=== PATIENT | female | born 1950 | race Caucasian/White ===

== ENCOUNTER → 2017-09-04 11:16 | Outpatient (CLI) | payer OTHER, SELFPAY ==
[2017-09-04 12:20] LABS: Anion Gap 6 (5-15); BUN 11 mg/dL (7-18); BUN/Creat Ratio 11.2 RATIO (10-20); Calcium,Total 9.4 mg/dL (8.5-10.1); Chloride 106 mmol/L (98-107); Creatinine, Serum 0.98 mg/dL (0.55-1.02); EST Glomerular Filtration Rate 61 mL/min (>60); Est Glom Filt Rate - Afr Amer 74 mL/min (>60); Glucose 97 mg/dL (74-106); Potassium 4.4 mmol/L (3.5-5.1); Sodium Level 141 mmol/L (136-145)
== END ==
PROVIDERS: Family Provider Internal Medicine; PCP Internal Medicine; Visit Provider Internal Medicine Cardiovascular Disease
DX: I44.7 Left bundle-branch block, unspecified (principal)
CPT/HCPCS: 36415; 80048; 83735

== ENCOUNTER 2017-09-12 09:54 | Outpatient (RCR) | payer OTHER, SELFPAY | END 2017-09-18 23:59 | LOC: NS 09:54 | PROVIDERS: Family Provider Internal Medicine; PCP Internal Medicine; Visit Provider Nurse Practitioner Family | DX: E66.9 Obesity, unspecified (principal); Z71.3 Dietary counseling and surveillance | CPT/HCPCS: 97802 ==

== ENCOUNTER 2017-10-17 10:00 | Outpatient (RCR) | payer OTHER, SELFPAY | END 2017-10-19 23:59 | LOC: NS 10:00 | PROVIDERS: Family Provider Internal Medicine; PCP Internal Medicine; Visit Provider Nurse Practitioner Family | DX: E66.9 Obesity, unspecified (principal); Z71.3 Dietary counseling and surveillance | CPT/HCPCS: 97803 ==

== ENCOUNTER → 2017-10-17 10:27 | Outpatient (CLI) | payer OTHER, SELFPAY ==
[2017-10-17 12:24] LABS: Hemoglobin A1c 5.9 % (4.2-6.3)
[2017-10-17 12:48] LABS: Anion Gap 9 (5-15); BUN 17 mg/dL (7-18); BUN/Creat Ratio 20.6 RATIO (10-20); Chloride 107 mmol/L (98-107); Cholesterol 134 mg/dL (200); Creatinine, Serum 0.83 mg/dL (0.55-1.02); EST Glomerular Filtration Rate 74 mL/min (>60); Est Glom Filt Rate - Afr Amer 89 mL/min (>60); Glucose 108 mg/dL (74-106); High Density Lipoprotein 45 mg/dL; Potassium 3.9 mmol/L (3.5-5.1); Sodium Level 143 mmol/L (136-145); Triglycerides 96 mg/dL; Very Low Density Lipoprotein 19 mg/dL (5-40)
== END ==
PROVIDERS: Family Provider Internal Medicine; PCP Internal Medicine; Visit Provider Internal Medicine
DX: E11.9 Type 2 diabetes mellitus without complications (principal); E78.5 Hyperlipidemia, unspecified; E87.6 Hypokalemia
CPT/HCPCS: 36415; 80048; 80061; 83036

== ENCOUNTER → 2017-12-06 08:35 | Outpatient (CLI) | payer MEDICARE, OTHER, SELFPAY ==
[2017-12-06 10:41] LABS: Anion Gap 10 (5-15); BUN 19 mg/dL (7-18); BUN/Creat Ratio 17.8 RATIO (10-20); Calcium,Total 9.8 mg/dL (8.5-10.1); Chloride 105 mmol/L (98-107); Creatinine, Serum 1.07 mg/dL (0.55-1.02); EST Glomerular Filtration Rate 55 mL/min (>60); Est Glom Filt Rate - Afr Amer 66 mL/min (>60); Glucose 118 mg/dL (74-106); Potassium 3.9 mmol/L (3.5-5.1); Sodium Level 142 mmol/L (136-145)
== END ==
PROVIDERS: Family Provider Internal Medicine; PCP Internal Medicine; Visit Provider Nurse Practitioner Family
DX: E87.6 Hypokalemia (principal)
CPT/HCPCS: 36415; 80048

== ENCOUNTER 2018-01-04 11:19 | Outpatient (RCR) | payer MEDICARE, OTHER, SELFPAY | END 2018-01-19 23:59 | LOC: DC 11:19 | PROVIDERS: Family Provider Internal Medicine; PCP Internal Medicine; Visit Provider Nurse Practitioner Family | DX: E11.9 Type 2 diabetes mellitus without complications (principal); E66.9 Obesity, unspecified; Z68.36 Body mass index [BMI] 36.0-36.9, adult; Z71.3 Dietary counseling and surveillance | CPT/HCPCS: G0108 ==

== ENCOUNTER → 2018-01-16 12:39 | Outpatient (CLI) | payer MEDICARE, OTHER, SELFPAY ==
[2018-01-16 14:25] LABS: Hemoglobin A1c 5.7 % (4.2-6.3)
[2018-01-16 17:50] LABS: Thyroid Stim Hormone (TSH) 2.82 uIU/mL (0.358-3.74)
== END ==
PROVIDERS: Family Provider Internal Medicine; PCP Internal Medicine; Visit Provider Nurse Practitioner Family
DX: E11.9 Type 2 diabetes mellitus without complications (principal); R63.5 Abnormal weight gain
CPT/HCPCS: 36415; 83036; 84443

== ENCOUNTER 2018-01-25 09:30 | Outpatient (RCR) | payer MEDICARE, OTHER, SELFPAY | END 2018-02-18 23:59 | LOC: DC 09:30 | PROVIDERS: Family Provider Internal Medicine; PCP Internal Medicine; Visit Provider Nurse Practitioner Family | DX: E11.9 Type 2 diabetes mellitus without complications (principal); E66.9 Obesity, unspecified; Z68.25 Body mass index [BMI] 25.0-25.9, adult; Z71.3 Dietary counseling and surveillance | CPT/HCPCS: 97802; G0109 ==

== ENCOUNTER → 2018-02-02 10:09 | Outpatient (CLI) | payer MEDICARE, OTHER, SELFPAY ==
[2018-02-02 10:12] LABS: Mucous, Urine 0 SEEN /hpf (<or=2+); White Blood Cells 0 SEEN /hpf (0-5)
[2018-02-02 10:26] LABS: Color, Urine Yellow (Yellow); Glucose, Dipstick Normal (Normal); Ketone-Dipstick Negative (Negative); Leukocyte Esterase-Dipstick Negative /ul (Negative); Nitrite-Dipstick Negative (Negative); Occult Blood-Urine 10 /ul (Negative); Protein-Dipstick Negative (Negative); Urine Bilirubin Dipstick Negative (Negative); Urine Clarity Sl. Cloudy (Clear); Urine Urobilinogen Normal (Normal)
[2018-02-02 10:33] LABS: Bacteria 1+ /hpf (None Seen); Red Blood Cells-Urine 0-5 SEEN /hpf (0-5); Squamous Epithelial Cells - UA 0-5 SEEN /hpf (5-10)
--- NOTE | 2018-02-02 14:43 | RAD_ITS ---
STUDY: X-RAY - ABDOMEN/PELVIS REASON FOR EXAM: Female, 67 years old. Pain in left lower quadrant TECHNIQUE: 2 views COMPARISON: None. FINDINGS: Normal visualized lung bases. There is an unremarkable bowel gas pattern. There is no demonstrated free abdominal air. The visualized liver, spleen and kidneys are grossly normal in size and morphology. Probable phleboliths in the pelvis. Normal soft tissue structures. Normal visualized osseous structures. RAD/Abdomen Single View IMPRESSION: No acute pathology of the abdomen and pelvis. Electronically Signed: Sherif Castellanos DO at 22:40 EDT Tel [phone], Service support ,
== END ==
PROVIDERS: Family Provider Nurse Practitioner Family; PCP Nurse Practitioner Family; Visit Provider Nurse Practitioner Family
DX: R10.32 Left lower quadrant pain (principal)
CPT/HCPCS: 74018; 81001

== ENCOUNTER 2018-02-22 08:41 | Outpatient (RCR) | payer MEDICARE, OTHER, SELFPAY | END 2018-03-21 23:59 | LOC: DC 08:41 | PROVIDERS: Family Provider Nurse Practitioner Family; PCP Nurse Practitioner Family; Visit Provider Nurse Practitioner Family | DX: E11.9 Type 2 diabetes mellitus without complications (principal); E66.9 Obesity, unspecified; Z68.25 Body mass index [BMI] 25.0-25.9, adult; Z71.3 Dietary counseling and surveillance | CPT/HCPCS: G0109 ==

== ENCOUNTER → 2018-03-26 13:43 | Outpatient (CLI) | payer MEDICARE, OTHER, SELFPAY ==
[2018-03-26 16:04] LABS: Anion Gap 8 (5-15); BUN 22 mg/dL (7-18); BUN/Creat Ratio 24.4 RATIO (10-20); Calcium,Total 9.1 mg/dL (8.5-10.1); Chloride 103 mmol/L (98-107); EST Glomerular Filtration Rate 67 mL/min (>60); Est Glom Filt Rate - Afr Amer 80 mL/min (>60); Glucose 87 mg/dL (74-106); Potassium 3.5 mmol/L (3.5-5.1); Sodium Level 139 mmol/L (136-145)
[2018-03-26 16:10] LABS: BNP,B-Type NATRIURETIC PEPTIDE 19.6 pg/mL (0-100)
[2018-03-26 16:17] LABS: Absolute Lymphocyte Count 2.33 X10^3/ul (0.83-4.51); Absolute Neutrophil Count 3.3 X10^3/uL (2.0-7.7); Basophil# 0.06 X10^3/uL; Basophil% 0.9 % (0-1); Eosinophil# 0.27 X10^3/uL; Eosinophils% 4.2 % (0-5); Hematocrit 39.5 % (37-47); Hemoglobin 12.8 g/dl (12.0-15.0); Lymphocyte # 2.33 X10^3/ul (4.0); Mean Corp Hgb Conc 32.4 g/gl (32-36); Mean Corpuscular Hgb 30.6 pg (27.0-32.0); Mean Corpuscular Volume 94.5 fL (81-99); Mean Platelet Vol. 10.4 fl (6.2-12.0); Monocyte% 7.7 % (0-10); Neutrophil # 3.29 X10^3/uL (2.7-7.7); Neutrophil % 50.9 % (47-70); Platelet Count 329 K/mm3 (150-450); RBC Distribution Width CV 12.7 % (11.6-14.6); Red Blood Count 4.18 M/mm3 (4.2-5.4); White Blood Count 6.5 K/mm3 (4.4-11.0)
[2018-03-26 16:21] LABS: POSITIVE COUNT NO; POSITIVE DIFFERENTIAL NO; POSITIVE MORPHOLOGY NO
== END ==
PROVIDERS: Family Provider Nurse Practitioner Family; PCP Nurse Practitioner Family; Referring Provider Nurse Practitioner Family; Visit Provider Nurse Practitioner Family
DX: R06.00 Dyspnea, unspecified (principal); R60.0 Localized edema
CPT/HCPCS: 36415; 80048; 83880; 85025

== ENCOUNTER 2018-03-28 10:01 | Outpatient (RCR) | payer MEDICARE, OTHER, SELFPAY | END 2018-04-20 23:59 | LOC: DC 10:01 | PROVIDERS: Family Provider Nurse Practitioner Family; PCP Nurse Practitioner Family; Visit Provider Nurse Practitioner Family | DX: E11.9 Type 2 diabetes mellitus without complications (principal); E66.9 Obesity, unspecified; Z68.25 Body mass index [BMI] 25.0-25.9, adult; Z71.3 Dietary counseling and surveillance | CPT/HCPCS: G0109 ==

== ENCOUNTER → 2018-03-30 14:02 | Outpatient (CLI) | payer MEDICARE, OTHER, SELFPAY ==
--- NOTE | 2018-03-30 14:04 | VDLE_ITS ---
Reason For Study: BLE SWELLING L > R RIGHT LEFT CFV is compressible, spontaneous, phasic, CFV is compressible, spontaneous, phasic, competent and demonstrates normal competent, and demonstrates normal augmentation. augmentation. FV is compressible, spontaneous, phasic, FV is compressible, spontaneous, phasic, competent and demonstrates normal competent and demonstrates normal augmentation. augmentation. POP V is compressible, spontaneous, phasic, POP V is compressible, spontaneous, phasic, competent and demonstrates normal competent and demonstrates normal augmentation. augmentation. T/P Trunk is compressible. T/P Trunk is compressible. PTV is compressible. PTV is compressible. RT PerV is compressible. LT PerV is compressible. SFJ is competent. SFJ is competent. GSV above knee is competent. GSV above knee is competent. GSV below knee is incompetent with diam 0.313 GSV below knee is incompetent with diam 0.414 x 0.324 cm. x 0.522 cm. SSV is incompetent with diam 0.379 x 0.386 SSV is incompetent with diam 0.604 x 0.687 cm. cm. Procedure Exam performed in department. NON-Vascular structure noted medial knee area The study was technically difficult. measuring 3.31 x 1.16 cm; also noted at The exam was diagnostic. anterior knee area measuring 3.5 x 1.8 cm. A preliminary report was called and/or faxed to Osiel Donnie YUEN @ [phone] @ 3:15 pm. <> Interpretation Summary Deep veins of the lower extremities are bilaterally patent and compressible segmentally. There is no evidence of deep vein thrombosis on either side. Valvular competence appears intact within the proximal deep venous systems bilaterally. The greater saphenous veins appear bilaterally patent and compressible segmentally. Sapheno-femoral junctions are bilaterally competent . The right greater saphenous vein appears competent above the knee. The right greater saphenous vein appears incompetent below the knee. The left greater saphenous vein appears competent above the knee. The left greater saphenous vein appears incompetent below the knee. Small saphenous veins are patent and incompetent bilaterally. A non-vascular, hypoechoic structure is noted near the left medial knee (3.31 cm x 1.16 cm) and the left anterior knee (3.5 cm x 1.8 cm). These may represent hematomas or seromas. Clinical correlation is advised. Ordering Physician: Osiel Fields Referring Physician: Osiel Fields Performed By: Yessi Cutler, SHA, RVT
== END ==
PROVIDERS: Family Provider Nurse Practitioner Family; PCP Nurse Practitioner Family; Referring Provider Nurse Practitioner Family; Visit Provider Nurse Practitioner Family
DX: R60.0 Localized edema (principal); R06.00 Dyspnea, unspecified
CPT/HCPCS: 93970

== ENCOUNTER 2018-04-25 15:27 | Outpatient (RCR) | payer MEDICARE, OTHER, SELFPAY ==
[2018-04-17 13:17] VITALS: BMI 37.9
== END 2018-05-16 23:59 ==
LOC: DC 15:27
PROVIDERS: Family Provider Nurse Practitioner Family; PCP Internal Medicine; Visit Provider Nurse Practitioner Family
DX: E11.9 Type 2 diabetes mellitus without complications (principal); E66.9 Obesity, unspecified; Z68.25 Body mass index [BMI] 25.0-25.9, adult; Z71.3 Dietary counseling and surveillance
CPT/HCPCS: 97803; G0109

== ENCOUNTER → 2018-05-08 09:41 | Outpatient (CLI) | payer MEDICARE, OTHER, SELFPAY ==
[2018-04-17 13:17] VITALS: BMI 37.9
--- NOTE | 2018-05-08 10:00 | MRI_ITS ---
STUDY: MRI LEFT KNEE REASON FOR EXAM: Female, 67 years old. Knee pain and swelling. Lateral meniscus tear. No surgery reported. TECHNIQUE: Standardized fat and water weighted pulse sequences were obtained in all 3 orthogonal planes. COMPARISON: None. FINDINGS: There is 1 cm tear of the medial meniscus, with truncation of the inner third of the posterior horn-body junction. There is diffuse, less than 50% thickness articular cartilage loss of the medial femorotibial compartment. Normal medial femoral condyle and tibial plateau. There is osteoarthrosis with moderate medial spurring. Normal medial collateral ligamentous complex (MCL). Normal distal semimembranosus, gracilis and semitendinosus tendons. There is moderate narrowing of the lateral compartment. There is a 2 cm tear of the lateral meniscus extending from the body to the posterior horn, with truncation of the inner third. If there is surgical history, this finding is also consistent with partial meniscectomy. There is lateral subluxation of the meniscal body. There is diffuse, greater than 50% thickness articular cartilage loss of the lateral femorotibial compartment. Normal lateral femoral condyle and tibial plateau. There is osteoarthrosis, with mild lateral spurring. Normal proximal tibiofibular articulation. Normal lateral collateral (fibular) ligament. Normal popliteus tendon. Normal biceps femoris tendon. Normal anterior cruciate ligament (ACL). Normal posterior cruciate ligament (PCL). Normal congruent patellofemoral articulation. There is diffuse, greater than 50% thickness articular cartilage loss of the patellofemoral compartment. Normal medial and lateral patellar retinaculum. Normal quadriceps tendon. Normal patellar tendon. Normal Hoffa's fat pad. There is a small joint effusion. There is a 7.2 x 3.1 x 1.9 cm popliteal cyst. The soft tissues are unremarkable. The otherwise visualized osseous structures are unremarkable. MRI/Lower Ext Joint Only (Routine) IMPRESSION: 1. Lateral meniscal tear. 2. Medial meniscal tear. 3. 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 4. Moderate osteoarthrosis of the lateral compartment. 5. Small joint effusion. 6. Popliteal cyst. Electronically Signed: Valarie Green MD at 20:47 EST Tel , Service support ,
--- OUTSIDE RECORDS SUMMARY | 2018-08-09 16:44 | XMS RPT_ITS ---
:1950 Author Organization OHIP Support Name Relationship Address Phone FIRST, DORIAN Unavailable Unavailable + KALAMARAS, KORIN Unavailable Unavailable + [place], [place] R Unavailable Unavailable Unavailable KALAMARAS, KORIN Unavailable Unavailable + [place] JOSELITO NABIL Unavailable [address] + [address] [place] [address] R Unavailable Unavailable Unavailable KALAMARAS, KORIN Unavailable [address] + [address] [place] [address] NABIL YEE Unavailable [address] + [address] [place] [address] R Unavailable Unavailable Unavailable KALAMARAS, KORIN Unavailable Unavailable + [place] JOSELITO NABIL Unavailable [address] + [address] [place] [address] R Unavailable Unavailable Unavailable FIRST, DORIAN Unavailable Unavailable + KALAMARAS, KORIN Unavailable Unavailable + [place] R Unavailable Unavailable Unavailable FIRST, DORIAN Unavailable . + ., . . R Unavailable Unavailable Unavailable NABIL YEE PRETTY Unavailable [address] + [address] [place] [address] R Unavailable Unavailable Unavailable NABIL YEE PRETTY Unavailable [address] + [address] [place] [address] R Unavailable Unavailable Unavailable KALAMARAS, KORIN Unavailable Unavailable + [place] JOSELITO NABIL Unavailable [address] + [address] [place] [address] R Unavailable Unavailable Unavailable FIRST, DORIAN Unavailable [address] + [address] [place] [address] NABIL YEE PRETTY Unavailable [address] + [address] [place] [address] R Unavailable Unavailable Unavailable FIRST, DORIAN Unavailable [address] + [address] [place] [address] NABIL YEE PRETTY Unavailable [address] + [address] [place] [address] R Unavailable Unavailable Unavailable FIRST, DORIAN Unavailable [address] + [address] [place] [address] NABIL YEE PRETTY Unavailable [address] + [address] [place] [address] R Unavailable Unavailable Unavailable FIRST, DORIAN Unavailable [address] + [address] [place] [address] NABIL YEE PRETTY Unavailable [address] + [address] [place] [address] R Unavailable Unavailable Unavailable FIRST, DORIAN Unavailable [address] + [address] [place] [address] NABIL YEE PRETTY Unavailable [address] + [address] [place] [address] R Unavailable Unavailable Unavailable FIRST, DORIAN Unavailable [address] + [address] [place] [address] NABIL YEE PRETTY Unavailable [address] + [address] [place] [address] R Unavailable Unavailable Unavailable FIRST, DORIAN Unavailable [address] + [address] [place] [address] NABIL YEE PRETTY Unavailable [address] + [address] [place] [address] R Unavailable Unavailable Unavailable FIRST, DORIAN Unavailable [address] + [address] [place] [address] NABIL YEE PRETTY Unavailable [address] + [address] [place] [address] R Unavailable Unavailable Unavailable FIRST, DORIAN Unavailable [address] + [address] [place] [address] YEE NABIL PRETTY Unavailable [address] + [address] [place] [address] R Unavailable Unavailable Unavailable FIRST, DORIAN Unavailable Unavailable + YEE NABIL PRETTY Unavailable [address] + [address] [place] [address] R Unavailable Unavailable Unavailable FIRST, DORIAN Unavailable Unavailable + [place] NABIL PRETTY Unavailable [address] + [address] [place] [address] R Unavailable Unavailable Unavailable FIRST, DORIAN Unavailable . + ., [place] . NABIL YEE PRETTY Unavailable [address] + [address] [place] [address] R Unavailable Unavailable Unavailable FIRST, DORIAN Unavailable . + ., [place] . NABIL YEE PRETTY Unavailable [address] + [address] [place] [address] R Unavailable Unavailable Unavailable FIRST, DORIAN Unavailable . + ., [place] . NABIL YEE PRETTY Unavailable [address] + [address] [place] [address] R Unavailable Unavailable Unavailable FIRST, DORIAN Unavailable . + ., [place] . NABIL YEE PRETTY Unavailable [address] + [address] [place] [address] R Unavailable Unavailable Unavailable FIRST, DORIAN Unavailable . + ., [place] . NABIL YEE PRETTY Unavailable [address] + [address] [place] [address] S Unavailable Unavailable Unavailable FIRST, DORIAN Unavailable [address] + [place], [place] . NABIL YEE PRETTY Unavailable [address] + [address] [place] [address] S Unavailable Unavailable Unavailable FIRST, DORIAN Unavailable [address] + [place], [place] NABIL YEE PRETTY Unavailable [address] + [address] [place] [address] S Unavailable Unavailable Unavailable FIRST, DORIAN Unavailable [address] + [place], [place] NABIL YEE PRETTY Unavailable [address] + [address] [place] [address] S Unavailable Unavailable Unavailable FIRST, DORIAN Unavailable [address] + [place], [place] . NABIL YEE PRETTY Unavailable [address] + [address] [place] [address] S Unavailable Unavailable Unavailable FIRST, DORIAN Unavailable [address] + [place], [place] . NABIL YEE Unavailable [address] + [address] [place] [address] S Unavailable Unavailable Unavailable FIRST, DORIAN Unavailable [address] + [place], [place] . NABIL YEE PRETTY Unavailable [address] + [address] [place] [address] S Unavailable Unavailable Unavailable FIRST, DORIAN Unavailable [address] Unavailable [place] NABIL YEE PRETTY Unavailable [address] + [address] [place] [address] S Unavailable Unavailable Unavailable S Unavailable Unavailable Unavailable S Unavailable Unavailable Unavailable S Unavailable Unavailable Unavailable S Unavailable Unavailable Unavailable S Unavailable Unavailable Unavailable Care Team Providers Name Role Phone ASHLEY ANDRADE Attending Unavailable ASHLEY ANDRADE Referring Unavailable Ashley Fields PHARMACOGNOSY TEACHER-C Primary Care Unavailable Oleghe, Efewongbe Consulting Unavailable Oleghe, Efewongbe Attending Unavailable Ashley Fields PHARMACOGNOSY TEACHER-C Referring Unavailable Ashley Fields PHARMACOGNOSY TEACHER-C Primary Care Unavailable Oleghe, Efewongbe Consulting Unavailable Oleghe, Efewongbe Attending Unavailable Oleghe, Efewongbe Referring Unavailable Oleghe, Efewongbe Attending Unavailable Oleghe, Efewongbe Referring Unavailable Oleghe, Efewongbe Primary Care Unavailable FieldsAshley PHARMACOGNOSY TEACHER-C Attending Unavailable Oleghe, Efewongbe Primary Care Unavailable Oleghe, Efewongbe Attending Unavailable Oleghe, Efewongbe Referring Unavailable Oleghe, Efewongbe Attending Unavailable Oleghe, Efewongbe Primary Care Unavailable Oleghe, Efewongbe Referring Unavailable Oleghe, Efewongbe Attending Unavailable Oleghe, Efewongbe Referring Unavailable FieldsAshley PHARMACOGNOSY TEACHER-C Attending Unavailable Oleghe, Efewongbe Referring Unavailable Oleghe, Efewongbe Primary Care Unavailable FieldsAshley PHARMACOGNOSY TEACHER-C Attending Unavailable Fields, Ashley PHARMACOGNOSY TEACHER-C Referring Unavailable Oleghe, Efewongbe Primary Care Unavailable Mary Cat Attending Unavailable Colton, Alonzo Attending Unavailable Oleghe, Efewongbe Referring Unavailable Oleghe, Efewongbe Primary Care Unavailable Colton, [place] Attending Unavailable Colton, Alonzo Referring Unavailable Oleghe, Efewongbe Primary Care Unavailable Jose Locke Attending Unavailable Oleghe, Efewongbe Referring Unavailable Oleghe, Efewongbe Attending Unavailable Oleghe, Efewongbe Referring Unavailable Oleghe, Efewongbe Primary Care Unavailable FieldsAshley PHARMACOGNOSY TEACHER-C Attending Unavailable FieldsAshley PHARMACOGNOSY TEACHER-C Referring Unavailable Oleghe, Efewongbe Primary Care Unavailable Colton, Alonzo Attending Unavailable Oleghe, Efewongbe Attending Unavailable Oleghe, Efewongbe Referring Unavailable Oleghe, Efewongbe Primary Care Unavailable FieldsAshley PHARMACOGNOSY TEACHER-C Attending Unavailable FieldsAshley PHARMACOGNOSY TEACHER-C Referring Unavailable Oleghe, Efewongbe Primary Care Unavailable FieldsAshley PHARMACOGNOSY TEACHER-C Attending Unavailable Oleghe, Efewongbe Referring Unavailable Oleghe, Efewongbe Primary Care Unavailable Fields, Ashley PHARMACOGNOSY TEACHER-C Attending Unavailable FieldsAshley PHARMACOGNOSY TEACHER-C Referring Unavailable Oleghe, Efewongbe Primary Care Unavailable FieldsAshley PHARMACOGNOSY TEACHER-C Attending Unavailable Oleghe, Efewongbe Primary Care Unavailable Oleghe, Efewongbe Attending Unavailable Oleghe, Efewongbe Referring Unavailable Fields, Ashley PHARMACOGNOSY TEACHER-C Attending Unavailable Oleghe, Efewongbe Referring Unavailable Oleghe, Efewongbe Primary Care Unavailable Fields, Ashley PHARMACOGNOSY TEACHER-C Attending Unavailable Fields, Ashley PHARMACOGNOSY TEACHER-C Referring Unavailable Oleghe, Efewongbe Primary Care Unavailable Fields, Ashley PHARMACOGNOSY TEACHER-C Attending Unavailable Oleghe, Efewongbe Primary Care Unavailable Fields, Ashley PHARMACOGNOSY TEACHER-C Attending Unavailable Oleghe, Efewongbe Referring Unavailable Oleghe, Efewongbe Primary Care Unavailable Fields, Ashley PHARMACOGNOSY TEACHER-C Attending Unavailable Fields, Ashley PHARMACOGNOSY TEACHER-C Referring Unavailable Fields, Ashley PHARMACOGNOSY TEACHER-C Primary Care Unavailable Nurse, Surgery Attending Unavailable Fields, Ashley PHARMACOGNOSY TEACHER-C Referring Unavailable Fields, Ashley PHARMACOGNOSY TEACHER-C Attending Unavailable Fields, Ashley PHARMACOGNOSY TEACHER-C Primary Care Unavailable Fields, Ashley PHARMACOGNOSY TEACHER-C Attending Unavailable Fields, Ashley PHARMACOGNOSY TEACHER-C Primary Care Unavailable Fields, Ashley PHARMACOGNOSY TEACHER-C Attending Unavailable Fields, Ashley PHARMACOGNOSY TEACHER-C Referring Unavailable Fields, Ashley PHARMACOGNOSY TEACHER-C Attending Unavailable Fields, Ashley PHARMACOGNOSY TEACHER-C Referring Unavailable Fields, Ashley PHARMACOGNOSY TEACHER-C Primary Care Unavailable Fields, Ashley PHARMACOGNOSY TEACHER-C Attending Unavailable Fields, Ashley PHARMACOGNOSY TEACHER-C Referring Unavailable Fields, Ashley PHARMACOGNOSY TEACHER-C Primary Care Unavailable Oleghe, Efewongbe Attending Unavailable Oleghe, Efewongbe Referring Unavailable Fields, Ashley PHARMACOGNOSY TEACHER-C Attending Unavailable Fields, Ashley PHARMACOGNOSY TEACHER-C Primary Care Unavailable LUPE, ASHLEY Attending Unavailable LUPE, ASLHEY Referring Unavailable Fields, Ashley PHARMACOGNOSY TEACHER-C Primary Care Unavailable MARKIE WADE Consulting Unavailable PROBLEMS PROBLEMS DATE TYPE CONDITION / CODE ATTENDING STATUS SOURCE 06/06/2018 Unknown M47.22 - Other LUPE, ASHLEY Active [place] spondylosis with Community radiculopathy, Hospital cervical region / Repository M47.22(ICD-10) 05/22/2018 Unknown E11.9 - Type 2 Fields, Ashley Active [place] diabetes mellitus PHARMACOGNOSY TEACHER-C Community without Hospital complications / Repository E11.9(ICD-10) 05/30/2018 Unknown R19.02 - Left upper Oleghe, Active [place] quadrant abdominal Efewongbe Community swelling, mass and Hospital lump / Repository R19.02(ICD-10) 06/05/2018 Unknown R06.02 - Shortness MoodispawJose Active [place] of breath / Community R06.02(ICD-10) Hospital Repository 03/26/2018 Unknown R06.00 - Dyspnea, Fields, Ashley Active [place] unspecified / PHARMACOGNOSY TEACHER-C Community R06.00(ICD-10) Hospital Repository 02/03/2018 Unknown R10.32 - Left lower Fields, Ashley Active [place] quadrant pain / PHARMACOGNOSY TEACHER-C Community R10.32(ICD-10) Hospital Repository 02/02/2018 Unknown Z23 - Encounter for Fields, Ashley Active [place] immunization / PHARMACOGNOSY TEACHER-C Community Z23(ICD-10) Hospital Repository 01/16/2018 Unknown R63.5 - Abnormal Fields, Ashley Active [place] weight gain / PHARMACOGNOSY TEACHER-C Community R63.5(ICD-10) Hospital Repository 01/16/2018 Unknown F41.8 - Other Fields, Ashley Active [place] specified anxiety PHARMACOGNOSY TEACHER-C Community disorders / Hospital F41.8(ICD-10) Repository 12/06/2017 Unknown E87.6 - Hypokalemia Fields, Ashley Active [place] / E87.6(ICD-10) PHARMACOGNOSY TEACHER-C Community Hospital Repository 11/28/2017 Unknown E66.9 - Obesity, Fields, Ashley Active [place] unspecified / PHARMACOGNOSY TEACHER-C Community E66.9(ICD-10) Hospital Repository 11/28/2017 Unknown I10 - Essential Fields, Ashley Active [place] (primary) PHARMACOGNOSY TEACHER-C Community hypertension / Hospital I10(ICD-10) Repository 11/28/2017 Unknown E78.5 - Fields, Ashley Active [place] Hyperlipidemia, PHARMACOGNOSY TEACHER-C Community unspecified / Hospital E78.5(ICD-10) Repository 11/28/2017 Unknown L91.8 - Other Fields, Ashley Active [place] hypertrophic PHARMACOGNOSY TEACHER-C Community disorders of the Hospital skin / Repository L91.8(ICD-10) 11/28/2017 Unknown G47.33 - Fields, Ashley Active [place] Obstructive sleep PHARMACOGNOSY TEACHER-C Community apnea (adult) Hospital (pediatric) / Repository G47.33(ICD-10) 11/28/2017 Unknown Z99.89 - [place]ependence Fields, Ashley Active [place] on other enabling PHARMACOGNOSY TEACHER-C Community machines and Hospital devices / Repository Z99.89(ICD-10) 08/29/2017 Unknown I44.7 - Left Colton, Alonzo Active [place] bundle-branch Community block, unspecified Hospital / I44.7(ICD-10) Repository PROCEDURES PROCEDURES No Procedure Records FoundRESULTS RESULTS INTERNAL MEDICINE Observed: 06/01/2018 Status: F Source: [place] OFFICE VISIT 1:40 PM [facility] [address] [place] [address] [place] [address] OFFICE VISIT Date of Service: 05/30/18 MR#: [id number] Acct: [id number] Name: JERMAINE YEE Rep #: [id number] : 1950 Provider: Jenifer Pool MD Age/Sex: 67/F Location: [facility] Status: Signed Intake Vital Signs05/30/18 Body Mass Index (BMI) 37.9 05/30/18 Height 5 ft 9 in 05/30/18 Weight: 262 lb 05/30/18 Body Mass Index (BMI) 38.7 05/30/18 Blood Pressure 121/77 H Intake Visit Reasons: nauseated, bp elevated Chief Complaint: nausea AND elevated BP Is patient in pain?: No Allergies dibucaine Allergy (Severe, Verified 05/30/18 16:16) Rash, itching Iodinated Contrast- Oral and IV Dye Allergy (Severe, Verified 05/30/18 16:16) RAsh, Itching wool Allergy (Verified 05/30/18 16:16) Rash NSAIDS (Non-Steroidal Anti-Inflamma Adverse Reaction (Severe, Verified 05/30/18 16:16) GI Bleeding adhesive tape Adverse Reaction (Intermediate, Verified 05/30/18 16:16) localized skin reaction acetaminophen [From Darvocet-N] Adverse Reaction (Verified 05/30/18 16:16) Vomiting codeine Adverse Reaction (Verified 05/30/18 16:16) Vomiting hydrocodone bitartrate [From Vicodin] Adverse Reaction (Verified 05/30/18 16:16) Vomiting morphine Adverse Reaction (Verified 05/30/18 16:16) Vomiting propoxyphene napsylate [From Darvocet-N] Adverse Reaction (Verified 05/30/18 16:16) Vomiting Medications aspirin 81 mg tablet,delayed release 81 mg PO QDAY 04/24/17 [History Confirmed 05/30/18] fluticasone 50 mcg/actuation nasal spray,suspension 2 spray INTRANASAL DAILY PRN #15.8 g 07/21/17 [Rx Confirmed 05/30/18] cyclobenzaprine 10 mg tablet 10 mg PO TID PRN #30 tab 08/04/17 [Rx Confirmed 05/30/18] metoprolol succinate ER 25 mg tablet,extended release 24 hr 25 mg PO DAILY #90 tab 08/29/17 [Rx Confirmed 05/30/18] hydrocortisone 2.5 % topical ointment 1 applic TOPICAL BID #28.35 g 03/21/18 [Rx Confirmed 05/30/18] compression stocking,knee high,regular,large circumfer. See Dose Instructions .ROUTE .MEDSUPPLY #2 ea 03/23/18 [Rx Confirmed 05/30/18] bupropion HCl XL 150 mg 24 hr tablet, extended release 150 mg PO QAM #30 tab 04/17/18 [Rx Confirmed 05/30/18] melatonin 10 mg capsule 10 mg PO HS PRN 04/17/18 [History Confirmed 05/30/18] potassium chloride ER 10 mEq tablet,extended release 10 meq PO .QOD tab 05/11/18 [History Confirmed 05/30/18] rosuvastatin 10 mg tablet 10 mg PO DAILY #60 tab 05/17/18 [Rx Confirmed 05/30/18] spironolactone 25 mg-hydrochlorothiazide 25 mg tablet 1 tab PO DAILY #90 tab 05/17/18 [Rx Confirmed 05/30/18] omeprazole 40 mg capsule,delayed release 40 mg PO DAILY #60 cap 05/30/18 [Rx Confirmed 05/30/18] [facility] Medical History LBBB (left bundle branch block) (Chronic) Ventricular premature depolarization (Acute) Type 2 diabetes mellitus (Chronic) Pulmonary hypertension (Chronic) Hypokalemia (Acute) Hypomagnesemia (Acute) Hypertension (Chronic) Hyperlipidemia (Chronic) Paroxysmal atrial fibrillation (Chronic) COPD (chronic obstructive pulmonary disease) (Chronic) Obesity (Chronic) Depression (Acute) Palpitations (Acute) Rectal bleeding (Acute) Asthma (Chronic) Fibromyalgia (Chronic) LIAM (obstructive sleep apnea) (Chronic) Pulmonary nodule (Chronic) Raynauds disease (Chronic) Umbilical hernia (Chronic) Surgical History History of torn meniscus of left knee (Acute) History of hemorrhoidectomy (Chronic) History of knee replacement procedure of right knee (Resolved 2014) History of total hysterectomy (Resolved) S/P cervical spinal fusion (Resolved 2016) Family History Father Atrial fibrillation Uncle Atrial fibrillation Social History Smoking Status: Never smoker second hand exposure: No alcohol intake: never substance use type: does not use what type of physical activity do you participate in: none seatbelt use: always HPI HPI Chief Complaint: nausea AND elevated BP Details: JERMAINE YEE, is a 67 F who presents to the office today due to concerns for upper abdominal pain and nausea which has been ongoing for some weeks. She denies vomiting or any change in bowel habit. She denies any known history of reflux. She also reports concerns about her blood pressure. She appears to have very good readings. Blood pressure taken twice in office is optimal. He also notes a left-sided abdominal flank fullness which is been progressively worsening. She is also noted some pain lately. She denies any weight changes. ROS Const Constitutional: No chills, fatigue, fever(s), frequent falls, malaise, weakness, sleep problems or change in appetite Eyes Eyes: No blurry vision, change in vision, double vision, discharge or visual disturbances ENT ENT: No abnormal hearing, ear pain, ear pressure, tinnitus or dizziness/vertigo Resp Respiratory: No cough, shortness of breath or wheezing Cardio Cardiology: No chest pain at rest, chest pain with exertion, shortness of breath, dyspnea on exertion, irregular heart rhythm, lightheadedness, orthopnea, fast heart rate or palpitations Gastro GI: Positive for nausea/dyspepsia; no abdominal pain, change in bowel habits, constipation, diarrhea or vomiting Genitourinary-Female: No difficulty urinating, burning urination, painful urination, urinary incontinence, urinary frequency, urinary urgency, urinary hesitancy, urinary retention, Frequent nighttime urination/ nocturia, sexual problems, genital lesions, abnormal vaginal bleeding, pelvic pain, vaginal dryness, vaginal odor or Vaginal Itching Musc Musculoskeletal: No joint pain, back pain, joint swelling, limited range of motion, numbness or tingling Skin Skin: No change in skin color, itching, rash or wounds Breast Breast: No breast lump or breast pain Neuro Neurology: No frequent falls, weakness, visual disturbances, abnormal hearing, numbness, tingling, unsteady gait/balance, dizziness, loss of vision or memory loss Psych Psychiatric: No change in appetite, No memory loss, No anxiety, No depression, No Thoughts of harming yourself/Others Endo Endocrine: No fatigue, heat intolerance, increased thirst/drinking, increased hunger or increased urination Aller/Imm Allergy/Immunologic: No wheezing, itchy eyes or seasonal allergy symptoms Brenden/Lymp Hematologic/Lymphatic: No easy bleeding, easy bruising or enlarged lymph nodes Exam Const General: cooperative, no acute distress, well developed Orientation: alert, awake [facility] Head: atraumatic, normocephalic, normal to inspection Ears: hearing grossly normal bilaterally Resp Effort AND Inspection: normal respiratory effort, able to speak in complete sentences Auscultation: Bilateral: Clear to Auscultation Cardio Rate: regular rate Rhythm: regular rhythm Heart Sounds: S1 normal, S2 normal GI Inspection: obesity Palpation: soft, no hepatosplenomegaly Other: Bilateral flank fullness however, more so on the left. Large firm mass noted on the left flank. Neuro General: alert, awake, oriented x3, moves all extremities, CN's II-XI intact bilaterally Psych Appearance: grossly normal Mental Status: mental status grossly normal Affect: normal affect Assessment AND Plan 1. Nausea R11.0 Plan She reports nausea/dyspepsia with upper abdominal pain. Possibly GERD related. Will try omeprazole 40 mg every morning. Advised to call in any concerning symptoms otherwise, follow- up in a month. 2. Essential hypertension I10 Plan Blood pressure appears stable. Checked both manually and with the machine. Advised to bring her blood pressure machine at her next visit. Continue current medication. 3. LLQ abdominal mass R19.04 Plan She reports progressively worsening bilateral flank fullness however worse on the left which is now tender. Obvious fullness/mass noted on examination. Abdominal pelvic CT scan ordered. Will follow. This note was generated with orderbolt dictation software. It may contain incorrect words, spelling, and punctuation that were not noted in checking the note before signing. Plan Detail Other Orders Orders: Other Medications New: Coding Level of Care Code Off vis,est,level 4 Diagnoses Nausea R11.0 Essential hypertension I10 Hypertension type: essential hypertension LLQ abdominal mass R19.04 06/01/18 1340 <Electronically signed by Jenifer Pool MD> Date Jenifer Pool MD Cosigner Signature: Date (if applicable) CC: ECHO, COMPLETE W/ Observed: 05/17/2018 Status: F Source: [place] CONTRAST 5:07 PM [facility] REPOSITORY [facility] Cardiovascular Services [address] [place] [address] Echo Complete W/ Contrast 05/17/18 1410 MR#: [id number] Acct: [id number] Name: JERMAINE YEE Rep #: [id number] : 1950 67 From: Jose Locke MD Attending Dr: Jenifer Pool MD Status: REG CLI Ordering Dr: Jenifer Pool MD Date: 05/17/18 Location: [facility] Sex: F C Admitted: Reason For Study: Dyspnea/SOB Procedure This was a 2D Doppler, Color Flow transthoracic echocardiogram. The study was technically difficult. Contrast injection was performed. Exam performed in department. Left Ventricle Normal LV size. Left ventricular systolic function is normal. The estimated ejection fraction is 60 %. Septal motion consistent with IVCD. No evidence for diastolic dysfunction. No regional wall motion abnormalities noted. Right Ventricle Normal RV size. Normal systolic function. Atria The left atrium is mildly enlarged. Normal right atrium. No doppler evidence for ASD. Mitral Valve There is no mitral annular calcification. Normal mitral valve. Mild (1+) mitral valve insufficiency. Tricuspid Valve The tricuspid valve is not well visualized. Mild to moderate (1-2+) tricuspid valve insufficiency. Right ventricular systolic pressure estimated to be 32 mmHg. Aortic Valve Trisinus/trileaflet aortic valve. Normal aortic valve. Pulmonic Valve The pulmonic valve is not well visualized. Trivial pulmonic valve insufficiency. Great Vessels Normal sized aortic root. Pericardium/Pleural No pericardial effusion. Medication 22 gauge I.V. with prn adaptor inserted into right arm. Diluted definity 4ml given slow IV push to enhance endocardial definition. MMode/2D Measurements AND Calculations LVIDd: 5.0 cm IVSd: 0.68 cm Ao root diam: 3.3 cm LVIDs: 3.4 cm LVPWd: 1.2 cm FS: 31.3 % LAV(MOD-bp): 68.1 ml LA A4 area: 21.8 cm2 RA A4 area: 18.6 cm2 LAV(MOD-bp) Indexed: 29.2 ml/m2 LAV(MOD-sp2): 66.6 ml LAV(MOD-sp4): 66.1 ml Time Measurements MV dec time: 0.23 sec Doppler Measurements AND Calculations MV E max arnav: 57.1 cm/sec Lat Peak E' Arnav: 8.5 cm/sec Med Peak E' Arnav: 4.3 cm/sec MV A max arnav: 92.2 cm/sec E/E' lat: 6.8 E/E' med: 13.4 MV E/A: 0.62 MV V2 max: 110.7 cm/sec MV P1/2t max arnav: 64.5 cm/sec Ao V2 max: 154.2 cm/sec MV max P.9 mmHg MV P1/2t: 92.2 msec Ao max P.5 mmHg MV V2 mean: 55.2 cm/sec MV dec slope: 204.9 cm/sec2 MV mean P.4 mmHg MV V2 VTI: 22.6 cm MVA(P1/2t): 2.4 cm2 LV V1 max: 101.9 cm/sec PA V2 max: 116.5 cm/sec TR max ranav: 244.1 cm/sec LV V1 max P.2 mmHg TR max P.8 mmHg Interpretation Summary The study was technically difficult. Contrast injection was performed. Left ventricular systolic function is normal. The estimated ejection fraction is 60 %. Septal motion consistent with IVCD. The left atrium is mildly enlarged. Mild (1+) mitral valve insufficiency. Mild to moderate (1-2+) tricuspid valve insufficiency. Trivial pulmonic valve insufficiency. Right ventricular systolic pressure estimated to be 32 mmHg. No evidence for diastolic dysfunction. Ordering Physician: Jenifer Pool Referring Physician: Jenifer Pool Performed By: Kerwin Chapin [facility] 05/17/181706 Date Jose Locke MD CC: Jenifer Pool MD Date Dictated: 05/17/18 1410 Date Transcribed: 05/17/181706 Story Writer: Signed CBC W/DIFF, AUTOMATED Collected: 05/17/2018 Status: F Source: [place] 11:20 AM [facility] REPOSITORY TYPE CODE TESTS RESULT OUT OF RANGE REFERENCE UNITS LAB L100.1000 4.4-11.0 K/mm3 Normal WBC 6.5 LAB L100.1200 4.2-5.4 M/mm3 Normal RBC 4.68 LAB L100.1300 12.0-15.0 g/dl Normal HGB 14.4 LAB L100.1400 37-47 % Normal HCT 43.9 LAB L100.1500 81-99 fL Normal MCV 93.8 LAB L100.1600 27.0-32.0 pg Normal MCH 30.8 LAB L100.1700 32-36 g/gl Normal MCHC 32.8 LAB L100.1810 11.6-14.6 % Normal RDW CV 13.1 LAB L100.1820 35.1-43.9 fl High RDW SD 44.6 LAB L100.1900 150-450 K/mm3 Normal PLT 324 LAB L100.2000 6.2-12.0 fl Normal MPV 9.8 LAB L100.2100 47-70 % Normal NEUT% 53.5 LAB L100.2200 19-41 % Normal LY% 36.4 LAB L100.2300 0-10 % Normal MONO% 6.2 LAB L100.2400 0-5 % Normal EO% 3.1 LAB L100.2500 0-1 % Normal BASO% 0.5 LAB L100.2550 0.0-0.9 % Normal IM GRAN % 0.300 Result Comment: IG% - Immature Granulocytes (promyelocytes, myelocytes and metamyelocytes) > 1% indicates that a LEFT SHIFT is Present. LAB L100.2620 2.0-7.7 X10 3/uL Normal Absolute Neut 3.5 LAB L100.2720 0.83-4.51 X10 3/ul Normal Absolute Lymph 2.35 Performed By: #### L100.0100 #### [facility] [address] [place], [place], [address] BASIC METABOLIC Collected: 05/17/2018 Status: F Source: [place] PROFILE ([facility]) 11:20 AM [facility] REPOSITORY TYPE CODE TESTS RESULT OUT OF RANGE REFERENCE UNITS LAB L501.0100 74-106 mg/dL High GLU 118 Result Comment: Fasting Glucose result from 100 to 125 mg/dL suggests IMPAIRED HOMEOSTASIS per A.D.A. criteria. Please note revised GLUCOSE reference range effective 2017. LAB L501.1000 7-18 mg/dL Normal BUN 14 LAB L501.1100 0.55-1.02 mg/dL Normal CREAT,SERUM 1.02 Result Comment: The validity of the calculated GFR AND GFRAA in patients over 70 years has not been determined. Clinical correlation is essential. LAB L501.1110 >60 mL/min Low EST GFR 58 Result Comment: Non- GFR Calc LAB L501.1115 >60 mL/min Normal EST GFR - AA 70 Result Comment: GFR Calc LAB L501.1300 10-20 RATIO Normal BUN/CRE 13.7 LAB L501.2200 8.5-10.1 mg/dL CA Normal 9.4 LAB L501.5300 136-145 mmol/L NA Normal 141 LAB L501.5600 3.5-5.1 mmol/L K Normal 4.0 LAB L501.5900 98-107 mmol/L CL Normal 102 LAB L501.6100 21.0-32.0 mmol/L Normal CO2 30.0 LAB L501.6200 5-15 Normal GAP 9 Performed By: #### L500.2500, L500.4100 #### [facility] [address] [place], [address] LIPID PROFILE Collected: 05/17/2018 Status: F Source: [place] 11:20 AM [facility] REPOSITORY TYPE CODE TESTS RESULT OUT OF RANGE REFERENCE UNITS LAB L501.4900 200 mg/dL High CHOL 218 Result Comment: <200 mg/dL Desirable 200-240 mg/dL Borderline >240 mg/dL High Risk LAB L501.5000 mg/dL High TRIG 250 Result Comment: The drugs N-Acetylcysteine and Metamizole may falsely depress this assay. Serum Triglycerides Reference Interval Normal <150 mg/dL Borderline high 150 - 199 mg/dL High 200 - 499 mg/dL Very High > or = 500 mg/dL LAB L501.6400 mg/dL Normal HDL 43 Result Comment: The drugs N-Acetylcysteine and Metamizole may falsely depress this assay. Reference Range HDL <40 mg/dL Low HDL Cholesterol HDL >or= 60 mg/dL High HDL Cholesterol LAB L501.6500 0-130 mg/dL Normal LDL 125 LAB L501.6600 5-40 mg/dL High VLDL 50 Performed By: #### L500.2500, L500.4100 #### [facility] [address] [place], [address] INTERNAL MEDICINE Observed: 05/14/2018 Status: F Source: [place] OFFICE VISIT 8:30 AM [facility] REPOSITORY [facility] [address] [place] [address] [place] [address] OFFICE VISIT Date of Service: 05/11/18 MR#: [id number] Acct: [id number] Name: JERMAINE YEE Rep #: [id number] : 1950 Provider: Jenifer Pool MD Age/Sex: 67/F Location: [facility] Status: Signed Intake Vital Signs05/11/18 Body Mass Index (BMI) 37.9 05/11/18 Height 5 ft 9 in 05/11/18 Weight: 262 lb 05/11/18 Body Mass Index (BMI) 38.7 05/11/18 Blood Pressure 138/87 H 05/11/18 Blood Pressure Location Lt brachial Intake Visit Reasons: 1 mo fu Chief Complaint: 1 month f/u Is patient in pain?: Yes (Left knee) Pain scale (1-10): 8 Allergies dibucaine Allergy (Severe, Verified 05/11/18 14:34) Rash, itching Iodinated Contrast- Oral and IV Dye Allergy (Severe, Verified 05/11/18 14:34) RAsh, Itching wool Allergy (Verified 05/11/18 14:34) Rash NSAIDS (Non-Steroidal Anti-Inflamma Adverse Reaction (Severe, Verified 05/11/18 14:34) GI Bleeding adhesive tape Adverse Reaction (Intermediate, Verified 05/11/18 14:34) localized skin reaction acetaminophen [From Darvocet-N] Adverse Reaction (Verified 05/11/18 14:34) Vomiting codeine Adverse Reaction (Verified 05/11/18 14:34) Vomiting hydrocodone bitartrate [From Vicodin] Adverse Reaction (Verified 05/11/18 14:34) Vomiting morphine Adverse Reaction (Verified 05/11/18 14:34) Vomiting propoxyphene napsylate [From Darvocet-N] Adverse Reaction (Verified 05/11/18 14:34) Vomiting Medications aspirin 81 mg tablet,delayed release 81 mg PO QDAY 04/24/17 [History Confirmed 05/11/18] fluticasone 50 mcg/actuation nasal spray,suspension 2 spray INTRANASAL DAILY PRN #15.8 g 07/21/17 [Rx Confirmed 05/11/18] spironolactone 25 mg-hydrochlorothiazide 25 mg tablet 1 tab PO DAILY #90 tab 07/21/17 [Rx Confirmed 05/11/18] cyclobenzaprine 10 mg tablet 10 mg PO TID PRN #30 tab 08/04/17 [Rx Confirmed 05/11/18] metoprolol succinate ER 25 mg tablet,extended release 24 hr 25 mg PO DAILY #90 tab 08/29/17 [Rx Confirmed 05/11/18] hydrocortisone 2.5 % topical ointment 1 applic TOPICAL BID #28.35 g 03/21/18 [Rx Confirmed 05/11/18] compression stocking,knee high,regular,large circumfer. See Dose Instructions .ROUTE .MEDSUPPLY #2 ea 03/23/18 [Rx Confirmed 05/11/18] bupropion HCl XL 150 mg 24 hr tablet, extended release 150 mg PO QAM #30 tab 04/17/18 [Rx Confirmed 05/11/18] melatonin 10 mg capsule 10 mg PO HS PRN 04/17/18 [History Confirmed 05/11/18] buspirone 10 mg tablet 10 mg PO BID #60 tab 05/11/18 [Rx Confirmed 05/11/18] potassium chloride ER 10 mEq tablet,extended release 10 meq PO .QOD tab 05/11/18 [History] [facility] Medical History LBBB (left bundle branch block) (Chronic) Ventricular premature depolarization (Acute) Type 2 diabetes mellitus (Chronic) Pulmonary hypertension (Chronic) Hypokalemia (Acute) Hypomagnesemia (Acute) Hypertension (Chronic) Hyperlipidemia (Chronic) Paroxysmal atrial fibrillation (Chronic) COPD (chronic obstructive pulmonary disease) (Chronic) Obesity (Chronic) Depression (Acute) Palpitations (Acute) Rectal bleeding (Acute) Asthma (Chronic) Fibromyalgia (Chronic) LIAM (obstructive sleep apnea) (Chronic) Pulmonary nodule (Chronic) Raynauds disease (Chronic) Umbilical hernia (Chronic) Surgical History History of torn meniscus of left knee (Acute) History of hemorrhoidectomy (Chronic) History of knee replacement procedure of right knee (Resolved 2014) History of total hysterectomy (Resolved) S/P cervical spinal fusion (Resolved 2016) Family History Father Atrial fibrillation Uncle Atrial fibrillation Social History Smoking Status: Never smoker second hand exposure: No alcohol intake: never substance use type: does not use what type of physical activity do you participate in: none seatbelt use: always HPI HPI Chief Complaint: 1 month f/u Details: JERMAINE YEE, is a 67yo F who presents to the office today for follow-up. She was seen about a month ago and started on Wellbutrin in buspirone for management of anxiety and depression. She has been stable has had no problems with the medications. Still some anxiety. However concerned about progressively worsening shortness of breath said to be with activity. She denies any known precipitating aggravating or relieving factors. No significant lower extremity swelling. No known history of congestive heart failure. ROS Const Constitutional: No chills, fatigue, fever(s), frequent falls, malaise, weakness, sleep problems or change in appetite Eyes Eyes: No blurry vision, change in vision, double vision, discharge or visual disturbances ENT ENT: No abnormal hearing, ear pain, ear pressure, tinnitus or dizziness/vertigo Resp Respiratory: No cough, shortness of breath or wheezing Cardio Cardiology: No chest pain at rest, chest pain with exertion, shortness of breath, dyspnea on exertion, generalized swelling, irregular heart rhythm, lightheadedness, orthopnea, fast heart rate or palpitations Gastro GI: No abdominal pain, change in bowel habits, constipation, diarrhea, nausea/dyspepsia or vomiting Genitourinary-Female: No difficulty urinating, burning urination, painful urination, urinary incontinence, urinary frequency, urinary urgency, urinary hesitancy, urinary retention, Frequent nighttime urination/ nocturia, sexual problems, genital lesions, abnormal vaginal bleeding, pelvic pain, vaginal dryness, vaginal odor or Vaginal Itching Musc Musculoskeletal: No back pain, joint swelling, limited range of motion or numbness Skin Skin: No change in skin color, itching, rash or wounds Breast Breast: No breast lump or breast pain Neuro Neurology: No frequent falls, weakness, visual disturbances, abnormal hearing, numbness, unsteady gait/balance, dizziness, loss of vision or memory loss Psych Psychiatric: No change in appetite, No memory loss, No anxiety, No depression, No Thoughts of harming yourself/Others Endo Endocrine: No fatigue, heat intolerance, increased thirst/drinking, increased hunger or increased urination Aller/Imm Allergy/Immunologic: No wheezing, itchy eyes or seasonal allergy symptoms Brenden/Lymp Hematologic/Lymphatic: No easy bleeding, easy bruising or enlarged lymph nodes Exam Const General: cooperative, no acute distress, well developed Orientation: alert, awake HENMT Head: atraumatic, normocephalic, normal to inspection Ears: hearing grossly normal bilaterally Resp Effort AND Inspection: normal respiratory effort, able to speak in complete sentences Auscultation: Bilateral: Clear to Auscultation Cardio Rate: regular rate Rhythm: regular rhythm Heart Sounds: S1 normal, S2 normal GI Inspection: obesity Palpation: soft, no hepatosplenomegaly Neuro General: alert, awake, oriented x3, moves all extremities, CN's II-XI intact bilaterally Psych Appearance: grossly normal Mental Status: mental status grossly normal Affect: normal affect Assessment AND Plan 1. Depression with anxiety F41.8 Plan Appears to be doing okay depression gordon on Wellbutrin. No intolerable side effects of the medication. However has noted some episodes of heightened anxiety. Currently on buspirone. Increase to 10 mg twice daily. Continue Wellbutrin at current dose. Follow-up in 6 weeks. 2. Shortness of breath R06.02 Plan With activity. Progressively worsening per patient. Denies orthopnea. Lower extremity edema. 2D echo and CBC ordered. Follow-up with results. Orders Orders: 3. Hyperlipidemia, unspecified hyperlipidemia type E78.5 Plan Had been on simvastatin however patient discontinued. Lipid profile ordered. Lifestyle and dietary modifications. This note was generated with orderbolt dictation software. It may contain incorrect words, spelling, and punctuation that were not noted in checking the note before signing. Plan Detail Other Medications Changed: Coding Level of Care Code Off vis,est,level 4 Diagnoses Depression with anxiety F41.8 Shortness of breath R06.02 Hyperlipidemia, unspecified hyperlipidemia type E78.5 Hyperlipidemia type: unspecified 05/14/18 0830 <Electronically signed by Jenifer Pool MD> Date Jenifer Pool MD Cosigner Signature: Date (if applicable) CC: SCREENING MAMM (CAD), Observed: 05/10/2018 Status: F Source: [place] BIL 3:54 PM [facility] REPOSITORY [facility] Imaging Services [address] [place] [id number] SCREENING MAMM (CAD), BILAT MR#: [id number] Acct: [id number] Name: JERMAINE YEE Rep #: [id number] : 1950 F 67 From: Kyrie Dumas MD PCP: Donnie YUEN,Ashley Status: REG CLI Study: SCREENING MAMM (CAD), BILAT Date of Exam: 05/10/18 Exam# [id number] Ordering Dr: Jenifer Pool MD MAMMOGRAPHY - BILATERAL SCREENING REASON FOR EXAM: Female, 67 years old. Routine annual screening examination. PERTINENT HISTORY: Mother with breast cancer. Grandmother's with breast cancer. Aunts with breast cancer. TECHNIQUE: Digital bilateral breast star (3D mammographic acquisition) in the CC and MLO projections. 2-D mediolateral oblique (MLO) and craniocaudad (CC) views of both breasts were obtained. CAD: Full Field Digital Mammography with Computer Added Detection was performed. COMPARISON: Comparison is made with prior study dated April 03, 2017 and December 13, 2010. FINDINGS: Breast Composition: The breasts are heterogeneously dense, which may obscure small masses. There are no dominant masses or suspicious calcifications. Stable 1.1 cm x 0.6 cm nodular density in the anterior upper lateral portion of the left breast with a fatty hilum. This is suggestive of a small lymph node. Stable bilateral axillary lymph nodes. No other significant abnormalities are identified. There has been no significant change since the prior study. BI/SCREENING MAMM (CAD), BILAT IMPRESSION: Stable bilateral screening mammogram. Yearly follow-up mammogram recommended. (A) ASSESSMENT CATEGORY: BIRADS Category 2: Benign. A letter regarding these results will be sent to the patient by the facility within 30 days. Approximately 10% of breast cancers are not detected by mammography. A normal mammogram should not delay biopsy of a clinically suspicious abnormality. [id number] Electronically Signed: Kyrie Dumas MD at 8:35 EST Tel [phone], Service support , CC: Jenifer Pool MD; Ashley Fields NP Story Writer: Signed INITIAL EVALUATION (2) Observed: 05/09/2018 Status: F Source: [place] - [place] 10:39 AM [facility] REPOSITORY [facility] [address] [place] [address]. [address] [place] [address] Fax REHABILITATION SERVICES INITIAL EVALUATION MR#: [id number] Acct: [id number] Name: JERMAINE YEE Rep #: [id number] : 1950 67 From: Seun Gaffney PT, ATC Referring DrNadia: ASHLEY ANDRADE Status: REG RCR Insurance: MEDICARE PART A B [facility] Patient's Visit Information JERMAINE YEE is a 67 year old F referred to Physical Therapy by Ashley Andrade MD with a diagnosis of L knee menisectomy. Date of Evaluation: 05/09/18 Physical Therapist: Seun Gaffney PT, ATC - Visit Plan Frequency: 2-3x /Week Duration: 4-6 Weeks Plan: L knee stretching and strengthening, balance and proprio, core stab ex's, nustep, and HEP - Subjective Findings: DOS: 02/28/18. Pt had a partial medial menisectomy performed on her L knee. Pt reports she had pain for a while and finally went to the doctor. Pt reports she had an MRI prior to surgery which revealed a torn meniscus. Pt reports her knee is still swollen and sore and has not improved since the DOS. Pt reports she just had another MRI yesterday because of her knee not progressing. Pt reports she is functionally limited with stair negotiation and prolonged ambulation secondary to pain. No L LE tingling or numbness at this time. Pt reports sleep difficulty at this time secondary to pain. 0/10 pain at rest, 10/10 pain at worst - Pain L knee Intensity: 0 Pain Intensity Range: 10 - Objective Objective: Neuro: B LE sensation is WNL to light touch. Palpation: Crepitus with AROM in L knee. Mild swelling present in L knee. No obvious signs of infection. Girth at joint line: L knee 48 cm, R knee 46 cm. ROM: R knee 0-5-115, L knee 0-7-110. MMT: R knee 5/5 throughout. L knee flexion 5/5, L knee extension= 4-/5. Gait: Pt ambulates with a limp of her L LE - Goals Goal 1:: Decrease L knee pain x 50% to aid with sleep Goal Time Frame: 4-6 Weeks Goal 2:: Increase L knee ROM x 10 degrees to aid with restoring a more normal gait pattern Goal Time Frame: 4-6 Weeks Goal 3:: Increase L knee strength x 1 grade to aid with RTW without limitation Goal Time Frame: 4-6 Weeks Goal 4:: I with HEP Goal Time Frame: 4-6 Weeks - Rehabilitation Potential Physical Therapy Diagnosis: L knee pain, weakness, and limited ROM secondary to L knee menisectomy Rehabilitation Potential: Good - Anticipated Interventions Patient/Client Instruction: Educate patient on: Condition, Plan of Care For the Purpose of:: To improve self management Therapeutic Exercise to Include: Strength training, Endurance training, Balance training, Flexibilty training, Gait and locomotor training, Active ROM, Dynamic Lumbar Stabilization For the Purpose of:: To decrease pain, To increase ROM, To improve muscle performance and motor function Cryotherapy (ice pack, ice massage): Yes For the Purpose of:: To decrease pain Thank you for the opportunity to evaluate your patient. For Medicare and Medicare HMO plans, please review the plan of care and approve it. It will need to be FAXED BACK to us at [phone] for Medicare purposes. For Medicare only, by signing this I certify the plan of care. Please let me know if there are questions or concerns regarding this plan of care. Physician Signature: Date: <Electronically signed by Seun Gaffney PT, ATC> 05/09/18 1039 CC: Jenifer Pool MD; ASHLEY ANDRADE [facility] Signed INITAL EVALUATION (1) Observed: 05/09/2018 Status: F Source: [place] - PT 9:43 AM [facility] REPOSITORY [facility] [address] [place] [address] Rd. [address] [place] [address] Fax REHABILITATION SERVICES INITIAL EVALUATION MR#: [id number] Acct: [id number] Name: JERMAINE YEE Rep #: [id number] : 1950 67 From: Seun Gaffney PT, ATC Referring Dr.: ASHLEY ANDRADE Status: REG RCR Insurance: MEDICARE PART A B [facility] Patient's Visit Information JERMAINE YEE is a 67 year old F referred to Physical Therapy by Ashley Andrade MD with a diagnosis of C/S pain. Date of Evaluation: 05/09/18 Physical Therapist: Seun Gaffney PT, ATC - Visit Plan Frequency: 2-3x /Week Duration: 4 Weeks Plan: C/S ROM ex's, postural edu, DTR, US, and EMS - Subjective Findings: DOS: approximately one year ago. Pt reports she had a pinched nerve which resulted in her R UE being numb, and very limited cervical spine ROM. Pt reports after the surgery she was nearly pain free for a year after surgery until one month ago. Pt reports she was lying in bed when she suddenly experienced all of her symptoms return. Pt reports she has had R UE numbness and neck pain since. Pt reports her hope is to be able to get rid of this pain through PT. Pt is R hand dominant. Sig sleep diff at this time secondary to pain. 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 0/10 pain at rest, 10/10 if she moves her neck wrong. - Pain neck pain Pain Intensity (Out of 10): 0 Pain Intensity Range: 10 - Objective Neuro: B UE sensation is WNL to light touch. B bicepital reflex= 1/3. MMT: B UE sensation is 5/5 throughout. C/S ROM: Pt is severely limited with ext and R SB. Moderately limited with R rot. All other ranges are WNL. Special testing: Pos compression and distraction tests in C/S - Goals Goal 1:: Decrease neck pain x 50% to aid with sleep Goal Time Frame: 4-6 Weeks Goal 2:: Increase cervical spine ROM x 1 grade to aid with IADL's Goal Time Frame: 4-6 Weeks Goal 3:: I with HEP Goal Time Frame: 4-6 Weeks - Rehabilitation Potential Physical Therapy Diagnosis: R sided neck pain, limited ROM, and R UE radiculopathy secondary to deg changes to the c/s Rehabilitation Potential: Good - Anticipated Interventions Patient/Client Instruction: Educate patient on: Condition, Plan of Care For the Purpose of:: To improve self management Therapeutic Exercise to Include: Body mechanics, Postural training, Passive ROM, Active ROM, Scapular Strength/Stabilization For the Purpose of:: To decrease pain, To increase ROM, To improve muscle performance and motor function IF ES: Yes Ultrasound (thermal/non thermal): Yes For the Purpose of:: To decrease pain Thank you for the opportunity to evaluate your patient. For Medicare and Medicare HMO plans, please review the plan of care and approve it. It will need to be FAXED BACK to us at [phone] for Medicare purposes. For Medicare only, by signing this I certify the plan of care. Please let me know if there are questions or concerns regarding this plan of care. Physician Signature: Date: <Electronically signed by Seun Gaffney PT, ATC> 05/09/18 0943 CC: Jenifer Pool MD; ASHLEY ANDRADE [facility] Signed LOWER EXT JOINT ONLY Observed: 05/08/2018 Status: F Source: [place] (ROUTINE) 9:45 AM [facility] REPOSITORY [facility] Imaging Services [address] [place] [address] Lower Ext Joint Only (Routine) MR#: [id number] Acct: [id number] Name: JERMAINE YEE Rep #: [id number] : 1950 F 67 From: Valarie Green MD PCP: Ashley Fields NP Status: REG CLI Study: Lower Ext Joint Only (Routine) Date of Exam: 05/08/18 Exam# [id number] Ordering Dr: Ashley Andrade MD STUDY: MRI LEFT KNEE REASON FOR EXAM: Female, 67 years old. Knee pain and swelling. Lateral meniscus tear. No surgery reported. TECHNIQUE: Standardized fat and water weighted pulse sequences were obtained in all 3 orthogonal planes. COMPARISON: None. FINDINGS: There is 1 cm tear of the medial meniscus, with truncation of the inner third of the posterior horn-body junction. There is diffuse, less than 50% thickness articular cartilage loss of the medial femorotibial compartment. Normal medial femoral condyle and tibial plateau. There is osteoarthrosis with moderate medial spurring. Normal medial collateral ligamentous complex (MCL). Normal distal semimembranosus, gracilis and semitendinosus tendons. There is moderate narrowing of the lateral compartment. There is a 2 cm tear of the lateral meniscus extending from the body to the posterior horn, with truncation of the inner third. If there is surgical history, this finding is also consistent with partial meniscectomy. There is lateral subluxation of the meniscal body. There is diffuse, greater than 50% thickness articular cartilage loss of the lateral femorotibial compartment. Normal lateral femoral condyle and tibial plateau. There is osteoarthrosis, with mild lateral spurring. Normal proximal tibiofibular articulation. Normal lateral collateral (fibular) ligament. Normal popliteus tendon. Normal biceps femoris tendon. Normal anterior cruciate ligament (ACL). Normal posterior cruciate ligament (PCL). Normal congruent patellofemoral articulation. There is diffuse, greater than 50% thickness articular cartilage loss of the patellofemoral compartment. Normal medial and lateral patellar retinaculum. Normal quadriceps tendon. Normal patellar tendon. Normal Hoffa's fat pad. There is a small joint effusion. There is a 7.2 x 3.1 x 1.9 cm popliteal cyst. The soft tissues are unremarkable. The otherwise visualized osseous structures are unremarkable. MRI/Lower Ext Joint Only (Routine) IMPRESSION: 1. Lateral meniscal tear. 2. Medial meniscal tear. 3. 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 4. Moderate osteoarthrosis of the lateral compartment. 5. Small joint effusion. 6. Popliteal cyst. Electronically Signed: Valarie Green MD at 20:47 EST Tel , Service support , CC: ASHLEY ANDRADE; Ashley Fields NP Story Writer: Signed INTERNAL MEDICINE Observed: 04/19/2018 Status: F Source: [place] OFF[place] VISIT 6:54 PM [facility] [address] [place] [address] [place] [address] OFFICE VISIT Date of Service: 04/17/18 MR#: [id number] Acct: [id number] Name: JERMAINE YEE Rep #: [id number] : 1950 Provider: Jenifer Pool MD Age/Sex: 67/F Location: [facility] [place] Status: Signed Intake Vital Signs04/17/18 Height 5 ft 9 in Intake Visit Reasons: 3 MO FU Chief Complaint: 3 month f/u Is patient in pain?: No Allergies dibucaine Allergy (Severe, Verified 03/23/18 14:58) Rash, itching Iodinated Contrast- Oral and IV Dye Allergy (Severe, Verified 03/23/18 14:58) RAsh, Itching wool Allergy (Verified 03/23/18 14:58) Rash NSAIDS (Non-Steroidal Anti-Inflamma Adverse Reaction (Severe, Verified 03/23/18 14:58) GI Bleeding adhesive tape Adverse Reaction (Intermediate, Verified 03/23/18 14:58) localized skin reaction acetaminophen [From Darvocet-N] Adverse Reaction (Verified 03/23/18 14:58) Vomiting codeine Adverse Reaction (Verified 03/23/18 14:58) Vomiting hydrocodone bitartrate [From Vicodin] Adverse Reaction (Verified 03/23/18 14:58) Vomiting morphine Adverse Reaction (Verified 03/23/18 14:58) Vomiting propoxyphene napsylate [From Darvocet-N] Adverse Reaction (Verified 03/23/18 14:58) Vomiting Medications Ubidecarenone [Co Q-10] 100 mg PO DAILY 10/18/16 [History Confirmed 03/23/18] aspirin 81 mg tablet,delayed release 81 mg PO QDAY 04/24/17 [History Confirmed 03/23/18] fluticasone 50 mcg/actuation nasal spray,suspension 2 spray INTRANASAL DAILY PRN #15.8 g 07/21/17 [Rx Confirmed 03/23/18] simvastatin 20 mg tablet 20 mg PO QPM #90 tab 07/21/17 [Rx Confirmed 04/17/18] spironolactone 25 mg-hydrochlorothiazide 25 mg tablet 1 tab PO DAILY #90 tab 07/21/17 [Rx Confirmed 04/17/18] potassium chloride ER 10 mEq tablet,extended release 10 meq PO QDAY #90 tab 07/24/17 [Rx Confirmed 03/23/18] cyclobenzaprine 10 mg tablet 10 mg PO TID PRN #30 tab 08/04/17 [Rx Confirmed 03/23/18] metoprolol succinate ER 25 mg tablet,extended release 24 hr 25 mg PO DAILY #90 tab 08/29/17 [Rx Confirmed 04/17/18] hydrocortisone 2.5 % topical ointment 1 applic TOPICAL BID #28.35 g 03/21/18 [Rx Confirmed 03/23/18] compression stocking,knee high,regular,large circumfer. See Dose Instructions .ROUTE .MEDSUPPLY #2 ea 03/23/18 [Rx Confirmed 03/23/18] albuterol sulfate 2.5 mg/3 mL (0.083 %) solution for nebulization 1.25 mg INHALATION Q4H PRN 04/17/18 [History Confirmed 04/17/18] budesonide 0.5 mg/2 mL suspension for nebulization 2 ml INHALATION DAILY 04/17/18 [History Confirmed 04/17/18] bupropion HCl XL 150 mg 24 hr tablet, extended release 150 mg PO QAM #30 tab 04/17/18 [Rx Confirmed 04/17/18] buspirone 7.5 mg tablet 7.5 mg PO BID #60 tab 04/17/18 [Rx Confirmed 04/17/18] melatonin 10 mg capsule 10 mg PO HS PRN 04/17/18 [History Confirmed 04/17/18] Post menopausal: Yes PFSH Medical History LBBB (left bundle branch block) (Chronic) Ventricular premature depolarization (Acute) Type 2 diabetes mellitus (Chronic) Pulmonary hypertension (Chronic) Hypokalemia (Acute) Hypomagnesemia (Acute) Hypertension (Chronic) Hyperlipidemia (Chronic) Paroxysmal atrial fibrillation (Chronic) COPD (chronic obstructive pulmonary disease) (Chronic) Obesity (Chronic) Depression (Acute) Palpitations (Acute) Rectal bleeding (Acute) Asthma (Chronic) Fibromyalgia (Chronic) LIAM (obstructive sleep apnea) (Chronic) Pulmonary nodule (Chronic) Raynauds disease (Chronic) Umbilical hernia (Chronic) Surgical History History of torn meniscus of left knee (Acute) History of hemorrhoidectomy (Chronic) History of knee replacement procedure of right knee (Resolved 2014) History of total hysterectomy (Resolved) S/P cervical spinal fusion (Resolved 2016) Family History Father Atrial fibrillation Uncle Atrial fibrillation Social History Smoking Status: Never smoker second hand exposure: No alcohol intake: never substance use type: does not use what type of physical activity do you participate in: none seatbelt use: always HPI HPI Chief Complaint: 3 month f/u Details: JERMAINE YEE, is a 67yo F who presents to the office today for follow-up of her chronic medical conditions. She also has some concerns. She has had to deal with a lot of stresses especially at home she states that this has been progressively worsening. This is affected her anxiety/depression and does not believe Zoloft is helping anymore. Currently undergoing counseling with very minimal benefit. Denies suicidal or homicidal ideations or attempts. She however is on very low-dose of Zoloft but is skeptical about increasing it due to weight gain. She states that she has had significant problems with weight management and this is beginning to impact her activities. She denies having been on Wellbutrin in the past or any concerns with this medication in the past. ROS Const Constitutional: No weight change, body ache, chills, fatigue, sleep problems, fever(s), change in appetite, snoring, weakness, frequent falls, headache(s) or excessive sweating Eyes Eyes: No change in vision, eye pain, light sensitivity or blurry vision ENT ENT: No headache(s), abnormal hearing, ear pain, tinnitus, nasal congestion, sore throat or neck pain Resp Respiratory: No snoring, cough, shortness of breath or wheezing Cardio Cardiology: No excessive sweating, chest pain at rest, chest pain with exertion, shortness of breath, dyspnea on exertion, palpitations, orthopnea or lightheadedness Gastro GI: No abdominal pain, change in bowel habits, constipation, diarrhea, vomiting, nausea/dyspepsia or cramping Genitourinary-Female: No burning urination, painful urination, urinary incontinence, urinary frequency, abnormal vaginal bleeding, pelvic pain or other Musc Musculoskeletal: Positive for back pain; no neck pain, abnormal walking, limited range of motion, numbness or tingling Skin Skin: No redness, dry skin, itching, lesions, wounds or rash Neuro Neurology: No weakness, frequent falls, headache(s), abnormal hearing, abnormal walking, numbness, tingling, abnormal speech, dizziness or memory loss Psych Psychiatric: No change in appetite, No memory loss, No anxiety, No depression, No Thoughts of harming yourself/Others Endo Endocrine: No fatigue, excessive sweating, cold intolerance, increased thirst/drinking, heat intolerance, flushing or increased hunger Aller/Imm Allergy/Immunologic: No wheezing, itchy eyes, hives or seasonal allergy symptoms Brenden/Lymp Hematologic/Lymphatic: No easy bleeding, easy bruising or enlarged lymph nodes Exam Const General: cooperative, no acute distress, well developed Orientation: alert, awake [facility] Head: atraumatic, normocephalic, normal to inspection Ears: hearing grossly normal bilaterally Resp Effort AND Inspection: normal respiratory effort, able to speak in complete sentences Auscultation: Bilateral: Clear to Auscultation Cardio Rate: regular rate Rhythm: regular rhythm Heart Sounds: S1 normal, S2 normal GI Inspection: obesity Palpation: soft, no hepatosplenomegaly Neuro General: alert, awake, oriented x3, moves all extremities, CN's II-XI intact bilaterally Extrem General: pedal edema Psych Appearance: grossly normal Mental Status: mental status grossly normal Affect: normal affect Assessment AND Plan 1. Depression with anxiety F41.8 Plan Largely situational/due to current living situation. Has been on suboptimal dosing of Zoloft however patient skeptical about increasing due to weight gain. Taper of Zoloft. Will start on Wellbutrin at 150 mg daily and buspirone 7.5 mg twice daily. Continue counseling. Advised to call with any questions or concerns otherwise, follow-up in 1 month. 2. Obesity E66.9 Plan Chronic, bothersome, significant limitation of activities. Dietary and lifestyle modifications encouraged. Wellbutrin as above. Follow-up at next visit. This note was generated with orderbolt dictation software. It may contain incorrect words, spelling, and punctuation that were not noted in checking the note before signing. Plan Detail Other Medications New: Discontinued: duloxetine Start 30mg daily x 1 week. Discontinued Reason:30 mg PO BID 60 caps 3RF Order Changed Coding Level of Care Code Off vis,est,level 3 Diagnoses Depression with anxiety F41.8 Obesity E66.9 Obesity type: due to excess calories Obesity classification: adult class 2 (BMI 35 - 39.9) 04/19/18 0075 <Electronically signed by Jenifer Pool MD> Date Jenifer Pool MD Cosigner Signature: Date (if applicable) CC: VENOUS DUPLEX LOWER Observed: 04/07/2018 Status: F Source: [place] EXTREMITY 11:07 AM [facility] REPOSITORY [facility] Cardiovascular Services [address] [place] [address] Venous Duplex US - Son Extrem 03/30/18 1407 MR#: [id number] Acct: [id number] Name: JERMAINE YEE Rep #: [id number] : 1950 67 From: Nabil Lindo MD Attending Dr: Ashley Fields NP Status: REG CLI Ordering Dr: Ashley Fields NP-C Date: 03/30/18 Location: [facility] Sex: F C Admitted: Reason For Study: BLE SWELLING L > R RIGHT LEFT CFV is compressible, spontaneous, phasic, CFV is compressible, spontaneous, phasic, competent and demonstrates normal competent, and demonstrates normal augmentation. augmentation. FV is compressible, spontaneous, phasic, FV is compressible, spontaneous, phasic, competent and demonstrates normal competent and demonstrates normal augmentation. augmentation. POP V is compressible, spontaneous, phasic, POP V is compressible, spontaneous, phasic, competent and demonstrates normal competent and demonstrates normal augmentation. augmentation. T/P Trunk is compressible. T/P Trunk is compressible. PTV is compressible. PTV is compressible. RT PerV is compressible. LT PerV is compressible. SFJ is competent. SFJ is competent. GSV above knee is competent. GSV above knee is competent. GSV below knee is incompetent with diam 0.313 GSV below knee is incompetent with diam 0.414 x 0.324 cm. x 0.522 cm. SSV is incompetent with diam 0.379 x 0.386 SSV is incompetent with diam 0.604 x 0.687 cm. cm. Procedure Exam performed in department. NON- Vascular structure noted medial knee area The study was technically difficult. measuring 3.31 x 1.16 cm; also noted at The exam was diagnostic. anterior knee area measuring 3.5 x 1.8 cm. A preliminary report was called and/or faxed to Ashley Fields [employer] @ [phone] @ 3:15 pm. <> Interpretation Summary Deep veins of the lower extremities are bilaterally patent and compressible segmentally. There is no evidence of deep vein thrombosis on either side. Valvular competence appears intact within the proximal deep venous systems bilaterally. The greater saphenous veins appear bilaterally patent and compressible segmentally. Sapheno-femoral junctions are bilaterally competent . The right greater saphenous vein appears competent above the knee. The right greater saphenous vein appears incompetent below the knee. The left greater saphenous vein appears competent above the knee. The left greater saphenous vein appears incompetent below the knee. Small saphenous veins are patent and incompetent bilaterally. A non-vascular, hypoechoic structure is noted near the left medial knee (3.31 cm x 1.16 cm) and the left anterior knee (3.5 cm x 1.8 cm). These may represent hematomas or seromas. Clinical correlation is advised. Ordering Physician: Ashley Fields Referring Physician: Ashley Fields Performed By: Yessi Cutler, SHA, RVT 04/07/18 1107 Date Nabil Lindo MD CC: Ashley Fields NP Date Dictated: 03/30/18 1407 Date Transcribed: 04/07/181106 Story Writer: Signed INTERNAL MEDICINE Observed: 03/28/2018 Status: F Source: [place] OFFICE VISIT 1:34 PM [facility] Internal Medicine [address] [place] [address] [address] [place] [address] OFFICE VISIT Date of Service: 03/23/18 MR#: [id number] Acct: [id number] Name: JERMAINE YEE Rep #: [id number] : 1950 Provider: Ashley Fields NP Age/Sex: 67/F Location: [facility] Status: Signed Intake Vital Signs03/23/18 Height 5 ft 9 in 03/23/18 Weight: 261 lb 03/23/18 Body Mass Index (BMI) 38.5 03/23/18 Blood Pressure 130/76 H 03/23/18 Blood Pressure Location Lt brachial Intake Visit Reasons: Swelling extremities Chief Complaint: Swelling extremities Is patient in pain?: Yes (Lt knee) Allergies dibucaine Allergy (Severe, Verified 03/23/18 14:58) Rash, itching Iodinated Contrast- Oral and IV Dye Allergy (Severe, Verified 03/23/18 14:58) RAsh, Itching wool Allergy (Verified 03/23/18 14:58) Rash NSAIDS (Non-Steroidal Anti-Inflamma Adverse Reaction (Severe, Verified 03/23/18 14:58) GI Bleeding adhesive tape Adverse Reaction (Intermediate, Verified 03/23/18 14:58) localized skin reaction acetaminophen [From Darvocet-N] Adverse Reaction (Verified 03/23/18 14:58) Vomiting codeine Adverse Reaction (Verified 03/23/18 14:58) Vomiting hydrocodone bitartrate [From Vicodin] Adverse Reaction (Verified 03/23/18 14:58) Vomiting morphine Adverse Reaction (Verified 03/23/18 14:58) Vomiting propoxyphene napsylate [From Darvocet-N] Adverse Reaction (Verified 03/23/18 14:58) Vomiting Medications Ubidecarenone [Co Q-10] 100 mg PO DAILY 10/18/16 [History Confirmed 03/23/18] aspirin 81 mg tablet,delayed release 81 mg PO QDAY 04/24/17 [History Confirmed 03/23/18] fluticasone 50 mcg/actuation nasal spray,suspension 2 spray INTRANASAL DAILY PRN #15.8 g 07/21/17 [Rx Confirmed 03/23/18] simvastatin 20 mg tablet 20 mg PO QPM #90 tab 07/21/17 [Rx Confirmed 03/23/18] spironolactone 25 mg-hydrochlorothiazide 25 mg tablet 1 tab PO DAILY #90 tab 07/21/17 [Rx Confirmed 03/23/18] potassium chloride ER 10 mEq tablet,extended release 10 meq PO QDAY #90 tab 07/24/17 [Rx Confirmed 03/23/18] cyclobenzaprine 10 mg tablet 10 mg PO TID PRN #30 tab 08/04/17 [Rx Confirmed 03/23/18] metoprolol succinate ER 25 mg tablet,extended release 24 hr 25 mg PO DAILY #90 tab 08/29/17 [Rx Confirmed 03/23/18] sertraline 50 mg tablet 25 mg PO QDAY tab 09/15/17 [History Confirmed 03/23/18] hydrocortisone 2.5 % topical ointment 1 applic TOPICAL BID #28.35 g 03/21/18 [Rx Confirmed 03/23/18] compression stocking,knee high,regular,large circumfer. See Dose Instructions .ROUTE .MEDSUPPLY #2 ea 03/23/18 [Rx Confirmed 03/23/18] [facility] Medical History LBBB (left bundle branch block) (Chronic) Ventricular premature depolarization (Acute) Type 2 diabetes mellitus (Chronic) Pulmonary hypertension (Chronic) Hypokalemia (Acute) Hypomagnesemia (Acute) Hypertension (Chronic) Hyperlipidemia (Chronic) Paroxysmal atrial fibrillation (Chronic) COPD (chronic obstructive pulmonary disease) (Chronic) Obesity (Chronic) Depression (Acute) Palpitations (Acute) Rectal bleeding (Acute) Asthma (Chronic) Fibromyalgia (Chronic) LIAM (obstructive sleep apnea) (Chronic) Pulmonary nodule (Chronic) Raynauds disease (Chronic) Umbilical hernia (Chronic) Surgical History History of torn meniscus of left knee (Acute) History of hemorrhoidectomy (Chronic) History of knee replacement procedure of right knee (Resolved 2014) History of total hysterectomy (Resolved) S/P cervical spinal fusion (Resolved 2016) Family History Father Atrial fibrillation Uncle Atrial fibrillation Social History Smoking Status: Never smoker second hand exposure: No alcohol intake: never substance use type: does not use what type of physical activity do you participate in: none seatbelt use: always HPI HPI Chief Complaint: Swelling extremities Details: JERMAINE YEE, is a 67 F who presents to the office today for an acute visit of swelling of the lower extremities weight gain x the last couple of weeks. She had a past medical history as listed above. The patient states that over the last couple weeks she has noted more swelling in her lower extremities and that she continues to gain weight. However compared from her weight a month ago, there is only been an increase of 4 pounds. The patient states that she continues to follow-up with nutrition services and that she has been watching the sodium in her diet, however she continues to note occasional swelling in her hands and occasional swelling in her lower extremities. She states that the swelling is better in the morning and then gets worse throughout the day. She denies any orthopnea and denies any worsening shortness of breath. She does state that on occasion she has dyspnea on exertion. She is also requesting an order for her mammogram. She otherwise denies any fever, chills, nausea, vomiting, chest pain or pressure, syncope or presyncopal episodes. ROS Const Constitutional: Positive for weight change; no chills, fatigue, fever(s), frequent falls, malaise, weakness, sleep problems or change in appetite Eyes Eyes: No blurry vision, change in vision, double vision, discharge or visual disturbances ENT ENT: No abnormal hearing, ear pain, ear pressure, tinnitus or dizziness/vertigo Resp Respiratory: No cough, shortness of breath or wheezing Cardio Cardiology: Positive for shortness of breath and generalized swelling; no chest pain at rest, chest pain with exertion, dyspnea on exertion, irregular heart rhythm, lightheadedness, orthopnea, fast heart rate or palpitations Gastro GI: No abdominal pain, change in bowel habits, constipation, diarrhea, nausea/dyspepsia or vomiting Genitourinary-Female: No difficulty urinating, burning urination, painful urination, urinary incontinence, urinary frequency, urinary urgency, urinary hesitancy, urinary retention, Frequent nighttime urination/ nocturia, sexual problems, genital lesions, abnormal vaginal bleeding, pelvic pain, vaginal dryness, vaginal odor or Vaginal Itching Musc Musculoskeletal: No joint pain, back pain, joint swelling, limited range of motion, muscle weakness, numbness or tingling Skin Skin: No change in skin color, itching, rash or wounds Breast Breast: No breast lump or breast pain Neuro Neurology: No frequent falls, weakness, abnormal hearing, numbness, tingling, unsteady gait/balance, dizziness, loss of vision, memory loss or visual disturbances Psych Psychiatric: No memory loss, No anxiety, No change in appetite, No depression, No Thoughts of harming yourself/Others Endo Endocrine: No fatigue, heat intolerance, increased thirst/drinking, increased hunger or increased urination Aller/Imm Allergy/Immunologic: No wheezing, itchy eyes or seasonal allergy symptoms Brenden/Lymp Hematologic/Lymphatic: No easy bleeding, easy bruising or enlarged lymph nodes Exam Const General: cooperative, comfortable, no acute distress Nutritional Appearance: average body habitus, well nourished Orientation: alert, oriented x3 Limitations: mental status not altered Resp Effort AND Inspection: normal respiratory effort, able to speak in complete sentences, normal respiratory pattern, symmetric chest movement, no audible wheezes, no cough Auscultation: Bilateral: Clear to Auscultation Cardio Palpation: normal PMI Rate: regular rate Heart Sounds: S1 normal, S2 normal, normal S1 and S2, no click, no gallops, no murmurs, no rubs Musc Musculoskeletal: No muscle weakness Skin General: no rashes or lesions noted, elasticity normal, turgor normal Lesions: no lesions Rashes: no rashes Neuro General: alert, awake, oriented x3, CN's II-XI intact bilaterally Speech: speech normal Gait: normal gait Motor: muscle tone normal throughout Extrem Other: no edema appreciated to the bilateral upper extremities, bilateral lower extremity 1+ nonpitting edema that starts below the knee and extends to the ankle, multiple varicose veins present as well, strong dorsal pedis pulses 2+, negative for bilateral calf tenderness Psych Appearance: grossly normal Mental Status: mental status grossly normal Affect: normal affect Attitude: cooperative Thought Process: normal Assessment AND Plan Problems 1. Lower extremity edema R60.0 2. Venous insufficiency (chronic) (peripheral) I87.2 3. Dyspnea R06.00 Plan Patient does have complaints of lower extremity edema and weight gain. However on exam her edema is minimal and compared to the last month there is only been a 4 pound weight gain. She denies any orthopnea though she does state she has occasional dyspnea on exertion. Will check a BTNP as patient is concerned may be heart related. Her lower extremity edema is most likely due to venous insufficiency, will order vascular studies and will order compression stockings at 20-30 mmHg to be worn daily. Discussed continuing limiting her sodium intake. Discussed red flag symptoms that require urgent medical attention. Patient to follow-up as previously scheduled or sooner if needed. During disclaimer Orders Orders: Medications New: compression stocking,knee high,regular,larwear daily for venous insufficiency 20-30 I87.2 ge circumfer. mmHg 2 ea 0RF Plan Detail Health Concerns Yearly screening mammogram ordered per patient request Follow Up As previously scheduled or sooner Coding Level of Care Code Off vis,est,level 3 Diagnoses Lower extremity edema R60.0 Venous insufficiency (chronic) (peripheral) I87.2 Dyspnea R06.00 03/28/18 1334 <Electronically signed by Ashley SANDRA> Date Ashley SANDRA Cosigner Signature: Date (if applicable) CC: BASIC METABOLIC Collected: 03/26/2018 Status: F Source: [place] PROFILE (BMP) 1:56 PM [facility] REPOSITORY TYPE CODE TESTS RESULT OUT OF RANGE REFERENCE UNITS LAB L501.0100 74-106 mg/dL Normal GLU 87 Result Comment: Please note revised GLUCOSE reference range effective 2017. LAB L501.1000 7-18 mg/dL High BUN 22 LAB L501.1100 0.55-1.02 mg/dL Normal CREAT,SERUM 0.90 Result Comment: The validity of the calculated GFR AND GFRAA in patients over 70 years has not been determined. Clinical correlation is essential. LAB L501.1110 >60 mL/min Normal EST GFR 67 Result Comment: Non- GFR Calc LAB L501.1115 >60 mL/min Normal EST GFR - AA 80 Result Comment: GFR Calc LAB L501.1300 10-20 RATIO High BUN/CRE 24.4 LAB L501.2200 8.5-10.1 mg/dL CA Normal 9.1 LAB L501.5300 136-145 mmol/L NA Normal 139 LAB L501.5600 3.5-5.1 mmol/L K Normal 3.5 LAB L501.5900 98-107 mmol/L CL Normal 103 LAB L501.6100 21.0-32.0 mmol/L Normal CO2 28.0 LAB L501.6200 5-15 Normal GAP 8 Performed By: #### L500.2500 #### [facility] [address] [place], [place], [address] BNP,B-TYPE NATRIURETIC Collected: 03/26/2018 Status: F Source: [place] 1:56 PM [facility] REPOSITORY TYPE CODE TESTS RESULT OUT OF RANGE REFERENCE UNITS LAB L503.6620 0-100 pg/mL Normal B-TYPE 19.6 JUS PEP Performed By: #### L503.6620 #### [facility] [address] [place], [place], [address] CBC W/DIFF, AUTOMATED Collected: 03/26/2018 Status: F Source: [place] 1:56 PM [facility] REPOSITORY TYPE CODE TESTS RESULT OUT OF RANGE REFERENCE UNITS LAB L100.1000 4.4-11.0 K/mm3 Normal WBC 6.5 LAB L100.1200 4.2-5.4 M/mm3 Low RBC 4.18 LAB L100.1300 12.0-15.0 g/dl Normal HGB 12.8 LAB L100.1400 37-47 % Normal HCT 39.5 LAB L100.1500 81-99 fL Normal MCV 94.5 LAB L100.1600 27.0-32.0 pg Normal MCH 30.6 LAB L100.1700 32-36 g/gl Normal MCHC 32.4 LAB L100.1810 11.6-14.6 % Normal RDW CV 12.7 LAB L100.1820 35.1-43.9 fl Normal RDW SD 43.0 LAB L100.1900 150-450 K/mm3 Normal PLT 329 LAB L100.2000 6.2-12.0 fl Normal MPV 10.4 LAB L100.2100 47-70 % Normal NEUT% 50.9 LAB L100.2200 19-41 % Normal LY% 36.0 LAB L100.2300 0-10 % Normal MONO% 7.7 LAB L100.2400 0-5 % Normal EO% 4.2 LAB L100.2500 0-1 % Normal BASO% 0.9 LAB L100.2550 0.0-0.9 % Normal IM GRAN % 0.300 Result Comment: IG% - Immature Granulocytes (promyelocytes, myelocytes and metamyelocytes) > 1% indicates that a LEFT SHIFT is Present. LAB L100.2620 2.0-7.7 X10 3/uL Normal Absolute Neut 3.3 LAB L100.2720 0.83-4.51 X10 3/ul Normal Absolute Lymph 2.33 Performed By: #### L100.0100 #### [facility] [address] [place], [address] INTERNAL MEDICINE Observed: 02/07/2018 Status: F Source: [place] OFFICE VISIT 9:53 AM [facility] REPOSITORY [facility] [address] [place] [address] [place] [address] OFFICE VISIT Date of Service: 02/02/18 MR#: [id number] Acct: [id number] Name: JERMAINE YEE Rep #: [id number] : 1950 Provider: Ashley Fields NP Age/Sex: 67/F Location: [facility] Status: Signed Intake Vital Signs02/02/18 Height 5 ft 9 in 02/02/18 Weight: 252 lb 02/02/18 Body Mass Index (BMI) 37.2 02/02/18 Blood Pressure 120/81 Intake Visit Reasons: LLQ Pain - Constipation Chief Complaint: LLQ goes into back Is patient in pain?: Yes (LLQ pain goes into back) Pain scale (1-10): 5 Allergies dibucaine Allergy (Severe, Verified 02/02/18 08:00) Rash, itching Iodinated Contrast- Oral and IV Dye Allergy (Severe, Verified 02/02/18 08:00) RAsh, Itching wool Allergy (Verified 02/02/18 08:00) Rash NSAIDS (Non-Steroidal Anti-Inflamma Adverse Reaction (Severe, Verified 02/02/18 08:00) GI Bleeding adhesive tape Adverse Reaction (Intermediate, Verified 02/02/18 08:00) localized skin reaction acetaminophen [From Darvocet-N] Adverse Reaction (Verified 02/02/18 08:00) Vomiting codeine Adverse Reaction (Verified 02/02/18 08:00) Vomiting hydrocodone bitartrate [From Vicodin] Adverse Reaction (Verified 02/02/18 08:00) Vomiting morphine Adverse Reaction (Verified 02/02/18 08:00) Vomiting propoxyphene napsylate [From Darvocet-N] Adverse Reaction (Verified 02/02/18 08:00) Vomiting Medications Albuterol IH (ProAir) [Proair Hfa] 1 - 2 puff INHALATION Q4H PRN PRN 10/18/16 [History Confirmed 02/02/18] Ubidecarenone [Co Q-10] 100 mg PO DAILY 10/18/16 [History Confirmed 02/02/18] aspirin 81 mg tablet,delayed release 81 mg PO QDAY 04/24/17 [History Confirmed 02/02/18] fluticasone 50 mcg/actuation nasal spray,suspension 2 spray INTRANASAL DAILY PRN #15.8 g 07/21/17 [Rx Confirmed 02/02/18] simvastatin 20 mg tablet 20 mg PO QPM #90 tab 07/21/17 [Rx Confirmed 02/02/18] spironolactone 25 mg-hydrochlorothiazide 25 mg tablet 1 tab PO DAILY #90 tab 07/21/17 [Rx Confirmed 02/02/18] potassium chloride ER 10 mEq tablet,extended release 10 meq PO QDAY #90 tab 07/24/17 [Rx Confirmed 02/02/18] cyclobenzaprine 10 mg tablet 10 mg PO TID PRN #30 tab 08/04/17 [Rx Confirmed 02/02/18] metoprolol succinate ER 25 mg tablet,extended release 24 hr 25 mg PO DAILY #90 tab 08/29/17 [Rx Confirmed 02/02/18] hydrocortisone 2.5 % topical ointment 1 applic TOPICAL BID #28.35 g 09/15/17 [Rx Confirmed 02/02/18] sertraline 50 mg tablet 25 mg PO QDAY tab 09/15/17 [History Confirmed 02/02/18] PFSH Medical History LBBB (left bundle branch block) (Chronic) Ventricular premature depolarization (Acute) Type 2 diabetes mellitus (Chronic) Pulmonary hypertension (Chronic) Hypokalemia (Acute) Hypomagnesemia (Acute) Hypertension (Chronic) Hyperlipidemia (Chronic) Paroxysmal atrial fibrillation (Chronic) COPD (chronic obstructive pulmonary disease) (Chronic) Obesity (Chronic) Depression (Acute) Palpitations (Acute) Rectal bleeding (Acute) Asthma (Chronic) Fibromyalgia (Chronic) LIAM (obstructive sleep apnea) (Chronic) Pulmonary nodule (Chronic) Raynauds disease (Chronic) Umbilical hernia (Chronic) Surgical History History of hemorrhoidectomy (Chronic) History of knee replacement procedure of right knee (Resolved 2014) History of total hysterectomy (Resolved) S/P cervical spinal fusion (Resolved 2016) Family History Father Atrial fibrillation Uncle Atrial fibrillation Social History Smoking Status: Never smoker second hand exposure: No alcohol intake: never substance use type: does not use what type of physical activity do you participate in: none seatbelt use: always HPI HPI Chief Complaint: LLQ goes into back Details: JERMAINE YEE, is a 67 F who presents to the office today for an acute visit of left lower quadrant pain and bloating that occasionally radiates to the left lower back. She is a past medical history is also above. The patient states that over the past couple of weeks she has noted left lower quadrant abdominal pain and bloating that occasionally radiates into the back. She denies any urinary symptoms at this time. She does state that at times after she passes gas or has a bowel movement, the pain is alleviated. She does state that her stools and bowel pattern are somewhat irregular and that sometimes she feels like she is constipated and only has small bowel movements. She does state that she had a colonoscopy in 2012 which was essentially normal and recommended repeat in 10 years. She denies any blood in the stool or any other acute symptoms at this time. She otherwise denies any fever, chills, nausea, vomiting, shortness of breath, chest pain or pressure, syncope or presyncopal episodes ROS Const Constitutional: No chills, fatigue, fever(s), frequent falls, malaise, weakness, sleep problems or change in appetite Eyes Eyes: No blurry vision, change in vision, double vision, discharge or visual disturbances ENT ENT: No abnormal hearing, ear pain, ear pressure, tinnitus or dizziness/vertigo Resp Respiratory: No cough, shortness of breath or wheezing Cardio Cardiology: No chest pain at rest, chest pain with exertion, shortness of breath, dyspnea on exertion, generalized swelling, irregular heart rhythm, lightheadedness, orthopnea, fast heart rate or palpitations Gastro GI: Positive for abdominal pain (LLQ) and constipation; no change in bowel habits, diarrhea, nausea/dyspepsia or vomiting Genitourinary-Female: No difficulty urinating, burning urination, painful urination, urinary incontinence, urinary frequency, urinary urgency, urinary hesitancy, urinary retention, Frequent nighttime urination/ nocturia, sexual problems, genital lesions, abnormal vaginal bleeding, pelvic pain, vaginal dryness, vaginal odor or Vaginal Itching Musc Musculoskeletal: Positive for back pain (Radiating from LLQ abdominal pain); no joint pain, joint swelling, limited range of motion, muscle weakness, numbness or tingling Skin Skin: No change in skin color, itching, rash or wounds Breast Breast: No breast lump or breast pain Neuro Neurology: No frequent falls, weakness, abnormal hearing, numbness, tingling, unsteady gait/balance, dizziness, loss of vision, memory loss or visual disturbances Psych Psychiatric: No memory loss, No anxiety, No change in appetite, No depression, No Thoughts of harming yourself/Others Endo Endocrine: No fatigue, heat intolerance, increased thirst/drinking, increased hunger or increased urination Aller/Imm Allergy/Immunologic: No wheezing, itchy eyes or seasonal allergy symptoms Brenden/Lymp Hematologic/Lymphatic: No easy bleeding, easy bruising or enlarged lymph nodes Exam Const General: cooperative, comfortable, no acute distress Nutritional Appearance: average body habitus, well nourished Orientation: alert, oriented x3 Limitations: mental status not altered Resp Effort AND Inspection: normal respiratory effort, able to speak in complete sentences, normal respiratory pattern, symmetric chest movement, no audible wheezes, no cough Auscultation: Bilateral: Clear to Auscultation Cardio Palpation: normal PMI Rate: regular rate Heart Sounds: S1 normal, S2 normal, normal S1 and S2, no click, no gallops, no murmurs, no rubs GI Inspection: normal to inspection, obesity Auscultation: normal bowel sounds, no hyperactive bowel sounds, no hypoactive bowel sounds Percussion: normal to percussion Palpation: soft, no hepatosplenomegaly, tender (with deep palpation) in the LLQ, no masses General: No CVA tenderness, bladder normal to palpation Bimanual Exam- Vagina AND Uterus: bladder normal to palpation Musc Musculoskeletal: No muscle weakness Skin General: no rashes or lesions noted, elasticity normal, turgor normal Lesions: no lesions Rashes: no rashes Neuro General: alert, awake, oriented x3, CN's II-XI intact bilaterally Speech: speech normal Gait: normal gait Motor: muscle tone normal throughout Extrem General: normal to inspection, normal gait, no edema, no pedal edema Psych Appearance: grossly normal Mental Status: mental status grossly normal Affect: normal affect Attitude: cooperative Thought Process: normal Immunizations flu vacc (65yr up)-MF59C(PF) 45 mcg(15 mcgx3)/0.5 mL IM syringe Performing Provider: JOCY Du Administered by: Laura Munguia on 02/02/18 09:01 Dose Route Admin Location Lot Number Expiration Date ND Branch Coordinator 0.5 mL IM Left Deltoid [id number] 09/18/18 09214-517-50 SEQIRUS VIS Given Date VIS Publication Date 02/02/18 12/20/14 Eligibility Eligibility Date Assessment AND Plan 1. Intermittent left lower quadrant abdominal pain R10.32 Plan Patient does have irregular bowel movements. Her last colonoscopy was done in 2012 and a repeat in 10 years was recommended. Her pain is relieved with bowel movements and passing gas. She does state that she has constipation at 2. Will check a abdominal x-ray and UA to check for UTI. If normal, will place patient on MiraLAX daily as needed to help regulate bowel movements. Further investigation will be warranted if her symptoms progress or worsen. Discussed red leg symptoms that require urgent medical attention. Patient verbalized nursing. Orders Orders: 2. Constipation K59.00 Plan Plan as above 3. Influenza vaccine needed Z23 Plan Influenza vaccine given during today's office visit, patient verbalized understanding of the risks and benefits of the procedure. Patient monitored for 15 minutes after administration and tolerated the procedure well. No signs of reaction at this time. Patient education given.Patient educated on [id number] analgesics that may be appropriate for site discomfort. Orders Orders: Medications Discontinued: flu vacc 2017-18(65yr up)-MF59C(PF) 45 mcg(15 mcgx3)/0.5 mL IM0.5 mL IM ONCE Velvet Munguia syringe Discontinued Reason: Office Medication has been D ocumented as given Plan Detail Follow Up Previously scheduled or sooner Coding Level of Care Code Off vis,est,level 3 Diagnoses Intermittent left lower quadrant abdominal pain R10.32 Constipation K59.00 Influenza vaccine needed Z23 02/07/18 0953 <Electronically signed by Ashley SANDRA> Date Ashley SANDRA Cosigner Signature: Date (if applicable) CC: ABDOMEN SINGLE VIEW Observed: 02/02/2018 Status: F Source: [place] 2:43 PM [facility] REPOSITORY [facility] Imaging Services [address] [place] [id number] Abdomen Single View MR#: [id number] Acct: [id number] Name: JERMAINE YEE Rep #: [id number] : 1950 F 67 From: Sherif Castellanos DO PCP: Ashley Fields NP Status: REG CLI Study: Abdomen Single View Date of Exam: 02/02/18 Exam# [id number] Ordering Dr: Ashley Fields STUDY: X-RAY - ABDOMEN/PELVIS REASON FOR EXAM: Female, 67 years old. Pain in left lower quadrant TECHNIQUE: 2 views COMPARISON: None. FINDINGS: Normal visualized lung bases. There is an unremarkable bowel gas pattern. There is no demonstrated free abdominal air. The visualized liver, spleen and kidneys are grossly normal in size and morphology. Probable phleboliths in the pelvis. Normal soft tissue structures. Normal visualized osseous structures. RAD/Abdomen Single View IMPRESSION: No acute pathology of the abdomen and pelvis. Electronically Signed: Sherif Catsellanos DO at 22:40 EDT Tel [phone], Service support , CC: Ashley Fields NP Story Writer: Signed URINALYSIS, COMPLETE Collected: 02/02/2018 Status: F Source: [place] 10:11 AM [facility] REPOSITORY Order Comment: How was Urine Obtained? LINUX ARCHITECT TO SPECIFY TYPE CODE TESTS RESULT OUT OF RANGE REFERENCE UNITS LAB L400.3000 Yellow COLOR Normal Yellow LAB L400.3050 Clear Normal CLARITY Sl. Cloudy LAB L400.3200 Normal mg/dl Normal GLUCOSE, UR Normal LAB L400.3300 Negative mg/dL Normal BILIRUBIN URINE Negative LAB L400.3400 Negative mg/dl Normal KETONE UR Negative LAB L400.3465 1.002-1.030 Normal SP.GR. DIPSTX 1.020 LAB L400.3550 5.0 - 8.0 pH UR Normal 5.0 LAB L400.3600 Negative mg/dl PROT Normal DIPSTX Negative LAB L400.3700 Normal mg/dl Normal UROBILI Normal LAB L400.3750 Negative Normal NITRITE UR Negative LAB L400.3780 Negative /ul High 10 OCCULT BLOOD-UR LAB L400.3800 Negative /ul LEUK Normal ESTERASE Negative LAB L400.4050 0-5 /hpf WBC 0 Normal SEEN LAB L400.4100 0-5 /hpf Normal RBC-UA 0-5 SEEN LAB L400.4150 5-10 /hpf SQUAM Normal EPI 0-5 SEEN LAB L400.4300 None Seen /hpf 1+ Normal BACTERIA LAB L400.4350 <or=2+ /hpf 0 Normal MUCUS, URINE SEEN Performed By: #### L400.0001 #### [facility] [address] [place], [address] INTERNAL MEDICINE Observed: 01/16/2018 Status: F Source: [place] OFFICE VISIT 4:54 PM [facility] REPOSITORY [facility] [address] [place] [address] OFFICE VISIT Date of Service: 01/16/18 MR#: [id number] Acct: [id number] Name: JERMAINE YEE Rep #: [id number] : 1950 Provider: Ashley Fields NP Age/Sex: 67/F Location: [facility] Status: Signed Intake Vital Signs01/16/18 Height 5 ft 9 in 01/16/18 Weight: 254 lb 01/16/18 Body Mass Index (BMI) 37.5 01/16/18 Blood Pressure 116/75 01/16/18 Blood Pressure Location Lt brachial Intake Visit Reasons: 3 MO F/U Chief Complaint: follow-up Is patient in pain?: Yes (left side pain) Pain scale (1-10): 6 Allergies dibucaine Allergy (Severe, Verified 09/15/17 09:33) Rash, itching Iodinated Contrast- Oral and IV Dye Allergy (Severe, Verified 09/15/17 09:33) RAsh, Itching wool Allergy (Verified 09/15/17 09:33) Rash NSAIDS (Non-Steroidal Anti-Inflamma Adverse Reaction (Severe, Verified 09/15/17 09:33) GI Bleeding adhesive tape Adverse Reaction (Intermediate, Verified 09/15/17 09:33) localized skin reaction acetaminophen [From Darvocet-N] Adverse Reaction (Verified 09/15/17 09:33) Vomiting codeine Adverse Reaction (Verified 09/15/17 09:33) Vomiting hydrocodone bitartrate [From Vicodin] Adverse Reaction (Verified 09/15/17 09:33) Vomiting morphine Adverse Reaction (Verified 09/15/17 09:33) Vomiting propoxyphene napsylate [From Darvocet-N] Adverse Reaction (Verified 09/15/17 09:33) Vomiting Medications Albuterol IH (ProAir) [Proair Hfa] 1 - 2 puff INHALATION Q4H PRN PRN 10/18/16 [History Confirmed 09/15/17] Ubidecarenone [Co Q-10] 100 mg PO DAILY 10/18/16 [History Confirmed 09/15/17] aspirin 81 mg tablet,delayed release 81 mg PO QDAY 04/24/17 [History Confirmed 09/15/17] fluticasone 50 mcg/actuation nasal spray,suspension 2 spray INTRANASAL DAILY PRN #15.8 g 07/21/17 [Rx Confirmed 09/15/17] simvastatin 20 mg tablet 20 mg PO QPM #90 tab 07/21/17 [Rx Confirmed 09/15/17] spironolactone 25 mg-hydrochlorothiazide 25 mg tablet 1 tab PO DAILY #90 tab 07/21/17 [Rx Confirmed 09/15/17] potassium chloride ER 10 mEq tablet,extended release 10 meq PO QDAY #90 tab 07/24/17 [Rx Confirmed 09/15/17] cyclobenzaprine 10 mg tablet 10 mg PO TID PRN #30 tab 08/04/17 [Rx Confirmed 09/15/17] metoprolol succinate ER 25 mg tablet,extended release 24 hr 25 mg PO DAILY #90 tab 08/29/17 [Rx Confirmed 09/15/17] hydrocortisone 2.5 % topical ointment 1 applic TOPICAL BID #28.35 g 09/15/17 [Rx Confirmed 09/15/17] sertraline 50 mg tablet 25 mg PO QDAY tab 09/15/17 [History Confirmed 09/15/17] Post menopausal: Yes PFSH Medical History LBBB (left bundle branch block) (Chronic) Ventricular premature depolarization (Acute) Type 2 diabetes mellitus (Chronic) Pulmonary hypertension (Chronic) Hypokalemia (Acute) Hypomagnesemia (Acute) Hypertension (Chronic) Hyperlipidemia (Chronic) Paroxysmal atrial fibrillation (Chronic) COPD (chronic obstructive pulmonary disease) (Chronic) Obesity (Chronic) Depression (Acute) Palpitations (Acute) Rectal bleeding (Acute) Asthma (Chronic) Fibromyalgia (Chronic) LIAM (obstructive sleep apnea) (Chronic) Pulmonary nodule (Chronic) Raynauds disease (Chronic) Umbilical hernia (Chronic) Surgical History History of hemorrhoidectomy (Chronic) History of knee replacement procedure of right knee (Resolved 2014) History of total hysterectomy (Resolved) S/P cervical spinal fusion (Resolved 2016) Family History Father Atrial fibrillation Uncle Atrial fibrillation Social History Smoking Status: Never smoker second hand exposure: No alcohol intake: never substance use type: does not use what type of physical activity do you participate in: none seatbelt use: always HPI HPI Chief Complaint: follow-up Details: JERMAINE YEE, is a 67 F who presents to the office today for follow-up visit. Her past medical history include depression with anxiety, LBBB, hypertension, hyperlipidemia, paroxysmal atrial fibrillation, COPD, and obesity. Patient here to follow-up of her chronic conditions. Patient stated that she saw a personal property appraiser at [facility] and it is going well. She states she is trying to diet and exercise, but she has increased stress at home taking care of her [id number] and her . She is wondering if a weight loss medication would be appropriate for her due to stress eating. She does note that she was on phentermine in the past and did well on it. She is requesting an emotional support letter to have her animal with her on an airplane when traveling. She denies feelings of depression at this time or thoughts of harming self or others. Patient stated that she did follow-up with Dr. Soto and had skin tags removed. She stated she has an appointment with Dr. Love orthopedic surgeon tomorrow regarding her left knee pain. The patient otherwise denies any fever, chills, nausea, vomiting, shortness of breath, chest pain or pressure, palpitations, orthopnea, lower extremity edema, syncope or presyncopal episodes. ROS Const Constitutional: No body ache, chills, headache(s), weakness or fever(s) Eyes Eyes: No blurry vision, change in vision, eye pain or discharge ENT ENT: No headache(s), abnormal hearing, ear pain, ear pressure, tinnitus, dizziness/vertigo or balance problems Resp Respiratory: No cough or wheezing Cardio Cardiology: No chest pain at rest, shortness of breath, dyspnea on exertion or palpitations Gastro GI: No abdominal pain or bloating Musc Musculoskeletal: Positive for other (left sided pain); no muscle weakness Neuro Neurology: No headache(s), weakness or abnormal hearing Psych Psychiatric: Positive for anxiety (caring for her spouse and mother in-law) Aller/Imm Allergy/Immunologic: No wheezing Exam Const General: cooperative, comfortable, no acute distress Nutritional Appearance: average body habitus, well nourished Orientation: alert, oriented x3 Limitations: mental status not altered [facility] Head: normal to inspection Ears: hearing grossly normal bilaterally Nose: external nose normal Eyes General: appearance normal, both eyes and all related structures Neck Neck: normal visual inspection, no lymphadenopathy, full ROM Resp Effort AND Inspection: normal respiratory effort, able to speak in complete sentences, normal respiratory pattern, symmetric chest movement, no audible wheezes, no cough Auscultation: Bilateral: Clear to Auscultation Cardio Palpation: normal PMI Rate: regular rate Heart Sounds: S1 normal, S2 normal, normal S1 and S2, no click, no gallops, no murmurs, no rubs GI Inspection: normal to inspection Auscultation: normal bowel sounds, no hyperactive bowel sounds, no hypoactive bowel sounds Palpation: soft, no hepatosplenomegaly Musc Musculoskeletal: No joint tenderness, decreased ROM or muscle weakness Skin General: no rashes or lesions noted, elasticity normal, turgor normal Lesions: no lesions Rashes: no rashes Neuro General: alert, awake, oriented x3, CN's II-XI intact bilaterally Speech: speech normal Gait: normal gait Motor: muscle tone normal throughout Extrem General: normal to inspection, normal gait, no edema, no pedal edema Psych Appearance: grossly normal Mental Status: mental status grossly normal Affect: normal affect Attitude: cooperative Thought Process: normal Assessment AND Plan 1. Anxiety and depression F41.9; F32.9 Plan Patient stated that she has increased anxiety taking care of her teavte-lr-cpm and spouse at home. She denies depression symptoms at this time. She denies any thoughts or feelings of harming self or others. She is requesting an emotional support letter for her dog to be with her when she travels on an airplane. Letter provided. Patient continues to take her sertraline. Declines counseling or further medication adjustments. Discussed red flag symptoms and when to seek urgent medical attention. Patient to follow- up as previously scheduled. 2. History of prediabetes Z87.898 Plan Hemoglobin A1c decreased from 6.3 to 5.9 to currently 5.7 today. Patient is attempting to diet and exercise and is following a personal property appraiser at [facility]. ordered hemoglobin A1c today. 3. Obesity E66.9 Plan Patient will continue following up with a personal property appraiser at [facility]. She has been on phentermine in the past with good results. Did ask patient to research on her own some of the long-term weight loss medication options to consider and if interested may trial 1 of these medications. Patient verbalized understanding. Patient to follow-up in 3 months or sooner if needed for routine visit. Plan Detail Other Orders Orders: Follow Up 3 months or sooner needed Coding Level of Care Code Off vis,est,level 3 Diagnoses Anxiety and depression F41.9; F32.9 History of prediabetes Z87.898 Obesity E66.9 Obesity type: due to excess calories Obesity classification: adult class 2 (BMI 35 - 39.9) 01/16/18 1654 <Electronically signed by Ashley SANDRA> Date Ashley SANDRA Cosigner Signature: Date (if applicable) CC: THYROID STIM HORMONE Collected: 01/16/2018 Status: F Source: [place] (TSH) 2:49 PM [facility] REPOSITORY TYPE CODE TESTS RESULT OUT OF RANGE REFERENCE UNITS LAB L501.9520 0.358-3.74 uIU/mL Normal TSH 2.82 Performed By: #### L501.9520 #### [facility] [address] [place], [place], [id number] HEMOGLOBIN A1C Collected: 01/16/2018 Status: F Source: [place] 12:46 PM [facility] REPOSITORY TYPE CODE TESTS RESULT OUT OF RANGE REFERENCE UNITS LAB L501.9985 4.2-6.3 % Normal HGB A1C 5.7 Performed By: #### L501.9985 #### [facility] [address] [place], [address] BASIC METABOLIC Collected: 12/06/2017 Status: F Source: [place] PROFILE (BMP) 8:41 AM [facility] REPOSITORY TYPE CODE TESTS RESULT OUT OF RANGE REFERENCE UNITS LAB L501.0100 74-106 mg/dL High GLU 118 Result Comment: Fasting Glucose result from 100 to 125 mg/dL suggests IMPAIRED HOMEOSTASIS per A.D.A. criteria. Please note revised GLUCOSE reference range effective 2017. LAB L501.1000 7-18 mg/dL High BUN 19 LAB L501.1100 0.55-1.02 mg/dL High CREAT,SERUM 1.07 Result Comment: The validity of the calculated GFR AND GFRAA in patients over 70 years has not been determined. Clinical correlation is essential. LAB L501.1110 >60 mL/min Low EST GFR 55 Result Comment: Non- GFR Calc LAB L501.1115 >60 mL/min Normal EST GFR - AA 66 Result Comment: GFR Calc LAB L501.1300 10-20 RATIO Normal BUN/CRE 17.8 LAB L501.2200 8.5-10.1 mg/dL CA Normal 9.8 LAB L501.5300 136-145 mmol/L NA Normal 142 LAB L501.5600 3.5-5.1 mmol/L K Normal 3.9 LAB L501.5900 98-107 mmol/L CL Normal 105 LAB L501.6100 21.0-32.0 mmol/L Normal CO2 27.0 LAB L501.6200 5-15 Normal GAP 10 Performed By: #### L500.2500 #### [facility] [address] [place], [address] INTERNAL MEDICINE Observed: 11/28/2017 Status: F Source: [place] OFFICE VISIT 3:16 PM [facility] REPOSITORY [facility] [address] [place] [address] [place] [address] OFFICE VISIT Date of Service: 11/28/17 MR#: [id number] Acct: [id number] Name: JERMAINE YEE Rep #: [id number] : 1950 Provider: Ashley Fields NP Age/Sex: 67/F Location: [facility] Status: Signed Intake Vital Signs11/28/17 Height 5 ft 9 in Intake Visit Reasons: possible stitch left in neck Chief Complaint: skin tags on neck Is patient in pain?: No Allergies dibucaine Allergy (Severe, Verified 09/15/17 09:33) Rash, itching Iodinated Contrast- Oral and IV Dye Allergy (Severe, Verified 09/15/17 09:33) RAsh, Itching wool Allergy (Verified 09/15/17 09:33) Rash NSAIDS (Non-Steroidal Anti-Inflamma Adverse Reaction (Severe, Verified 09/15/17 09:33) GI Bleeding adhesive tape Adverse Reaction (Intermediate, Verified 09/15/17 09:33) localized skin reaction acetaminophen [From Darvocet-N] Adverse Reaction (Verified 04/27/18 09:33) Vomiting codeine Adverse Reaction (Verified 09/15/17 09:33) Vomiting hydrocodone bitartrate [From Vicodin] Adverse Reaction (Verified 09/15/17 09:33) Vomiting morphine Adverse Reaction (Verified 09/15/17 09:33) Vomiting propoxyphene napsylate [From Darvocet-N] Adverse Reaction (Verified 09/15/17 09:33) Vomiting Medications Albuterol IH (ProAir) [Proair Hfa] 1 - 2 puff INHALATION Q4H PRN PRN 10/18/16 [History Confirmed 09/15/17] Ubidecarenone [Co Q-10] 100 mg PO DAILY 10/18/16 [History Confirmed 09/15/17] aspirin 81 mg tablet,delayed release 81 mg PO QDAY 04/24/17 [History Confirmed 09/15/17] fluticasone 50 mcg/actuation nasal spray,suspension 2 spray INTRANASAL DAILY PRN #15.8 g 07/21/17 [Rx Confirmed 09/15/17] simvastatin 20 mg tablet 20 mg PO QPM #90 tab 07/21/17 [Rx Confirmed 09/15/17] spironolactone 25 mg-hydrochlorothiazide 25 mg tablet 1 tab PO DAILY #90 tab 07/21/17 [Rx Confirmed 09/15/17] potassium chloride ER 10 mEq tablet,extended release 10 meq PO QDAY #90 tab 07/24/17 [Rx Confirmed 09/15/17] cyclobenzaprine 10 mg tablet 10 mg PO TID PRN #30 tab 08/04/17 [Rx Confirmed 09/15/17] metoprolol succinate ER 25 mg tablet,extended release 24 hr 25 mg PO DAILY #90 tab 08/29/17 [Rx Confirmed 09/15/17] hydrocortisone 2.5 % topical ointment 1 applic TOPICAL BID #28.35 g 09/15/17 [Rx Confirmed 09/15/17] sertraline 50 mg tablet 25 mg PO QDAY tab 09/15/17 [History Confirmed 09/15/17] PFSH Medical History LBBB (left bundle branch block) (Chronic) Ventricular premature depolarization (Acute) Type 2 diabetes mellitus (Chronic) Pulmonary hypertension (Chronic) Hypokalemia (Acute) Hypomagnesemia (Acute) Hypertension (Chronic) Hyperlipidemia (Chronic) Paroxysmal atrial fibrillation (Chronic) COPD (chronic obstructive pulmonary disease) (Chronic) Obesity (Chronic) Depression (Acute) Palpitations (Acute) Rectal bleeding (Acute) Asthma (Chronic) Fibromyalgia (Chronic) LIAM (obstructive sleep apnea) (Chronic) Pulmonary nodule (Chronic) Raynauds disease (Chronic) Umbilical hernia (Chronic) Surgical History History of hemorrhoidectomy (Chronic) History of knee replacement procedure of right knee (Resolved 2015) History of total hysterectomy (Resolved) S/P cervical spinal fusion (Resolved 2017) Family History Father Atrial fibrillation Uncle Atrial fibrillation Social History Smoking Status: Never smoker second hand exposure: No alcohol intake: never substance use type: does not use what type of physical activity do you participate in: none seatbelt use: always HPI HPI Chief Complaint: skin tags on neck Details: JERMAINE YEE, is a 67 F who presents to the office today for multiple complaints. Patient has a past medical history of hypertension, proximal A. fib, hyperlipidemia, diabetes, COPD and obesity. The patient complains of numerous skin tags on trunk and neck. She states that the skin tags snagged on clothing at times and becomes painful. She denies any wounds or open areas. Patient complains of worsening cough over the last couple weeks with postnasal drip. She states every morning over the last 2 weeks she coughs up chunks of white matter after she awakes. She denies sick or yellow sputum, wheezing, shortness of breath, congestion, runny nose or sore throat. Patient also complains of chronic left knee pain. She has an appointment made with Dr. Love. The patient otherwise denies any fever, chills, nausea, vomiting, shortness of breath, chest pain or pressure, palpitations, orthopnea, lower extremity edema, syncope or presyncopal episodes. ROS Const Constitutional: No weight change, body ache, chills, fatigue, sleep problems, fever(s), change in appetite, snoring, weakness, frequent falls, headache(s) or excessive sweating Eyes Eyes: No change in vision, eye pain, light sensitivity or blurry vision ENT ENT: No headache(s), abnormal hearing, ear pain, tinnitus, nasal congestion, sore throat or neck pain Resp Respiratory: Positive for cough (coughs chunks out in the a.m. ) Cough: Yes productive and shortness of breath; no snoring or wheezing Cardio Cardiology: No excessive sweating, chest pain at rest, chest pain with exertion, shortness of breath, dyspnea on exertion, palpitations, orthopnea or lightheadedness Gastro GI: No abdominal pain, change in bowel habits, constipation, diarrhea, vomiting, nausea/dyspepsia or cramping Genitourinary-Female: No burning urination, painful urination, urinary incontinence, urinary frequency, abnormal vaginal bleeding, pelvic pain or other Musc Musculoskeletal: No neck pain, abnormal walking, joint pain, back pain, limited range of motion, numbness or tingling Skin Skin: No redness, dry skin, itching, lesions, wounds or rash Neuro Neurology: No weakness, frequent falls, headache(s), abnormal hearing, abnormal walking, numbness, tingling, abnormal speech, dizziness or memory loss Psych Psychiatric: No change in appetite, No memory loss, No anxiety, No depression, No Thoughts of harming yourself/Others Endo Endocrine: No fatigue, excessive sweating, cold intolerance, increased thirst/drinking, heat intolerance, flushing or increased hunger Aller/Imm Allergy/Immunologic: No wheezing, itchy eyes, hives or seasonal allergy symptoms Brenden/Lymp Hematologic/Lymphatic: No easy bleeding, easy bruising or enlarged lymph nodes Exam Const General: cooperative, comfortable, no acute distress Nutritional Appearance: average body habitus, well nourished Orientation: alert, oriented x3 Limitations: mental status not altered [facility] Head: normal to inspection Ears: hearing grossly normal bilaterally, TM abnormal with fluid behind the TM bilaterally Nose: external nose normal, mucous membranes and turbinates abnormal erythematous Throat: postnasal drainage Eyes General: appearance normal, both eyes and all related structures Resp Effort AND Inspection: normal respiratory effort, able to speak in complete sentences, normal respiratory pattern, symmetric chest movement, no audible wheezes, no cough Auscultation: Bilateral: Clear to Auscultation Cardio Palpation: normal PMI Rate: regular rate Heart Sounds: S1 normal, S2 normal, normal S1 and S2, no click, no gallops, no murmurs, no rubs Skin General: no rashes or lesions noted, elasticity normal, turgor normal Lesions: no lesions Rashes: no rashes Neuro General: alert, awake, oriented x3, CN's II-XI intact bilaterally Speech: speech normal Gait: normal gait Motor: muscle tone normal throughout Extrem General: normal to inspection, normal gait, no edema, no pedal edema Psych Appearance: grossly normal Mental Status: mental status grossly normal Affect: normal affect Attitude: cooperative Thought Process: normal Assessment AND Plan 1. Cough R05 Plan Patient complains of cough for the past couple weeks, postnasal drainage noted on exam. Will add flonase twice a day and encouraged using it routinely. 2. Post-nasal drip R09.82 Plan See plan as above 3. Skin tag L91.8 Plan Will refer patient to dermatology. Orders Referrals: 4. Left knee pain M25.562 Plan Patient has an appointment with Dr. Love to discuss surgical options. 5. Obesity E66.9 Plan Patient BMI 36.8. Referral to why weight program given. Orders Referrals: 6. Hypokalemia E87.6 Plan Patient encouraged to continue potassium supplement. Will recheck BMP in 6 weeks prior to next appointment. Discussed red flag signs and symptoms that would warrant emergency care. This note was generated with orderbolt dictation software. It may contain incorrect words, spelling, and punctuation that were not noted in checking the note before signing. Orders Orders: Plan Detail Other Orders Referrals: Follow Up 6 Weeks Coding Level of Care Code Off vis,est,level 4 Diagnoses Cough R05 Post-nasal drip R09.82 Skin tag L91.8 Left knee pain M25.562 Obesity E66.9 Obesity type: due to excess calories Hypokalemia E87.6 11/28/17 1516 <Electronically signed by Ashley SANDRA> Date Ashley SANDRA Cosigner Signature: Date (if applicable) CC: HEMOGLOBIN A1C Collected: 10/17/2017 Status: F Source: [place] 10:34 AM [facility] REPOSITORY TYPE CODE TESTS RESULT OUT OF RANGE REFERENCE UNITS LAB L501.9985 4.2-6.3 % Normal HGB A1C 5.9 Performed By: #### L501.9985, L500.4100 #### [facility] [address] [place], [place], [address] LIPID PROFILE Collected: 10/17/2017 Status: F Source: [place] 10:34 AM [facility] REPOSITORY Order Comment: Order Date: 03/07/17 Order Info: [id number] - *BMP Comments: Reason: TYPE CODE TESTS RESULT OUT OF RANGE REFERENCE UNITS LAB L501.4900 200 mg/dL Normal CHOL 134 Result Comment: <200 mg/dL Desirable 200-240 mg/dL Borderline >240 mg/dL High Risk LAB L501.5000 mg/dL Normal TRIG 96 Result Comment: The drugs N-Acetylcysteine and Metamizole may falsely depress this assay. Serum Triglycerides Reference Interval Normal <150 mg/dL Borderline high 150 - 199 mg/dL High 200 - 499 mg/dL Very High > or = 500 mg/dL LAB L501.6400 mg/dL Normal HDL 45 Result Comment: The drugs N-Acetylcysteine and Metamizole may falsely depress this assay. Reference Range HDL <40 mg/dL Low HDL Cholesterol HDL >or= 60 mg/dL High HDL Cholesterol LAB L501.6500 0-130 mg/dL Normal LDL 70 LAB L501.6600 5-40 mg/dL Normal VLDL 19 Performed By: #### L501.9985, L500.4100 #### [facility] [address] [place], [address] BASIC METABOLIC Collected: 10/17/2017 Status: F Source: [place] PROFILE (BMP) 10:34 AM [facility] REPOSITORY Order Comment: Order Date: 03/07/17 Order Info: [id number] - *BMP Comments: Reason: TYPE CODE TESTS RESULT OUT OF RANGE REFERENCE UNITS LAB L501.0100 74-106 mg/dL High GLU 108 Result Comment: Fasting Glucose result from 100 to 125 mg/dL suggests IMPAIRED HOMEOSTASIS per A.D.A. criteria. Please note revised GLUCOSE reference range effective 2017. LAB L501.1000 7-18 mg/dL Normal BUN 17 LAB L501.1100 0.55-1.02 mg/dL Normal CREAT,SERUM 0.83 Result Comment: The validity of the calculated GFR AND GFRAA in patients over 70 years has not been determined. Clinical correlation is essential. LAB L501.1110 >60 mL/min Normal EST GFR 74 Result Comment: Non- GFR Calc LAB L501.1115 >60 mL/min Normal EST GFR - AA 89 Result Comment: GFR Calc LAB L501.1300 10-20 RATIO High BUN/CRE 20.6 LAB L501.2200 8.5-10.1 mg/dL CA Normal 9.0 LAB L501.5300 136-145 mmol/L NA Normal 143 LAB L501.5600 3.5-5.1 mmol/L K Normal 3.9 LAB L501.5900 98-107 mmol/L CL Normal 107 LAB L501.6100 21.0-32.0 mmol/L Normal CO2 27.0 LAB L501.6200 5-15 Normal GAP 9 Performed By: #### L500.2500 #### [facility] [address] [place], [address] INTERNAL MEDICINE Observed: 10/13/2017 Status: F Source: [place] OFFICE VISIT 4:31 PM [facility] REPOSITORY [facility] [address] [place] [address] [place] [address] OFFICE VISIT Date of Service: 10/13/17 MR#: [id number] Acct: [id number] Name: JERMAINE YEE Rep #: [id number] : 1950 Provider: Jenifer Pool MD Age/Sex: 66/F Location: [facility] Status: Signed Intake Vital Signs10/13/17 Height 5 ft 9 in Intake Visit Reasons: 1 mo f/u Chief Complaint: Follow-up visit. Is patient in pain?: Yes (left knee) Pain scale (1-10): 8 Allergies dibucaine Allergy (Severe, Verified 09/15/17 09:33) Rash, itching Iodinated Contrast- Oral and IV Dye Allergy (Severe, Verified 09/15/17 09:33) RAsh, Itching wool Allergy (Verified 09/15/17 09:33) Rash NSAIDS (Non-Steroidal Anti-Inflamma Adverse Reaction (Severe, Verified 09/15/17 09:33) GI Bleeding adhesive tape Adverse Reaction (Intermediate, Verified 09/15/17 09:33) localized skin reaction acetaminophen [From Darvocet-N] Adverse Reaction (Verified 09/15/17 09:33) Vomiting codeine Adverse Reaction (Verified 09/15/17 09:33) Vomiting hydrocodone bitartrate [From Vicodin] Adverse Reaction (Verified 09/15/17 09:33) Vomiting morphine Adverse Reaction (Verified 09/15/17 09:33) Vomiting propoxyphene napsylate [From Darvocet-N] Adverse Reaction (Verified 09/15/17 09:33) Vomiting Medications Albuterol IH (ProAir) [Proair Hfa] 1 - 2 puff INHALATION Q4H PRN PRN 10/18/16 [History Confirmed 09/15/17] Ubidecarenone [Co Q-10] 100 mg PO DAILY 10/18/16 [History Confirmed 09/15/17] aspirin 81 mg tablet,delayed release 81 mg PO QDAY 04/24/17 [History Confirmed 09/15/17] fluticasone 50 mcg/actuation nasal spray,suspension 2 spray INTRANASAL DAILY PRN #15.8 g 07/21/17 [Rx Confirmed 09/15/17] simvastatin 20 mg tablet 20 mg PO QPM #90 tab 07/21/17 [Rx Confirmed 09/15/17] spironolactone 25 mg-hydrochlorothiazide 25 mg tablet 1 tab PO DAILY #90 tab 07/21/17 [Rx Confirmed 09/15/17] potassium chloride ER 10 mEq tablet,extended release 10 meq PO QDAY #90 tab 07/24/17 [Rx Confirmed 09/15/17] cyclobenzaprine 10 mg tablet 10 mg PO TID PRN #30 tab 08/04/17 [Rx Confirmed 09/15/17] metoprolol succinate ER 25 mg tablet,extended release 24 hr 25 mg PO DAILY #90 tab 08/29/17 [Rx Confirmed 09/15/17] hydrocortisone 2.5 % topical ointment 1 applic TOPICAL BID #28.35 g 09/15/17 [Rx Confirmed 09/15/17] sertraline 50 mg tablet 25 mg PO QDAY tab 09/15/17 [History Confirmed 09/15/17] PFSH Medical History LBBB (left bundle branch block) (Chronic) Ventricular premature depolarization (Acute) Type 2 diabetes mellitus (Chronic) Pulmonary hypertension (Chronic) Hypokalemia (Acute) Hypomagnesemia (Acute) Hypertension (Chronic) Hyperlipidemia (Chronic) Paroxysmal atrial fibrillation (Chronic) COPD (chronic obstructive pulmonary disease) (Chronic) Obesity (Chronic) Depression (Acute) Palpitations (Acute) Rectal bleeding (Acute) Asthma (Chronic) Fibromyalgia (Chronic) LIAM (obstructive sleep apnea) (Chronic) Pulmonary nodule (Chronic) Raynauds disease (Chronic) Umbilical hernia (Chronic) Surgical History History of hemorrhoidectomy (Chronic) History of knee replacement procedure of right knee (Resolved 2014) History of total hysterectomy (Resolved) S/P cervical spinal fusion (Resolved 2016) Family History Father Atrial fibrillation Uncle Atrial fibrillation Social History Smoking Status: Never smoker second hand exposure: No alcohol intake: never substance use type: does not use what type of physical activity do you participate in: none seatbelt use: always HPI HPI Chief Complaint: Follow-up visit. Details: JERMAINE YEE, is a 66yo F who presents to the office today for follow up. She was seen about a month ago for new onset rash and was started on hydrocortisone ointment. Rash is now said to have resolved. ROS Const Constitutional: No weight change, body ache, chills, sleep problems, fever(s), change in appetite, snoring, frequent falls, headache(s) or excessive sweating Eyes Eyes: No change in vision, eye pain, light sensitivity or blurry vision ENT ENT: No headache(s), abnormal hearing, ear pain, tinnitus, nasal congestion, sore throat or neck pain Resp Respiratory: No snoring, cough or wheezing Cardio Cardiology: No excessive sweating, chest pain at rest, chest pain with exertion, shortness of breath, dyspnea on exertion, palpitations, orthopnea or lightheadedness Gastro GI: No abdominal pain, change in bowel habits, constipation, diarrhea, vomiting, nausea/dyspepsia or cramping Genitourinary-Female: No burning urination, painful urination, urinary incontinence, urinary frequency, abnormal vaginal bleeding, pelvic pain or other Musc Musculoskeletal: No neck pain, abnormal walking, joint pain, back pain, limited range of motion, numbness, tingling or muscle weakness Skin Skin: No redness, dry skin, itching, lesions, wounds or rash Neuro Neurology: No frequent falls, headache(s), abnormal hearing, abnormal walking, numbness, tingling, abnormal speech, dizziness or memory loss Psych Psychiatric: No change in appetite, No memory loss, No depression, No Thoughts of harming yourself/Others Endo Endocrine: No excessive sweating, cold intolerance, increased thirst/drinking, heat intolerance, flushing or increased hunger Aller/Imm Allergy/Immunologic: No wheezing, itchy eyes, hives or seasonal allergy symptoms Brenden/Lymp Hematologic/Lymphatic: No easy bleeding, easy bruising or enlarged lymph nodes Exam Const General: cooperative, no acute distress Orientation: alert, awake, oriented x3 HENMT Head: atraumatic, normocephalic Ears: hearing grossly normal bilaterally Resp Effort AND Inspection: normal respiratory effort, able to speak in complete sentences Auscultation: Bilateral: Clear to Auscultation Cardio Rate: regular rate Rhythm: regular rhythm Heart Sounds: S1 normal, S2 normal GI Palpation: soft, no hepatosplenomegaly Musc Musculoskeletal: No muscle weakness Neuro General: alert, awake, oriented x3, moves all extremities, CN's II-XI intact bilaterally Extrem General: no clubbing, cyanosis or edema Psych Appearance: grossly normal Mental Status: mental status grossly normal Affect: normal affect Assessment AND Plan 1. Dermatitis L30.9 Plan Resolved. Continue Hydrocortisone prn. Follow up for any acute flares. 2. Hyperlipidemia, unspecified hyperlipidemia type E78.5 Plan Currently on simvastatin. Lipid profile ordered. Continue dietary and life style modifications. Orders Orders: 3. Type 2 diabetes mellitus E11.9 Plan A1C ordered. Follow up with result. Orders Orders: Plan Detail Follow Up 3 Months Coding Level of Care Code Off vis,est,level 3 Diagnoses Dermatitis L30.9 Hyperlipidemia, unspecified hyperlipidemia type E78.5 Hyperlipidemia type: unspecified Type 2 diabetes mellitus E11.9 10/13/17 1631 <Electronically signed by Jenifer Pool MD> Date Jenifer Pool MD Cosigner Signature: Date (if applicable) CC: INTERNAL MEDICINE Observed: 09/15/2017 Status: F Source: [place] OFFICE VISIT 5:01 PM [facility] [address] [place] [address] [place] [address] OFFICE VISIT Date of Service: 09/15/17 MR#: [id number] Acct: [id number] Name: JERMAINE YEE Rep #: [id number] : 1950 Provider: Jenifer Pool MD Age/Sex: 66/F Location: [facility] [email or web address] Status: Signed Intake Vital Signs09/15/17 Height 5 ft 9 in 09/15/17 Weight: 247 lb 09/15/17 Body Mass Index (BMI) 36.4 09/15/17 Blood Pressure 132/80 Intake Visit Reasons: 6 WK F/U Chief Complaint: Follow-up visit. Is patient in pain?: Yes (Knees) Allergies dibucaine Allergy (Severe, Verified 09/15/17 09:33) Rash, itching Iodinated Contrast- Oral and IV Dye Allergy (Severe, Verified 09/15/17 09:33) RAsh, Itching wool Allergy (Verified 09/15/17 09:33) Rash NSAIDS (Non-Steroidal Anti-Inflamma Adverse Reaction (Severe, Verified 09/15/17 09:33) GI Bleeding adhesive tape Adverse Reaction (Intermediate, Verified 09/15/17 09:33) localized skin reaction acetaminophen [From Darvocet-N] Adverse Reaction (Verified 09/15/17 09:33) Vomiting codeine Adverse Reaction (Verified 09/15/17 09:33) Vomiting hydrocodone bitartrate [From Vicodin] Adverse Reaction (Verified 09/15/17 09:33) Vomiting morphine Adverse Reaction (Verified 09/15/17 09:33) Vomiting propoxyphene napsylate [From Darvocet-N] Adverse Reaction (Verified 09/15/17 09:33) Vomiting Medications Albuterol IH (ProAir) [Proair Hfa] 1 - 2 puff INHALATION Q4H PRN PRN 10/18/16 [History Confirmed 09/15/17] Ubidecarenone [Co Q-10] 100 mg PO DAILY 10/18/16 [History Confirmed 09/15/17] aspirin 81 mg tablet,delayed release 81 mg PO QDAY 04/24/17 [History Confirmed 09/15/17] fluticasone 50 mcg/actuation nasal spray,suspension 2 spray INTRANASAL DAILY PRN #15.8 g 07/21/17 [Rx Confirmed 09/15/17] simvastatin 20 mg tablet 20 mg PO QPM #90 tab 07/21/17 [Rx Confirmed 09/15/17] spironolactone 25 mg-hydrochlorothiazide 25 mg tablet 1 tab PO DAILY #90 tab 07/21/17 [Rx Confirmed 09/15/17] potassium chloride ER 10 mEq tablet,extended release 10 meq PO QDAY #90 tab 07/24/17 [Rx Confirmed 09/15/17] bupropion HCl XL 150 mg 24 hr tablet, extended release 150 mg PO QAM #30 tab 08/04/17 [Rx Confirmed 09/15/17] cyclobenzaprine 10 mg tablet 10 mg PO TID PRN #30 tab 08/04/17 [Rx Confirmed 09/15/17] metoprolol succinate ER 25 mg tablet,extended release 24 hr 25 mg PO DAILY #90 tab 08/29/17 [Rx Confirmed 09/15/17] hydrocortisone 2.5 % topical ointment 1 applic TOPICAL BID #28.35 g 09/15/17 [Rx Confirmed 09/15/17] sertraline 50 mg tablet 25 mg PO QDAY tab 09/15/17 [History Confirmed 09/15/17] [facility] Medical History LBBB (left bundle branch block) (Chronic) Ventricular premature depolarization (Acute) Type 2 diabetes mellitus (Chronic) Pulmonary hypertension (Chronic) Hypokalemia (Acute) Hypomagnesemia (Acute) Hypertension (Chronic) Hyperlipidemia (Chronic) Paroxysmal atrial fibrillation (Chronic) COPD (chronic obstructive pulmonary disease) (Chronic) Obesity (Chronic) Depression (Acute) Palpitations (Acute) Rectal bleeding (Acute) Asthma (Chronic) Fibromyalgia (Chronic) LIAM (obstructive sleep apnea) (Chronic) Pulmonary nodule (Chronic) Raynauds disease (Chronic) Umbilical hernia (Chronic) Surgical History History of hemorrhoidectomy (Chronic) History of knee replacement procedure of right knee (Resolved 2014) History of total hysterectomy (Resolved) S/P cervical spinal fusion (Resolved 2017) Family History Father Atrial fibrillation Uncle Atrial fibrillation Social History Smoking Status: Never smoker second hand exposure: No alcohol intake: never substance use type: does not use what type of physical activity do you participate in: none seatbelt use: always HPI HPI Chief Complaint: Follow-up visit. Details: JERMAINE YEE, is a 66yo F who presents to the office today for follow up. She however reports jaycee on her back which has been ongoing for months. Said to be itchy. She denies any known associated factors. She was started on Wellbutrin during her last visit. She had been on Zoloft previously however was concerned that it was causing weight gain. Plan was to sanjuanita of Zoloft and start Wellbutrin. Patient however only took it for about a month. She is questioning the need for it. ROS Const Constitutional: No chills, fatigue, fever(s), frequent falls, malaise, weakness, sleep problems or change in appetite Eyes Eyes: No blurry vision, change in vision, double vision, discharge or visual disturbances ENT ENT: No abnormal hearing, ear pain, ear pressure, tinnitus or dizziness/vertigo Resp Respiratory: No cough or wheezing Cardio Cardiology: Positive for shortness of breath; no chest pain at rest, chest pain with exertion, dyspnea on exertion, generalized swelling, irregular heart rhythm, lightheadedness, orthopnea, fast heart rate or palpitations Gastro GI: No abdominal pain, change in bowel habits, constipation, diarrhea, nausea/dyspepsia or vomiting Genitourinary-Female: No difficulty urinating, burning urination, painful urination, urinary frequency, urinary urgency, urinary hesitancy, urinary retention, Frequent nighttime urination/ nocturia, sexual problems, genital lesions, abnormal vaginal bleeding, pelvic pain, vaginal dryness, vaginal odor or Vaginal Itching Musc Musculoskeletal: Positive for joint pain (Knees); no back pain, joint swelling, limited range of motion, muscle weakness, numbness or tingling Skin Skin: Positive for rash (On low back); no change in skin color or wounds Breast Breast: No breast lump or breast pain Neuro Neurology: Positive for unsteady gait/balance; no frequent falls, weakness, abnormal hearing, numbness, tingling, dizziness, loss of vision or visual disturbances Psych Psychiatric: No change in appetite, No Thoughts of harming yourself/Others Endo Endocrine: No fatigue, heat intolerance, increased thirst/drinking, increased hunger or increased urination Aller/Imm Allergy/Immunologic: No wheezing or seasonal allergy symptoms Brenden/Lymp Hematologic/Lymphatic: No easy bleeding, easy bruising or enlarged lymph nodes Exam Const General: cooperative, no acute distress Orientation: alert, awake, oriented x3 HENMT Head: atraumatic, normocephalic Ears: hearing grossly normal bilaterally Resp Effort AND Inspection: normal respiratory effort, able to speak in complete sentences Auscultation: Bilateral: Clear to Auscultation Cardio Rate: regular rate Rhythm: regular rhythm Heart Sounds: S1 normal, S2 normal GI Palpation: soft, no hepatosplenomegaly Musc Musculoskeletal: No muscle weakness Neuro General: alert, awake, oriented x3, moves all extremities, CN's II-XI intact bilaterally Extrem General: no clubbing, cyanosis or edema Psych Appearance: grossly normal Mental Status: mental status grossly normal Affect: normal affect Assessment AND Plan 1. Dermatitis L30.9 Plan Possibly contact/allergic. Hydrocortisone ointment BID prn. Discussed good hydration and moisturizing skin appropriately. Follow-up in 1 month 2. Depression with anxiety F41.8 Plan Had been on Zoloft for a long time however at her last visit she wanted off due to concerns of weight gain. Currently on 25 mg of Zoloft. She has been on Wellbutrin however has been off of it for over a month and has not noted any significant concerns. Okay to stay of Wellbutrin for now. Continue 25 mg of Zoloft daily. Will follow. 3. Essential hypertension I10 Plan Stable. Continue current medications. Continue lifestyle modifications. in the context of This note was generated with Rachio software. It may contain incorrect words, spelling, and punctuation that were not noted in checking the note before signing. Plan Detail Other Medications New: Follow Up 1 Month Coding Level of Care Code Off vis,est,level 3 Diagnoses Dermatitis L30.9 Depression with anxiety F41.8 Essential hypertension I10 Hypertension type: essential hypertension 09/15/17 1701 <Electronically signed by Jenifer Pool MD> Date Jenifer Pool MD Cosigner Signature: Date (if applicable) CC: BASIC METABOLIC Collected: 09/04/2017 Status: F Source: SCOUT PROFILE (BMP) 11:30 AM [facility] REPOSITORY TYPE CODE TESTS RESULT OUT OF RANGE REFERENCE UNITS LAB L501.0100 74-106 mg/dL Normal GLU 97 Result Comment: Please note revised GLUCOSE reference range effective 2017. LAB L501.1000 7-18 mg/dL Normal BUN 11 LAB L501.1100 0.55-1.02 mg/dL Normal CREAT,SERUM 0.98 Result Comment: The validity of the calculated GFR AND GFRAA in patients over 70 years has not been determined. Clinical correlation is essential. LAB L501.1110 >60 mL/min Normal EST GFR 61 Result Comment: Non- GFR Calc LAB L501.1115 >60 mL/min Normal EST GFR - AA 74 Result Comment: GFR Calc LAB L501.1300 10-20 RATIO Normal BUN/CRE 11.2 LAB L501.2200 8.5-10.1 mg/dL CA Normal 9.4 LAB L501.5300 136-145 mmol/L NA Normal 141 LAB L501.5600 3.5-5.1 mmol/L K Normal 4.4 Result Comment: Slight Hemolysis, Result may be falsely increased. LAB L501.5900 98-107 mmol/L Normal CL 106 LAB L501.6100 21.0-32.0 mmol/L Normal CO2 29.0 LAB L501.6200 5-15 Normal 6 GAP Performed By: #### L500.2500, L501.5200 #### [facility] [address] [place], [address] MAGNESIUM Collected: 09/04/2017 Status: F Source: SCOUT 11:30 AM [facility] REPOSITORY TYPE CODE TESTS RESULT OUT OF RANGE REFERENCE UNITS LAB L501.5200 1.6-2.6 mg/dL Normal MG 2.0 Result Comment: Slight Hemolysis, Result may be falsely increased. Performed By: #### L500.2500, L501.5200 #### [facility] [address] [place], [address] CARDIOLOGY VISIT Observed: 08/29/2017 Status: F Source: SCOUT REPORT 1:56 PM [facility] REPOSITORY [facility] [address] [place] [address] OFFICE VISIT Date of Service: 08/29/17 MR#: [id number] Acct: [id number] Name: JERMAINE YEE Rep #: [id number] : 1950 Provider: Alonzo Segura MD Age/Sex: 66/F Location: [facility] Status: Signed [facility] Chief Complaint: Follow-up visit. Details: JERMAINE YEE, is a 66 F who presents to the office today for a follow-up visit. She is a lady with a history of chronic left bundle branch block and a history of shortness of breath. You do remember that she had been evaluated with an echocardiogram with demonstrated preserved ejection fraction with an estimated EF of 60% and pulmonary pressures of 41 mmHg. She was placed on Aldactazide which she is tolerating she says that she may be mildly dizzy and wonders about her electrolytes. She has had no neck arm or jaw discomfort suggest any angina. She did have a stress test performed which also did not demonstrate any evidence of ischemia. Her blood pressure is under excellent control and physical exam demonstrates clear lung rivera regular rate and rhythm and no pedal edema. Intake Vital Signs08/29/17 Height 5 ft 9 in 08/29/17 Weight: 244 lb 08/29/17 Body Mass Index (BMI) 36.0 08/29/17 Blood Pressure 104/60 Intake Visit Reasons: 1 Y FU Is patient in pain?: No Allergies dibucaine Allergy (Severe, Verified 08/29/17 13:31) Rash, itching Iodinated Contrast- Oral and IV Dye Allergy (Severe, Verified 08/29/17 13:31) RAsh, Itching wool Allergy (Verified 08/29/17 13:31) Rash NSAIDS (Non-Steroidal Anti-Inflamma Adverse Reaction (Severe, Verified 08/29/17 13:31) GI Bleeding adhesive tape Adverse Reaction (Intermediate, Verified 08/29/17 13:31) localized skin reaction acetaminophen [From Darvocet-N] Adverse Reaction (Verified 08/29/17 13:31) Vomiting codeine Adverse Reaction (Verified 08/29/17 13:31) Vomiting hydrocodone bitartrate [From Vicodin] Adverse Reaction (Verified 08/29/17 13:31) Vomiting morphine Adverse Reaction (Verified 08/29/17 13:31) Vomiting propoxyphene napsylate [From Darvocet-N] Adverse Reaction (Verified 08/29/17 13:31) Vomiting Medications Albuterol IH (ProAir) [Proair Hfa] 1 - 2 puff INHALATION Q4H PRN PRN 10/18/16 [History Confirmed 08/29/17] Ubidecarenone [Co Q-10] 100 mg PO DAILY 10/18/16 [History Confirmed 08/29/17] aspirin 81 mg tablet,delayed release 81 mg PO QDAY 04/24/17 [History Confirmed 08/29/17] fluticasone 50 mcg/actuation nasal spray,suspension 2 spray INTRANASAL DAILY PRN #15.8 g 07/21/17 [Rx Confirmed 08/29/17] simvastatin 20 mg tablet 20 mg PO QPM #90 tab 07/21/17 [Rx Confirmed 08/29/17] spironolactone 25 mg-hydrochlorothiazide 25 mg tablet 1 tab PO DAILY #90 tab 07/21/17 [Rx Confirmed 08/29/17] potassium chloride ER 10 mEq tablet,extended release 10 meq PO QDAY #90 tab 07/24/17 [Rx Confirmed 08/29/17] bupropion HCl XL 150 mg 24 hr tablet, extended release 150 mg PO QAM #30 tab 08/04/17 [Rx Confirmed 08/29/17] cyclobenzaprine 10 mg tablet 10 mg PO TID PRN #30 tab 08/04/17 [Rx Confirmed 08/29/17] sertraline 50 mg tablet 50 mg PO QDAY 08/04/17 [History Confirmed 08/29/17] metoprolol succinate ER 25 mg tablet,extended release 24 hr 25 mg PO DAILY #90 tab 08/29/17 [Rx Confirmed 08/29/17] Ejection fraction %: 60 to 64 (60% per echo 09/15/16) [facility] Medical History LBBB (left bundle branch block) (Chronic) Ventricular premature depolarization (Acute) Type 2 diabetes mellitus (Chronic) Pulmonary hypertension (Chronic) Hypokalemia (Acute) Hypomagnesemia (Acute) Hypertension (Chronic) Hyperlipidemia (Chronic) Paroxysmal atrial fibrillation (Chronic) COPD (chronic obstructive pulmonary disease) (Chronic) Obesity (Chronic) Depression (Acute) Palpitations (Acute) Rectal bleeding (Acute) Asthma (Chronic) Fibromyalgia (Chronic) LIAM (obstructive sleep apnea) (Chronic) Pulmonary nodule (Chronic) Raynauds disease (Chronic) Umbilical hernia (Chronic) Surgical History History of hemorrhoidectomy (Chronic) History of knee replacement procedure of right knee (Resolved 2014) History of total hysterectomy (Resolved) S/P cervical spinal fusion (Resolved 2016) Family History Father Atrial fibrillation Uncle Atrial fibrillation Social History Smoking Status: Never smoker second hand exposure: No alcohol intake: never substance use type: does not use what type of physical activity do you participate in: none seatbelt use: always ROS Const Const: Positive for fatigue and other (Sometimes lightheaded but otherwise feeling well); negative for weakness, body ache, fever(s), headache(s), chills, frequent falls, night sweats, daytime sleepiness, difficulty sleeping, excessive sweating, weight gain, weight loss, increased appetite, poor appetite or anorexia Eyes Eyes: Negative for blind spots, loss of peripheral vision, transient loss of vision, blurry vision, change in vision, double vision, floaters, tunnel vision or other ENT ENT: Negative for headache(s), dizziness, hearing loss, tinnitus, Nosebleed/epistaxis, balance problems, post nasal drip, lip swelling, tongue swelling, bleeding gums, hoarseness, neck pain, dry mouth or other Cardio Chest Pain: No Palpitations: No Edema: None Muscle aches with walking: None Resp Respiratory: Negative for SOB with activity, SOB at rest, SOB orthopnea\SOB lying down, Coughing up blood/hemoptysis, chest congestion, pain on inspiration, snoring, stridor, wheezing, crackles, paroxysmal nocturnal dyspnea or other GI GI: Negative nausea, vomiting, heartburn, constipation, belching, bloating, cramping, vomiting blood/hematemesis, bright, red blood in stools, black,tarry stools, loose stools, Difficulty Swallowing or other : Negative for hematuria, frequent nighttime urination/ nocturia, erectile dysfunction or abnormal vaginal bleeding Musc Musc: Negative for balance problems, muscle aches/ myalgia, muscle weakness or joint pain Skin Skin: Negative redness, non-healing lesions, rash, unusual bruising, skin ulcer, wounds, jaundice or other Neuro Neuro: Negative for weakness, headache(s), frequent falls, blurry vision, double vision, dizziness, lightheadedness, near syncope, syncope, orthostatic symptoms, confusion, memory loss, restless legs, vertigo, seizures, lack of coordination or other Brenden Hematologic/Lymphatic: Negative for easy bleeding, easy bruising, enlarged lymph nodes or other Endo Endo: Positive for fatigue; negative for excessive sweating, cold intolerance, heat intolerance, flushing, increased thirst/drinking, increased hunger, hair loss, hair growth or other Psych Psych: Negative for anxiety, depression, thoughts of harming anyone, thoughts of harming yourself, visual hallucinations, panic attacks or audible hallucinations Allergy Allergy/Immunology: Negative for lip swelling, Negative for tongue swelling, Negative for rash, Negative for throat swelling, Negative for hives Cardiology Exam Const Appearance: cooperative, healthy appearing, well developed, well groomed and no acute distress Nutritional Appearance: well nourished and average body habitus Orientation: alert, awake and oriented x3 Head Head: normal to inspection, normocephalic and atraumatic Ears: hearing grossly normal bilaterally and external ears normal Nose: external nose normal, nasal mucous membranes and turbinates normal, nares normal, septum normal, no nasal discharge Face and Sinus: face symmetric Mouth: oral mucosae normal, tongue normal, oropharynx normal and moist mucous membranes Teeth and gingiva: dentition normal Throat: posterior oropharynx normal, tonsils normal and uvula midline Eyes General: appearance normal, both eyes and all related structures Eyelids: eyelids normal Conjunctivae: conjunctivae normal Pupils: PERRL, normal by confrontation and accommodation normal EOM: EOM intact bilaterally Neck Neck: normal visual inspection, trachea midline and no JVD JVD: +5 Carotids: normal carotid upstroke and bounding pulses Chest Chest inspection: normal inspection of the chest, symmetric chest movement and normal respiratory effort Auscultation: Bilateral: Clear to Auscultation Cardio Palpation: normal PMI Rate: regular rate Rhythm: regular rhythm Heart sounds: S1 normal, S2 normal and normal, physiologic split S2; negative rub, gallop or murmur GI GI: normal to inspection, soft, no hepatosplenomegaly and bowel sounds present Neuro General: alert, awake, oriented x3, no focal sensory deficit, gait normal and moves all extremities Skin Skin: no rashes or lesions noted Extremities Pulses: Normal: Right Femoral Pulse, Left Femoral Pulse, Right Dorsalis Pedis Pulse, Left Dorsalis Pedis Pulse, Right Posterior Tibial Pulse, Left Posterior Tibial Pulse, Right Radial Pulse, Left Radial Pulse Lower Extremity Edema: None: Bilateral Musculoskel Musculoskeletal: No joint tenderness Psych Psychological: normal affect Assessment AND Plan 1. LBBB (left bundle branch block) I44.7 Plan She does have a chronic left bundle branch block which is unchanged. We will continue to follow the above periodically. Orders Orders: 2. Essential hypertension I10 Plan Her blood pressure is under good control on the current medical therapy we will obtain electrolytes to ascertain normal potassium as well as magnesium. At this time however I would not suggest that we make any changes in her medications. She underwent a right and left heart catheterization which demonstrated essentially normal coronary arteries and upper normal pulmonary pressures. She will continue on the same medications. Thank you for allowing me to participate in the care of your patient. 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 director) Coding Level of Care Code Off vis,est,level 3 Diagnoses LBBB (left bundle branch block) I44.7 Essential hypertension I10 Hypertension type: essential hypertension Coding Level of Care Code Off vis,est,level 3 Diagnoses LBBB (left bundle branch block) I44.7 Essential hypertension I10 Hypertension type: essential hypertension 08/29/17 1356 <Electronically signed by Alonzo Segura MD> Date Alonzo Segura MD Cosigner Signature: Date (if applicable) CC: Jenifer Pool MD INTERNAL MEDICINE Observed: 08/04/2017 Status: F Source: SCOUT OFFICE VISIT 4:50 PM [facility] [address] [place] [address] [place] [address] OFFICE VISIT Date of Service: 08/04/17 MR#: [id number] Acct: [id number] Name: JERMAINE YEE Rep #: [id number] : 1950 Provider: Ashley Fields NP Age/Sex: 66/F Location: [facility] Status: Signed Intake Vital Signs08/04/17 Height 5 ft 9 in 08/04/17 Weight: 250 lb Intake Visit Reasons: left side pain Chief Complaint: Left groin pain Accompanied by: Self Is patient in pain?: Yes Allergies wool Allergy (Verified 08/04/17 14:28) Rash NSAIDS (Non-Steroidal Anti-Inflamma Adverse Reaction (Severe, Verified 08/04/17 15:35) GI Bleeding acetaminophen [From Darvocet-N] Adverse Reaction (Verified 08/04/17 14:28) Vomiting codeine Adverse Reaction (Verified 08/04/17 14:28) Vomiting hydrocodone bitartrate [From Vicodin] Adverse Reaction (Verified 08/04/17 14:28) Vomiting morphine Adverse Reaction (Verified 08/04/17 14:28) Vomiting propoxyphene napsylate [From Darvocet-N] Adverse Reaction (Verified 08/04/17 14:28) Vomiting Medications Albuterol IH (ProAir) [Proair Hfa] 1 - 2 puff INHALATION Q4H PRN PRN 10/18/16 [History Confirmed 08/04/17] Ubidecarenone [Co Q-10] 100 mg PO DAILY 10/18/16 [History Confirmed 08/04/17] aspirin 81 mg tablet,delayed release 81 mg PO QDAY 04/24/17 [History Confirmed 08/04/17] fluticasone 50 mcg/actuation nasal spray,suspension 2 spray INTRANASAL DAILY PRN #15.8 g 07/21/17 [Rx Confirmed 08/04/17] metoprolol succinate ER 25 mg tablet,extended release 24 hr 25 mg PO DAILY #90 tab 07/21/17 [Rx Confirmed 08/04/17] simvastatin 20 mg tablet 20 mg PO QPM #90 tab 07/21/17 [Rx Confirmed 08/04/17] spironolactone 25 mg-hydrochlorothiazide 25 mg tablet 1 tab PO DAILY #90 tab 07/21/17 [Rx Confirmed 08/04/17] potassium chloride ER 10 mEq tablet,extended release 10 meq PO QDAY #90 tab 07/24/17 [Rx Confirmed 08/04/17] bupropion HCl XL 150 mg 24 hr tablet, extended release 150 mg PO QAM #30 tab 08/04/17 [Rx Confirmed 08/04/17] cyclobenzaprine 10 mg tablet 10 mg PO TID PRN #30 tab 08/04/17 [Rx Confirmed 08/04/17] sertraline 50 mg tablet 50 mg PO QDAY 08/04/17 [History Confirmed 08/04/17] PFSH Medical History Sleep apnea (Chronic) Hypertension (Chronic) Hyperlipidemia (Chronic) Paroxysmal atrial fibrillation (Chronic) COPD (chronic obstructive pulmonary disease) (Chronic) Obesity (Chronic) Surgical History S/P cervical spinal fusion (Resolved 2016) right TKA (Resolved 2014) H/O: hysterectomy (Resolved) Social History Smoking Status: Never smoker second hand exposure: No alcohol intake: never substance use type: does not use what type of physical activity do you participate in: none seatbelt use: always HPI HPI Chief Complaint: Left groin pain Details: JERMAINE YEE, is a 66 F who presents to the office today for an acute visit of left groin pain, she is also concerned about her current SSRI therapy causing her to gain weight. She has a past medical history as listed above. The patient states that approximately 3 days ago she was bending over to pick out hand a box and pulled something in her left groin, it is a 6 out of 10 reproducible intermittent groin pain that is worsened with walking and alleviated with rest. She has tried no [id number] treatments. She denies any other aggravating or alleviating symptoms. The patient is also concerned about her weight status, she is receptive to seeing nutrition services. She is concerned that maybe her SSRI therapy of the sertraline 100 mg daily could be impacting her weight, would like to try something more weight neutral. The patient otherwise denies any fever, chills, nausea, vomiting, shortness of breath, chest pain or pressure, palpitations, orthopnea, lower extremity edema, syncope or presyncopal episodes. ROS Const Constitutional: No anorexia, body ache, chills, fever(s), decreased energy, malaise, night sweats, weight change, sleep problems, other, snoring, weakness, frequent falls, headache(s), abnormal sleep pattern, change in appetite, excessive sweating or fatigue Eyes Eyes: No blurry vision, change in vision, double vision, discharge, dry eyes, bulging eyes, floaters, eye pain, light sensitivity, spots in vision, tunnel vision, other or visual disturbances ENT ENT: No ear pain, ear discharge, ear pressure, hearing loss, tinnitus, dizziness/vertigo, balance problems, nosebleed/epistaxis, nasal congestion, nasal obstruction, nose pain, sinus pressure, sinus pain, nasal discharge, post nasal drip, facial pain, dental pain, dry mouth, bad breath, hoarseness, mouth lesions, mouth pain, sore throat, neck pain, abnormal hearing, headache(s), other, lip swelling, throat swelling, tongue swelling or difficulty swallowing Resp Respiratory: No cough, change in phlegm color, chest congestion, excessive phlegm production, hemoptysis, pain on inspiration, shortness of breath, pain with cough, snoring, stridor, other or wheezing Cardio Cardiology: No chest pain at rest, chest pain with exertion, leg pain with exertion, shortness of breath, dyspnea on exertion, generalized swelling, irregular heart rhythm, lightheadedness, orthopnea, radiating jaw, neck or arm pain, fast heart rate, slow heart rate, palpitations, other or excessive sweating Gastro GI: Positive for abdominal pain (lower left ); no belching, bloating, change in bowel habits, change in stool character, coffee ground emesis, constipation, cramping, diarrhea, heartburn, difficulty swallowing, feeling full early, excessive flatus, incontinent of stools, Vomiting blood/hematemesis, blood in stool, loose stools, Black,tarry stools, nausea/dyspepsia, pain with swallowing, vomiting or other Genitourinary-Female: No difficulty urinating, burning urination, painful urination, urinary incontinence, urinary frequency, urinary urgency, urinary hesitancy, urinary retention, blood in urine, Frequent nighttime urination/ nocturia, post void dribbling, suprapubic fullness, side pain, sexual problems, genital lesions, genital itching, hot flashes, abnormal periods, abnormal vaginal bleeding, absent period, painful periods, light periods, heavy periods, difficulty getting , painful intercourse, pelvic pain, vaginal dryness, vaginal odor, Vaginal Itching or other Musc Musculoskeletal: Positive for other (left groin pain); no joint pain, back pain, deformity, joint swelling, limited range of motion, loss of height, muscle cramps, muscle weakness, decreased muscle mass, body aches, neck pain, radiating pain into limb, stiffness, abnormal walking, numbness or tingling Skin Skin: No acne, hair loss, change in hair, nail changes, boil, change in skin color, dry skin, redness, excessive hair growth, yellowing of the skin, lesions, rash, skin pain, skin ulcer, sores, skin swelling, wounds or itching Neuro Neurology: No abnormal walking, abnormal hearing, abnormal movements, abnormal speech, unsteady gait/balance, dizziness, weakness, frequent falls, headache(s), lack of coordination, loss of vision, numbness, tingling, visual disturbances, restless legs, fainting, tremor(s), other, behavioral changes, confusion or memory loss Psych Psychiatric: No abnormal sleep pattern, No lack of enjoyment, No anxiety, No behavioral changes, No change in appetite, No confusion, No depression, No difficulty concentrating, No hopelessness, No irritability, No memory loss, No mood swings, No panic attacks, No paranoia, No Thoughts of harming yourself/Others, No hallucinations, No other Endo Endocrine: No change in body appearance, cold intolerance, excessive sweating, fatigue, flushing, heat intolerance, increased thirst/drinking, increased hunger, increased urination or other Aller/Imm Allergy/Immunologic: No food intolerance, itchy eyes, lip swelling, seasonal allergy symptoms, throat swelling, tongue swelling, hives, wheezing or other Brenden/Lymp Hematologic/Lymphatic: No easy bleeding, easy bruising, enlarged lymph nodes or other Exam Const General: cooperative, comfortable, no acute distress Nutritional Appearance: average body habitus, well nourished Orientation: alert, oriented x3 Limitations: mental status not altered Resp Effort AND Inspection: normal respiratory effort, able to speak in complete sentences, normal respiratory pattern, symmetric chest movement, no audible wheezes, no cough Auscultation: Bilateral: Clear to Auscultation Cardio Palpation: normal PMI Rate: regular rate Heart Sounds: S1 normal, S2 normal, normal S1 and S2, no click, no gallops, no murmurs, no rubs GI Inspection: normal to inspection Auscultation: normal bowel sounds, no hyperactive bowel sounds, no hypoactive bowel sounds Palpation: soft, no hepatosplenomegaly Musc Musculoskeletal: No muscle weakness Thoracic/Lumbar Spine: straight leg raise negative Other: left groin pain present on exam with abduction and adduction of left lower extremity Skin General: no rashes or lesions noted, elasticity normal, turgor normal, scars (right anterior neck) Lesions: no lesions Rashes: no rashes Extrem General: normal to inspection, normal gait, no edema, no pedal edema Psych Appearance: grossly normal Mental Status: mental status grossly normal Mood: anxious mood Affect: anxious affect Attitude: cooperative Thought Process: normal Assessment AND Plan 1. Strain of left inguinal muscle S39.013A Plan Trial of conservative therapy at this time. Given patient's adverse reaction to NSAIDs, instructed her to take 5 mg Flexeril 3 times daily and to take first dose at night and not to drive on this medication. Also instructed on the use of Tylenol for pain relief as NSAIDs are contraindicated. Discussed avoiding heavy lifting or other aggravating factors. 2. Depression F32.9 Plan Adequately controlled, however patient is concerned that her current SSRI therapy may be impacting her weight. Discussed with the patient decreasing her sertraline from 100 mg daily to 50 mg daily. Will then add Wellbutrin XL 150 mg every morning 3. Obesity E66.9 Plan Referred to [facility] Patient will follow up in 6 weeks or sooner if needed. Raul disclaimer Orders Referrals: Plan Detail Other Medications New: Refilled: Follow Up 6 Weeks Coding Level of Care Code Off vis,est,level 3 Diagnoses Strain of left inguinal muscle S39.013A Depression F32.9 Obesity E66.9 Obesity type: due to excess calories 08/04/17 1650 <Electronically signed by Ashley SANDRA> Date Ashley ARMSTRONGC Cosigner Signature: Date (if applicable) CC: ALLERGIES ALLERGIES DATE TYPE / CODE NAME / CODE REACTION SEVERITY SOURCE 05/30/2018 Drug hydrocodone Vomiting Unknown [facility]/416 bitartrate/[id number] [facility] [id number]([facility] 555([facility] ED CT) Repository 05/30/2018 Drug propoxyphene Vomiting Unknown [place] [facility]/416 napsylate/[id number] [facility] [id number]([facility] 76([facility] ED CT) Repository 05/30/2018 Drug Iodinated Rash, ITCHING [facility]/416 Contrast- Oral and [facility] [id number]([facility] ED CT) Dye/[id number]([facility] Repository ORM) 05/30/2018 Drug NSAIDS GI Bleeding [place] Allergy/416 (Non-Steroidal Community 492544([facility] Anti-Inflamma/F001 [facility] ED [place]) 150051(RXNORM) Repository 05/30/2018 Drug dibucaine/[id number] Rash, ITCHING SV [place] Allergy/416 71(RXNORM) Community 609254([facility] ED CT) Repository 05/30/2018 Drug morphine/[id number] Vomiting Unknown [place] Allergy/416 5(RXNORM) Community 450342([facility] ED CT) Repository 05/30/2018 Drug codeine/[id number] Vomiting Unknown [place] Allergy/416 (RXNORM) Community 789024([facility] ED CT) Repository 05/30/2018 Drug acetaminophen/F006 Vomiting Unknown [place] Allergy/416 973849(RXNORM) Community 795913([facility] ED CT) Repository 05/30/2018 Drug adhesive Localized skin [place] Allergy/416 tape/[id number](RX reaction Community 630643([facility] ED CT) Repository 05/30/2018 Drug wool/[id number](RX Rash Unknown [place] Allergy/416 NORM) [facility] 477063([facility] ED CT) Repository ENCOUNTERS ENCOUNTERS ADMIT/DISCHARGE ACCOUNT ADMITTING ENCOUNTER LOCATION SOURCE NUMBER CLASS 06/06/2018 [id number] Ambulatory [place] 8 [facility] Hospital ing:PT Repository 06/01/2018 [id number] Ambulatory [place] 0 [facility] Hospital ing:DC Repository 05/30/2018/ [id number] Ambulatory BMSBuilding:B [place] 9 1 [facility] Repository 05/17/2018 [id number] [place]ulatory [place] 8 [facility] Hospital ing:CVS Repository 05/17/2018 [id number] Ambulatory BMSBuilding:W [place] 4 [facility] Repository 05/11/2018/ [id number] Ambulatory BMSBuilding:B [place] 8 6 [facility] Repository 05/10/2018 [id number] Ambulatory [place] 4 [facility] Hospital ing:OPBI Repository 05/08/2018 [id number] Ambulatory Scout [place] 7 [facility] Hospital ing:MRI Repository 04/25/2018/ [id number] Ambulatory [place] 8 2 [facility] Hospital ing:DC Repository 04/17/2018/ [id number] Ambulatory BMSBuilding:B [place] 8 0 [facility] Repository 03/30/2018 [id number] Ambulatory [place] 1 [facility] Hospital ing:CVS Repository 03/28/2018/ [id number] Ambulatory [place] 8 1 [facility] Hospital[facility] Hospital ing:DC Repository 03/26/2018 [id number] Ambulatory [place] 7 [facility] ing:MTLAB Repository 03/23/2018/ [id number] Ambulatory BMSBuilding:B [place] 8 1 MS.[facility] Hospital Repository 02/22/2018/ [id number] Ambulatory [place] 8 8 [facility] Hospital ing[facility]DC Repository 02/05/2018/ [id number] Ambulatory BMSBuilding:B [place] 8 8 [facility] Repository 02/02/2018 [id number] Ambulatory [place] 8 [facility] Hospital ing:LABSPEC Repository 02/02/2018/ [id number] Ambulatory BMSBuilding:B [place] 8 5 [facility] Repository 01/25/2018/ [id number] Ambulatory [place] 8 0 [facility] Hospital[facility] Hospital ing:DC Repository 01/16/2018 [id number] Ambulatory [place] Scout 1 [facility] Hospital ing:MTLAB Repository 01/16/2018/ [id number] Ambulatory BMSBuilding:B [place] 8 5 [facility] Hospital Repository 01/09/2018 [id number] Ambulatory BMSBuilding:B [place] 8 [facility] Hospital Repository 01/04/2018/ [id number] Ambulatory [place] 8 8 [facility] Hospital[facility] Hospital ing:DC Repository 12/06/2017 [id number] Ambulatory [place] 9 [facility] Hospital ing:MTLAB Repository 11/28/2017/ [id number] Ambulatory BMSBuilding:B [place] 8 3 MS.[facility] Hospital Repository 11/02/2017 [id number] Ambulatory BMSBuilding:B [place] 1 [facility] Hospital Repository 10/30/2017 [id number] Ambulatory [place] 8 [facility] Hospital ing:NS Repository 10/17/2017 [id number] [place] [address] [facility] ing:LAB.FUTUR Repository E 10/17/2017/ [id number] Ambulatory [place] Scout [address] [facility] ing:NS Repository 10/13/2017/ [id number] Ambulatory BMSBuilding:B [place] 8 2 [facility] Repository 09/15/2017/ [id number] Ambulatory BMSBuilding:B [place] 8 3 [facility] Repository 09/12/2017/ [id number] Ambulatory [place] [address] [facility] ing:NS Repository 09/04/2017 [id number] Ambulatory [place] [address] [facility] ing:LAB Repository 08/29/2017/ [id number] Ambulatory BMSBuilding:B [place] 8 1 [facility] Repository 08/28/2017 [id number] Ambulatory BMSBuilding:B [place] 2 [facility] Repository 08/04/2017/ [id number] Ambulatory BMSBuilding:B [place] 8 4 [facility] Repository 07/10/2017 [id number] Ambulatory BMSBuilding:B [place] 8 [facility] Repository PAYERS PAYERS ENCOUNTER GUARANTOR PAYER SUBSCRIBER SOURCE 06/06/2018 JERMAINE D Primary JERMAINE D [place] [id number] Insurance:MEDICARE MILLERDOB: [facility] [id number] Alamos Medical CenterIT Number: Repository [address], [place] [id number]: (330) Date:2017-10-20 [phone] () 06/06/2018 Secondary JERMAINE D [place] Insurance:MEDICAL MILLERDOB: [facility] [id number] Hospital Number: Repository [id number] Date:4550-67-54[address], [place] [address]OU: 06/06/2018 Tertiary NOT GIVENUNK [place] Insurance:SELF PAY [facility] Number: Effective Repository Date:2018-04-26 06/01/2018 JERMAINE D Primary JERMAINE D [place] [id number] Insurance:MEDICARE MILLERDOB: [facility] [id number] County HospitalUNIT Number: Repository [place] [id number] [address]Euo: (330) Date:2018-01-04 [phone] () 06/01/2018 Secondary JERMAINE D [place] Insurance:MEDICAL MILLERDOB: [facility] [id number] Hospital Number: Repository [id number] Date:8696-82-67FA [address] [address]ZU: 06/01/2018 Tertiary NOT GIVENUNK [place] Insurance:SELF PAY [facility] Number: Effective Repository Date:2018-05-22 05/30/2018 JERMAINE D Primary JERMAINE D [place] [id number] Insurance:MEDICARE MILLERDOB: [facility] [id number] Alamos Medical CenterIT Number: Repository [place] [id number]: (330) Date:2018-05-29 [phone] () 05/30/2018 Secondary JERMAINE D [place] Insurance:MEDICAL MILLERDOB: [facility] [id number] Hospital Number: Repository [id number] Date:3960-23-10FX[address] [address]AK: 05/30/2018 Tertiary NOT GIVENUNK [place] Insurance:SELF PAY [facility] Hospital Number: Effective Repository Date:2018-05-30 05/17/2018 JERMAINE D Primary JERMAINE D [place] [id number] Insurance:MEDICARE MILLERDOB: [facility] [id number] County HospitalUNIT Number: Repository [place] [id number]: (330) Date:2018-05-11 [phone] () 05/17/2018 Secondary JERMAINE D [place] Insurance:MEDICAL MILLERDOB: [facility] [id number] Hospital Number: Repository [id number] Date:2360-86-54YY [address] [place] [address]YL: 05/17/2018 Tertiary NOT GIVENUNK [place] Insurance:SELF PAY [facility] Number: Effective Repository Date:2018-05-11 05/17/2018 JERMAINE D Primary JERMAINE D [place] [id number] Insurance:MEDICARE MILLERDOB: [facility] [id number] [facility]eman [facility] Number: Repository [address] [id number]: (257) Date:2018-05-11 [phone] () 05/17/2018 Secondary JERMAINE D [place] Insurance:MEDICAL MILLERDOB: [facility] [id number] Hospital Number: Repository [id number] Date:1760-78-15UR [facility] [address] [place] [address]RA: 05/17/2018 Tertiary NOT GIVENUNK [place] Insurance:SELF PAY [facility] Number: Effective Repository Date:2018-05-17 05/11/2018 JERMAINE D Primary JERMAINE D [place] [id number] Insurance:MEDICARE MILLERDOB: [facility] [id number] Kaseman Hospital Number: Repository [address] [id number]: (330) Date:2018-04-17 [phone] () 05/11/2018 Secondary JERMAINE D [place] Insurance:MEDICAL MILLERDOB: [facility] [id number] Hospital Number: Repository [id number] Date:6638-30-47LX [address] [place] [address]DV: 05/11/2018 Tertiary NOT GIVENUNK [place] Insurance:SELF PAY [facility] Number: Effective Repository Date:2018-05-03 05/10/2018 JERMAINE D Primary JERMAINE D [place] [id number] Insurance:MEDICARE MILLERDOB: [facility] [id number] Kaseman Hospital Number: Repository [address] [id number]: (330) Date:2018-03-26 [phone] () 05/10/2018 Secondary JERMAINE D [place] Insurance:MEDICAL MILLERDOB: [facility] [id number] Hospital Number: Repository [id number] Date:1499-71-19LQ [address] [address]SZ: 05/10/2018 Tertiary NOT GIVENUNK [place] Insurance:SELF PAY [facility] Hospital Number: Effective Repository Date:2018-03-26 05/08/2018 JERMAINE D Primary JERMAINE D [place] [id number] Insurance:MEDICARE MILLERDOB: [facility] [id number] Alamos Medical CenterIT Number: Repository [address], [place] [id number]: (330) Date:2018-05-02 [phone] () 05/08/2018 Secondary JERMAINE D [place] Insurance:MEDICAL MILLERDOB: [facility] [id number] Hospital Number: Repository [id number] Date:3440-84-76UN [address] [address]FS: 05/08/2018 Tertiary NOT GIVENUNK [place] Insurance:SELF PAY [facility] Hospital Number: Effective Repository Date:2018-05-02 04/25/2018 JERMAINE D Primary JERMAINE D [place] [id number] Insurance:MEDICARE MILLERDOB: [facility] [id number] County HospitalUNIT Number: Repository [address], [place] [id number]: (330) Date:2018-01-04 [phone] () 04/25/2018 Secondary JERMAINE D [place] Insurance:MEDICAL MILLERDOB: [facility] [id number] Hospital Number: Repository [id number] Date:2935-46-85YX [address] [address]QX: 04/25/2018 Tertiary NOT GIVENUNK [place] Insurance:SELF PAY [facility] Number: Effective Repository Date:2018-04-21 04/17/2018 JERMAINE D Primary JERMAINE D [place] [id number] Insurance:MEDICARE MILLERDOB: [facility] [id number] Alamos Medical CenterIT Number: Repository [address] [id number]: (330) Date:2018-01-18 [phone] () 04/17/2018 Secondary JERMAINE D [place] Insurance:MEDICAL MILLERDOB: [facility] [id number] Hospital Number: Repository [id number] Date:1241-81-00WN [address] [address]PX: 04/17/2018 Tertiary NOT GIVENUNK [place] Insurance:SELF PAY [facility] Number: Effective Repository Date:2018-04-10 03/30/2018 JERMAINE D Primary JERMAINE D [place] [id number] Insurance:MEDICARE MILLERDOB: [facility] [id number] Alamos Medical CenterIT Number: Repository [address], [place] [id number]: (330) Date:2018-03-23 [phone] () 03/30/2018 Secondary JERMAINE D [place] Insurance:MEDICAL MILLERDOB: [facility] [id number] Hospital Number: Repository [id number] Date:8529-06-22SY [address] [address]JY: 03/30/2018 Tertiary NOT GIVENUNK [place] Insurance:SELF PAY [facility] Number: Effective Repository Date:2018-03-23 03/28/2018 JERMAINE D Primary JERMAINE D [place] [id number] Insurance:MEDICARE MILLERDOB: [facility] [id number] County HospitalUNIT Number: Repository [address], [place] [id number]: (330) Date:2018-01-04 [phone] (HP) 03/28/2018 Secondary JERMAINE D [place] Insurance:MEDICAL MILLERDOB: [facility] [id number] Hospital Number: Repository [id number] Date:8335-99-21AY [address] [address]FW: 03/28/2018 Tertiary NOT GIVENUNK [place] Insurance:SELF PAY [facility] Number: Effective Repository Date:2018-03-22 03/26/2018 JERMAINE D Primary JERMAINE D [place] [id number] Insurance:MEDICARE MILLERDOB: [facility] [id number] Alamos Medical CenterIT Number: Repository [address], [place] [id number]: (970) Date:2018-03-26 [phone] () 03/26/2018 Secondary JERMAINE D [place] Insurance:MEDICAL MILLERDOB: [facility] [id number] Hospital Number: Repository [id number] Date:6850-56-39SL[address] [address]MV: 03/26/2018 Tertiary NOT GIVENUNK [place] Insurance:SELF PAY [facility] Hospital Number: Effective Repository Date:2018-03-26 03/23/2018 JERMAINE D Primary JERMAINE D [place] [id number] Insurance:MEDICARE MILLERDOB: [facility] [id number] Kaseman Hospital Number: Repository [address], [place] [id number]: (263) Date:2018-03-23 [phone] () 03/23/2018 Secondary JERMAINE D [place] Insurance:MEDICAL MILLERDOB: [facility] [id number] Hospital Number: Repository [id number] Date:2281-65-46VE [address] [address]LU: 03/23/2018 Tertiary NOT GIVENUNK [place] Insurance:SELF PAY [facility] Number: Effective Repository Date:2018-03-23 02/22/2018 JERMAINE D Primary JERMAINE D [place] [id number] Insurance:MEDICARE MILLERDOB: [facility] [id number] County HospitalUNIT Number: Repository [address], [place] [id number]: (330) Date:2018-01-04 [phone] () 02/22/2018 Secondary JERMAINE D [place] Insurance:MEDICAL MILLERDOB: [facility] [id number] Hospital Number: Repository [id number] Date:3723-63-80SL [address] [address]XQ: 02/22/2018 Tertiary NOT GIVENUNK [place] Insurance:SELF PAY [facility] Hospital Number: Effective Repository Date:2018-02-19 02/05/2018 JERMAINE D Primary JERMAINE D [place] [id number] Insurance:MEDICARE MILLERDOB: [facility] [id number] Alamos Medical CenterIT Number: Repository [address], [place] [id number]: (330) Date:2018-02-05 [phone] () 02/05/2018 Secondary JERMAINE D [place] Insurance:MEDICAL MILLERDOB: [facility] [id number] Hospital Number: Repository [id number] Date:6401-93-96EX [address] [address]RY: 02/05/2018 Tertiary NOT GIVENUNK [place] Insurance:SELF PAY [facility] Number: Effective Repository Date:2018-02-05 02/02/2018 JERMAINE D Primary JERMAINE D [place] [id number] Insurance:MEDICARE MILLERDOB: [facility] [id number] Hospital WAYUNIT Number: Repository [address] [id number]: (330) Date:2018-02-02 [phone] () 02/02/2018 Secondary JERMAINE D [place] Insurance:MEDICAL MILLERDOB: [facility] [id number] Hospital Number: Repository [id number] Date:1086-37-98EE [address] [address]EK: 02/02/2018 Tertiary NOT GIVENUNK [place] Insurance:SELF PAY [facility] Number: Effective Repository Date:2018-02-02 02/02/2018 JERMAINE D Primary JERMAINE D [place] [id number] Insurance:MEDICARE MILLERDOB: [facility] [id number] Hospital WAYUNIT Number: Repository [address], [place] [id number]: (330) Date:2018-02-01 [phone] () 02/02/2018 Secondary JERMAINE D [place] Insurance:MEDICAL MILLERDOB: [facility] [id number] Hospital Number: Repository [id number] Date:8553-26-53YD [address] [address]PU: 02/02/2018 Tertiary NOT GIVENUNK [place] Insurance:SELF PAY [facility] Number: Effective Repository Date:2018-02-02 01/25/2018 JERMAINE D Primary JERMAINE D [place] [id number] Insurance:MEDICARE MILLERDOB: [facility] [id number] Alamos Medical CenterIT Number: Repository [address] [place] [id number]: (330) Date:2018-01-04 [phone] () 01/25/2018 Secondary JERMAINE D [place] Insurance:MEDICAL MILLERDOB: [facility] [id number] Hospital Number: Repository [id number] Date:8976-51-19WE [address] [place] [address]XB: 01/25/2018 Tertiary NOT GIVENUNK [place] Insurance:SELF PAY [facility] Number: Effective Repository Date:2018-01-20 01/16/2018 JERMAINE D Primary JERMAINE D [place] [id number] Insurance:MEDICARE MILLERDOB: [facility] [id number] Hospital WAYUNIT Number: Repository [address], [place] [id number] [address]Jnq: (330) Date:2018-01-16 [phone] () 01/16/2018 Secondary JERMAINE D [place] Insurance:MEDICAL MILLERDOB: [facility] [id number] Hospital Number: Repository [id number] Date:4955-01-50WB [address] [address]ZG: 01/16/2018 Tertiary NOT GIVENUNK [place] Insurance:SELF PAY [facility] Number: Effective Repository Date:2018-01-16 01/16/2018 JERMAINE D Primary JERMAINE D [place] [id number] Insurance:MEDICARE MILLERDOB: [facility] [id number] Alamos Medical CenterIT Number: Repository [address] [id number]: (330) Date:2017-10-13 [phone] () 01/16/2018 Secondary JERMAINE D [place] Insurance:MEDICAL MILLERDOB: [facility] [id number] Hospital Number: Repository [id number] Date:7243-64-51BN [address] [address]LO: 01/16/2018 Tertiary NOT GIVENUNK [place] Insurance:SELF PAY [facility] Hospital Number: Effective Repository Date:2018-01-16 01/09/2018 JERMAINE D Primary JERMAINE D [place] [id number] Insurance:MEDICARE MILLERDOB: [facility] [id number] County HospitalUNIT Number: Repository [address], [place] [id number] 488[address]Oqr: (330) Date:2017-11-28 [phone] () 01/09/2018 Secondary JERMAINE D [place] Insurance:MMO MILLERDOB: Community MEDICAREPolicy [id number] Hospital Number: Repository [id number] Date:1053-64-43RW [address] [address]AZ: 01/09/2018 Tertiary NOT GIVENUNK [place] Insurance:SELF PAY [facility] Hospital Number: Effective Repository Date:2017-12-27 01/04/2018 JERMAINE D Primary JERMAINE D [place] [id number] Insurance:MEDICARE MILLERDOB: [facility] [id number] Hospital WAYUNIT Number: Repository [address], [place] [id number]: (330) Date:2018-01-04 [phone] () 01/04/2018 Secondary JERMAINE D [place] Insurance:MEDICAL MILLERDOB: [facility] [id number] Hospital Number: Repository [id number] Date:3670-19-05YQ [address] [place] [address]VO: 01/04/2018 Tertiary NOT GIVENUNK [place] Insurance:SELF PAY [facility] Hospital Number: Effective Repository Date:2018-01-04 12/06/2017 JERMAINE D Primary JERMAINE D [place] [id number] Insurance:MEDICARE MILLERDOB: [facility] [id number] County HospitalUNIT Number: Repository [address], [place] [id number] 399[address]Zuo: (330) Date:2017-12-06 [phone] () 12/06/2017 Secondary JERMAINE D [place] Insurance:MEDICAL MILLERDOB: [facility] [id number] Hospital Number: Repository [id number] Date:8553-93-45CH [address] [address]YX: 12/06/2017 Tertiary NOT GIVENUNK [place] Insurance:SELF PAY [facility] Hospital Number: Effective Repository Date:2017-12-06 11/28/2017 JERMAINE D Primary JERMAINE D [place] [id number] Insurance:MEDICARE MILLERDOB: [facility] [id number] Hospital WAYUNIT Number: Repository [address], [place] [id number]: (330) Date:2017-11-20 [phone] () 11/28/2017 Secondary JERMAINE D [place] Insurance:MEDICAL MILLERDOB: [facility] [id number] Hospital Number: Repository [id number] Date:3905-31-96BJ [address] [place] [address]TA: 11/28/2017 Tertiary NOT GIVENUNK [place] Insurance:SELF PAY [facility] Number: Effective Repository Date:2017-11-27 11/02/2017 JERMAINE D Primary JERMAINE D [place] [id number] Insurance:MEDICAL MILLERDOB: [facility] [id number] Hospital WAYUNIT Number: Repository [address], [place] [id number]: (330) Date:3459-98-54VL [phone] () [address] [place] [address]OL: 11/02/2017 Secondary NOT GIVENUNK [place] Insurance:SELF PAY [facility] Number: Effective Repository Date:2017-04-24 10/30/2017 JERMAINE D Primary JERMAINE D [place] [id number] Insurance:MEDICAL MILLERDOB: [facility] [id number] County HospitalUNIT Number: Repository [address], [place] [id number] [phone]: (330) Date:7732-33-06KL [phone] () [address] [place] [address]QH: 10/30/2017 Secondary NOT GIVENUNK [place] Insurance:SELF PAY [facility] Number: Effective Repository Date:2017-10-20 10/17/2017 JERMAINE D Primary JERMAINE D [place] [id number] Insurance:MEDICAL MILLERDOB: [facility] [id number] Hospital WAYUNIT Number: Repository [address], [place] [id number]: (330) Date:3270-85-99ES [phone] () [address] [place] [address]IL: 10/17/2017 Secondary NOT GIVENUNK [place] Insurance:SELF PAY [facility] Number: Effective Repository Date:2017-03-08 10/17/2017 JERMAINE D Primary JERMAINE D [place] [id number] Insurance:MEDICAL MILLERDOB: [facility] [id number] County HospitalUNIT Number: [place] [id number]: (330) Date:8230-60-97EY [phone] () [address] [place] [address]RC: 10/17/2017 Secondary NOT GIVENUNK [place] Insurance:SELF PAY [facility] Number: Effective Repository Date:2017-09-19 10/13/2017 JERMAINE D Primary JERMAINE D [place] [id number] Insurance:MEDICAL MILLERDOB: [facility] [id number] County HospitalUNIT Number: Repository [address] [id number] [phone]: (330) Date:9347-33-88HJ [phone] () [address] [place] [address]VH: 10/13/2017 Secondary NOT GIVENUNK [place] Insurance:SELF PAY [facility] Number: Effective Repository Date:2017-10-13 09/15/2017 JERMAINE D Primary JERMAINE D [place] [id number] Insurance:MEDICAL MILLERDOB: [facility] [id number] Alamos Medical CenterIT Number: Repository [address] [id number]: (330) Date:[id number] [phone] () [address] [place] [id number]: 09/15/2017 Secondary NOT GIVENUNK [place] Insurance:SELF PAY [facility] Number: Effective Repository Date:2017-09-14 09/12/2017 JERMAINE D Primary JERMAINE D [place] [id number] Insurance:MEDICAL MILLERDOB: [id number] [address] [place] [id number]: [phone]) Date:[id number] [phone] (HP) [address] [place] [id number]: 09/12/2017 Secondary NOT GIVENUNK [place] Insurance:SELF PAY [facility] Number: Effective Repository Date:2017-08-09 09/04/2017 JERMAINE Frank Primary JERMAINE [id number] Insurance:MEDICAL MILLERDOB: [id number] Number: Repository [address] [id number]: ([phone]) Date:[id number] [phone] () [address] [place] [id number]: 09/04/2017 Secondary NOT GIVENUNK [place] Insurance:SELF PAY [facility] Number: Effective Repository Date:2017-09-04 08/29/2017 JERMAINE [id number] Primary JERMAINE JOSELITODOB: [place] Insurance:MEDICAL [id number] [address]Ael: Number: Repository [phone] [id number] (HP) Date:[id number] [address] [place] [id number]: 08/29/2017 Secondary NOT GIVENUNK [place] Insurance:SELF PAY [facility] Number: Effective Repository Date:2017-08-29 08/28/2017 JERMAINE [id number] Primary JERMAINE YEEDOB: [place] Insurance:MEDICAL [id number] [address] [address]Zmj: Number: Repository [phone] [id number] (HP) Date:[id number] [address] [place] [phone]: 08/28/2017 Secondary NOT GIVENUNK [place] Insurance:SELF PAY [facility] Number: Effective Repository Date:2017-08-28 08/04/2017 JERMAINE [id number] Primary JERMAINE YEEDOB: [place] Insurance:MEDICAL [id number] [address] [place] [address]Xxu: Number: Repository [phone] [id number] (HP) Date:0118-19-98AM [address], [place] [address]HK: 08/04/2017 Secondary NOT GIVENUNK [place] Insurance:SELF PAY [facility] Number: Effective Repository Date:2017-08-04 07/10/2017 JERMAINE D Primary NOT GIVENUNK [place] [id number] Insurance:SELF PAY [facility] WAYUNIT Number: Effective Repository [address] Date:2017-07-07 [id number]: ()
== END ==
PROVIDERS: Family Provider Nurse Practitioner Family; PCP Nurse Practitioner Family; Referring Provider Orthopaedic Surgery; Visit Provider Orthopaedic Surgery
DX: S83.282A Other tear of lateral meniscus, current injury, left knee, initial encounter (principal); S83.242A Other tear of medial meniscus, current injury, left knee, initial encounter; X58.XXXA Exposure to other specified factors, initial encounter; M94.262 Chondromalacia, left knee; M17.12 Unilateral primary osteoarthritis, left knee; M71.22 Synovial cyst of popliteal space [Baker], left knee
CPT/HCPCS: 73721

== ENCOUNTER → 2018-05-10 15:35 | Outpatient (CLI) | payer MEDICARE, OTHER, SELFPAY ==
[2018-04-17 13:17] VITALS: BMI 37.9
--- NOTE | 2018-05-10 15:54 | BI_ITS ---
MAMMOGRAPHY - BILATERAL SCREENING REASON FOR EXAM: Female, 67 years old. Routine annual screening examination. PERTINENT HISTORY: Mother with breast cancer. Grandmother's with breast cancer. Aunts with breast cancer. TECHNIQUE: Digital bilateral breast star (3D mammographic acquisition) in the CC and MLO projections. 2-D mediolateral oblique (MLO) and craniocaudad (CC) views of both breasts were obtained. CAD: Full Field Digital Mammography with Computer Added Detection was performed. COMPARISON: Comparison is made with prior study dated April 03, 2017 and December 13, 2010. FINDINGS: Breast Composition: The breasts are heterogeneously dense, which may obscure small masses. There are no dominant masses or suspicious calcifications. Stable 1.1 cm x 0.6 cm nodular density in the anterior upper lateral portion of the left breast with a fatty hilum. This is suggestive of a small lymph node. Stable bilateral axillary lymph nodes. No other significant abnormalities are identified. There has been no significant change since the prior study. BI/SCREENING MAMM (CAD), BILAT IMPRESSION: Stable bilateral screening mammogram. Yearly follow-up mammogram recommended. (A) ASSESSMENT CATEGORY: BIRADS Category 2: Benign. A letter regarding these results will be sent to the patient by the facility within 30 days. Approximately 10% of breast cancers are not detected by mammography. A normal mammogram should not delay biopsy of a clinically suspicious abnormality. [id number] Electronically Signed: Kyrie Dumas MD at 8:35 EST Tel [phone], Service support ,
== END ==
PROVIDERS: Family Provider Nurse Practitioner Family; PCP Nurse Practitioner Family; Referring Provider Nurse Practitioner Family; Visit Provider Internal Medicine
DX: Z12.31 Encounter for screening mammogram for malignant neoplasm of breast (principal); Z80.3 Family history of malignant neoplasm of breast
CPT/HCPCS: 77063; 77067

== ENCOUNTER → 2018-05-17 14:05 | Outpatient (CLI) | payer MEDICARE, OTHER, SELFPAY ==
[2018-05-11 14:32] VITALS: BMI 38.7
[2018-05-11 16:41] VITALS: BMI 37.9
--- NOTE | 2018-05-17 14:08 | ECHOCS_ITS ---
Reason For Study: Dyspnea/SOB Procedure This was a 2D Doppler, Color Flow transthoracic echocardiogram. The study was technically difficult. Contrast injection was performed. Exam performed in department. Left Ventricle Normal LV size. Left ventricular systolic function is normal. The estimated ejection fraction is 60 %. Septal motion consistent with IVCD. No evidence for diastolic dysfunction. No regional wall motion abnormalities noted. Right Ventricle Normal RV size. Normal systolic function. Atria The left atrium is mildly enlarged. Normal right atrium. No doppler evidence for ASD. Mitral Valve There is no mitral annular calcification. Normal mitral valve. Mild (1+) mitral valve insufficiency. Tricuspid Valve The tricuspid valve is not well visualized. Mild to moderate (1-2+) tricuspid valve insufficiency. Right ventricular systolic pressure estimated to be 32 mmHg. Aortic Valve Trisinus/trileaflet aortic valve. Normal aortic valve. Pulmonic Valve The pulmonic valve is not well visualized. Trivial pulmonic valve insufficiency. Great Vessels Normal sized aortic root. Pericardium/Pleural No pericardial effusion. Medication 22 gauge I.V. with prn adaptor inserted into right arm. Diluted definity 4ml given slow IV push to enhance endocardial definition. MMode/2D Measurements & Calculations LVIDd: 5.0 cm IVSd: 0.68 cm Ao root diam: 3.3 cm LVIDs: 3.4 cm LVPWd: 1.2 cm FS: 31.3 % LAV(MOD-bp): 68.1 ml LA A4 area: 21.8 cm2 RA A4 area: 18.6 cm2 LAV(MOD-bp) Indexed: 29.2 ml/m2 LAV(MOD-sp2): 66.6 ml LAV(MOD-sp4): 66.1 ml Time Measurements MV dec time: 0.23 sec Doppler Measurements & Calculations MV E max arnav: 57.1 cm/sec Lat Peak E' Arnav: 8.5 cm/sec Med Peak E' Arnav: 4.3 cm/sec MV A max arnav: 92.2 cm/sec E/E' lat: 6.8 E/E' med: 13.4 MV E/A: 0.62 MV V2 max: 110.7 cm/sec MV P1/2t max arnav: 64.5 cm/sec Ao V2 max: 154.2 cm/sec MV max P.9 mmHg MV P1/2t: 92.2 msec Ao max P.5 mmHg MV V2 mean: 55.2 cm/sec MV dec slope: 204.9 cm/sec2 MV mean P.4 mmHg MV V2 VTI: 22.6 cm MVA(P1/2t): 2.4 cm2 LV V1 max: 101.9 cm/sec PA V2 max: 116.5 cm/sec TR max arnav: 244.1 cm/sec LV V1 max P.2 mmHg TR max P.8 mmHg Interpretation Summary The study was technically difficult. Contrast injection was performed. Left ventricular systolic function is normal. The estimated ejection fraction is 60 %. Septal motion consistent with IVCD. The left atrium is mildly enlarged. Mild (1+) mitral valve insufficiency. Mild to moderate (1-2+) tricuspid valve insufficiency. Trivial pulmonic valve insufficiency. Right ventricular systolic pressure estimated to be 32 mmHg. No evidence for diastolic dysfunction. Ordering Physician: Jenifer Pool Referring Physician: Jenifer Pool Performed By: Kerwin Chapin RCS
[2018-05-17 14:15] LABS: Absolute Lymphocyte Count 2.35 X10^3/ul (0.83-4.51); Absolute Neutrophil Count 3.5 X10^3/uL (2.0-7.7); Basophil# 0.03 X10^3/uL; Basophil% 0.5 % (0-1); Eosinophils% 3.1 % (0-5); Hematocrit 43.9 % (37-47); Hemoglobin 14.4 g/dl (12.0-15.0); Lymphocyte # 2.35 X10^3/ul (4.0); Lymphocyte % 36.4 % (19-41); Mean Corp Hgb Conc 32.8 g/gl (32-36); Mean Corpuscular Hgb 30.8 pg (27.0-32.0); Mean Corpuscular Volume 93.8 fL (81-99); Mean Platelet Vol. 9.8 fl (6.2-12.0); Monocyte% 6.2 % (0-10); Neutrophil # 3.45 X10^3/uL (2.7-7.7); Neutrophil % 53.5 % (47-70); Platelet Count 324 K/mm3 (150-450); RBC Distribution Width CV 13.1 % (11.6-14.6); RBC Distribution Width SD 44.6 fl (35.1-43.9); Red Blood Count 4.68 M/mm3 (4.2-5.4); White Blood Count 6.5 K/mm3 (4.4-11.0)
[2018-05-17 14:20] LABS: POSITIVE COUNT NO; POSITIVE DIFFERENTIAL NO; POSITIVE MORPHOLOGY NO
[2018-05-17 14:29] LABS: Anion Gap 9 (5-15); BUN 14 mg/dL (7-18); BUN/Creat Ratio 13.7 RATIO (10-20); Calcium,Total 9.4 mg/dL (8.5-10.1); Chloride 102 mmol/L (98-107); Cholesterol 218 mg/dL (200); Creatinine, Serum 1.02 mg/dL (0.55-1.02); EST Glomerular Filtration Rate 58 mL/min (>60); Est Glom Filt Rate - Afr Amer 70 mL/min (>60); Glucose 118 mg/dL (74-106); High Density Lipoprotein 43 mg/dL; Sodium Level 141 mmol/L (136-145); Triglycerides 250 mg/dL; Very Low Density Lipoprotein 50 mg/dL (5-40)
== END ==
PROVIDERS: Family Provider Internal Medicine; PCP Internal Medicine; Referring Provider Internal Medicine; Visit Provider Internal Medicine
DX: I10 Essential (primary) hypertension (principal); E78.5 Hyperlipidemia, unspecified; R06.02 Shortness of breath
CPT/HCPCS: 36415; 80048; 80061; 85025; 93306; Q9957; A4216; C8929

== ENCOUNTER 2018-06-06 15:00 | Outpatient (RCR) | payer MEDICARE, OTHER, SELFPAY ==
[2018-04-17 13:17] VITALS: BMI 37.9
--- NOTE | 2018-05-09 09:43 | HP.PTEVAL_ITS ---
Patient's Visit Information JERMAINE YEE is a 67 year old F referred to Physical Therapy by Osiel Eddy MD with a diagnosis of C/S pain. Date of Evaluation: 05/09/18 Physical Therapist: Seun Gaffney PT, ATC - Visit Plan Frequency: 2-3x /Week Duration: 4 Weeks Plan: C/S ROM ex's, postural edu, DTR, US, and EMS - Subjective Findings: DOS: approximately one year ago. Pt reports she had a pinched nerve which resulted in her R UE being numb, and very limited cervical spine ROM. Pt reports after the surgery she was nearly pain free for a year after surgery until one month ago. Pt reports she was lying in bed when she suddenly experienced all of her symptoms return. Pt reports she has had R UE numbness and neck pain since. Pt reports her hope is to be able to get rid of this pain through PT. Pt is R hand dominant. Sig sleep diff at this time secondary to pain. 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 0/10 pain at rest, 10/10 if she moves her neck wrong. - Pain neck pain Pain Intensity (Out of 10): 0 Pain Intensity Range: 10 - Objective Neuro: B UE sensation is WNL to light touch. B bicepital reflex= 1/3. MMT: B UE sensation is 5/5 throughout. C/S ROM: Pt is severely limited with ext and R SB. Moderately limited with R rot. All other ranges are WNL. Special testing: Pos compression and distraction tests in C/S - Goals Goal 1:: Decrease neck pain x 50% to aid with sleep Goal Time Frame: 4-6 Weeks Goal 2:: Increase cervical spine ROM x 1 grade to aid with IADL's Goal Time Frame: 4-6 Weeks Goal 3:: I with HEP Goal Time Frame: 4-6 Weeks - Rehabilitation Potential Physical Therapy Diagnosis: R sided neck pain, limited ROM, and R UE radiculopathy secondary to deg changes to the c/s Rehabilitation Potential: Good - Anticipated Interventions Patient/Client Instruction: Educate patient on: Condition, Plan of Care For the Purpose of:: To improve self management Therapeutic Exercise to Include: Body mechanics, Postural training, Passive ROM, Active ROM, Scapular Strength/Stabilization For the Purpose of:: To decrease pain, To increase ROM, To improve muscle performance and motor function IF ES: Yes Ultrasound (thermal/non thermal): Yes For the Purpose of:: To decrease pain Thank you for the opportunity to evaluate your patient. For Medicare and Medicare HMO plans, please review the plan of care and approve it. It will need to be FAXED BACK to us at [phone] for Medicare purposes. For Medicare only, by signing this I certify the plan of care. Please let me know if there are questions or concerns regarding this plan of care. Physician Signature: Date:
--- NOTE | 2018-05-09 10:38 | HP.PTEVAL2 ---
Patient's Visit Information JERMAINE YEE is a 67 year old F referred to Physical Therapy by Osiel Eddy MD with a diagnosis of L knee menisectomy. Date of Evaluation: 05/09/18 Physical Therapist: Seun Gaffney PT, ATC - Visit Plan Frequency: 2-3x /Week Duration: 4-6 Weeks Plan: L knee stretching and strengthening, balance and proprio, core stab ex's, nustep, and HEP - Subjective Findings: DOS: 02/28/18. Pt had a partial medial menisectomy performed on her L knee. Pt reports she had pain for a while and finally went to the doctor. Pt reports she had an MRI prior to surgery which revealed a torn meniscus. Pt reports her knee is still swollen and sore and has not improved since the DOS. Pt reports she just had another MRI yesterday because of her knee not progressing. Pt reports she is functionally limited with stair negotiation and prolonged ambulation secondary to pain. No L LE tingling or numbness at this time. Pt reports sleep difficulty at this time secondary to pain. 0/10 pain at rest, 10/10 pain at worst - Pain L knee Intensity: 0 Pain Intensity Range: 10 - Objective Objective: Neuro: B LE sensation is WNL to light touch. Palpation: Crepitus with AROM in L knee. Mild swelling present in L knee. No obvious signs of infection. Girth at joint line: L knee 48 cm, R knee 46 cm. ROM: R knee 0-5-115, L knee 0-7-110. MMT: R knee 5/5 throughout. L knee flexion 5/5, L knee extension= 4-/5. Gait: Pt ambulates with a limp of her L LE - Goals Goal 1:: Decrease L knee pain x 50% to aid with sleep Goal Time Frame: 4-6 Weeks Goal 2:: Increase L knee ROM x 10 degrees to aid with restoring a more normal gait pattern Goal Time Frame: 4-6 Weeks Goal 3:: Increase L knee strength x 1 grade to aid with RTW without limitation Goal Time Frame: 4-6 Weeks Goal 4:: I with HEP Goal Time Frame: 4-6 Weeks - Rehabilitation Potential Physical Therapy Diagnosis: L knee pain, weakness, and limited ROM secondary to L knee menisectomy Rehabilitation Potential: Good - Anticipated Interventions Patient/Client Instruction: Educate patient on: Condition, Plan of Care For the Purpose of:: To improve self management Therapeutic Exercise to Include: Strength training, Endurance training, Balance training, Flexibilty training, Gait and locomotor training, Active ROM, Dynamic Lumbar Stabilization For the Purpose of:: To decrease pain, To increase ROM, To improve muscle performance and motor function Cryotherapy (ice pack, ice massage): Yes For the Purpose of:: To decrease pain Thank you for the opportunity to evaluate your patient. For Medicare and Medicare HMO plans, please review the plan of care and approve it. It will need to be FAXED BACK to us at [phone] for Medicare purposes. For Medicare only, by signing this I certify the plan of care. Please let me know if there are questions or concerns regarding this plan of care. Physician Signature: Date:
--- NOTE | 2018-06-14 10:19 | HP.PT.NRP(2) ---
HP - Discharge Summary (2) - Patient Information JERMAINE YEE was seen in my office for initial evaluation on 05/09/18. The following Plan of Care was established for this patient: Initial Frequency: 2-3x /Week Initial Duration: 4-6 Weeks Plan from Re-Evaluation: Progress gait mechanics, balance, flexibility, strength. Nustep. - Anticipated Interventions Patient/Client Instruction: Educate patient on: Condition, Plan of Care For the Purpose of:: To improve self management Therapeutic Exercise to Include: Strength training, Endurance training, Balance training, Flexibilty training, Gait and locomotor training, Active ROM, Dynamic Lumbar Stabilization For the Purpose of:: To decrease pain, To increase ROM, To improve muscle performance and motor function Cryotherapy (ice pack, ice massage): Yes For the Purpose of:: To decrease pain This patient was last seen in our office . Pertinent comments regarding their Physical therapy will appear below: Pt was last treated 05/18/18 for her L knee pain. Pt noted on that date that her L knee was getting no better and she was scheduled to followup with her sergeon on 05/24/18. Rx for this diagnosis is discontinued at this time. At this point I will be discontinuing this patient from physical therapy. I would be happy to see this patient again in the future if found appropriate by the physician. Thank you! Seun Gaffney, PT, ATC
--- NOTE | 2018-08-06 15:04 | HP.PT.NRP ---
HP - Discharge Summary (1) - Patient Information JERMAINE YEE was seen in my office for initial evaluation on 05/09/18. The following Plan of Care was established for this patient: Initial Frequency: 2-3x /Week Initial Duration: 4 Weeks - Anticipated Interventions Patient/Client Instruction: Educate patient on: Condition, Plan of Care For the Purpose of:: To improve self management Therapeutic Exercise to Include: Body mechanics, Postural training, Passive ROM, Active ROM, Scapular Strength/Stabilization For the Purpose of:: To decrease pain, To increase ROM, To improve muscle performance and motor function IF ES: Yes Ultrasound (thermal/non thermal): Yes For the Purpose of:: To decrease pain This patient was last seen in our office . Pertinent comments regarding their Physical therapy will appear below: Pt was treated for 8 PT visits through the date of 06/06/18 for neck pain. Pt has not returned through todays date and is therefore discontinued at this time. At this point I will be discontinuing this patient from physical therapy. I would be happy to see this patient again in the future if found appropriate by the physician. Thank you! Seun Gaffney, PT, ATC
--- OUTSIDE RECORDS SUMMARY | 2018-08-10 09:15 | XMS RPT_ITS ---
:1950 Author Organization OHIP Support Name Relationship Address Phone FIRST, DORIAN Unavailable Unavailable + KALAMARAS, KORIN Unavailable Unavailable + [place], [place] R Unavailable Unavailable Unavailable FIRST, DORIAN Unavailable Unavailable + KALAMARAS, KORIN Unavailable Unavailable + [place] R Unavailable Unavailable Unavailable KALAMARAS, KORIN Unavailable Unavailable + [place] JOSELITO NABIL Unavailable [address] + [address] [place] [address] R Unavailable Unavailable Unavailable KALAMARAS, KORIN Unavailable [address] + [address] [place] [address] YEE, NABIL Unavailable [address] + [address] [place] [address] R Unavailable Unavailable Unavailable KALAMARAS, KORIN Unavailable Unavailable + [place], [place] YEE, NABIL Unavailable [address] + [address] [place] [address] R Unavailable Unavailable Unavailable FIRST, DORIAN Unavailable Unavailable + KALAMARAS, KORIN Unavailable Unavailable + [place], [place] R Unavailable Unavailable Unavailable FIRST, DORIAN Unavailable . + ., . . R Unavailable Unavailable Unavailable DEE DEE YEERY PRETTY Unavailable [address] + [address] [place] [address] R Unavailable Unavailable Unavailable YEE NABIL PRETTY Unavailable [address] + [address] [place] [address] R Unavailable Unavailable Unavailable KALAMARAS, KORIN Unavailable Unavailable + [place] NABIL YEE Unavailable [address] + [address] [place] [address] R Unavailable Unavailable Unavailable FIRST, DORIAN Unavailable [address] + [address] [place] [address] NABIL YEE PRETTY Unavailable [address] + [address] [place] [address] R Unavailable Unavailable Unavailable FIRST, DORIAN Unavailable [address] + [address] [place] [address] NABIL YEE PRETTY Unavailable [address] + [address] [place] [address] R Unavailable Unavailable Unavailable FIRST, DORIAN Unavailable [address] + [address] [place] [address] NABIL YEE PRETTY Unavailable [address] + [address] [place] [address] R Unavailable Unavailable Unavailable FIRST, DORIAN Unavailable [address] + [address] [place] [address] NABIL YEE PRETTY Unavailable [address] + [address] [place] [address] R Unavailable Unavailable Unavailable FIRST, DORIAN Unavailable [address] + [address] [place] [address] NABIL YEE PRETTY Unavailable [address] + [address] [place] [address] R Unavailable Unavailable Unavailable FIRST, DORIAN Unavailable [address] + [address] [place] [address] NABIL YEE PRETTY Unavailable [address] + [address] [place] [address] R Unavailable Unavailable Unavailable FIRST, DORIAN Unavailable [address] + [address] [place] [address] NABIL YEE PRETTY Unavailable [address] + [address] [place] [address] R Unavailable Unavailable Unavailable FIRST, DORIAN Unavailable [address] + [address] [place] [address] NABIL YEE PRETTY Unavailable [address] + [address] [place] [address] R Unavailable Unavailable Unavailable FIRST, DORIAN Unavailable [address] + [address] [place] [address] NABIL YEE PRETTY Unavailable [address] + [address] [place] [address] R Unavailable Unavailable Unavailable FIRST, DORIAN Unavailable Unavailable + NABIL YEE PRETTY Unavailable [address] + [address] [place] [address] R Unavailable Unavailable Unavailable FIRST, DORIAN Unavailable Unavailable + NABIL YEE PRETTY Unavailable [address] + [address] [place] [address] R Unavailable Unavailable Unavailable FIRST, DORIAN Unavailable . + ., [place] . NABIL YEE PRETTY Unavailable [address] + [address] [place] [address] R Unavailable Unavailable Unavailable FIRST, DORIAN Unavailable . + ., [place] . NABIL YEE PRETTY Unavailable [address] + [address] [place] [address] R Unavailable Unavailable Unavailable FIRST, DORIAN Unavailable . + ., [place] . NABIL YEE PRETTY Unavailable [address] + [address] [place] [address] R Unavailable Unavailable Unavailable FIRST, DORIAN Unavailable . + ., [place] . NABIL YEE PRETTY Unavailable [address] + [address] [place] [address] R Unavailable Unavailable Unavailable FIRST, DORIAN Unavailable . + ., [place] . NABIL YEE PRETTY Unavailable [address] + [address] [place] [address] S Unavailable Unavailable Unavailable FIRST, DORIAN Unavailable [address] + [place], [place] . NABIL YEE Unavailable [address] + [address] [place] [address] S Unavailable Unavailable Unavailable FIRST, DORIAN Unavailable [address] + [place], [place] NABIL YEE PRETTY Unavailable [address] + [address] [place] [address] S Unavailable Unavailable Unavailable FIRST, DORIAN Unavailable [address] + [place], [place] NABIL YEE Unavailable [address] + [address] [place] [address] S Unavailable Unavailable Unavailable FIRST, DORIAN Unavailable [address] + [place], [place] . NABIL YEE Unavailable [address] + [address] [place] [address] S Unavailable Unavailable Unavailable FIRST, DORIAN Unavailable [address] + [place], [place] . NABIL YEE Unavailable [address] + [address] [place] [address] S Unavailable Unavailable Unavailable FIRST, DORIAN Unavailable [address] + [place], [place] . NABIL YEE Unavailable [address] + [address] [place] [address] S Unavailable Unavailable Unavailable FIRST, DORIAN Unavailable [address] Unavailable [place] NABIL YEE Unavailable [address] + [address] [place] [address] S Unavailable Unavailable Unavailable S Unavailable Unavailable Unavailable S Unavailable Unavailable Unavailable S Unavailable Unavailable Unavailable S Unavailable Unavailable Unavailable S Unavailable Unavailable Unavailable Care Team Providers Name Role Phone ASHLEY ANDRADE Attending Unavailable ASHLEY ANDRADE Referring Unavailable Ashley Fields [facility] Primary Care Unavailable Felicianoe, Efewongbe Consulting Unavailable Corine Efewongbe Attending Unavailable Ashley Fields [employer] Referring Unavailable Ashley Fields [employer] Primary Care Unavailable Oleghe, Efewongbe Consulting Unavailable Oleghe, Efewongbe Attending Unavailable Oleghe, Efewongbe Referring Unavailable Oleghe, Efewongbe Attending Unavailable Oleghe, Efewongbe Referring Unavailable Oleghe, Efewongbe Primary Care Unavailable FieldsAshley [employer]-C Attending Unavailable Oleghe, Efewongbe Primary Care Unavailable Oleghe, Efewongbe Attending Unavailable Oleghe, Efewongbe Referring Unavailable Oleghe, Efewongbe Attending Unavailable Oleghe, Efewongbe Primary Care Unavailable Oleghe, Efewongbe Referring Unavailable Oleghe, Efewongbe Attending Unavailable Oleghe, Efewongbe Referring Unavailable FieldsAshley [employer] Attending Unavailable Oleghe, Efewongbe Referring Unavailable Oleghe, Efewongbe Primary Care Unavailable FieldsAshley [employer] Attending Unavailable Fields, Ashley [employer] Referring Unavailable Oleghe, Efewongbe Primary Care Unavailable Mary Cat Attending Unavailable Colton, Littleton Attending Unavailable Oleghe, Efewongbe Referring Unavailable Oleghe, Efewongbe Primary Care Unavailable Oleghe, Efewongbe Attending Unavailable Oleghe, Efewongbe Referring Unavailable FieldsAshley [employer] [employer] Primary Care Unavailable Jose Locke Attending Unavailable Oleghe, Efewongbe Referring Unavailable Colton, Alonzo Attending Unavailable Colton, Alonzo Referring Unavailable Oleghe, Efewongbe Primary Care Unavailable Oleghe, Efewongbe Attending Unavailable Oleghe, Efewongbe Referring Unavailable Oleghe, Efewongbe Primary Care Unavailable FieldsAshley [employer]-C Attending Unavailable FieldsAshley [employer] [employer] Referring Unavailable Oleghe, Efewongbe Primary Care Unavailable Colton, Littleton Attending Unavailable Oleghe, Efewongbe Attending Unavailable Oleghe, Efewongbe Referring Unavailable Oleghe, Efewongbe Primary Care Unavailable FieldsAshley [employer]-C Attending Unavailable FieldsAshley [employer]C Referring Unavailable Oleghe, Efewongbe Primary Care Unavailable FieldsAshley [employer]-C Attending Unavailable Oleghe, Efewongbe Referring Unavailable Oleghe, Efewongbe Primary Care Unavailable FieldsAshley [employer]-C Attending Unavailable FieldsAshley [employer]-C Referring Unavailable Oleghe, Efewongbe Primary Care Unavailable FieldsAshley [employer]-C Attending Unavailable Oleghe, Efewongbe Primary Care Unavailable Oleghe, Efewongbe Attending Unavailable Oleghe, Efewongbe Referring Unavailable Fields, Ashley [employer]-C Attending Unavailable Oleghe, Efewongbe Referring Unavailable Oleghe, Efewongbe Primary Care Unavailable Fields, Ashley [employer]-C Attending Unavailable Fields, Ashley [employer]-C Referring Unavailable Oleghe, Efewongbe Primary Care Unavailable Fields, Ashley [employer]-C Attending Unavailable Oleghe, Efewongbe Primary Care Unavailable Fields, Ashley [employer]-C Attending Unavailable Oleghe, Efewongbe Referring Unavailable Oleghe, Efewongbe Primary Care Unavailable Fields, Ashley [employer]-C Attending Unavailable Fields, Ashley [employer]-C Referring Unavailable Fields, Ashley [employer]-C Primary Care Unavailable Nurse, Surgery Attending Unavailable Fields, Ashley [employer]-C Referring Unavailable Fields, Ashley [employer]AM[employer]-C Attending Unavailable Fields, Ashley [employer]AM[employer]-C Primary Care Unavailable Fields, Ashley [employer]AMPER-C Attending Unavailable Fields, Ashley [employer] CLAMPER-C Primary Care Unavailable Fields, Ashley [employer]AMPER-C Attending Unavailable Fields, Ashley [employer]AM[employer]-C Referring Unavailable Fields, Ashley [employer]AMPER-C Attending Unavailable Fields, Ashley [employer] CLAMPER-C Referring Unavailable Fields, Ashley [employer]AMPER-C Primary Care Unavailable Fields, Ashley [employer]AM[employer]-C Attending Unavailable Fields, Ashley [employer]-C Referring Unavailable Fields, Ashley [employer]AM[employer]-C Primary Care Unavailable Oleghe, Efewongbe Attending Unavailable Oleghe, Efewongbe Referring Unavailable Fields, Ashley [employer]-C Attending Unavailable Fields, Ashley [employer]-C Primary Care Unavailable LUPE, ASHLEY Attending Unavailable LUPE, ASHLEY Referring Unavailable Fields, Ashley [employer] Primary Care Unavailable MARKIE WADE Consulting Unavailable PROBLEMS PROBLEMS DATE TYPE CONDITION / CODE ATTENDING STATUS SOURCE 06/06/2018 Unknown M47.22 - Other LUPE, ASHLEY Active [place] spondylosis with Community radiculopathy, Hospital cervical region / Repository M47.22(ICD-10) 05/22/2018 Unknown E11.9 - Type 2 Fields, Ashley [facility] [place] diabetes mellitus [facility] Community without Hospital complications / Repository E11.9(ICD-10) 05/30/2018 Unknown R19.02 - Left upper Oleghe, Active [place] quadrant abdominal Efewongbe Community swelling, mass and Hospital lump / Repository R19.02(ICD-10) 06/05/2018 Unknown R06.02 - Shortness MoodispaJose fontana Active [place] of breath / Community R06.02(ICD-10) Hospital Repository 03/26/2018 Unknown R06.00 - Dyspnea, Fields, Ashley Active [place] unspecified / [facility] Community R06.00(ICD-10) Hospital Repository 02/03/2018 Unknown R10.32 - Left lower Fields, Ashley Active [place] quadrant pain / [facility] Community R10.32(ICD-10) Hospital Repository 02/02/2018 Unknown Z23 - Encounter for Fields, Ashley [facility] [place] immunization / [facility] Community Z23(ICD-10) Hospital Repository 01/16/2018 Unknown R63.5 - Abnormal Fields, Ashley [facility] [place] weight gain / [facility] Community R63.5(ICD-10) Hospital Repository 01/16/2018 Unknown F41.8 - Other Fields, Ashley Active [place] specified anxiety [facility] Community disorders / Hospital F41.8(ICD-10) Repository 12/06/2017 Unknown E87.6 - Hypokalemia Fields, Ashley [facility] [place] / E87.6(ICD-10) [facility] Community Hospital Repository 11/28/2017 Unknown E66.9 - Obesity, Fields, Ashley [facility] [place] unspecified / [facility] Community E66.9(ICD-10) Hospital Repository 11/28/2017 Unknown I10 - Essential Fields, Ashley [facility] [place] (primary) [facility] Community hypertension / Hospital I10(ICD-10) Repository 11/28/2017 Unknown E78.5 - Fields, Ashley Active [place] Hyperlipidemia, [facility] Community unspecified / Hospital E78.5(ICD-10) Repository 11/28/2017 Unknown L91.8 - Other Fields, Ashley Active [place] hypertrophic [facility] Community disorders of the Hospital skin / Repository L91.8(ICD-10) 11/28/2017 Unknown G47.33 - Fields, Ashley Active [place] Obstructive sleep [facility] Community apnea (adult) Hospital (pediatric) / Repository G47.33(ICD-10) 11/28/2017 Unknown Z99.89 - Dependence Fields, Ashley [facility] [place] on other enabling [facility] Community machines and Hospital devices / Repository Z99.89(ICD-10) 08/29/2017 Unknown I44.7 - Left Colton, Littleton Active [place] bundle-branch Community block, unspecified Hospital / I44.7(ICD-10) Repository PROCEDURES PROCEDURES No Procedure Records FoundRESULTS RESULTS INTERNAL MEDICINE Observed: 06/01/2018 Status: F Source: [place] OFFICE VISIT 1:40 PM [facility] REPOSITORY [facility] [address] [place] [address] [place] [address] OFFICE VISIT Date of Service: 05/30/18 MR#: [id number] Acct: [id number] Name: JERMAINE YEE Rep #: [id number] : 1950 Provider: Jenifer Pool MD Age/Sex: 67/F [place] [facility] [place] Status: Signed Intake Vital Signs05/30/18 Body Mass [...] DAILY #60 cap 05/30/18 [Rx Confirmed 05/30/18] [facility] Medical History LBBB (left bundle branch block) [...] acute distress, well developed Orientation: alert, awake HENWY Head: atraumatic, normocephalic, normal to inspection Ears: [...] Will follow. This note was generated with InView Technologyation software. It may contain incorrect words, spelling, [...] Status: F Source: [place] CONTRAST 5:07 PM [facility] REPOSITORY [facility] Cardiovascular Services [address] [place] [address] Echo Complete W/ Contrast 05/17/18 1410 MR#: [id number] Acct: [id number] Name: JERMAINE YEE Rep #: [id number] : 1950 67 From: Jose Locke MD Attending Dr: Jenifer Pool MD Status: REG CLI Ordering Dr: Jenifer Pool MD Date: 05/17/18 Location: [facility] Sex: F C Admitted: Reason For Study: [...] PA V2 max: 116.5 cm/sec TR max arnav: 244.1 cm/sec LV V1 max P.2 mmHg [...] Physician: Jenifer Pool Performed By: Kerwin Chapin RCS 05/17/18 1707 Date Jose Locke MD CC: Jenifer Pool MD Date Dictated: 12/27/18 1410 Date Transcribed: 05/17/181706 School Bus Attendant: Signed CBC W/DIFF, AUTOMATED Collected: 05/17/2018 Status: F Source: [place] 11:20 AM [facility] REPOSITORY TYPE CODE TESTS RESULT OUT OF [...] Lymph 2.35 Performed By: #### L100.0100 #### [facility] [address] [place], [address] BASIC METABOLIC Collected: 05/17/2018 Status: F Source: [place] PROFILE (BMP) 11:20 AM [facility] REPOSITORY TYPE CODE TESTS RESULT OUT OF [...] 9 Performed By: #### L500.2500, L500.4100 #### [facility] [address] [place], [place], [address] LIPID PROFILE Collected: 05/17/2018 Status: F Source: [place] 11:20 AM [facility] REPOSITORY TYPE CODE TESTS RESULT OUT OF [...] 50 Performed By: #### L500.2500, L500.4100 #### [facility] [address] [place], [address] INTERNAL MEDICINE Observed: 05/14/2018 Status: F Source: [place] OFFICE VISIT 8:30 AM [facility] REPOSITORY [facility] [address] [place] [address] [place] [address] OFFICE VISIT Date of Service: 05/11/18 MR#: [id number] Acct: [id number] Name: JERMAINE YEE Rep #: [id number] : 1950 Provider: Jenifer Pool MD Age/Sex: 67/F [place] [facility] [place] Status: Signed Intake Vital Signs05/11/18 Body Mass [...] (Verified 05/11/18 14:34) [facility] Adverse Reaction (Verified 05/11/18 14:34) Vomiting Medications [...] 10 meq PO .QOD tab 05/11/18 [History] [facility] Medical History LBBB (left bundle branch block) [...] acute distress, well developed Orientation: alert, awake HENWY Head: atraumatic, normocephalic, normal to inspection Ears: [...] dietary modifications. This note was generated with Comparameglio.it software. It may contain incorrect words, spelling, [...] MAMM (CAD), Observed: 05/10/2018 Status: F Source: [facility] 3:54 PM [facility] REPOSITORY [facility] Imaging Services [address] [place] [address] SCREENING MAMM (CAD), BIL MR#: [id number] Acct: [id number] Name: JERMAINE YEE Monika Rep #: [id number] : 1950 F 67 From: Kyrie Dumas MD PCP: Ashley Fields NP Status: [facility] Study: SCREENING MAMM (CAD), BIL Date of Exam: 05/10/18 Exam# [id number] Ordering Dr: Jenifer Pool MD MAMMOGRAPHY - [...] delay biopsy of a clinically suspicious abnormality. [id number] Electronically Signed: Kyrie Dumas MD at 8:35 EST Tel [phone], Service support , CC: Jenifer Pool MD; Ashley Fields NP School Bus Attendant: Signed INITIAL EVALUATION (2) Observed: 05/09/2018 Status: F Source: [facility] 10:39 AM [facility] REPOSITORY [facility] Therapy [address] [place], [place] [address] Fax REHABILITATION SERVICES INITIAL EVALUATION MR#: [id number] Acct: [id number] Name: JERMAINE YEE Rep #: [id number] : 1950 67 From: Seun Gaffney PT, ATC Referring DrNadia: ASHLEY ANDRADE Status: REG RCR Insurance: MEDICARE PART A B [facility] Patient's Visit Information JERMAINE YEE is a [...] to be FAXED BACK to us at [phone] for Medicare purposes. For Medicare only, by signing this I certify the plan of care. Please let me know if there are questions or concerns regarding this plan of care. Physician Signature: Date: <Electronically signed by Seun Gaffney PT, ATC> 05/09/18 1039 CC: Jenifer Pool MD; ASHLEY ANDRADE [facility] Signed INITAL EVALUATION (1) Observed: 05/09/2018 Status: F Source: [place] [facility] 9:43 AM [facility] REPOSITORY [facility] [address] [place] [address]. [address] [place] [address] Fax REHABILITATION SERVICES INITIAL EVALUATION MR#: [id number] Acct: [id number] Name: JERMAINE YEE Rep #: [id number] : 1950 67 From: Seun Gaffney PT, ATC Referring Dr.: ASHLEY ANDRADE Status: REG RCR Insurance: MEDICARE PART A B [facility] [place] Patient's Visit Information JERMAINE YEE is a [...] to be FAXED BACK to us at [phone] for Medicare purposes. For Medicare only, by signing this I certify the plan of care. Please let me know if there are questions or concerns regarding this plan of care. Physician Signature: Date: <Electronically signed by Seun Gaffney PT, ATC> 05/09/18 0943 CC: Jenifer Pool MD; ASHLEY ANDRADE [facility] Signed LOWER EXT JOINT ONLY Observed: 05/08/2018 Status: F Source: [place] (ROUTINE) 9:45 AM [facility] REPOSITORY [facility] Imaging Services [address] [place] [address]34 Lower Ext Joint Only (Routine) MR#: [id number] Acct: [id number] Name: JERMAINE YEE Rep #: [id number] : 1950 F 67 From: Valarie Green MD PCP: Ashley Fields NP Status: REG CLI Study: Lower Ext Joint Only (Routine) Date of Exam: 05/08/18 Exam# [id number] Ordering Dr: Ashley Andrade MD STUDY: MRI [...] Tel , Service support , CC: ASHLEY Fields NP School Bus Attendant: Signed INTERNAL MEDICINE Observed: 04/19/2018 Status: F Source: [place] OFFICE VISIT 6:54 PM [facility] [address] [place] [address] [place] [address] OFFICE VISIT Date of Service: 04/17/18 MR#: [id number] Acct: [id number] Name: JERMAINE YEE Rep #: [id number] : 1950 Provider: Jenifer Pool MD Age/Sex: 67/F [place] [facility] [place] Status: Signed Intake Vital Signs04/17/18 Height 5 [...] next visit. This note was generated with [employer]yft [employer] dictation software. It may contain incorrect words, [...] adult class 2 (BMI 35 - 39.9) 11/29/18 1854 <Electronically signed by Jenifer Pool MD> Date Jenifer Pool MD Cosigner Signature: Date (if applicable) CC: VENOUS DUPLEX LOWER Observed: 04/07/2018 Status: F Source: [facility] 11:07 AM [facility] REPOSITORY [facility] Cardiovascular Services [address] [place] [address] Venous Duplex US - Son Extrem 03/30/18 1407 MR#: [id number] Acct: [id number] Name: JERMAINE YEE Monika Rep #: [id number] : 1950 67 From: Nabil Lindo MD Attending Dr: Ashley Fields NP Status: REG CLI Ordering Dr: Ashley Fields [facility] [employer]AMPER-C Date: 03/30/18 Location: [facility] Sex: F C [...] was called and/or faxed to Ashley Fields [employer]TON CLAMPER @ [phone] @ 3:15 pm. <> Interpretation Summary Deep [...] NP Date Dictated: 03/30/18 1407 Date Transcribed: 04/07/18 1107 School Bus Attendant: Signed INTERNAL MEDICINE Observed: 03/28/2018 Status: F Source: [place] OFFICE VISIT 1:34 PM [facility] [address] [place] [address] OFFICE VISIT Date of Service: 03/23/18 MR#: [id number] Acct: [id number] Name: JERMAINE YEE Rep #: [id number] : 1950 Provider: Ashley Fields NP Age/Sex: 67/F [place] [facility] [place] Status: Signed Intake Vital Signs03/23/18 Height 5 [...] .MEDSUPPLY #2 ea 03/23/18 [Rx Confirmed 03/23/18] [facility] Medical History LBBB (left bundle branch block) [...] BASIC METABOLIC Collected: 03/26/2018 Status: F Source: [place] PROFILE (BMP) 1:56 PM [facility] REPOSITORY TYPE CODE TESTS RESULT OUT OF [...] GAP 8 Performed By: #### L500.2500 #### [facility] [address] [facility] [place], [place], [address] BNP,B-TYPE NATRIURETIC Collected: 03/26/2018 Status: F Source: [place] PEPTIDE 1:56 PM [facility] REPOSITORY TYPE CODE TESTS RESULT OUT OF RANGE REFERENCE UNITS LAB L503.6620 0-100 pg/mL Normal B-TYPE 19.6 JUS PEP Performed By: #### L503.6620 #### [facility] [address] [place], [place], [address] CBC W/DIFF, AUTOMATED Collected: 03/26/2018 Status: F Source: [place] 1:56 PM [facility] REPOSITORY TYPE CODE TESTS RESULT OUT OF [...] Lymph 2.33 Performed By: #### L100.0100 #### [facility] [address] [place], [address] INTERNAL MEDICINE Observed: 02/07/2018 Status: F Source: [place] OFFICE VISIT 9:53 AM [facility] Internal Medicine [address] [place] [address] [place] [address] OFFICE VISIT Date of Service: 02/02/18 MR#: [id number] Acct: [id number] Name: JERMAINE YEE Monika Rep #: [id number] : 1950 Provider: Ashley Fields NP Age/Sex: 67/F Location: [facility] Status: Signed Intake Vital Signs02/02/18 Height 5 [...] PO QDAY tab 09/15/17 [History Confirmed 02/02/18] [facility] Medical History LBBB (left bundle branch block) [...] Route Admin Location Lot Number Expiration Date [facility] Loom Doffer 0.5 mL IM Left Deltoid [id number] 09/18/18 70689-503-21 SEQIRUS VIS Given Date VIS Publication Date [...] this time. Patient education given.Patient educated on navc-bny-ycjcifw analgesics that may be appropriate for site discomfort. Orders Orders: Medications Discontinued: flu vacc (65yr up)-MF59C(PF) 45 mcg(15 mcgx3)/0.5 mL IM0.5 mL IM ONCE Velvet Munguia syringe Discontinued Reason: Office Medication has been D ocumented as given Plan Detail Follow Up Previously scheduled or sooner Coding Level of Care Code Off vis,est,level 3 Diagnoses Intermittent left lower quadrant abdominal pain R10.32 Constipation K59.00 Influenza vaccine needed Z23 02/07/18 0953 <Electronically signed by Ashley SANDRA> Date Ashely SANDRA Cosigner Signature: Date (if applicable) CC: ABDOMEN SINGLE VIEW Observed: 02/02/2018 Status: F Source: [place] 2:43 PM [facility] HOSPITAL REPOSITORY [facility] Imaging Services [address] [place] [address] Abdomen Single View MR#: [id number] Acct: [id number] Name: JERMAINE YEE Monika Rep #: [id number] : 1950 F 67 From: Sherif Castellanos DO PCP: Ashley Fields NP Status: REG CLI Study: Abdomen Single View Date of Exam: 02/02/18 Exam# [id number] Ordering Dr: Ashley Fields STUDY: X-RAY - [...] the abdomen and pelvis. Electronically Signed: Sherif Castellanos DO at 22:40 EDT Tel [phone], Service support , CC: Ashley Fields NP School Bus Attendant: Signed URINALYSIS, COMPLETE Collected: 02/02/2018 Status: F Source: [place] 10:11 AM [facility] REPOSITORY Order Comment: How was Urine Obtained? MACHINE TOOL TECHNOLOGY INSTRUCTOR TO SPECIFY TYPE CODE TESTS RESULT OUT [...] URINE SEEN Performed By: #### L400.0001 #### [facility] [address] [place], [address] INTERNAL MEDICINE Observed: 01/16/2018 Status: F Source: [place] OFFICE VISIT 4:54 PM [facility] REPOSITORY [facility] [address] [place] [address] OFFICE VISIT Date of Service: 01/16/18 MR#: [id number] Acct: [id number] Name: JERMIANE YEE Rep #: [id number] : 1950 Provider: Ashley Fields NP Age/Sex: 67/F [place] [facility] [facility] [place]: Signed Intake Vital Signs01/16/18 Height 5 [...] conditions. Patient stated that she saw a sonogram technician at [facility] and it is going well. She states she is trying to diet and exercise, but she has increased stress at home taking care of her gblwvw-hv-hjx and her . She is wondering if [...] oriented x3 Limitations: mental status not altered [facility] Head: normal to inspection Ears: hearing [...] has increased anxiety taking care of her tzfpvh-sz-ujp and spouse at home. She denies depression [...] diet and exercise and is following a sonogram technician at [facility]. ordered hemoglobin A1c today. 3. Obesity E66.9 Plan Patient will continue following up with a sonogram technician at [facility]. She has been on phentermine in [...] Status: F Source: [place] (T[place]) 2:49 PM [facility] REPOSITORY TYPE CODE TESTS RESULT OUT OF RANGE REFERENCE UNITS LAB L501.9520 0.358-3.74 uIU/mL Normal TSH 2.82 Performed By: #### L501.9520 #### [facility] [address] [facility]. [place], [place], [address] HEMOGLOBIN A1C Collected: 01/16/2018 Status: F Source: [place] 12:46 PM [facility] REPOSITORY TYPE CODE TESTS RESULT OUT OF RANGE REFERENCE UNITS LAB L501.9985 4.2-6.3 % Normal HGB A1C 5.7 Performed By: #### L501.9985 #### [facility] [address] [facility] [place], [address] BASIC METABOLIC Collected: 12/06/2017 Status: F Source: [place] PROFILE (BMP) 8:41 AM [facility] REPOSITORY TYPE CODE TESTS RESULT OUT OF [...] GAP 10 Performed By: #### L500.2500 #### [facility] [address] [place], [address] INTERNAL MEDICINE Observed: 11/28/2017 Status: F Source: [place] OFFICE VISIT 3:16 PM [facility] REPOSITORY [facility] [address] [place] [address] [place] [address] OFFICE VISIT Date of Service: 11/28/17 MR#: [id number] Acct: [id number] Name: JERMAINE YEE Rep #: [id number] : 1950 Provider: Ashley Fields NP Age/Sex: 67/F [place] [facility] [place] Status: Signed Intake Vital Signs11/28/17 Height 5 [...] PO QDAY tab 09/15/17 [History Confirmed 09/15/17] [facility] Medical History LBBB (left bundle branch block) [...] oriented x3 Limitations: mental status not altered [facility] Head: normal to inspection Ears: hearing [...] emergency care. This note was generated with [employer] dictation software. It may contain incorrect words, [...] 1516 <Electronically signed by Ashley SANDRA> Date Ahsley SANDRA Cosigner Signature: Date (if applicable) CC: HEMOGLOBIN A1C Collected: 10/17/2017 Status: F Source: [place] 10:34 AM [facility] REPOSITORY TYPE CODE TESTS RESULT OUT OF RANGE REFERENCE UNITS LAB L501.9985 4.2-6.3 % Normal HGB A1C 5.9 Performed By: #### L501.9985, L500.4100 #### [facility] [address] [place], [address] LIPID PROFILE Collected: 10/17/2017 Status: F Source: [place] 10:34 AM [facility] REPOSITORY Order Comment: Order Date: 03/07/17 Order [...] 19 Performed By: #### L501.9985, L500.4100 #### [facility] [address] [place], [address] BASIC METABOLIC Collected: 10/17/2017 Status: F Source: [place] PROFILE (BMP) 10:34 AM [facility] REPOSITORY Order Comment: Order Date: 03/07/17 Order [...] GAP 9 Performed By: #### L500.2500 #### [facility] [address] [place], [address] INTERNAL MEDICINE Observed: 10/13/2017 Status: F Source: [place] OFFICE VISIT 4:31 PM [facility] REPOSITORY [facility] [address] [place] [address] [place] [address] OFFICE VISIT Date of Service: 10/13/17 MR#: [id number] Acct: [id number] Name: JOSELITOJERMAINE D Rep #: [id number] : 1950 Provider: Jenifer Pool MD Age/Sex: 66/F [place] [facility] [place] Status: Signed Intake Vital Signs10/13/17 Height 5 [...] PO QDAY tab 09/15/17 [History Confirmed 09/15/17] [facility] Medical History LBBB (left bundle branch block) [...] F Source: [place] OFFICE VISIT 5:01 PM [facility] Internal Medicine [facility] [place] [address] OFFICE VISIT Date of Service: 09/15/17 MR#: [id number] Acct: [id number] Name: JERMAINE YEE Rep #: [id number] : 1950 Provider: Jenifer Pool MD Age/Sex: 66/F [place] [facility] [place] Status: Signed Intake Vital Signs09/15/17 Height 5 [...] context of This note was generated with InView Technologyation software. It may contain incorrect words, spelling, [...] Collected: 09/04/2017 Status: F Source: [place] PROFILE ([facility]) 11:30 AM [facility] REPOSITORY TYPE CODE TESTS RESULT OUT OF [...] GAP Performed By: #### L500.2500, L501.5200 #### [facility] [address] [place], [address] MAGNESIUM Collected: 09/04/2017 Status: F Source: [place] 11:30 AM [facility] REPOSITORY TYPE CODE TESTS RESULT OUT OF RANGE REFERENCE UNITS LAB L501.5200 1.6-2.6 mg/dL Normal MG 2.0 Result Comment: Slight Hemolysis, Result may be falsely increased. Performed By: #### L500.2500, L501.5200 #### [facility] [address] [place], [address] CARDIOLOGY VISIT Observed: 08/29/2017 Status: F Source: [place] REPORT 1:56 PM [facility] REPOSITORY [facility] [address] [place], [place] [address] OFFICE VISIT Date of Service: 08/29/17 MR#: [id number] Acct: [id number] Name: JERMAINE YEE Rep #: [id number] : 1950 Provider: Alonzo Segura MD Age/Sex: 66/F [place] [facility] [place]: Signed HPI [facility] Chief Complaint: Follow-up visit. Details: JERMAINE [...] 60 to 64 (60% per echo 09/15/16) [facility] Medical History LBBB (left bundle branch block) [...] Other Medications Refilled: Follow Up 1 Year (lav crewman) Coding Level of Care Code Off vis,est,level [...] F Source: [place] OFFICE VISIT 4:50 PM [facility] Internal Medicine [facility] [place] [address] [place] [address] OFFICE VISIT Date of Service: 08/04/17 MR#: [id number] Acct: [id number] Name: JERMAINE YEE Rep #: [id number] : 1950 Provider: Ashley Fields NP Age/Sex: 66/F Location: [facility] Status: Signed Intake Vital Signs08/04/17 Height 5 [...] days ago she was bending over 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 She has tried no mups-vpa-acahrqg treatments. She denies any other aggravating or [...] morning 3. Obesity E66.9 Plan Referred to [facility] Patient will follow up in 6 weeks or sooner if needed. Juan Mon disclaimer Orders Referrals: Plan Detail Other Medications New: Refilled: Follow Up 6 Weeks Coding Level of Care Code Off vis,est,level 3 Diagnoses Strain of left inguinal muscle S39.013A Depression F32.9 Obesity E66.9 Obesity type: due to excess calories 08/04/17 1650 <Electronically signed by Ashley SANDRA> Date Ashley SANDRA Cosigner Signature: Date (if applicable) CC: ALLERGIES ALLERGIES DATE TYPE / CODE NAME / CODE REACTION SEVERITY SOURCE 05/30/2018 Drug hydrocodone Vomiting Unknown [place] Allergy/416 bitartrate/W635370 Community 895306([facility]) [facility] ED CT) Repository 05/30/2018 Drug propoxyphene Vomiting Unknown [place] Allergy/416 napsylate/X0516159 Community 404500([facility] ED CT) Repository 05/30/2018 Drug Iodinated Rash, ITCHING SV [place] Allergy/416 Contrast- Oral and Community 592161([facility] ED CT) Dye/I348746281(RXN Repository ORM) 05/30/2018 Drug NSAIDS GI Bleeding [place] Allergy/416 (Non-Steroidal Community 721429([facility] Anti-Inflamma/F[address]) 705372(RXNORM) Repository 05/30/2018 Drug dibucaine/L8737331 Rash, ITCHING SV [place] Allergy/416 71(RXNORM) [facility] 220933([facility] ED CT) Repository 05/30/2018 Drug morphine/S73194638 Vomiting Unknown [place] Allergy/416 5(RXNORM) [facility] 592543([facility] ED CT) Repository 05/30/2018 Drug codeine/S917204360 Vomiting Unknown [place] Allergy/416 (RXNORM) [facility] 284051([facility] ED CT) Repository 05/30/2018 Drug acetaminophen/F006 Vomiting Unknown [place] Allergy/416 956953(RXNORM) [facility] 435469([facility] ED CT) Repository 05/30/2018 Drug adhesive Localized skin [place] Allergy/416 tape/L020199594(RX reaction Community 359936([facility] ED CT) Repository 05/30/2018 Drug wool/W334540631(RX Rash Unknown [place] Allergy/416 NORM) [facility] 072593([facility] ED CT) Repository ENCOUNTERS ENCOUNTERS ADMIT/DISCHARGE ACCOUNT ADMITTING ENCOUNTER LOCATION SOURCE NUMBER CLASS 06/15/2018 [id number] Ambulatory [place] [facility] ing:CT Repository 06/06/2018 [id number] Ambulatory [place] 8 [facility] ing:PT Repository 06/01/2018 [id number] Ambulatory [place] 0 [facility] ing:DC Repository 05/30/2018/ [id number] Ambulatory BMSBuilding:B [place] 9 1 [facility] Repository 05/17/2018 [id number] Ambulatory [place] 8 [facility] ing:CVS Repository 05/17/2018 [id number] Ambulatory BMSBuilding:W [place] 4 [facility] Repository 05/11/2018/ [id number] Ambulatory BMSBuilding:B [place] 8 6 [facility] Repository 05/10/2018 [id number] Ambulatory [place] 4 [facility] ing:OPBI Repository 05/08/2018 [id number] Ambulatory [place] 7 [facility] ing:MRI Repository 04/25/2018/ [id number] Ambulatory [place] 8 2 [facility] HospitalBuild Hospital ing:DC Repository 04/17/2018/ [id number] Ambulatory BMSBuilding:B [place] 8 0 [facility] Hospital Repository 03/30/2018 [id number] Ambulatory [place] 1 [facility] HospitalBuild Hospital ing:CVS Repository 03/28/2018/ [id number] Ambulatory [place] 8 1 [facility] HospitalBuild Hospital ing:DC Repository 03/26/2018 [id number] Ambulatory [place] 7 [facility] Hospital[facility] Hospital ing:MTLAB Repository 03/23/2018/ [id number] Ambulatory BMSBuilding:B [place] 8 1 [facility] Hospital Repository 02/22/2018/ [id number] Ambulatory [place] 8 [facility] Hospitalild Hospital ing:DC Repository 02/05/2018/ [id number] Ambulatory BMSBuilding:B [place] 8 8 [facility] Hospital Repository 02/02/2018 [id number] Ambulatory [place] 8 [facility] HospitalBuild Hospital ing:LABSPEC Repository 02/02/2018/ [id number] Ambulatory BMSBuilding:B [place] 8 5 [facility] Hospital Repository 01/25/2018/ [id number] Ambulatory [place] 8 0 [facility] HospitalBuild Hospital ing:DC Repository 01/16/2018 [id number] Ambulatory [place] 1 [facility] Hospital[facility] Hospital ing:MTLAB Repository 01/16/2018/ [id number] Ambulatory BMSBuilding:B [place] 8 5 [facility] Hospital Repository 01/09/2018 [id number] Ambulatory BMSBuilding:B [place] 8 [facility] Hospital Repository 01/04/2018/ [id number] Ambulatory [place] 8 8 [facility] HospitalBuild Hospital ing:DC Repository 12/06/2017 [id number] Ambulatory [place] 9 [facility] HospitalBuild Hospital ing:MTLAB Repository 11/28/2017/ [id number] Ambulatory BMSBuilding:B [place] 8 3 [facility] Repository 11/02/2017 [id number] Ambulatory BMSBuilding:B [place] 1 [facility] Repository 10/30/2017 [id number] Ambulatory [place] 8 [facility] Hospital ing:NS Repository 10/17/2017 [id number] Ambulatory [place] 2 [facility] ing:LAB.FUTUR Repository E 10/17/2017/ [id number] Ambulatory [place] 8 7 [facility] ing:NS Repository 10/13/2017/ [id number] Ambulatory BMSBuilding:B [place] 8 2 [facility] Repository 09/15/2017/ [id number] Ambulatory BMSBuilding:B [place] 8 3 [facility] Repository 09/12/2017/ [id number] Ambulatory [place] 8 0 [facility] ing:NS Repository 09/04/2017 [id number] Ambulatory [place] 8 [facility] Hospital ing:LAB Repository 08/29/2017/ [id number] Ambulatory BMSBuilding:B [place] 8 1 [facility] Repository 08/28/2017 [id number] Ambulatory BMSBuilding:B [place] 2 [facility] Repository 08/04/2017/ [id number] Ambulatory BMSBuilding:B [place] 8 4 [facility] Repository 07/10/2017 [id number] Ambulatory BMSBuilding:B [place] 8 [facility] Repository PAYERS PAYERS ENCOUNTER GUARANTOR PAYER SUBSCRIBER SOURCE 06/15/2018 JERMAINE D Primary JERMAINE D [place] [id number] Insurance:MEDICARE MILLERDOB: [id number] [place] [id number] [address]Kpl: (330) Date:2018-06-04 [phone] () 06/15/2018 Secondary JERMAINE D [place] Insurance:MEDICAL MILLERDOB: [facility] [id number] Hospital Number: Repository [id number] Date:4175-01-34FZ[address] [address]XZ: 06/15/2018 Tertiary NOT GIVENUNK [place] Insurance:SELF PAY [facility] Number: Effective Repository Date:2018-06-04 06/06/2018 JERMAINE D Primary JERMAINE D [place] [id number] Insurance:MEDICARE MILLERDOB: [id number] Repository [address], [place] [id number] [address]Gty: (398) Date:2017-10-20 [phone] () 06/06/2018 Secondary JERMAINE D [place] Insurance:MEDICAL MILLERDOB: [facility] [id number] Hospital Number: Repository [id number] Date:1369-79-17PD[address] [address]WH: 06/06/2018 Tertiary NOT GIVENUNK [place] Insurance:SELF PAY [facility] Number: Effective Repository Date:2018-04-26 06/01/2018 JERMAINE D Primary JERMAINE D [place] [id number] Insurance:MEDICARE MILLERDOB: [facility] [id number] Valley Hospital Number: [place]ository [place] [id number] [address]Tpn: (057) Date:2018-01-04 [phone] () 06/01/2018 Secondary JERMAINE D [place] Insurance:MEDICAL MILLERDOB: [facility] [id number] Hospital Number: Repository [id number] Date:9324-21-22OL[address] [address]BO: 06/01/2018 Tertiary NOT GIVENUNK [place] Insurance:SELF PAY [facility] Number: Effective Repository Date:2018-05-22 05/30/2018 JERMAINE D Primary JERMAINE D [place] [id number] Insurance:MEDICARE MILLERDOB: [facility] [id number] Valley Hospital Number: Repository [address] [place] [address] [id number]: (330) Date:2018-05-29 [phone] (HP) 05/30/2018 Secondary JERMAINE D [place] Insurance:MEDICAL MILLERDOB: [facility] [id number] Hospital Number: Repository [id number] Date:3163-57-58DG [address] [address]FH: 05/30/2018 Tertiary NOT GIVENUNK [place] Insurance:SELF PAY [facility] Number: Effective Repository Date:2018-05-30 05/17/2018 JERMAINE D Primary JERMAINE D [place] [id number] Insurance:MEDICARE MILLERDOB: [facility] [id number] Valley Hospital Number: Repository [address] [id number] [address]Pdu: (330) Date:2018-05-11 [phone] (HP) 05/17/2018 Secondary JERMAINE D [place] Insurance:MEDICAL MILLERDOB: [facility] [id number] Hospital Number: Repository [id number] Date:9547-98-71UT [address] [address]JE: 05/17/2018 Tertiary NOT GIVENUNK [place] Insurance:SELF PAY [facility] Hospital Number: Effective Repository Date:2018-05-11 05/17/2018 JERMAINE D Primary JERMAINE D [place] [id number] Insurance:MEDICARE MILLERDOB: [facility] [id number] Hospital of Southern [facility] MexicoUNIT Number: Repository [address], [place] [id number] [address]Dby: (330) Date:2018-05-11 [phone] () 05/17/2018 Secondary JERMAINE D [place] Insurance:MEDICAL MILLERDOB: [facility] [id number] Hospital Number: Repository [id number] Date:9961-05-22YS [address] [address]ES: 05/17/2018 Tertiary NOT GIVENUNK [place] Insurance:SELF PAY [facility] Number: Effective Repository Date:2018-05-17 05/11/2018 JERMAINE D Primary JERAMINE D [place] [id number] Insurance:MEDICARE MILLERDOB: [facility] PART A [facility] [id number] Hospital WAYUNIT Number: Repository [address] [place] [id number]: (330) Date:2018-04-17 [phone] () 05/11/2018 Secondary JERMAINE D [place] Insurance:MEDICAL MILLERDOB: [facility] [id number] Hospital Number: Repository [id number] Date:3965-01-47IQ [address] [address]EL: 05/11/2018 Tertiary NOT GIVENUNK [place] Insurance:SELF PAY [facility] Hospital Number: Effective Repository Date:2018-05-03 05/10/2018 JERMAINE D Primary JERMAINE D [place] [id number] Insurance:MEDICARE MILLERDOB: [facility] [id number] Hospital of Southern New MexicoUNIT Number: Repository [address] [id number] [address]Uch: (696) Date:2018-03-26 [phone] () 05/10/2018 Secondary JERMAINE D [place] Insurance:MEDICAL MILLERDOB: [facility] [id number] Hospital Number: Repository [id number] Date:3577-53-58CU [address] [address]DK: 05/10/2018 Tertiary NOT GIVENUNK [place] Insurance:SELF PAY [facility] Number: Effective Repository Date:2018-03-26 05/08/2018 JERMAINE D Primary JERMAINE D [place] [id number] Insurance:MEDICARE MILLERDOB: [facility] PART A [facility] [id number] Hospital WAYUNIT Number: Repository [address] [id number] [address]Iri: (626) Date:2018-05-02 [phone] () 05/08/2018 Secondary JERMAINE D [place] Insurance:MEDICAL MILLERDOB: [facility] [id number] Hospital Number: Repository [id number] Date:4124-02-40NW [address] [address]VA: 05/08/2018 Tertiary NOT GIVENUNK [place] Insurance:SELF PAY [facility] Hospital Number: Effective Repository Date:2018-05-02 04/25/2018 JERMAINE D Primary JERMAINE D [place] [id number] Insurance:MEDICARE MILLERDOB: [facility] [id number] Hospital of Southern New MexicoUNIT Number: Repository [address] [id number] [address]Eby: (330) Date:2018-01-04 [phone] () 04/25/2018 Secondary JERMAINE D [place] Insurance:MEDICAL MILLERDOB: [facility] [id number] Hospital Number: Repository [id number] Date:6928-78-91ZC[address] [address]UD: 04/25/2018 Tertiary NOT GIVENUNK [place] Insurance:SELF PAY [facility] Number: Effective Repository Date:2018-04-21 04/17/2018 JERMAINE D Primary JERMAINE D [place] [id number] Insurance:MEDICARE MILLERDOB: [facility] [id number] Hospital of Southern New MexicoUNIT Number: Repository [address] [id number] [address]Tel: (330) Date:2018-01-18 [phone] () 04/17/2018 Secondary JERMAINE D [place] Insurance:MEDICAL MILLERDOB: [facility] [id number] Hospital Number: Repository [id number] Date:9878-68-91SK [address] [address]IZ: 04/17/2018 Tertiary NOT GIVENUNK [place] Insurance:SELF PAY [facility] Hospital Number: Effective Repository Date:2018-04-10 03/30/2018 JERMAINE D Primary JERMAINE D [place] [id number] Insurance:MEDICARE MILLERDOB: [facility] [id number] Hospital WAYUNIT Number: Repository [address] [id number] [address]Bly: (330) Date:2018-03-23 [phone] (HP) 03/30/2018 Secondary JERMAINE D [place] Insurance:MEDICAL MILLERDOB: [facility] [id number] Hospital Number: Repository [id number] Date:4908-90-49KW [address] [place] [address]YH: 03/30/2018 Tertiary NOT GIVENUNK [place] Insurance:SELF PAY [facility] Number: Effective Repository Date:2018-03-23 03/28/2018 JERMAINE D Primary JERMAINE D [place] [id number] Insurance:MEDICARE MILLERDOB: [facility] [id number] Hospital of Southern New MexicoUNIT Number: Repository [address] [id number]: (330) Date:2018-01-04 [phone] () 03/28/2018 Secondary JERMAINE D [place] Insurance:MEDICAL MILLERDOB: [facility] [id number] Hospital Number: Repository [id number] Date:6130-32-69NC [address] [address]MD: 03/28/2018 Tertiary NOT GIVENUNK [place] Insurance:SELF PAY [facility] Number: Effective Repository Date:2018-03-22 03/26/2018 JERMAINE D Primary JERMAINE D [place] [id number] Insurance:MEDICARE MILLERDOB: [facility] [id number] Hospital WAYUNIT Number: Repository [address] [id number] [address]Umz: (330) Date:2018-03-26 [phone] (HP) 03/26/2018 Secondary JERMAINE D [place] Insurance:MEDICAL MILLERDOB: [facility] [id number] Hospital Number: Repository [id number] Date:4969-48-04VS [address] [place] [address]VF: 03/26/2018 Tertiary NOT GIVENUNK [place] Insurance:SELF PAY [facility] Number: Effective Repository Date:2018-03-26 03/23/2018 JERMAINE D Primary JERMAINE D [place] [id number] Insurance:MEDICARE MILLERDOB: [facility] [place] [id number] Vista Regional HospitalIT Number: Repository [address], [place] [id number] [address]Dyr: (330) Date:2018-03-23 [phone] () 03/23/2018 Secondary JERMAINE D Hudson Insurance:MEDICAL MILLERDOB: [facility] [id number] Hospital Number: Repository [id number] Date:6518-01-53KL [address] [address]WQ: 03/23/2018 Tertiary NOT GIVENUNK Scout Insurance:SELF PAY [facility] Number: Effective Repository Date:2018-03-23 02/22/2018 JERMAINE D Primary JERMAINE D Scout [id number] Insurance:MEDICARE MILLERDOB: [facility] [id number] Valley Hospital Number: Repository [address], [place] [id number]: (330) Date:2018-01-04 [phone] () 02/22/2018 Secondary JERMAINE D Hudson Insurance:MEDICAL MILLERDOB: [facility] [id number] Hospital Number: Repository [id number] Date:7830-76-57IC [address] [place] [address]FA: 02/22/2018 Tertiary NOT GIVENUNK [place] Insurance:SELF PAY [facility] Number: Effective Repository Date:2018-02-19 02/05/2018 JERMAINE D Primary JERMAINE D Scout [id number] Insurance:MEDICARE MILLERDOB: [facility] [id number] Hospital of Southern New MexicoUNIT Number: Repository [address], [place] [id number]: (330) Date:2018-02-05 [phone] (HP) 02/05/2018 Secondary JERMAINE D Hudson Insurance:MEDICAL MILLERDOB: [facility] [id number] Hospital Number: Repository [id number] Date:6254-30-77FA [address] [place] [address]ON: 02/05/2018 Tertiary NOT GIVENUNK [place] Insurance:SELF PAY [facility] Number: Effective Repository Date:2018-02-05 02/02/2018 JERMAINE D Primary JERMAINE D Hudson [id number] Insurance:MEDICARE MILLERDOB: [facility] [id number] Valley Hospital Number: Repository [address], [place] [id number]: (330) Date:2018-02-02 [phone] () 02/02/2018 Secondary JERMAINE D Hudson Insurance:MEDICAL MILLERDOB: [facility] [id number] Hospital Number: Repository [id number] Date:2792-93-28TP [address] [place] [address]IX: 02/02/2018 Tertiary NOT GIVENUNK [place] Insurance:SELF PAY [facility] Number: Effective Repository Date:2018-02-02 02/02/2018 JERMAINE D Primary JERMAINE D Scout [id number] Insurance:MEDICARE MILLERDOB: [facility] [id number] Vista Regional HospitalIT Number: Repository [address], [place] [id number]: (330) Date:2018-02-01 [phone] (HP) 02/02/2018 Secondary JERMAINE D Scout Insurance:MEDICAL MILLERDOB: [facility] [id number] Hospital Number: Repository [id number] Date:3798-57-40WD [address] [place] [address]UF: 02/02/2018 Tertiary NOT GIVENUNK Scout Insurance:SELF PAY [facility] Number: Effective Repository Date:2018-02-02 01/25/2018 JERMAINE D Primary JERMAINE D Hudson [id number] Insurance:MEDICARE MILLERDOB: [facility] [id number] Vista Regional HospitalIT Number: Repository [address] [id number]: (330) Date:2018-01-04 [phone] (HP) 01/25/2018 Secondary JERMAINE D Hudson Insurance:MEDICAL MILLERDOB: [facility] [id number] Hospital Number: Repository [id number] Date:4999-32-62SM [address] [address]HP: 01/25/2018 Tertiary NOT GIVENUNK [place] Insurance:SELF PAY [facility] Number: Effective Repository Date:2018-01-20 01/16/2018 JERMAINE D Primary JERMAINE D Scout [id number] Insurance:MEDICARE MILLERDOB: [facility] [id number] Vista Regional HospitalIT Number: Repository [address], [place] [id number]: (330) Date:2018-01-16 [phone] () 01/16/2018 Secondary JERMAINE D Hudson Insurance:MEDICAL MILLERDOB: [facility] [id number] Hospital Number: Repository [id number] Date:2990-07-91KM [address] [address]QZ: 01/16/2018 Tertiary NOT GIVENUNK Scout Insurance:SELF PAY [facility] Number: Effective Repository Date:2018-01-16 01/16/2018 JERMAINE D Primary JERMAINE D Scout [id number] Insurance:MEDICARE MILLERDOB: [facility] [id number] Vista Regional HospitalIT Number: Repository [address], [place] [id number]: (330) Date:2017-10-13 [phone] (HP) 01/16/2018 Secondary JERMAINE D Scout Insurance:MEDICAL MILLERDOB: [facility] [id number] Hospital Number: Repository [id number] Date:5476-49-97RA [address] [address]OS: 01/16/2018 Tertiary NOT GIVENUNK Scout Insurance:SELF PAY [facility] Number: Effective Repository Date:2018-01-16 01/09/2018 JERMAINE D Primary JERMAINE D [place] [id number] Insurance:MEDICARE MILLERDOB: [facility] [id number] Hospital of Southern New MexicoUNIT Number: Repository [address], [place] [id number]: (635) Date:2017-11-28 [phone] () 01/09/2018 Secondary JERMAINE D Scout Insurance:MMO MILLERDOB: [facility] [id number] Hospital Number: Repository [id number] Date:5644-79-62LQ[address] [address]FP: 01/09/2018 Tertiary NOT GIVENUNK Scout Insurance:SELF PAY [facility] Number: Effective Repository Date:2017-12-27 01/04/2018 JERMAINE D Primary JERMAINE D Hudson [id number] Insurance:MEDICARE MILLERDOB: [facility] [id number] Vista Regional HospitalIT Number: Repository [address], [place] [id number] [address]Hcx: (860) Date:2018-01-04 [phone] () 01/04/2018 Secondary JERMAINE D Scout Insurance:MEDICAL MILLERDOB: [facility] [id number] Hospital Number: Repository [id number] Date:8571-38-20XO[address] [address]WR: 01/04/2018 Tertiary NOT GIVENUNK [place] Insurance:SELF PAY [facility] Number: Effective Repository Date:2018-01-04 12/06/2017 JERMAINE D Primary JERMAINE D Hudson [id number] Insurance:MEDICARE MILLERDOB: [facility] [id number] Hospital WAYUNIT Number: Repository [address], [place] [id number] [phone]: (330) Date:2017-12-06 [phone] () 12/06/2017 Secondary JERMAINE D Hudson Insurance:MEDICAL MILLERDOB: [facility] [id number] Hospital Number: Repository [id number] Date:1476-39-21NN [address] [place] [address]ZK: 12/06/2017 Tertiary NOT GIVENUNK [place] Insurance:SELF PAY [facility] Number: Effective Repository Date:2017-12-06 11/28/2017 JERMAINE D Primary JERMAINE D Hudson [id number] Insurance:MEDICARE MILLERDOB: [facility] [id number] Hospital of Southern New MexicoUNIT Number: Repository [address], [place] [id number]: (330) Date:2017-11-20 [phone] () 11/28/2017 Secondary JERMAINE D Hudson Insurance:MEDICAL MILLERDOB: [facility] [id number] Hospital Number: Repository [id number] Date:4246-02-98EC [address] [place] [address]RE: 11/28/2017 Tertiary NOT GIVENUNK [place] Insurance:SELF PAY [facility] Number: Effective Repository Date:2017-11-27 11/02/2017 JERMAINE D Primary JERMAINE D Hudson [id number] Insurance:MEDICAL MILLERDOB: [facility] [id number] Hospital WAYUNIT Number: Repository [address], [place] [id number]: (330) Date:7188-23-24QM [phone] () [address] [place] [address]VK: 11/02/2017 Secondary NOT GIVENUNK Scout Insurance:SELF PAY [facility] Number: Effective Repository Date:2017-04-24 10/30/2017 JERMAINE D Primary JERMAINE D Scout [id number] Insurance:MEDICAL MILLERDOB: [facility] [id number] Hospital of Southern New MexicoUNIT Number: Repository [address] [id number]: (330) Date:8109-08-37FE [phone] () [address] [place] [address]MH: 10/30/2017 Secondary NOT GIVENUNK [place] Insurance:SELF PAY [facility] Number: Effective Repository Date:2017-10-20 10/17/2017 JERMAINE D Primary JERMAINE D Hudson [id number] Insurance:MEDICAL MILLERDOB: [facility] [id number] Vista Regional HospitalIT Number: Repository [address] [id number] [address]Xat: (330) Date:1866-03-99XN [phone] () [address] [place] [address]TZ: 10/17/2017 Secondary NOT GIVENUNK Scout Insurance:SELF PAY [facility] Number: Effective Repository Date:2017-03-08 10/17/2017 JERMAINE D Primary JERMAINE D Hudson [id number] Insurance:MEDICAL MILLERDOB: [facility] [id number] Vista Regional HospitalIT Number: Repository [address] [id number] [id number]: (330) Date:1593-35-52NL [phone] () [address] [place] [address]MZ: 10/17/2017 Secondary NOT GIVENUNK Scout Insurance:SELF PAY [facility] Number: Effective Repository Date:2017-09-19 10/13/2017 JERMAINE D Primary JERMAINE D [place] [id number] Insurance:MEDICAL MILLERDOB: [facility] [id number] Hospital of Southern New MexicoUNIT Number: Repository [address] [id number] [id number]: (330) Date:3772-97-73KA [phone] () [address] [place] [address]ET: 10/13/2017 Secondary NOT GIVENUNK [place] Insurance:SELF PAY [facility] Number: Effective Repository Date:2017-10-13 09/15/2017 JERMAINE D Primary JERMAINE D Scout [id number] Insurance:MEDICAL MILLERDOB: [facility] [id number] Hospital of Southern New MexicoUNIT Number: Repository [facility] CenterTERRANC[place] [id number] [address]Twx: (330) Date:3367-83-85JD [phone] () [address] [address]AZ: 09/15/2017 Secondary NOT GIVENUNK Scout Insurance:SELF PAY [facility] Number: Effective Repository Date:2017-09-14 09/12/2017 JERMAINE D Primary JERMAINE D [place] [id number] Insurance:MEDICAL MILLERDOB: [facility] [id number] Hospital of Southern New MexicoUNIT Number: Repository [address] [place] [address] [id number] [phone]: (330) Date:6513-17-84HN [phone] () [address] [place] [address]RU: 09/12/2017 Secondary NOT GIVENUNK Scout Insurance:SELF PAY [facility] Number: Effective Repository Date:2017-08-09 09/04/2017 JERMAINE D Primary JERMAINE D Scout [id number] Insurance:MEDICAL MILLERDOB: [facility] [id number] Hospital of Southern New MexicoUNIT Number: Repository [address], [place] [id number]: (330) Date:0742-00-81AF [phone] () [address] [place] [address]KX: 09/04/2017 Secondary NOT GIVENUNK Scout Insurance:SELF PAY [facility] Number: Effective Repository Date:2017-09-04 08/29/2017 JERMAINE [id number] Primary JERMAINE MILLERDOB: [place] Insurance:MEDICAL [id number] [address] [address]Lud: Number: Repository [phone] [id number] (HP) Date:0418-15-90KW [address] [address]UK: 08/29/2017 Secondary NOT GIVENUNK Scout Insurance:SELF PAY [facility] Number: Effective Repository Date:2017-08-29 08/28/2017 JERMAINE [id number] Primary JERMAINE MILLERDOB: [place] Insurance:MEDICAL [id number] [address] [place] [address]Clq: Number: Repository [phone]~330 [id number] [id number] (HP) Date:4964-40-81IZ [address] [address]MZ: 08/28/2017 Secondary NOT GIVENUNK Scout Insurance:SELF PAY [facility] Number: Effective Repository Date:2017-08-28 08/04/2017 JERMAINE [id number] Primary JERMAINE MILLERDOB: [place] SR Insurance:MEDICAL [id number] [address] [place] [address]Ceo: Number: Repository [phone] [id number] (HP) Date:6533-66-09MY [address] [address]GI: 08/04/2017 Secondary NOT GIVENUNK Scout Insurance:SELF PAY [facility] Number: Effective Repository Date:2017-08-04 07/10/2017 JERMAINE D Primary NOT GIVENUNK [place] [id number] Insurance:SELF PAY [facility] Number: Effective Repository [address] [place] [address] Date:2017-07-07 71110Icx: (HP)
== END 2018-06-06 19:00 | disposition home or self-care (01) ==
LOC: PT 15:00
PROVIDERS: Family Provider Nurse Practitioner Family; PCP Internal Medicine; Referring Provider Orthopaedic Surgery; Visit Provider Orthopaedic Surgery
DX: M47.22 Other spondylosis with radiculopathy, cervical region (principal); S83.282D Other tear of lateral meniscus, current injury, left knee, subsequent encounter
CPT/HCPCS: 97012; 97035; 97110; 97140; 97162; 97530

== ENCOUNTER → 2018-06-15 12:16 | Outpatient (CLI) | payer MEDICARE, OTHER, SELFPAY ==
[2018-05-30 17:15] VITALS: BMI 37.9
--- NOTE | 2018-06-15 12:18 | CT_ITS ---
STUDY: CT ABDOMEN AND PELVIS WITHOUT CONTRAST REASON FOR EXAM: Female, 67 years old. Left flank swelling. RADIATION DOSAGE (If Supplied By Facility): CTDIvol = ( 22.26 ) mGy, DLP = ( 1117.80 ) mGycm TECHNIQUE: Transaxial images were obtained from the dome of the diaphragm to the symphysis pubis without oral contrast, and without intravenous contrast. Sagittal and coronal images were reconstructed. Individualized dose optimization techniques were used for this CT. COMPARISON: None. FINDINGS: The visualized lung bases are unremarkable. The visualized portions of the heart are within normal limits. There is mild diffuse fatty infiltration of the liver. There again is a small low-density lesions likely presenting cysts in the anterior segment of the right lobe of the liver measuring about 7 mm unchanged since the prior exam. The liver is enlarged. Normal gallbladder and extrahepatic biliary system. Normal spleen. Normal pancreas. Normal bilateral adrenal glands. There again is a cyst in the upper pole of the right kidney. There is a cyst in the lower pole of the right kidney slightly larger in size than previous exam measuring at this time about 2 cm. Normal left kidney. Normal visualized stomach. The small bowel loops are normal in caliber. There is fecal retention. The sigmoid colon is not well-distended. There is non-visualization of the appendix. There is mild atherosclerotic calcification of the abdominal aorta, without a demonstrated aneurysm. Normal inferior vena cava. Normal retroperitoneum. Normal urinary bladder. There is absence of the uterus consistent with a prior hysterectomy. Normal abdominal wall. There are diffuse degenerative changes of the visualized lumbar spine. CT/Abdomen/Pelvis without Cont IMPRESSION: 1. Hepatomegaly. 2. Fatty infiltration of the liver. 3. Stable small liver lesion/cyst. 4. Bilateral renal cysts. 5. No evidence of hydronephrosis. 6. Nonvisualization of the appendix. Electronically Signed: Brad Saleh MD at 11:34 EST Tel , Service support ,
== END ==
PROVIDERS: Family Provider Nurse Practitioner Family; PCP Internal Medicine; Referring Provider Internal Medicine; Visit Provider Internal Medicine
DX: R19.02 Left upper quadrant abdominal swelling, mass and lump (principal)
CPT/HCPCS: 74176

== ENCOUNTER → 2018-07-11 07:31 | Outpatient (CLI) | payer MEDICARE, OTHER, SELFPAY ==
[2018-05-30 17:15] VITALS: BMI 37.9
[2018-06-28 16:49] VITALS: BMI 37.9
--- NOTE | 2018-07-11 11:03 | NEURO ---
NCS and/or EMG Patient Report DATE OF SERVICE: 07/11/18 This is a bilateral upper extremity nerve conduction study and a right upper extremity EMG performed on this 67-year-old female with a history of cervical laminectomy. Says 2 months ago she experienced discomfort in her neck radiating down her right arm into all fingers. Symptoms have significantly improved. Bilateral upper extremity sensory and motor nerve conduction studies are performed. The median motor and sensory distal latencies on the right side are prolonged and into the moderate range and on the left side to the mild range. The ulnar motor and sensory responses are normal and the radial sensory responses are normal bilaterally. The right median F wave is mildly prolonged. Right upper extremity needle electromyography is performed. Muscles evaluated included the first dorsal interosseous, abductor pollicis brevis, abductor pollicis longus, brachioradialis, biceps, triceps and deltoid muscles. All muscles demonstrated normal insertional activity with absence of pathologic spontaneous activity. Motor unit potential recruitment pattern and amplitude is normal in all muscles tested. 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 There is no evidence of radiculopathy based on this study.
== END ==
PROVIDERS: Family Provider Internal Medicine; PCP Internal Medicine
DX: M47.22 Other spondylosis with radiculopathy, cervical region (principal)
CPT/HCPCS: 95886; 95912

== ENCOUNTER → 2018-07-18 09:24 | Outpatient (CLI) | payer MEDICARE, OTHER, SELFPAY ==
[2018-07-13 13:23] VITALS: BMI 37.9
--- NOTE | 2018-07-18 09:25 | US_ITS ---
STUDY: ULTRASOUND GALLBLADDER REASON FOR VISIT: Female, 67 years old. ABD PAIN WITH N/V TECHNIQUE: Ultrasound evaluation of the gallbladder was performed with real-time and static shelby-scale imaging. TECHNICAL QUALITY: Limited. Examination limited due to a combination of factors including obesity and bowel gas. COMPARISON: CT scan 06/15/2018. FINDINGS: Gallbladder: Normal distended gallbladder. The gallbladder wall measures 2.2 mm. There is a negative sonographic Cabrera's sign. There is no pericholecystic fluid. There are no gallstones. Common Bile Duct (C.B.D.): The common bile duct measures 5.5 mm. US/Gallbladder IMPRESSION: Normal gallbladder ultrasound examination. Electronically Signed: Gustavo Razo MD at 19:58 EST , Service support ,
== END ==
PROVIDERS: Family Provider Internal Medicine; PCP Internal Medicine; Referring Provider Nurse Practitioner Family; Visit Provider Nurse Practitioner Family
DX: R11.0 Nausea (principal); R10.9 Unspecified abdominal pain
CPT/HCPCS: 76705

== ENCOUNTER → 2018-08-03 12:35 | Outpatient (CLI) | payer MEDICARE, OTHER, SELFPAY ==
[2018-07-13 13:23] VITALS: BMI 37.9
--- NOTE | 2018-08-03 | IMM_PTH ---
PATIENT: JERMAINE YEE LOC: [facility] U#:[id number] AGE/SX: 74/F ROOM: RE08/03/[address]: Dr. Rob Gregorio MD : 1950 BED: DIS: SPEC #: [id number] RECD: 08/07/18 10:09 STATUS: NELLI REChris #: [id number] KARINA: 08/03/18 00:[address]: Rob Gregorio DEPT: IMMUNOHISTOCHEMISTRY RECD BY: Deyanira Vinson ENTERED: 08/07/18 10:10 SP TYPE: IMMUNO OTHR DR: Dr. Jenifer Pool MD Tissues: Stomach, NOS Procedures: H Pylori (initial) PHYSICIAN & INSTITUTION [place] [id number] SPECIMEN INFORMATION: Tissue Source: Gastric biopsy Clinical Info: Nausea, GERD Specimen Number: [id number] CPT code: 75527 METHODOLOGY: Deparaffinized sections of prefer/formalin-fixed tissue or PAP/DQ stained slides are incubated with monoclonal/polyclonal antibodies/oligonucleotide probes. Localization is made via biotin free immunoperoxidase method. Appropriate controls are performed and reacted as expected. Results on target cell population are indicated in the following table: RESULTS: ANTIBODY / CLONE RESULT H Pylori (polyclonal) negative These tests were developed and their performance characteristics determined by [facility]. They may not have been cleared or approved by the U.S. Food and Drug Administration. The FDA has determined that such clearance or approval is not necessary. INTERPRETATION: Gastric biopsy: Negative for Helicobacter pylori organisms. SHAQUILLE:macrina 08/07/18
--- NOTE | 2018-08-03 12:35 | EGD_PTH ---
PATIENT: JERMAINE YEE LOC: [facility] U#:[id number] AGE/SX: 74/F ROOM: RE08/03/[address]: Dr. Rob Gregroio MD : 1950 BED: DIS: SPEC #: [id number] RECD: 08/06/18 14:22 STATUS: NELLI REChris #: [id number] KARINA: 08/03/18 12:[address]: Rob Gregorio DEPT: SURGICAL PATHOLOGY RECD BY: Deyanira Vinson ENTERED: 08/06/18 15:19 SP TYPE: EGD BIOPSY OT DR: Dr. Jenifer Pool MD [facility] Tissues: Gastric mucous membrane Procedures: Surgery Specimen Level IV HEADER OPERATION: EGD with biopsies PRE-OP DIAGNOSIS: Nausea, GERD TISSUE SUBMITTED: Gastric biopsies, rule out gastritis MICROSCOPIC DIAGNOSIS Gastric biopsy: Mild gastritis. See microscopic description and comment. SJ:macrina 08/07/18 COMMENT The results of immunohistochemistry for Helicobacter pylori will be reported separately ([id number]). MICROSCOPIC DESCRIPTION Slides are reviewed. The specimen shows fragments of gastric mucosa with chronic inflammatory cell infiltrates in the lamina propria consisting of lymphocytes and plasma cells, consistent with mild chronic gastritis. GROSS DESCRIPTION Received in fixative is one container labeled with the patient's name and designated gastric biopsy. The specimen consists of two irregular fragments of light barrientos soft tissue that in aggregate measure 1.2 x 0.2 x 0.1 cm. The specimen is totally submitted in one cassette. / SJ:macrina 08/06/18 TC:3 CPT: 00583
== END ==
PROVIDERS: Family Provider Internal Medicine; PCP Internal Medicine; Referring Provider Internal Medicine Gastroenterology; Visit Provider Internal Medicine Gastroenterology
DX: K21.9 Gastro-esophageal reflux disease without esophagitis (principal); R11.0 Nausea
CPT/HCPCS: 88305; 88342

== ENCOUNTER → 2018-10-10 08:19 | Outpatient (CLI) | payer MEDICARE, OTHER, SELFPAY ==
[2018-09-26 14:53] VITALS: BMI 38.9
[2018-10-10 10:34] LABS: Anion Gap 7 (5-15); BUN 11 mg/dL (7-18); BUN/Creat Ratio 10.9 RATIO (10-20); Calcium,Total 9.6 mg/dL (8.5-10.1); Chloride 102 mmol/L (98-107); Cholesterol 107 mg/dL (200); Creatinine, Serum 1.01 mg/dL (0.55-1.02); EST Glomerular Filtration Rate 58 mL/min (>60); Est Glom Filt Rate - Afr Amer 71 mL/min (>60); Glucose 127 mg/dL (74-106); High Density Lipoprotein 46 mg/dL; Potassium 3.7 mmol/L (3.5-5.1); Sodium Level 138 mmol/L (136-145); Triglycerides 81 mg/dL; Very Low Density Lipoprotein 16 mg/dL (5-40)
== END ==
PROVIDERS: Nurse Practitioner Family; Family Provider Internal Medicine; PCP Internal Medicine; Referring Provider Internal Medicine; Visit Provider Internal Medicine
DX: E78.5 Hyperlipidemia, unspecified (principal); I10 Essential (primary) hypertension
CPT/HCPCS: 36415; 80048; 80061

== ENCOUNTER → 2019-03-29 11:39 | Outpatient (CLI) | payer MEDICARE, OTHER, SELFPAY ==
[2019-03-29 10:55] VITALS: BMI 38.9
[2019-03-29 14:30] LABS: Anion Gap 5 (5-15); BUN 16 mg/dL (7-18); BUN/Creat Ratio 15.4 RATIO (10-20); Calcium,Total 9.7 mg/dL (8.5-10.1); Chloride 108 mmol/L (98-107); Creatinine, Serum 1.04 mg/dL (0.55-1.02); EST Glomerular Filtration Rate 56 mL/min (>60); Est Glom Filt Rate - Afr Amer 68 mL/min (>60); Glucose 98 mg/dL (74-106); Potassium 4.2 mmol/L (3.5-5.1); Sodium Level 139 mmol/L (136-145)
== END ==
PROVIDERS: Family Provider Internal Medicine; PCP Internal Medicine; Visit Provider Internal Medicine
DX: I10 Essential (primary) hypertension (principal)
CPT/HCPCS: 36415; 80048

== ENCOUNTER → 2019-04-23 14:17 | Outpatient (CLI) | payer MEDICARE, OTHER, SELFPAY ==
[2019-03-29 10:55] VITALS: BMI 38.9
[2019-04-23 13:48] VITALS: BMI 37.2
--- NOTE | 2019-04-23 14:19 | CT_ITS ---
STUDY: LOW DOSE CT LUNG CANCER SCREENING REASON FOR EXAM: Female, 68 years old. The patient smoked 2 packs per day for 35 years. The patient quit 15 years ago. RADIATION DOSAGE (If Supplied By Facility): CTDIvol = ( 3.40 ) mGy, DLP = ( 107.64 ) mGycm TECHNIQUE: No contrast was administered. Low dose technique was utilized (average mAS-38 and kVp 120). 1.25 mm axial source images with a slice interval of 1.25-mm were reconstructed in lung windows. 2.5 mm axial source images with a slice interval of 2.5-mm were reconstructed in lung windows. 5.0 mm axial source images with a slice interval of 5.0-mm were reconstructed in soft tissue windows. Nodule measured using lung windows on PACS and/or independent workstation with automated measurement of minimum and maximum diameter. Nodule measurement reported as average diameter rounded to the nearest whole number. Growth is defined as an increase ins size of greater than 1.5 mm. COMPARISON: None. NODULES: No suspicious nodules are seen. Emphysema: Mild degree of scarring in the lingular segment as well as along the anterior medial aspect of the right middle lobe. Mild scarring in the superior segment of the right lower lobe. Endobronchial lesion: None Aorta: Atherosclerotic plaque formation. Coronary arteries: No coronary artery calcification. Mediastinal nodes: No significant adenopathy is seen. Other chest and abdominal findings: Degenerative changes of the thoracic spine. CT/Low Dose CT Lung Screening IMPRESSION: Lung-RADS category 2 - Continue annual screening with LDCT in 12 months. IMPORTANT NOTES FOR USE: ACR Lung-RADS Version 1.0 Assessment Categories Release Date: September 16, 2013 Category: Coded 0-4 bases on nodule(s) with highest degree of suspicion. Negative screen is defined as categories 1 and 2; a positive screen is defined as categories 3 and 4. Category 3 and 4A nodules that are unchanged on interval CT should be coded as category 2, and individuals returned to screening in 12 months. Category 4X: Category 3 or 4 nodules with additional imaging findings that increase the suspicion of lung cancer, such as spiculation, GGN that doubles in size in 1 year, enlarged lymph notes, etc. Category Modifiers: S (significant finding unrelated to lung cancer) and C (prior history of treated lung cancer) may be added to the 0-4 Lung-RADS Electronically Signed: Kyrie Dumas, at 15:18 EST , Service support ,
== END ==
PROVIDERS: Family Provider Internal Medicine; PCP Internal Medicine; Referring Provider Nurse Practitioner Family; Visit Provider Nurse Practitioner Family
DX: Z12.2 Encounter for screening for malignant neoplasm of respiratory organs (principal); Z87.891 Personal history of nicotine dependence
CPT/HCPCS: G0297

== ENCOUNTER → 2019-05-20 14:37 | Outpatient (CLI) | payer MEDICARE, OTHER, SELFPAY ==
[2018-12-26 16:19] VITALS: BMI 38.9
[2019-04-30 13:57] VITALS: BMI 37.2
--- NOTE | 2019-05-20 14:39 | BI_ITS ---
MAMMOGRAPHY - BILATERAL SCREENING 3-D TOMOSYNTHESIS REASON FOR EXAM: Female, 68 years old. FAM HX MOTHER AGE 83, MAT AND PAT GMA AGE 60S, 2 MAT AUNTS AGES 60-70S -- PAST STEREO BX 1990S PERTINENT HISTORY: No significant family history. TECHNIQUE: 2-D mammograms and 3-D Tomosynthesis of the breast (s) were performed. CAD was performed. COMPARISON: May 10, 2018. FINDINGS: The breast composition is composed of scattered fibroglandular density. Scattered benign calcifications are seen. No dense spiculated masses or suspicious microcalcifications are identified. No architectural distortion is identified. There is no skin thickening or retraction. There has been no significant change since the prior study. BI/SCREEN MAMM (CAD) W/NAVEEN BILAT IMPRESSION: No mammographic signs of malignancy. Routine yearly mammograms recommended. ASSESSMENT CATEGORY: BIRADS Category 2: Benign. A letter regarding these results will be sent to the patient by the facility within 30 days. FOLLOW UP RECOMMENDATION: Yearly follow up mammogram recommended. (A) Approximately 10% of breast cancers are not detected by mammography. A normal mammogram should not delay biopsy of a clinically suspicious abnormality. Electronically Signed: Edward Peoples MD at 6:58 EST , Service support ,
== END ==
PROVIDERS: Family Provider Internal Medicine; PCP Internal Medicine; Referring Provider Nurse Practitioner Family; Visit Provider Nurse Practitioner Family
DX: Z12.31 Encounter for screening mammogram for malignant neoplasm of breast (principal)
CPT/HCPCS: 77063; 77067

== ENCOUNTER → 2019-05-21 10:09 | Outpatient (CLI) | payer MEDICARE, OTHER, SELFPAY ==
[2019-05-21 08:23] VITALS: BMI 37.6
[2019-05-21 10:47] LABS: Hemoglobin 13.3 g/dL (12.0-15.0); Mean Corp Hgb Conc 32.4 g/dL (32-36); Mean Corpuscular Hgb 30.9 pg (27.0-32.0); Mean Corpuscular Volume 95.3 fL (81-99); Mean Platelet Vol. 9.4 fl (6.2-12.0); Platelet Count 276 K/mm3 (150-450); RBC Distribution Width CV 12.5 % (11.6-14.6); RBC Distribution Width SD 43.4 fl (35.1-43.9)
[2019-05-21 11:22] LABS: BNP,B-Type NATRIURETIC PEPTIDE 15.2 pg/mL (0-100)
[2019-05-21 11:25] LABS: Anion Gap 4 (5-15); BUN 11 mg/dL (7-18); BUN/Creat Ratio 11.4 RATIO (10-20); Calcium,Total 9.2 mg/dL (8.5-10.1); Chloride 107 mmol/L (98-107); Creatinine, Serum 0.97 mg/dL (0.55-1.02); EST Glomerular Filtration Rate 61 mL/min (>60); Est Glom Filt Rate - Afr Amer 74 mL/min (>60); Glucose 106 mg/dL (74-106); Potassium 3.9 mmol/L (3.5-5.1); Sodium Level 139 mmol/L (136-145); Thyroid Stim Hormone (TSH) 4.04 uIU/mL (0.358-3.74)
[2019-05-23 14:55] LABS: T4 Free Direct 0.98 ng/dL (0.76-1.46)
== END ==
PROVIDERS: Nurse Practitioner Family; Family Provider Internal Medicine; PCP Internal Medicine; Referring Provider Internal Medicine Cardiovascular Disease; Visit Provider Internal Medicine Cardiovascular Disease
DX: J32.9 Chronic sinusitis, unspecified (principal); R06.02 Shortness of breath; M19.90 Unspecified osteoarthritis, unspecified site; R05 Cough; T46.4X5A Adverse effect of angiotensin-converting-enzyme inhibitors, initial encounter; F41.8 Other specified anxiety disorders; R79.89 Other specified abnormal findings of blood chemistry
CPT/HCPCS: 36415; 80048; 83880; 84439; 84443; 85027; 87070; 87077; 87205

== ENCOUNTER 2019-05-25 09:13 | Emergency (ER) | payer MEDICARE, OTHER, SELFPAY ==
[2019-05-21 08:23] VITALS: BMI 37.6
[2019-05-25 09:14] VITALS: BP 136/77; PULSE 81; RESP 18; TEMP 36.9; O2SAT 95; BMI 36.9
--- NOTE | 2019-05-25 09:25 | RAD_ITS ---
STUDY: X-RAY CHEST REASON FOR EXAM: Female, 68 years old. Cough and dizziness. TECHNIQUE: PA and lateral views of the chest. COMPARISON: Prior comparison studies are not available for review at this time. FINDINGS: The lungs are clear and expanded. There is no demonstrated pleural abnormality. Normal size heart. Normal mediastinum and hari. Normal visualized pulmonary arteries. Normal visualized aortic arch and descending thoracic aorta. There are diffuse degenerative changes of the visualized thoracic spine. The patient is status post anterior fusion of the lower cervical spine with plates and screws. There is no demonstrated abnormality of the visualized soft tissue structures of the upper abdomen. RAD/Chest PA and Lateral IMPRESSION: No active pulmonary disease. Electronically Signed: Brad Saleh MD at 10:59 EST Tel , Service support ,
--- NOTE | 2019-05-25 09:25 | EKG12_ITS ---
Test Reason : GENILLNESS Blood Pressure : / mmHG Vent. Rate : 077 BPM Atrial Rate : 077 BPM P-R Int : 196 ms QRS Dur : 166 ms QT Int : 438 ms P-R-T Axes : 067 -51 094 degrees QTc Int : 495 ms Normal sinus rhythm Left axis deviation Left bundle branch block Abnormal ECG Confirmed by CLIFF AIKEN, GILBERT ([id number]), editor greeting card DORIAN POLO ([id number]) on 05/27/2019 12:50:46 PM Referred By: TRINA Confirmed By:GILBERT CORONADO MD
--- NOTE | 2019-05-25 09:27 | ED.DCSUM_ITS ---
- ER Visit Summary Date of Service: 05/25/19 Chief Complaint: Shortness of breath, near syncope, cough History of Present Illness: The patient is a 68 F who has shortness of breath, near syncope and cough. Is been ongoing for about a week. She describes dyspnea with exertion. Her cough is now productive of yellow sputum. It started out as a nonproductive cough. She has postnasal drainage. No fevers. She saw her ENT physician last week and was given a Z-Ronnell because she grew Haemophilus in her nose. She had the pneumonia and influenza shots this year. She states that she is not getting any better. She saw Dr. Rankin today who sent her over because she did not feel or look well in the office. Physical Examination: Vital signs reviewed. HEENT exam unremarkable. Heart is regular rate and rhythm without murmurs. Lungs have diffuse expiratory rhonchi and wheezing. Abdomen is soft and nontender. Extremities reveal no edema. Skin exam normal. Neurologic exam normal. Test Results: EKG is sinus rhythm with nonspecific ST and T wave changes. Chest x-ray unremarkable. CBC normal. Creatinine 1.06. Glucose 136. Troponin normal. BNP 11. RSV and influenza negative. Emergency Department Course and Treatment: Patient was given albuterol and Solu- Medrol. She was then ambulated into the department and her oxygen level was 94%. Her legs felt weak but her respiratory status seemed okay. I am unclear as to why she is so weak and short of breath. She did grow out the Haemophilus. At this point I will give her doxycycline for 10 days. I will put her on some steroids to see if this will help with her symptoms at home. At this point she is not hypoxic. She has no fever, normal white blood cell count and a normal chest x-ray. I do not feel she needs admitted at this time. She will call her doctor on Monday for close follow-up. Treatment Plan: [] Disposition: Discharge Impression: Bronchitis, COPD exacerbation This note was generated with [employer] dictation software. It may contain incorrect words, spelling, and punctuation that were not noted in review of the chart prior to signing ED Disposition - Plan for ED Patient: Referrals: Jenifer Polo MD [Primary Care Provider] -
[2019-05-25 09:41] LABS: Absolute Lymphocyte Count 1.02 X10^3/uL (0.83-4.51); Absolute Neutrophil Count 4.6 X10^3/uL (2.0-7.7); Basophil# 0.05 X10^3/uL; Basophil% 0.8 % (0-1); Eosinophil# 0.04 X10^3/uL; Eosinophils% 0.6 % (0-5); Hematocrit 42.7 % (37-47); Hemoglobin 13.8 g/dL (12.0-15.0); Lymphocyte # 1.02 X10^3/ul (4.0); Lymphocyte % 15.7 % (19-41); Mean Corp Hgb Conc 32.3 g/dL (32-36); Mean Corpuscular Hgb 30.6 pg (27.0-32.0); Mean Corpuscular Volume 94.7 fL (81-99); Mean Platelet Vol. 8.8 fl (6.2-12.0); Monocyte# 0.73 X10^3/uL; Monocyte% 11.2 % (0-10); NRBC Flagged by Analyzer 0 % (0-5); Neutrophil % 70.8 % (47-70); Platelet Count 283 K/mm3 (150-450); RBC Distribution Width CV 12.3 % (11.6-14.6); RBC Distribution Width SD 43.2 fl (35.1-43.9); Red Blood Count 4.51 M/mm3 (4.2-5.4); White Blood Count 6.5 K/mm3 (4.4-11.0)
[2019-05-25] MEDS: MethylPREDNISolone 125 MG/2 ML Vial IV (09:43)
[2019-05-25 09:50] VITALS: PULSE 88; RESP 18
[2019-05-25 09:57] LABS: Anion Gap 7 (5-15); BUN 14 mg/dL (7-18); BUN/Creat Ratio 13.2 RATIO (10-20); Chloride 105 mmol/L (98-107); Creatinine, Serum 1.06 mg/dL (0.55-1.02); EST Glomerular Filtration Rate 55 mL/min (>60); Est Glom Filt Rate - Afr Amer 67 mL/min (>60); Estimated Creatinine Clearance 54.56 ml/min; Glucose 136 mg/dL (74-106); Potassium 3.6 mmol/L (3.5-5.1); Sodium Level 138 mmol/L (136-145)
[2019-05-25] MEDS: Albuterol 2.5 MG/3 ML VIAL.NEB. INHALATION ×3 (10:03)
[2019-05-25 10:09] LABS: BNP,B-Type NATRIURETIC PEPTIDE 11.7 pg/mL (0-100)
[2019-05-25 11:40] VITALS: BP 130/77; PULSE 93; RESP 18; O2SAT 95; O2SAT 96
--- NOTE | 2019-05-25 12:09 | ED.DEP ---
ED Disposition - Plan for ED Patient: Disposition: Home or Assisted Living Instructions: Acute Bronchitis Prescriptions: Doxycycline 100 mg PO BID #20 cap Transmission Status: Pending to [facility] predniSONE tablet 60 mg PO DAILY #12 tab Transmission Status: Pending to [facility] Benzonatate [Tessalon Perle] 200 mg PO TID PRN PRN #20 cap PRN Reason: Cough Transmission Status: Pending to [facility] Referrals: Jenifer Pool MD [Primary Care Provider] - Additional Instructions: Your prescriptions were electronically transferred to [facility] in [place]
[2019-05-25 12:43] VITALS: BP 123/74; PULSE 89; RESP 18; O2SAT 96
== END 2019-05-25 12:44 | disposition home or self-care (01) ==
PROVIDERS: Emergency Provider Emergency Medicine; Family Provider Internal Medicine; PCP Internal Medicine
DX: J44.1 Chronic obstructive pulmonary disease with (acute) exacerbation (principal); I10 Essential (primary) hypertension; E11.9 Type 2 diabetes mellitus without complications
CPT/HCPCS: 71046; 80048; 83880; 84484; 85025; 87804; 87807; 93005; 94640; 96374; 99251; 99283; A4216; G0463

== ENCOUNTER 2019-06-07 12:40 | Observation (INO) | payer MEDICARE, OTHER, SELFPAY ==
[2019-05-29 10:36] VITALS: BMI 36.9
[2019-06-07] VITALS (9 sets, daily range): BP systolic 135–162; BP diastolic 75–92; PULSE 61–106; RESP 17–23; TEMP 36.1–36.8; O2SAT 95–99; BMI 37.0; BMI 32.2; BMI 36.1
--- NOTE | 2019-06-07 13:03 | RAD_ITS ---
STUDY: X-RAY CHEST REASON FOR EXAM: Female, 68 years old. WEAKNESS, DIZZINESS X 2 DAYS TECHNIQUE: Single AP portable view of the chest. COMPARISON: Comparison is made with prior study dated May 25, 2019. FINDINGS: EKG electrodes are seen. The lungs are clear and expanded. There is no demonstrated pleural abnormality. Normal size heart. Normal mediastinum and hari. Normal visualized pulmonary arteries. There is atherosclerotic tortuosity of the aortic arch and descending thoracic aorta. There are diffuse degenerative changes of the visualized thoracic spine. Prior fusion in the lower cervical spine. There is no demonstrated abnormality of the visualized soft tissue structures of the upper abdomen. RAD/Chest 1 View (Portable) IMPRESSION: No acute abnormality is seen. Electronically Signed: Kyrie Dumas, at 13:33 EST , Service support ,
--- NOTE | 2019-06-07 13:03 | EKG12_ITS ---
Test Reason : WEAKNESS Blood Pressure : / mmHG Vent. Rate : 060 BPM Atrial Rate : 060 BPM P-R Int : 210 ms QRS Dur : 168 ms QT Int : 440 ms P-R-T Axes : 061 -42 114 degrees QTc Int : 440 ms Sinus rhythm with 1st degree A-V block Left axis deviation Left bundle branch block Abnormal ECG Confirmed by CLIFF AIKEN, GILBERT ([id number]), medical editor TREVIN ISAACS ([id number]) on 06/11/2019 9:00:51 AM Referred By: Jo Cedillo Confirmed By:GILBERT CORONADO MD
[2019-06-07 13:15] LABS: Absolute Lymphocyte Count 4.09 X10^3/uL (0.83-4.51); Absolute Neutrophil Count 6.1 X10^3/uL (2.0-7.7); Basophil# 0.05 X10^3/uL; Basophil% 0.5 % (0-1); Eosinophil# 0.08 X10^3/uL; Eosinophils% 0.7 % (0-5); Hematocrit 44.4 % (37-47); Hemoglobin 14.1 g/dL (12.0-15.0); Lymphocyte # 4.09 X10^3/ul (4.0); Lymphocyte % 37.3 % (19-41); Mean Corp Hgb Conc 31.8 g/dL (32-36); Mean Corpuscular Hgb 29.8 pg (27.0-32.0); Mean Corpuscular Volume 93.9 fL (81-99); Mean Platelet Vol. 9.3 fl (6.2-12.0); Monocyte# 0.58 X10^3/uL; Monocyte% 5.3 % (0-10); NRBC Flagged by Analyzer 0 % (0-5); Neutrophil % 55.6 % (47-70); Platelet Count 343 K/mm3 (150-450); RBC Distribution Width CV 12.8 % (11.6-14.6); RBC Distribution Width SD 43.7 fl (35.1-43.9); Red Blood Count 4.73 M/mm3 (4.2-5.4)
[2019-06-07 13:34] LABS: ALB/GLOB Ratio 1.1 RATIO (0.9-2.4); AST(SGOT) 11 U/L (15-37); Alanine Aminotransfer ALT/SGPT 38 U/L (13-56); Albumin, Serum 3.8 g/dL (3.2-5.0); Alkaline Phosphatase 62 U/L (45-117); Anion Gap 8 (5-15); BUN 19 mg/dL (7-18); BUN/Creat Ratio 18.1 RATIO (10-20); Calcium,Total 9.6 mg/dL (8.5-10.1); Chloride 109 mmol/L (98-107); Creatinine, Serum 1.05 mg/dL (0.55-1.02); EST Glomerular Filtration Rate 56 mL/min (>60); Est Glom Filt Rate - Afr Amer 67 mL/min (>60); Estimated Creatinine Clearance 55.08 ml/min; Globulin 3.5 g/dL (2.2-4.2); Glucose 100 mg/dL (74-106); Potassium 3.3 mmol/L (3.5-5.1); Protein, Total 7.3 g/dL (6.4-8.2); Sodium Level 142 mmol/L (136-145)
[2019-06-07 13:57] LABS: Mucous, Urine 0 SEEN /hpf (<or=2+); White Blood Cells 0 SEEN /hpf (0-5)
[2019-06-07 14:01] LABS: Color, Urine Yellow (Yellow); Glucose, Dipstick Normal (Normal); Ketone-Dipstick 5 mg/dl (Negative); Leukocyte Esterase-Dipstick Negative /ul (Negative); Nitrite-Dipstick Negative (Negative); Occult Blood-Urine 10 /ul (Negative); Protein-Dipstick Negative (Negative); Specific Gravity, Urine 1.025 (1.002-1.030); Urine Bilirubin Dipstick Negative (Negative); Urine Clarity Sl. Cloudy (Clear); Urine Urobilinogen Normal (Normal)
[2019-06-07 14:07] LABS: Bacteria 1+ /hpf (None Seen); Red Blood Cells-Urine 0-5 SEEN /hpf (0-5); Squamous Epithelial Cells - UA 0-5 SEEN /hpf (5-10)
--- NOTE | 2019-06-07 15:22 | ED.DCSUM_ITS ---
- ER Visit Summary Date of Service: 06/07/19 Chief Complaint: Dizziness History of Present Illness: The patient is a 68 F who presents with dizziness that began yesterday. Patient states it feels like I might pass out. Patient denies any spinning sensation. Patient denies any hearing changes or tinnitus. Patient does admit to some blurred vision that comes and goes. Patient states her dizziness is worse with any exertion or activity. Patient states it is better with rest. Patient admits to nausea but denies any vomiting. Patient denies any dysuria or hematuria. Patient denies any headaches. She was recently started on a second course of prednisone for bronchitis. Patient states she has been on prednisone since 05/19/2019. Physical Examination: Vital signs are stable. Patient is afebrile. Patient is in no acute distress. Oral mucosa is pink and moist. Neck is supple. Trachea is midline. There is no JVD. Heart was regular rate and rhythm. Lungs are clear and equal bilaterally. Abdomen is soft. Bowel sounds are normal. There is no tenderness. Cranial nerves II through XII are intact. There are no focal motor or sensory deficits noted. Extremities are intact. There is 1+ edema of the lower extremities bilaterally. Test Results: EKG showed a sinus rhythm with a rate of 60. There is a left bundle branch block pattern noted. This was unchanged compared to previous EKG dated 05/25/2019. CBC was normal. Basic metabolic profile showed a creatinine of 1.05 and a BUN of 19. Urinalysis does not show any evidence of urinary tract infection. Troponin was normal. Portable chest x-ray was obtained. There is no acute cardiopulmonary process. This was interpreted by the radiologist and myself. Emergency Department Course and Treatment: Patient was given IV fluids here. Orthostatic vital signs were obtained were negative. Patient still felt dizzy on reevaluation and felt like she might pass out. Case was discussed with the hospitalist. She recommended obtaining a head CT. This was ordered. Patient will be admitted for observation. Patient understood and was agreeable with the plan. All questions were answered. Disposition: Admit to hospital Impression: Near syncope This note was generated with [employer] dictation software. It may contain incorrect words, spelling, and punctuation that were not noted in review of the chart prior to signing ED Disposition - Plan for ED Patient: Disposition: Acute Care Hospital [facility] Diagnosis: Near syncope Referrals: Jenifer Pool MD [Primary Care Provider] -
--- NOTE | 2019-06-07 15:34 | HP.PCM_ITS ---
History of Present Illness Date of Admission: 06/07/19 Chief Complaint: dizziness The patient is a 68 year old F with a past medical history significant for COPD and hypertension as well as fibromyalgia and sleep apnea as well as A. fib. She was admitted through the ED on 06/07/2019 with a complaint of dizziness which started 2 days prior to admission. Patient states she went to visit her daughter in [place] about a month ago and spent 2 weeks there. Whilst there, she contracted a viral respiratory illness. Patient states his shortness of breath and cough and persisted until she came back to [place]. She went to see her doctor and was put on steroids. 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 She was put on a prolonged course of steroids and says gradually the cough and shortness of breath got better. However 2 days ago, she noted that she felt very dizzy on standing up and also felt lightheaded. She states any movement precipitated the dizziness. She admits to not been able to eat and drink well over the last few weeks on account of a viral respiratory illness. Dizziness was very persistent so she decided to come into the ED to get checked out today. She has not had any such symptoms before in the past. In the ED, blood pressure was 138/80 with temperature of 97.4 Fahrenheit, pulse rate of 61 and respiratory rate of 17. Chemistry was significant for potassium of 3.3 with a creatinine of 1.05. Initial troponin was negative. CBC was unremarkable. Chest x-ray showed no acute cardiopulmonary process. CT of the brain was ordered and is pending. She is being admitted to be managed for dizziness likely due to vestibular neuronitis from viral respiratory illness. [] Past Medical History Past Medical History (Chronic Problems): Chronic Problems (Last Reviewed 05/21/19 @ 09:51 by Alonzo Segura MD) Shortness of breath (Chronic) Paroxysmal atrial fibrillation (Chronic) Essential (primary) hypertension (Chronic) LBBB (left bundle branch block) (Chronic) Hyperlipidemia (Chronic) Osteoarthritis (Chronic) Obstructive sleep apnea (Chronic) COPD (chronic obstructive pulmonary disease) (Chronic) Type 2 diabetes mellitus (Chronic) Medical History: Medical History (Last Reviewed 05/21/19 @ 09:51 by Alonzo Segura MD) Paroxysmal atrial fibrillation (Chronic) I48.0 Essential (primary) hypertension (Chronic) I10 LBBB (left bundle branch block) (Chronic) I44.7 Hyperlipidemia (Chronic) E78.5 Osteoarthritis (Chronic) M19.90 Obstructive sleep apnea (Chronic) G47.33 COPD (chronic obstructive pulmonary disease) (Chronic) J44.9 Type 2 diabetes mellitus (Chronic) E11.9 Asthma J45.909 Depression with anxiety F41.8 Dermatitis L30.9 Fibromyalgia M79.7 LLQ abdominal mass R19.04 Obesity E66.9 Pulmonary nodule R91.1 Raynauds disease I73.00 Umbilical hernia K42.9 Cough due to WILMER inhibitor R05, T46.4X5A Hypokalemia (Resolved) E87.6 Hypomagnesemia (Resolved) E83.42 Palpitations R00.2 Rectal bleeding K62.5 Ventricular premature depolarization (Resolved) I49.3 Pulmonary hypertension (Ruled-out) I27.20 Depression F32.9 Allergies dibucaine Allergy (Severe, Verified 06/07/19 12:44) Rash, itching Iodinated Contrast Media [Iodinated Contrast- Oral and IV Dye] Allergy (Severe, Verified 06/07/19 12:44) RAsh, Itching wool Allergy (Verified 06/07/19 12:44) Rash do not use mattress pads NSAIDS (Non-Steroidal Anti-Inflamma Adverse Reaction (Severe, Verified 06/07/19 12:44) GI Bleeding adhesive tape Adverse Reaction (Intermediate, Verified 06/07/19 12:44) localized skin reaction acetaminophen [From Darvocet-N] Adverse Reaction (Verified 06/07/19 12:44) Vomiting codeine Adverse Reaction (Verified 06/07/19 12:44) Vomiting hydrocodone bitartrate [From Vicodin] Adverse Reaction (Verified 06/07/19 12:44) Vomiting morphine Adverse Reaction (Verified 06/07/19 12:44) Vomiting propoxyphene napsylate [From Darvocet-N] Adverse Reaction (Verified 06/07/19 12:44) Vomiting Home Medications: Ambulatory Orders Medication Instructions Recorded ranitidine HCl 150 mg tablet 150 mg PO DAILY 07/13/18 bupropion HCl 150 mg 24 hr tablet, 150 mg PO QAM #90 tab 10/05/18 extended release budesonide-formoterol HFA 160 2 puff INHALATION BID 10/24/18 mcg-4.5 mcg/actuation aerosol inhaler losartan 25 mg tablet 25 mg PO DAILY #90 tab 11/05/18 albuterol sulfate 90 mcg/actuation 1 puff INHALATION Q6H PRN #8.5 g 04/24/19 aerosol inhaler Melatonin 10 mg PO DAILY 06/07/19 Prednisone See Taper PO UD 06/07/19 Rosuvastatin Calcium [Crestor] 10 mg PO QHS 06/07/19 Surgical History: Surgical History (Last Reviewed 05/21/19 @ 09:51 by Alonzo Segura MD) History of torn meniscus of left knee Z87.828 02/28/18 History of hemorrhoidectomy Z98.890 History of knee replacement procedure of right knee Onset Date: ~2014 Z96.651 History of right and left heart catheterization Onset Date: 10/19/16 Z98.890 History of total hysterectomy Z90.710 S/P cervical spinal fusion Onset Date: ~2016 Z98.1 Surgical History: hysterectomy, - Psychiatric History: Depression [employer] History: No pertinent [employer] history Lives: Spouse/ Significant Other Smoking Status: Former smoker Alcohol: None Drugs: None - *Family History Maternal Family History: Family History (Last Reviewed 05/21/19 @ 09:51 by Alonzo Segura MD) Father Atrial fibrillation Uncle Atrial fibrillation Grandmother Breast cancer Mother Breast cancer History Items: Cancer - alive age 83, ovarian and bladder Paternal Family History: Family History (Last Reviewed 05/21/19 @ 09:51 by Alonzo Segura MD) Father Atrial fibrillation Uncle Atrial fibrillation Grandmother Breast cancer Mother Breast cancer History Items: Heart Disease - alive age 84 Offspring Family History: Family History (Last Reviewed 05/21/19 @ 09:51 by Alonzo Segura MD) Father Atrial fibrillation Uncle Atrial fibrillation Grandmother Breast cancer Mother Breast cancer History Items: - - daughter with RA, 2 children and 5 grandchildren Review of Systems Constitutional: Reports: Anorexia, Chills, Malaise, Weakness, Fatigue. Denies: Fever Eyes: Denies: Blurred vision HEENT: Denies: Head Aches, Sinus Congestion, Sinus Drainage Cardiovascular: Reports: Light Headedness. Denies: Chest Pain, Chest Pressure, Orthopnea, Palpitations, Paroxysmal Noc. Dyspnea, Syncope Respiratory: Denies: Cough, Shortness of breath at rest, Sputum production Gastrointestinal: Denies: Abdominal Pain, Nausea, Vomiting Genitourinary: Denies: Dysuria Musculoskeletal: Denies: Joint Pain, Joint Tenderness Skin: Denies: Rash, Wounds Neurological: Reports: - - dizziness. Denies: Focal weakness, Numbness, Tingling Psychiatric: Denies: Anxiety, Depression, Homicidal Ideations, Suicidal Ideations Hematologic/ Lymphatic: Denies: Easy Bruising, Easy Bleeding VTE Information - Inpt Only VTE Present on Admission: No VTE Pharm Prophylaxis ordered?: Yes Patient Problems: Active and Suspected Problems (Last Reviewed 05/21/19 @ 09:51 by Alonzo Segura MD) Near syncope (Acute) - Physical Exam Vitals/I&O's: Vital Signs Temp Pulse Resp BP Pulse Ox 97.4 F L 61 17 138/80 H 97 06/07/19 12:41 06/07/19 15:04 06/07/19 15:04 06/07/19 15:04 06/07/19 15:04 Oxygen Delivery Method Room Air Weight: 250 lb 14.177 oz Body Mass Index (BMI) 37.0 Intake and Output for Last 24 Hours 06/05/19 06/06/19 06/07/19 23:59 23:59 23:59 Intake Total 500 / 500 Balance 500 / 500 General: Alert, Oriented x3, Cooperative HEENT: Atraumatic, PERRLA, EOMI, Normocephalic Oral: Dry Mucosa Neck: Supple, No JVD, Negative Carotid Bruits Lungs: Clear to auscultation, Normal air movement, No rhonchi, No wheeze, No rales Cardiovascular: Regular rate, Regular Rhythm, Normal S1, Normal S2, No murmurs Abdomen: Bowel Sounds Present, Soft, Non Tender, Non-Distended, No Hepato- splenomegaly Extremities: No clubbing, No cyanosis, No edema, Capillary Refill Less than 3 Seconds Skin: No rashes, No breakdown Musculoskeletal: No Tenderness to Palpation of Joints or Extremities Lymphatic: No Cervical, Supraclavicular, or Inguinal Adenopathy Neurological: Cranial nerves II-XII grossly intact, Neuro grossly intact, Motor Exam 5/5 strength throughout, - - no nystagmus Psych/Mental Status: Normal Affect - lethargic, Appropriate Laboratory Results 06/07/19 12:45: WBC 11.0, RBC 4.73, Hgb 14.1, Hct 44.4, MCV 93.9, MCH 29.8, MCHC 31.8 L, RDW Std Deviation 43.7, RDW Coeff of Kyle 12.8, Plt Count 343, MPV 9.3, Immature Gran % (Auto) 0.600, Neut % (Auto) 55.6, Lymph % (Auto) 37.3, Kimble % (Auto) 5.3, Eos % (Auto) 0.7, Baso % (Auto) 0.5, Absolute Neuts (auto) 6.1, Absolute Lymphs (auto) 4.09, Nucleated RBC % 0 06/07/19 12:45: Sodium 142, Potassium 3.3 L, Chloride 109 H, Carbon Dioxide 25.0, Anion Gap 8, BUN 19 H, Creatinine 1.05 H, Estim Creat Clear Calc 55.08, Est GFR (MDRD) Af Amer 67, Est GFR (MDRD) Non-Af 56 L, BUN/Creatinine Ratio 18.1, Glucose 100, Calcium 9.6, Total Bilirubin 0.50, AST 11 L, ALT 38, Alkaline Phosphatase 62, Troponin I < 0.015, Total Protein 7.3, Albumin 3.8, Globulin 3.5, Albumin/Globulin Ratio 1.1 06/07/19 13:50: Urine Color Yellow, Urine Clarity Sl. Cloudy, Urine pH 6.0, Ur Specific Holt 1.025, Urine Protein Negative, Urine Glucose (UA) Normal, Urine Ketones 5 H, Urine Occult Blood 10 H, Urine Nitrite Negative, Urine Bilirubin N egative, Urine Urobilinogen Normal, Ur Leukocyte Esterase Negative, Urine RBC 0- 5 SEEN, Urine WBC 0 SEEN, Ur Squamous Epith Cells 0-5 SEEN, Urine Bacteria 1+, Urine Mucus 0 SEEN Diagnostic Data Chest X-Ray 06/07/19 13:03 IMPRESSION: No acute abnormality is seen. Electronically Signed: Kyrie Dumas, at 13:33 EST , Service support , Assessment/Plan All Active Problems (Last Reviewed 05/21/19 @ 09:51 by Alonzo Segura MD) Near syncope (Acute) Preop cardiovascular exam (Acute) Encounter for screening for malignant neoplasm of lung (Acute) Hypokalemia (Resolved) Hypomagnesemia (Resolved) Nausea (Resolved) Ventricular premature depolarization (Resolved) Pulmonary hypertension (Ruled-out) 68 y/o admitted with a complaint of dizziness. 1. Dizziness likely due to vestibular neuronitis * Patient had an antecedent viral upper respiratory illness for the last few weeks and dizziness started just 2 days ago. Dizziness is mainly pain is positional in nature. * has associated anorexia * admit to PCU with telemetry * orthostatics were negative * hold steroids which she has been on o/a of shortness of breath from URTI * hydrate gently with IVF * fall precautions * PT/OT consult * PO meclizine. 2. Hypokalemia: K is 3.3. Will replace and monitor. 3. COPD and asthma * had recent viral URTI, but respiratory symptoms have resolved * on budesonide/formoterol and albuterol inhaler * 4. Hypertension: on losartan 5. Hyperlipidemia: on rosuvastatin DVT prophylaxis: SCDs Code Visit OBSV E&M: [id number] Initial observation care L2
--- NOTE | 2019-06-07 15:35 | CT_ITS ---
STUDY: CT BRAIN WITHOUT CONTRAST REASON FOR EXAM: Female, 68 years old. NEAR SYNCOPE RADIATION DOSAGE (If Supplied By Facility): CTDIvol = ( 44.99 ) mGy, DLP = ( 846.73 ) mGycm TECHNIQUE: Transaxial CT imaging of the brain was performed without administration of intravenous contrast material. Individualized dose optimization techniques were used for this CT. COMPARISON: No relevant priors. FINDINGS: Normal soft tissue structures. Normal calvarium. Normal size ventricles and extra-axial spaces for the patient''s age. Normal white matter tracts of the cerebral hemispheres. Normal basal ganglia and thalami. Normal brainstem. Normal cerebellum. There is no intracranial hemorrhage. There are no findings of an acute ischemic infarction. Normal visualized paranasal sinuses. CT/Brain/Head without Contrast IMPRESSION: Normal unenhanced CT scan of the brain. Electronically Signed: Ar Prather MD at 16:20 EST Tel , Service support ,
[2019-06-07] MEDS: 0.9% Normal Saline 1,000 ML 150 ML IV (17:10)
[2019-06-07] MEDS: Ondansetron 4 MG/2 ML Vial IV (17:10)
[2019-06-07] MEDS: 0.9% Saline Lock 10 ML Syringe IV (17:11)
[2019-06-07] MEDS: Glucerna Shake 120 ML LIQUID PO ×2 (17:26→21:30)
[2019-06-07] MEDS: Meclizine HCl 25 MG Tablet PO (17:26)
[2019-06-07] MEDS: Albuterol 2.5 MG/3 ML VIAL.NEB. INHALATION (19:34)
[2019-06-07] MEDS: Budesonide Respules 0.5 MG/2 ML AMPUL.NEB. INHALATION (19:34)
[2019-06-07] MEDS: Atorvastatin Calcium 20 MG Tablet PO (21:30)
[2019-06-07] MEDS: MELATONIN 10 MG TABLET PO (21:30)
[2019-06-08] VITALS (7 sets, daily range): BP systolic 107–125; BP diastolic 57–71; PULSE 58–81; RESP 15–16; TEMP 36.6–36.8; O2SAT 96–98
[2019-06-08] MEDS: 0.9% Normal Saline 1,000 ML 150 ML IV (00:03)
[2019-06-08 06:35] LABS: Absolute Lymphocyte Count 3.53 X10^3/uL (0.83-4.51); Absolute Neutrophil Count 4.8 X10^3/uL (2.0-7.7); Basophil# 0.04 X10^3/uL; Basophil% 0.4 % (0-1); Eosinophil# 0.03 X10^3/uL; Eosinophils% 0.3 % (0-5); Hematocrit 39.1 % (37-47); Hemoglobin 12.2 g/dL (12.0-15.0); Lymphocyte # 3.53 X10^3/ul (4.0); Lymphocyte % 39.5 % (19-41); Mean Corp Hgb Conc 31.2 g/dL (32-36); Mean Corpuscular Hgb 29.7 pg (27.0-32.0); Mean Corpuscular Volume 95.1 fL (81-99); Mean Platelet Vol. 9.3 fl (6.2-12.0); Monocyte# 0.48 X10^3/uL; Monocyte% 5.4 % (0-10); NRBC Flagged by Analyzer 0 % (0-5); Neutrophil % 53.8 % (47-70); Platelet Count 276 K/mm3 (150-450); RBC Distribution Width CV 12.9 % (11.6-14.6); RBC Distribution Width SD 44.2 fl (35.1-43.9); Red Blood Count 4.11 M/mm3 (4.2-5.4); White Blood Count 8.9 K/mm3 (4.4-11.0)
[2019-06-08] MEDS: Albuterol 2.5 MG/3 ML VIAL.NEB. INHALATION (06:45)
[2019-06-08] MEDS: Budesonide Respules 0.5 MG/2 ML AMPUL.NEB. INHALATION (06:45)
[2019-06-08 06:59] LABS: Anion Gap 4 (5-15); BUN 14 mg/dL (7-18); BUN/Creat Ratio 15.8 RATIO (10-20); Calcium,Total 8.7 mg/dL (8.5-10.1); Chloride 111 mmol/L (98-107); Creatinine, Serum 0.89 mg/dL (0.55-1.02); EST Glomerular Filtration Rate 68 mL/min (>60); Est Glom Filt Rate - Afr Amer 82 mL/min (>60); Estimated Creatinine Clearance 64.98 ml/min; Glucose 86 mg/dL (74-106); Sodium Level 141 mmol/L (136-145)
[2019-06-08] MEDS: Famotidine 20 MG Tablet PO (08:49)
[2019-06-08] MEDS: buPROPion (XL) 150 MG TABLET.XL PO (08:49)
[2019-06-08] MEDS: Losartan Potassium 25 MG Tablet PO (08:49)
[2019-06-08] MEDS: Glucerna Shake 120 ML LIQUID PO (08:52)
--- NOTE | 2019-06-08 11:15 | DCINST_ITS ---
- Discharge Diagnoses Current Active Problems: Current Active and Chronic Problems (Last Reviewed 05/21/19 @ 09:51 by Alonzo Segura MD) Near syncope (Acute) You will use the following diet at home:: Calorie/Carbohydrate Controlled (specify 1200, 1400, etc) - CARB controlled, Cardiac Your food should be the consistency of: Regular Discharge Activity: May Not Drive - for 1 week for occasional dizziness Call your doctor if you observe: Fever of 101 or Higher, Coldness, Increased Pain, Numbness or Tingling, Change in Color, Inability to urinate, Inability to have a bowel movement, Shortness of breath, Dizziness, Fainting spells, Swelling in the ankles, Chest pain, Prolonged hiccoughing, Increased palpitations (irregular heartbeat), Calf discomfort, Uncontrolled pain Allergies/Adverse Reactions: Allergies dibucaine Allergy (Severe, Verified 06/07/19 12:44) Rash, itching Iodinated Contrast Media [Iodinated Contrast- Oral and IV Dye] Allergy (Severe, Verified 06/07/19 12:44) RAsh, Itching wool Allergy (Verified 06/07/19 12:44) Rash do not use mattress pads NSAIDS (Non-Steroidal Anti-Inflamma Adverse Reaction (Severe, Verified 06/07/19 12:44) GI Bleeding adhesive tape Adverse Reaction (Intermediate, Verified 06/07/19 12:44) localized skin reaction acetaminophen [From Darvocet-N] Adverse Reaction (Verified 06/07/19 12:44) Vomiting codeine Adverse Reaction (Verified 06/07/19 12:44) Vomiting hydrocodone bitartrate [From Vicodin] Adverse Reaction (Verified 06/07/19 12:44) Vomiting morphine Adverse Reaction (Verified 06/07/19 12:44) Vomiting propoxyphene napsylate [From Darvocet-N] Adverse Reaction (Verified 06/07/19 12:44) Vomiting Medications to take at Discharge ranitidine HCl 150 mg tablet 150 mg PO DAILY 07/13/18 bupropion HCl 150 mg 24 hr tablet, extended release 150 mg PO QAM #90 tab 10/05/18 budesonide-formoterol HFA 160 mcg-4.5 mcg/actuation aerosol inhaler 2 puff INHALATION BID 10/24/18 losartan 25 mg tablet 25 mg PO DAILY #90 tab 11/05/18 albuterol sulfate 90 mcg/actuation aerosol inhaler 1 puff INHALATION Q6H PRN #8.5 g 04/24/19 Melatonin 10 mg PO DAILY 06/07/19 Prednisone See Taper PO UD 06/07/19 Rosuvastatin Calcium [Crestor] 10 mg PO QHS 06/07/19 Meclizine HCl [Antivert] 25 mg PO 4X/DAY PRN PRN #30 tab 06/08/19 The following prescriptions were given: Meclizine HCl [Antivert] 25 mg PO 4X/DAY PRN PRN #30 tab PRN Reason: Dizziness Transmission Status: Pending to [id number] Primary Care Physician: Jenifer Pool MD [Primary Care Provider] - Please follow up with your Primary Care Physician in: in 2 week Test Results: Test results from this visit will be discussed in further detail at your follow- up appointment, if applicable. Please Follow Up With: Fito Rankin MD When: in 2 weeks for occasional dizziness/vesitbular neuronitis
[2019-06-08 12:57] LABS: T4 Free Direct 0.98 ng/dL (0.76-1.46); Thyroid Stim Hormone (TSH) 1.61 uIU/mL (0.358-3.74)
--- NOTE | 2019-06-08 14:10 | DS.PCM_ITS ---
Discharge Date and Diagnosis - Problem List Patient Problems: Active and Suspected Problems (Last Reviewed 05/21/19 @ 09:51 by Alonzo Segura MD) Near syncope (Acute) Date of Admission: 06/07/19 Date of Discharge: 06/08/19 - Primary Discharge Diagnosis Active and Suspected Problems (Last Reviewed 05/21/19 @ 09:51 by Alonzo Segura MD) Near syncope (Acute) - Secondary Discharge Diagnosis Chronic Problems (Last Reviewed 05/21/19 @ 09:51 by Alonzo Segura MD) Shortness of breath (Chronic) Paroxysmal atrial fibrillation (Chronic) Essential (primary) hypertension (Chronic) LBBB (left bundle branch block) (Chronic) Hyperlipidemia (Chronic) Osteoarthritis (Chronic) Obstructive sleep apnea (Chronic) COPD (chronic obstructive pulmonary disease) (Chronic) Type 2 diabetes mellitus (Chronic) Hospital Course and Treatment Operations: - Summary of Care Provided: The patient is a 68 year old F with history of COPD, hypertension and recent upper respiratory viral illness for which she is recovering on tapering dose of prednisone was admitted for dizziness precipitated by movement 1. Dizziness likely due to vestibular neuronitis/upper respiratory viral illness: Patient is being admitted in PCU. Orthostatic blood pressure was negative for significant change in blood pressure or heart rate did not meet criteria for orthostatic hypotension. Patient further had PT and OT evaluation and was found adequate as per age. Telemetry shows normal sinus rhythm. Patient was hydrated with IV fluid normal sinus. Prescription was given for meclizine 25 mg p.o. every 6 hourly as needed for dizziness. Advised to complete the prednisone taper. TSH and free T4 normal. UA is negative. 2. Hypokalemia: K is 3.3. Potassium replaced. Repeat potassium normal. 3. COPD and asthma: Stable. Patient follows Dr. Sanchez. * on budesonide/formoterol and albuterol inhaler 4. Hypertension: on losartan. Blood pressure is controlled. 5. Hyperlipidemia: on rosuvastatin DVT prophylaxis: SCDs Discharge medication reconciliation done. Discharge follow-up instructions completed. Discharge process discussed with the patient and all questions were answered to patient's satisfaction. Patient Problems: Active and Suspected Problems (Last Reviewed 05/21/19 @ 09:51 by Alonzo Segura MD) Near syncope (Acute) Subjective: Seen and examined. Patient states she is having cough and viral respiratory illness for about 2 3 weeks and now has much improved. She was put on tapering dose of steroid and she is also on inhaler for COPD. She has a steady at rest but feels dizzy on movement. No orthostatic significant change in blood pressure or heart rate. - Physical Exam Vitals/I&O's: Vital Signs Temp Pulse Resp BP Pulse Ox 98 F 60 16 125/71 H 98 06/08/19 08:43 06/08/19 08:43 06/08/19 08:43 06/08/19 08:43 06/08/19 08:43 Oxygen Delivery Method Room Air Weight: 245 lb 2.464 oz Body Mass Index (BMI) 36.1 Intake and Output for Last 24 Hours 06/06/19 06/07/19 06/08/19 23:59 23:59 23:59 Intake Total 1740 / 1740 950 / 950 Output Total 950 / 950 Balance 1740 / 1540 0 / 0 General: Alert, Oriented x3, Cooperative HEENT: Atraumatic, PERRLA, EOMI, Normocephalic Neck: Supple, No JVD, Negative Carotid Bruits Lungs: Clear to auscultation, No rhonchi, No wheeze, No rales, Diminished - Air entry mildly diminished. Cardiovascular: Regular rate, Regular Rhythm, Normal S1, Normal S2, No murmurs Abdomen: Bowel Sounds Present, Soft, Non Tender, Non-Distended Extremities: No edema, Capillary Refill Less than 3 Seconds Skin: No rashes, No breakdown Musculoskeletal: No Tenderness to Palpation of Joints or Extremities, Arthritic Changes Neurological: Cranial nerves II-XII grossly intact, Deep Tendon Reflexes 2+/4 and Symmetrical, Neuro grossly intact Psych/Mental Status: Normal Affect, Appropriate Laboratory Results 06/07/19 12:45: WBC 11.0, RBC 4.73, Hgb 14.1, Hct 44.4, MCV 93.9, MCH 29.8, MCHC 31.8 L, RDW Std Deviation 43.7, RDW Coeff of Kyle 12.8, Plt Count 343, MPV 9.3, Immature Gran % (Auto) 0.600, Neut % (Auto) 55.6, Lymph % (Auto) 37.3, Mcnairy % (Auto) 5.3, Eos % (Auto) 0.7, Baso % (Auto) 0.5, Absolute Neuts (auto) 6.1, Absolute Lymphs (auto) 4.09, Nucleated RBC % 0 06/07/19 12:45: Sodium 142, Potassium 3.3 L, Chloride 109 H, Carbon Dioxide 25.0, Anion Gap 8, BUN 19 H, Creatinine 1.05 H, Estim Creat Clear Calc 55.08, Est GFR (MDRD) Af Amer 67, Est GFR (MDRD) Non-Af 56 L, BUN/Creatinine Ratio 18.1, Glucose 100, Calcium 9.6, Total Bilirubin 0.50, AST 11 L, ALT 38, Alkaline Phosphatase 62, Troponin I < 0.015, Total Protein 7.3, Albumin 3.8, Globulin 3.5, Albumin/Globulin Ratio 1.1 06/07/19 13:50: Urine Color Yellow, Urine Clarity Sl. Cloudy, Urine pH 6.0, Ur Specific [place] 1.025, Urine Protein Negative, Urine Glucose (UA) Normal, Urine Ketones 5 H, Urine Occult Blood 10 H, Urine Nitrite Negative, Urine Bilirubin Negative, Urine Urobilinogen Normal, Ur Leukocyte Esterase Negative, Urine RBC 0-5 SEEN, Urine WBC 0 SEEN, Ur Squamous Epith Cells 0-5 SEEN, Urine Bacteria 1+, Urine Mucus 0 SEEN 06/08/19 06:10: WBC 8.9, RBC 4.11 L, Hgb 12.2, Hct 39.1, MCV 95.1, MCH 29.7, MCHC 31.2 L, RDW Std Deviation 44.2 H, RDW Coeff of Kyle 12.9, Plt Count 276, MPV 9.3, Immature Gran % (Auto) 0.600, Neut % (Auto) 53.8, Lymph % (Auto) 39.5, Mcnairy % (Auto) 5.4, Eos % (Auto) 0.3, Baso % (Auto) 0.4, Absolute Neuts (auto) 4.8, Absolute Lymphs (auto) 3.53, Nucleated RBC % 0 06/08/19 06:10: Sodium 141, Potassium 4.0, Chloride 111 H, Carbon Dioxide 26.0, Anion Gap 4 L, BUN 14, Creatinine 0.89, Estim Creat Clear Calc 64.98, Est GFR (MDRD) Af Amer 82, Est GFR (MDRD) Non-Af 68, BUN/Creatinine Ratio 15.8, Glucose 86, Calcium 8.7 Current Medications Albuterol Sulfate (Ventolin Aerosols) 2.5 mg INHALATION Q4H PRN PRN Reason: SHORTNESS OF BREATH/WHEEZING Albuterol Sulfate (Ventolin Aerosols) 2.5 mg INHALATION Q6HWA.RT [facility] Last Admin: 06/08/19 06:45 Dose: 2.5 mg Documented by: Atorvastatin Calcium (Lipitor) 20 mg PO QHS [facility] Last Admin: 06/07/19 21:30 Dose: 20 mg Documented by: Budesonide (Pulmicort Aerosol) 0.5 mg INHALATION Q12H.RT [facility] Last Admin: 06/08/19 06:45 Dose: 0.5 mg Documented by: Bupropion HCl (Wellbutrin Xl) 150 mg PO QAM [facility] Last Admin: 06/08/19 08:49 Dose: 150 mg Documented by: Famotidine (Pepcid) 20 mg PO DAILY [facility] Last Admin: 06/08/19 08:49 Dose: 20 mg Documented by: Glucagon () 1 mg IM .X1 PRN PRN Reason: Hypoglycemia Dextrose (Dextrose 10%-Water) 250 mls @ 999 mls/hr IV .Q16M PRN; Protocol PRN Reason: HYPOGLYCEMIA Losartan Potassium (Cozaar) 25 mg PO DAILY [facility] Last Admin: 06/08/19 08:49 Dose: 25 mg Documented by: Meclizine HCl (Antivert) 25 mg PO 4X/DAY PRN PRN PRN Reason: DIZZINESS Last Admin: 06/07/19 17:26 Dose: 25 mg Documented by: Melatonin (Melatonin) 10 mg PO DAILY@2200 [facility] Last Admin: 06/07/19 21:30 Dose: 10 mg Documented by: Nutritional Formula (Lactose Free) (Glucerna Shake) 120 ml PO 4X/DAY [facility] Last Admin: 06/08/19 08:52 Dose: 120 unit Documented by: Ondansetron HCl (Zofran) 4 mg IV Q8H PRN PRN PRN Reason: NAUSEA/VOMITING Last Admin: 06/07/19 17:10 Dose: 4 mg Documented by: Sodium Chloride () 10 - 40 ml IV UD PRN PRN Reason: SALINE FLUSH Last Admin: 06/07/19 17:11 Dose: 10 ml Documented by: Home Medications: Medications to take at Discharge ranitidine HCl 150 mg tablet 150 mg PO DAILY 07/13/18 bupropion HCl 150 mg 24 hr tablet, extended release 150 mg PO QAM #90 tab 10/05/18 budesonide-formoterol HFA 160 mcg-4.5 mcg/actuation aerosol inhaler 2 puff INHALATION BID 10/24/18 losartan 25 mg tablet 25 mg PO DAILY #90 tab 11/05/18 albuterol sulfate 90 mcg/actuation aerosol inhaler 1 puff INHALATION Q6H PRN #8.5 g 04/24/19 Melatonin 10 mg PO DAILY 06/07/19 Prednisone See Taper PO UD 06/07/19 Rosuvastatin Calcium [Crestor] 10 mg PO QHS 06/07/19 Meclizine HCl [Antivert] 25 mg PO 4X/DAY PRN PRN #30 tab 06/08/19 Following Prescrptions Were Given to Patient: Meclizine HCl [Antivert] 25 mg PO 4X/DAY PRN PRN #30 tab PRN Reason: Dizziness Transmission Status: Pending to [id number] Primary Care Physician: Jenifer Pool MD [Primary Care Provider] - Medical Necessity - Tobacco Use Smoking Status: Former smoker Tobacco Use: Cigarettes Meaningful Use Info Meaningful Use Diagnoses (Choose all that apply): None applicable Code Visit OBSV E&M: 01509 Observation care discharge
== END 2019-06-08 11:15 | disposition home or self-care (01) ==
LOC: ED 15:49 → PCU 15:56
PROVIDERS: Admitting Provider Student in an Organized Health Care Education/Training Program; Emergency Provider Emergency Medicine; PCP Internal Medicine; Referring Provider Student in an Organized Health Care Education/Training Program; Visit Provider Internal Medicine
DX: R55 Syncope and collapse (principal); H53.8 Other visual disturbances; I44.7 Left bundle-branch block, unspecified; J44.9 Chronic obstructive pulmonary disease, unspecified; I10 Essential (primary) hypertension; M79.7 Fibromyalgia; R06.02 Shortness of breath; I48.0 Paroxysmal atrial fibrillation; I48.20 Chronic atrial fibrillation, unspecified; E87.6 Hypokalemia; G47.33 Obstructive sleep apnea (adult) (pediatric); M19.90 Unspecified osteoarthritis, unspecified site; E78.5 Hyperlipidemia, unspecified; Z79.899 Other long term (current) drug therapy; Z79.52 Long term (current) use of systemic steroids; Z87.891 Personal history of nicotine dependence
CPT/HCPCS: 36415; 70450; 71045; 80048; 80053; 81001; 84439; 84443; 84484; 85025; 93005; 94640; 96361; 96374; 97162; 97166; 97802; 99218; 99285; J7030; J7040; A4216; G0378; J2405

== ENCOUNTER 2019-06-14 07:14 | Day surgery (SDC) | payer MEDICARE, OTHER, SELFPAY ==
[2019-06-11 08:43] VITALS: BMI 36.9
[2019-06-12 18:57] VITALS: BMI 36.9
[2019-06-13 07:11] VITALS: BMI 36.9
--- NOTE | 2019-06-14 08:56 | CL.IE_ITS ---
Patient: JERMAINE YEE Study Date: 06/14/2019 Performing: Alonzo Segura MD : 1950 Age: 68 Gender: female PROCEDURES PERFORMED [id number]-[id number] OF LOOP RECORDER INDICATIONS Syncope PROCEDURE DETAILS The patient was brought to the Catheterization Lab in the postabsorptive nonsedated state. Infor med consent was obtained prior to the procedure. Local anesthetic was given subcutaneously to the le ft upper chest area with Lidocaine 2%. Steri-strips applied to Lt chest area. The patient tolerated the procedure well. Estimated Blood Loss: < 10 mls IMPLANTED / EX-PLANTED DEVICES IMPLANTED DEVICE(S): ICM Loop Recorder - Director Of Content And Programming: [employer], Model # [id number] , Serial # [id number] DEVICE PARAMETERS CONCLUSIONS / RECOMMENDATIONS Device Conclusions: Successful implantation of a patient activated loop recorder. Device Recommendations: Follow up with Primary Care Physician PROCEDURE MEDICATIONS Versed 1 mg IV Versed 1 mg IV Oxygen: 2 L/min via nasal cannula Ancef 2 Gm IV @ 06/14/2019 08:45:49 Signed By Alonzo Segura MD On 06/14/2019 08:55:45 Alonzo Segura MD
== END 2019-06-14 10:30 | disposition home or self-care (01) ==
LOC: CLSP 07:15
PROVIDERS: PCP Internal Medicine; Referring Provider Internal Medicine Cardiovascular Disease; Visit Provider Internal Medicine Cardiovascular Disease
DX: R55 Syncope and collapse (principal); I48.0 Paroxysmal atrial fibrillation; I10 Essential (primary) hypertension; I44.7 Left bundle-branch block, unspecified; J44.9 Chronic obstructive pulmonary disease, unspecified; E78.5 Hyperlipidemia, unspecified; M79.7 Fibromyalgia; M19.90 Unspecified osteoarthritis, unspecified site; E66.9 Obesity, unspecified; Z68.36 Body mass index [BMI] 36.0-36.9, adult; Z79.899 Other long term (current) drug therapy; Z87.891 Personal history of nicotine dependence
CPT/HCPCS: 33285; 99152; J7040

== ENCOUNTER 2019-07-16 16:30 | Outpatient (RCR) | payer MEDICARE, OTHER, SELFPAY ==
[2018-12-26 16:19] VITALS: BMI 38.9
--- NOTE | 2019-02-01 12:22 | HP.PTEVAL_ITS ---
Patient's Visit Information JERMAINE YEE is a 68 year old F referred to Physical Therapy by NATIVIDAD GOOD with a diagnosis of L knee pain. Date of Evaluation: 02/01/19 Physical Therapist: Seun Gaffney, PT, ATC - Visit Plan Frequency: 2-3x /Week Duration: 4-6 Weeks Plan: L LE stretching and strengthening, balance and proprio, nustep, and HEP - Subjective Findings: Pt reports she has had pain in her L lateral knee for several months. Pt reports she went up to [place] to stay wit her daughter and planned on having a TKA performed, but her surgeon wants her to strengthen her knee prior to having the surgery. Pt reports she had x rays which revealed severe deg. changes. Pt reports she does not have any tingling or numbness in her L LE. Pt reports sleep difficulty secondary to pain. Pt reports severe difficulty negotiatiing stairs secondary to pain. Knee will occasionally give out. Pt denies any falls, but reports she has come very close in the past. 0/10 pain at rest, 9/10 at worst. - Pain L knee Pain Intensity (Out of 10): 0 Pain Intensity Range: 9 - Objective Neuro: B LE sensation is WNL to light touch. B achilles reflex= 1/3. Palpation: Pt has significant crepitus with AROM. Mild swelling on lateral joint line. Girth at joint line: B knees 48 cm. ROM: L knee 0-10-110; R knee 0-10-115. MMT: R knee 5/5 throughout. L knee flex= 5/5, ext 3/5 and painful - Goals Goal 1:: Decrease L knee pain x 50% to aid with sleep Goal Time Frame: 4-6 Weeks Goal 2:: Increase L knee strength x 1 grade to aid with stair negotiation Goal Time Frame: 4-6 Weeks Goal 3:: I with HEP Goal Time Frame: 4-6 Weeks - Rehabilitation Potential Physical Therapy Diagnosis: Pt has L knee pain, weakness, and limited ROM secondary to deg changes of the L knee Rehabilitation Potential: Good - Anticipated Interventions Patient/Client Instruction: Educate patient on: Condition, Plan of Care For the Purpose of:: To improve self management Therapeutic Exercise to Include: Strength training, Endurance training, Balance training, Gait and locomotor training, Active ROM, Dynamic Lumbar Stabilization For the Purpose of:: To decrease pain, To increase ROM, To improve muscle p erformance and motor function Cryotherapy (ice pack, ice massage): Yes For the Purpose of:: To decrease pain Thank you for the opportunity to evaluate your patient. For Medicare and Medicare HMO plans, please review the plan of care and approve it. It will need to be FAXED BACK to us at [phone] for Medicare purposes. For Medicare only, by signing this I certify the plan of care. Please let me know if there are questions or concerns regarding this plan of care. Physician Signature: Date:
--- NOTE | 2019-07-03 09:35 | HP.PTREVAL ---
[place] [facility], It has been my pleasure to treat JERMAINE YEE over the last 21 visits for L knee pain. Please see the progress note below for an update on the physical therapy plan of care! Subjective: Pt reports she is now over her several week illness Objective/Function: L knee pain ranges from 0-10/10. L knee ROM: 0-4-105. L knee MMT: 4/5 throughout and painful. Pt has regressed from her illness Plan Plan: Begin strengthening ex's again this date Goals Goal 1:: Decrease L knee pain x 50% to aid with sleep Goal Time Frame: 4-6 Weeks Goal 2:: Increase L knee strength x 1 grade to aid with stair negotiation Goal Time Frame: 4-6 Weeks Goal 3:: I with HEP Goal Time Frame: 4-6 Weeks Anticipated Interventions Patient/Client Instruction: Educate patient on: Condition, Plan of Care For the Purpose of:: To improve self management Therapeutic Exercise to Include: Strength training, Endurance training, Balance training, Gait and locomotor training, Active ROM, Dynamic Lumbar Stabilization For the Purpose of:: To decrease pain, To increase ROM, To improve muscle performance and motor function Cryotherapy (ice pack, ice massage): Yes For the Purpose of:: To decrease pain Please do not hesitate to contact me at [phone] by phone or if you have questions or concerns regarding this new plan of care! Sincerely, Seun Gaffney, PT, ATC
--- NOTE | 2019-08-06 15:07 | HP.PT.NRP ---
JERMAINE YEE was seen in my office for initial evaluation on 02/01/19. The following Plan of Care was established for this patient: Initial Frequency: 2-3x /Week Initial Duration: 4-6 Weeks Patient/Client Instruction: Educate patient on: Condition, Plan of Care For the Purpose of:: To improve self management Therapeutic Exercise to Include: Strength training, Endurance training, Balance training, Gait and locomotor training, Active ROM, Dynamic Lumbar Stabilization For the Purpose of:: To decrease pain, To increase ROM, To improve muscle performance and motor function Cryotherapy (ice pack, ice massage): Yes For the Purpose of:: To decrease pain This patient was last seen in our office . Pertinent comments regarding their Physical therapy will appear below: Pt is discharged on the date of 07/25/2019 secondary to having a knee surgery at that time. At this point I will be discontinuing this patient from physical therapy. I would be happy to see this patient again in the future if found appropriate by the physician. Thank you! Seun Gaffney, PT, ATC
== END 2019-07-16 19:00 | disposition home or self-care (01) ==
LOC: PT 16:30
PROVIDERS: Family Provider Internal Medicine; PCP Internal Medicine
DX: M17.12 Unilateral primary osteoarthritis, left knee (principal)
CPT/HCPCS: 97110; 97161; 97164

== ENCOUNTER 2019-07-24 06:59 | Observation (INO) | payer MEDICARE, OTHER, SELFPAY ==
[2019-03-29 10:55] VITALS: BMI 38.9
[2019-07-03 17:01] VITALS: BMI 36.9
[2019-07-08 15:33] VITALS: BP 134/68; PULSE 66; RESP 16; TEMP 36.4; O2SAT 100; BMI 37.8
[2019-07-08 17:22] LABS: Absolute Neutrophil Count 3.3 X10^3/uL (2.0-7.7); Basophil# 0.07 X10^3/uL; Basophil% 1.1 % (0-1); Eosinophil# 0.28 X10^3/uL; Eosinophils% 4.2 % (0-5); Hematocrit 42.9 % (37-47); Hemoglobin 13.7 g/dL (12.0-15.0); Lymphocyte % 37.8 % (19-41); Mean Corp Hgb Conc 31.9 g/dL (32-36); Mean Corpuscular Hgb 30.7 pg (27.0-32.0); Mean Corpuscular Volume 96.2 fL (81-99); Mean Platelet Vol. 10.4 fl (6.2-12.0); Monocyte# 0.48 X10^3/uL; Monocyte% 7.3 % (0-10); NRBC Flagged by Analyzer 0 % (0-5); Neutrophil # 3.26 X10^3/uL (2.7-7.7); Neutrophil % 49.3 % (47-70); Platelet Count 282 K/mm3 (150-450); RBC Distribution Width CV 12.6 % (11.6-14.6); RBC Distribution Width SD 44.9 fl (35.1-43.9); Red Blood Count 4.46 M/mm3 (4.2-5.4); White Blood Count 6.6 K/mm3 (4.4-11.0)
[2019-07-08 17:37] LABS: Anion Gap 4 (5-15); BUN 10 mg/dL (7-18); BUN/Creat Ratio 11.3 RATIO (10-20); Calcium,Total 9.8 mg/dL (8.5-10.1); Chloride 110 mmol/L (98-107); Creatinine, Serum 0.89 mg/dL (0.55-1.02); EST Glomerular Filtration Rate 68 mL/min (>60); Est Glom Filt Rate - Afr Amer 82 mL/min (>60); Estimated Creatinine Clearance 64.98 ml/min; Glucose 79 mg/dL (74-106); Potassium 4.1 mmol/L (3.5-5.1); Sodium Level 141 mmol/L (136-145)
--- NOTE | 2019-07-08 22:14 | HP.PCM_ITS ---
History and Physical History and Physical [facility] Patient Name: Fabby Warner : 1950 From: JOSE ABERNATHY PA-C DATE OF SURGERY: 07/24/2019 SCHEDULED PROCEDURE: Left total knee arthroplasty HISTORY OF PRESENT ILLNESS: Preoperative history and physical exam was performed on July 08, 2019. This is a 68-year-old female who has been having ongoing pain in the left knee for several years. Patient has had increased pain with going up and down stairs, walking, and sitting. Her pain has been constant, aching, sharp, stabbing, and sore. They can reach as high as a 7/10. She has difficult times with activities of daily living due to the pain. Pain is located over the anterior knee. It does occasionally wake her at night. Patient has a previous history of left knee arthroscopy for medial lateral discus tears in 2018. She had a previous right total knee replacement in [address] Plaza with significant postoperative complications. Patient had significant reaction to the silver dressing. She also had difficulties with her CPAP machine following the surgery. Patient has tried conservative measures including gel one injection with increased pain and swelling, rest, elevation. Impression is unable to take nonsteroidal anti-inflammatories. Patient is followed by international first officer Dr. Sanchez for obstructive sleep apnea, hypertension, and asthma. Patient is also followed by the precision mechanical instrument maker Dr. Segura with history of chronic left bundle branch block. She has had previous heart catheterization which was essentially normal. She has had a loop recorder placed on June 14, 2019. She currently denies any chest pain, recent fevers or chills. We also have obtain surgical clearance from the primary care physician Dr. Pool. After failing conservative measures and discussing treatment options with Dr. Maycol Salmeron, the patient does wish to proceed with a left total knee arthroplasty. REVIEW OF SYSTEMS: ROS: Const: Denies anorexia, change in appetite, fever, hard of hearing, vision problems and weight change. CV: Reports irregular heartbeat and peripheral vascular disease, but denies chest pain and heart murmur. Resp: Reports asthma and SOB, but denies cough, pneumonia, sleep apnea, tuberculosis and wheezing. GI: Denies constipation, diarrhea, difficulty swallowing, heartburn, nausea, bloody stools and vomiting. : Urinary: denies incontinence. Musculo: Reports limp, trouble walking and weakness, but denies leg swelling. Skin: Reports Raynaud's and history of shingles, but denies tattoo. Neuro: Reports difficulty with balance and numbness/tingling but denies ambulatory dysfunction, dizziness and tremor. Psych: Reports stress, but denies anxiety, depression, insomnia and mental illness. Brenden/Lymph: Denies anemia, bleeding/bruising tendency and past transfusion. Reviewed, no changes. PAST MEDICAL HISTORY: Advance Care Plan: Other Directive, LIVING WILL Effective Date: 01/17/2018 Other Directive, POA Effective Date: 01/17/2018 PMH: Medical Problems: Arthritis, Fibromyalgia, Asthma, High Blood Pressure, Hypercholesterolemia Accidents: Fracture - LT ANKLE LT Knee Pain - (07/16/2015) Surgical Hx: Hysterectomy - (1994) [facility] Sinus X2, LT Ankle Plate & Screw, LT Ankle Hardware Removal LT Knee Arthroscopy - (06/03/2009) [email or web address] Hernia Repair RT TKR - (12/30/2014) DR PLAZA @[facility] Hemmoroidectomy, 3 Vertabrae Replaced LT Loop Recorder - (06/14/2019) Anesthesia Complications: Nausea, Awake Depressed, Couldnt Breathe - (2014) Loss Of Hair, System Probelms Assistive Devices: Glasses Reviewed and updated. 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 Personal Habits: Cigarette Use: Former.Alcohol: Occasionally.Drug Use: Denies Use.Enjoy Exercising: Exercises 1-3 x/month. Reviewed, no changes. VITALS: Ht: 68 Wt: 252lb Wt k.307 BMI: 38.3 BP: 138/85 Pulse: 81 Resp: 20 T: 96.8 T: 36.0C ALLERGIES: Codeine Morphine Wool Acetaminophen Hydrocodone Bitartrate Propoxyphene MEDICATIONS: Proair HFA 108 (90 Base) mcg/Act uad, Fluticasone Nasal [place] 2 sprays each nostril. one time a day., Melatonin 10 mg 1 cap by mouth daily, Bupropion Hydrochloride ER (SR) 150 mg 1 po qd, Losartan Potassium 25 mg 1 by mouth every day, Rosuvastatin Calcium 10 mg 1 by mouth every day, Symbicort 160-4.5 mcg/Act 2 puff twice a day, Hydrocortisone 2.5 % apply bid prn, Meclizine HCL 12.5 mg one by mouth daily, Prednisone 10 mg 4 tabs for 3 days, 3 tabs for 3 days, 2 tabs for 3 days, 1 tab for 3 days PRE-OP EXAM: General appearance:NORMAL Other: Eyes: Conjunctivae and lids: NORMAL Pupils: ERR Ears, Nose, Mouth, and Throat: NORMAL Other: Inspection of lips, teeth and gums: NORMAL Other: Neck: Examination of neck: no masses noted. Respiratory: Assessment of respiratory effort: NORMAL Other: Auscultation of lungs: clear to auscultation no wheezes, rhonchi or rales. Cardiovascular: Auscultation of heart: regular rate and rhythm, no murmurs, gallops or rubs. Exam of carotid arteries: NORMAL Other: Gastrointestinal: Exam of abdomen: soft, nontender, nondistended bowel sounds present. PHYSICAL EXAMINATION: Patient walks with an antalgic gait. Left knee is cool to touch without erythema. Previous incisions are well-healed from knee arthroscopies. Patient has varus alignment. Stable to varus and valgus stress test. Patient has moderate effusion. There is limited range of motion secondary to pain. 0 extension to 100 flexion with crepitus. IMAGING STUDIES: Previous x-rays of the left knee reveal valgus alignment with lateral joint space narrowing, subchondral sclerosis, osteophyte formation consistent with severe tricompartmental osteoarthritis. IMPRESSION: 1. Severe left knee tricompartmental osteoarthritis 2. History of previous right total knee arthroplasty 2014 3. Hypertension 4. Fibromyalgia 5. Chronic left bundle branch block with previous heart catheterization and loop recorder 6. Pulmonary hypertension 7. Sleep apnea: Currently uses CPAP 8. Asthma PLAN: Dr. Maycol Salmeron did discuss and review with the patient all treatment options including surgical versus nonsurgical options. Patient does wish to proceed with the above-stated procedure. Potential risks, benefits, and complications of the procedure were discussed in detail including but not limited to , infection, nerve and blood vessel damage, persistent pain, numbness, tingling, paresthesias, blood clot, pulmonary embolism, and requirement for possible further surgery. The patient expressed full understanding and has no further questions for the doctor. Patient does agree to proceed with the above-stated procedure and has signed the surgery consent form. patient is unable to take nonsteroidal anti-inflammatories due to complications. She has severe reactions to previous dressings on the skin. This dictation was created using voice recognition software. Phonetic and/or grammatical errors may exist. ___ I have re-examined the patient. There are no clinical changes since date of exam. ___ See progress notes for changes. ___ Dictated on admission Date: Time: Signature:
[2019-07-24] VITALS (12 sets, daily range): BP systolic 109–141; BP diastolic 46–77; PULSE 68–88; RESP 16–18; TEMP 35.4–36.7; O2SAT 96–100; BMI 37.8
[2019-07-24] MEDS: Lactated Ringers 1,000 ML 100 ML IV (06:08)
[2019-07-24] MEDS: Gabapentin 600 MG Tablet PO (06:09)
[2019-07-24] MEDS: Acetaminophen 500 MG Tablet 1000 MG PO ×2 (06:09→16:13)
[2019-07-24 06:11] LABS: Bedside Glucose 108 mg/dL (70-110)
[2019-07-24] MEDS: Cefazolin 2 GM in 0.9% Normal Saline 100 ML IV (07:30)
[2019-07-24] MEDS: dexAMETHasone 10 MG/ML Vial IV (07:35)
--- NOTE | 2019-07-24 08:48 | PCM.OPRPT ---
Report of Operation Date of Procedure: 07/24/19 Pre-Operative Diagnosis: L knee primary OA Post-Operative Diagnosis: L knee primary OA Surgery/Procedure Performed:: Left navigated total knee replacement Description of Surgical Findings:: Stable knee with good patella tracking chip bin operator: Maribeth Jeffers Type of Anesthesia:: Spinal Anesthesiologist: Markus Cho Special Medications: 2 g Ancef, 1 g TXA at incision, 1 g TXA closure, 10 mg Decadron Specimen's removed: bony cuts Estimated Blood Loss (mL): 25 Fluids Replaced: 1100 ml crystalloid Description of Procedure: Implants used: 1. Biomet keeled 71 mm Vanguard tibial tray 2. Biomet cemented 62.5mm titanium CR total knee, Vanguard 3. Biomet Vanguard 12 mm / 71 mm stem 4. Biomet 31 mm patella Brief history operative indications: 68-year-old F with history of left knee osteoarthritis with radiographic findings with loss of joint space, osteophyte formation and subchondral sclerosis. Failed conservative measures as mentioned in the H&P. Discussion of total knee arthroplasty as well as risk and benefits were discussed the patient including but not limited to blood loss, DVTs, PEs, neurovascular damage, general risk of anesthesia including loss of life, and stiffness or instability were discussed with patient. Patient demonstrated understanding and was able to sign informed consent. Procedure: On the date of procedure patient's left lower extremity was marked in the preoperative area. The patient was then taken back to the operating room where the patient was placed on the table in the supine position. All bony prominences were identified a well-padded. Anesthesia assumed control of the C-spine and airway and remained controlled throughout the remainder of the procedure. A tourniquet was placed on the left upper thigh and the leg was prepped in a sterile fashion. The surgeon then scrubbed at this time .Upon reentering the room left lower extremity was draped in a standard orthopedic fashion. A timeout was then called and everyone agreed upon the side, the site, the procedure to be performed, patient's identity and antibiotics given. Esmarch bandage was used to exsanguinate the extremity and the tourniquet was placed up to 250 mmHg with the knee in flexion. A midline skin incision was made and sharp dissection was taken down through skin subcutaneous tissue and fat. The standard medial parapatellar incision was made and the patella was subluxed laterally. The standard deep MCL release was done and the fat pad was resected. Next our attention was directed to the femur. Navigation pins were placed, navigation was registered. The distal femoral cutting block was pinned into place and 10 mm of distal femur resection was completed. The distal femoral cut was verified with navigation. The knee was then placed in deep flexion in the standard Biomet sizing guide was used to place the femoral component in 4? external rotation based on the posterior condyles due to lateral posterior condyle hypoplasia. A size 62.5 4-in-1 cutting block was selected and pinned into place. The anterior cut was then made and checked for notching. The subsequent anterior chamfer cuts, posterior condylar cuts and posterior chamfer cuts were made while ensuring the MCL and LCL were protected. Our attention was then turned to the tibia where the navigation pins were placed, navigation was registered. [employer] tibial cutting guide was used to make the appropriate tibial cut 90 degrees from the mechanical axis. Navigation was then used to verify the cut. A size 71 mm tibial base plate was selected. the knee was flexed to 90 degrees and the soft tissues and posterior osteophytes were removed from the joint. 40 cc of the periarticular injection was injected into the posterior medial corner of the joint. The appropriate trials were then placed on the femur and tibia. A trial polyethylene was trialed to ensure proper balancing and stability of the knee. Patella tracking, was then verified and corrected appropriately as needed. The appropriate tibial internal rotation was then marked with a bovie. Our attention was then directed to the patella. The patella was everted and a flat resection was made. The lug holes were drilled and the patella trial was placed. Patellar tracking was checked and deemed appropriate. Once we were happy lug holes were drilled for the femur and trial components were removed. the tibia was subluxed and pinned into place and the keel was punched and the canal was reamed. Final components were verified and opened, and cement was mixed in a vacuum. [employer] cement was used. The wound was copiously irrigated with normal saline. When the cement was ready the components were cemented into place starting with the tibia, femur and finally the patella. The trial poly component was placed and the knee was placed in full extension. All excess cement was removed in the process. Once the cement had cured the tracking, alignment and balance were verified and a size 12mm polyethylene component was placed. Once the final components were placed the wound was copiously irrigated with normal saline solution and the periarticular injection was given. The wound was closed in a layer gordon fashion using #1 vicryl interrupted sutures for the arthrotomy, 2-0 interrupted Vicryl suture for the subcuticular layer and mali for final skin closure. A sterile compressive dressing was then placed. The patient was then awakened from anesthesia, transferred to the [facility] and transferred to the PACU for recovery. Post op plan DVT ppx: ASA 81mg, thigh high compression stockings Follow up: in office in 2 weeks for wound check PT: to start POD #0 at hospital, outpatient PT should be arranged. - Complications none - Admit VTE Documentation VTE Present on Admission: No VTE Mechan Device Prophylaxis: SCD's, Thigh High HERNANDEZ Hose VTE Pharm Prophylaxis ordered?: Yes
--- NOTE | 2019-07-24 09:30 | SUR.PHASEI ---
Patients home cpap was set up ready to go and applied immediately after patient entered pacu.
[2019-07-24] MEDS: Lactated Ringers 1,000 ML 999 ML IV (09:37)
--- NOTE | 2019-07-24 09:46 | RAD_ITS ---
STUDY: X-RAY - LEFT KNEE REASON FOR EXAM: Female, 68 years old. Post op TECHNIQUE: AP and lateral view(s) of the knee. COMPARISON: None. FINDINGS: Normal visualized distal femur. Normal visualized proximal tibia and fibula. Normal proximal tibiofibular articulation. The patient is status post total knee replacement. There is good alignment. Postoperative soft tissue changes. RAD/Knee 1 or 2 Views IMPRESSION: Status post left total knee replacement. There is good alignment. Postoperative soft tissue changes. Electronically Signed: Kyrie Dumas, at 10:32 EST , Service support ,
[2019-07-24] MEDS: Scopolamine 1mg/72hr Patch 1 PATCH TD (09:52)
[2019-07-24] MEDS: Lactated Ringers 1,000 ML 125 ML IV (11:38)
[2019-07-24] MEDS: Albuterol 2.5 MG/3 ML VIAL.NEB. INHALATION ×2 (13:19→22:31)
[2019-07-24] MEDS: Morphine 2 MG/ML Syringe IV (14:12)
[2019-07-24] MEDS: Ondansetron 4 MG/2 ML Vial IV (14:12)
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
[2019-07-24] MEDS: Cefazolin 1 GM/50 ML BAG IV ×2 (16:13→22:36)
[2019-07-24] MEDS: DULoxetine Hcl 30 MG Capsule PO (16:13)
[2019-07-24] MEDS: Aspirin 81 MG TAB.CHEW PO (16:15)
[2019-07-24] MEDS: Morphine 4 MG/ML Syringe IV (16:30)
[2019-07-24] MEDS: Senna/Docusate Sodium 1 Tablet 2 TABLET PO (20:47)
[2019-07-24] MEDS: Atorvastatin Calcium 20 MG Tablet PO (20:47)
[2019-07-24] MEDS: MELATONIN 10 MG TABLET PO (20:48)
[2019-07-24] MEDS: Budesonide Respules 0.5 MG/2 ML AMPUL.NEB. INHALATION (22:31)
[2019-07-24] MEDS: oxyCODONE 5 MG Tablet PO (22:37)
[2019-07-24] MEDS: 0.9% Saline Lock 10 ML Syringe IV (22:37)
[2019-07-25 02:50] VITALS: BP 124/68; PULSE 82; RESP 16; TEMP 36.7; O2SAT 99
[2019-07-25] MEDS: oxyCODONE 5 MG Tablet PO ×3 (02:53→13:37)
[2019-07-25] MEDS: Acetaminophen 500 MG Tablet 1000 MG PO ×2 (05:23→13:37)
[2019-07-25 06:30] LABS: Hematocrit 38.8 % (37-47); Hemoglobin 12.7 g/dL (12.0-15.0); Mean Corp Hgb Conc 32.7 g/dL (32-36); Mean Corpuscular Hgb 31.2 pg (27.0-32.0); Mean Corpuscular Volume 95.3 fL (81-99); Mean Platelet Vol. 9.6 fl (6.2-12.0); Platelet Count 298 K/mm3 (150-450); RBC Distribution Width CV 12.7 % (11.6-14.6); RBC Distribution Width SD 43.8 fl (35.1-43.9); Red Blood Count 4.07 M/mm3 (4.2-5.4); White Blood Count 12.4 K/mm3 (4.4-11.0)
[2019-07-25 06:48] LABS: BUN 13 mg/dL (7-18); Creatinine, Serum 0.94 mg/dL (0.55-1.02); Estimated Creatinine Clearance 61.52 ml/min; Glucose 139 mg/dL (74-106)
[2019-07-25 06:49] LABS: Anion Gap 7 (5-15); BUN/Creat Ratio 13.9 RATIO (10-20); Chloride 105 mmol/L (98-107); EST Glomerular Filtration Rate 63 mL/min (>60); Est Glom Filt Rate - Afr Amer 77 mL/min (>60); Sodium Level 136 mmol/L (136-145)
[2019-07-25 06:58] VITALS: PULSE 87; RESP 20
[2019-07-25] MEDS: Budesonide Respules 0.5 MG/2 ML AMPUL.NEB. INHALATION (06:58)
[2019-07-25] MEDS: Albuterol 2.5 MG/3 ML VIAL.NEB. INHALATION ×2 (06:58→13:33)
--- NOTE | 2019-07-25 07:45 | PCM.PN.HOSP ---
Reason for Visit: Follow-up on acute left knee replacement Subjective: Patient was seen and examined. She was seen ambulating with physical therapy. Denies any chest pain, dizziness, SOB. Vitals/I&O's: Vital Signs Temp Pulse Resp BP Pulse Ox 98.1 F 82 16 124/68 H 99 07/25/19 02:50 07/25/19 02:50 07/25/19 02:50 07/25/19 02:50 07/25/19 02:50 Oxygen Delivery Method Room Air Weight: 116.3 kg Body Mass Index (BMI) 37.8 Intake and Output for Last 24 Hours 07/23/19 07/24/19 07/25/19 23:59 23:59 23:59 Intake Total 2902.92 / 2902.92 Output Total 400 / 400 Balance 2902.92 / 2902.92 -400 / -400 General: Alert, Oriented x3, Cooperative, No apparent distress HEENT: Atraumatic, PERRLA, EOMI, Normocephalic Oral: Moist Mucosa Neck: Supple Lungs: Clear to auscultation, Normal air movement Cardiovascular: Regular rate, Regular Rhythm, Normal S1, Normal S2, No murmurs Abdomen: Bowel Sounds Present, Soft, Non Tender, Non-Distended, No Hepato-splenomegaly Extremities: No edema Skin: No rashes Musculoskeletal: No Tenderness to Palpation of Joints or Extremities Lymphatic: No Cervical, Supraclavicular, or Inguinal Adenopathy Neurological: Cranial nerves II-XII grossly intact, Neuro grossly intact Psych/Mental Status: Normal Affect, Appropriate Laboratory Results 07/25/19 06:10: WBC 12.4 H, RBC 4.07 L, Hgb 12.7, Hct 38.8, MCV 95.3, MCH 31.2, MCHC 32.7, RDW Std Deviation 43.8, RDW Coeff of Kyle 12.7, Plt Count 298, MPV 9.6 07/25/19 06:10: Sodium 136, Potassium 4.0, Chloride 105, Carbon Dioxide 24.0, Anion Gap 7, BUN 13, Creatinine 0.94, Estim Creat Clear Calc 61.52, Est GFR (MDRD) Af Amer 77, Est GFR (MDRD) Non-Af 63, BUN/Creatinine Ratio 13.9, Glucose 139 H, Calcium 9.0 Current Medications Acetaminophen (Tylenol) 1,000 mg PO Q8 [facility] Last Admin: 07/25/19 05:23 Dose: 1,000 mg Documented by: Albuterol Sulfate (Ventolin Aerosols) 2.5 mg INHALATION Q4H PRN PRN Reason: shortness of breath or wheezin Albuterol Sulfate (Ventolin Aerosols) 2.5 mg INHALATION Q6HWA.RT [facility] Last Admin: 07/25/19 06:58 Dose: 2.5 mg Documented by: Aspirin (Aspirin, Baby) 81 mg PO BIDCM [facility] Last Admin: 07/24/19 16:15 Dose: 81 mg Documented by: Atorvastatin Calcium (Lipitor) 20 mg PO QHS [facility] Last Admin: 07/24/19 20:47 Dose: 20 mg Documented by: Budesonide (Pulmicort Aerosol) 0.5 mg INHALATION Q12H.RT [facility] Last Admin: 07/25/19 06:58 Dose: 0.5 mg Documented by: Bupropion HCl (Wellbutrin Xl) 150 mg PO QAM [facility] Duloxetine HCl (Cymbalta) 30 mg PO DAILY [facility] Last Admin: 07/24/19 16:13 Dose: 30 mg Documented by: Enteral Nutritional Formula (Ensure Surgery) 237 ml PO TIDCM [facility] Last Admin: 07/24/19 16:12 Dose: Not Given Documented by: Famotidine (Pepcid) 20 mg PO DAILY [facility] Fluticasone Propionate (Flonase Nasal [place]) 2 spray NASAL DAILY PRN PRN Reason: NASAL CONGESTION Sodium Chloride () 250 mls @ 15 mls/hr IV .[id number] PRN PRN Reason: Saline Flush Sodium Chloride () 250 mls @ 15 mls/hr IV .[id number] PRN PRN Reason: Additional IVPB Infusion Insulin Human Lispro (Humalog Kwikpen (Bkc)) 1 - 6 unit SC Q4H PRN PRN; Protocol PRN Reason: BG>/= 180, SEE PROTOCOL Losartan Potassium (Cozaar) 25 mg PO DAILY [facility] Meclizine HCl (Antivert) 25 mg PO 4X/DAY PRN PRN PRN Reason: DIZZINESS Melatonin (Melatonin) 10 mg PO QHS [facility] Last Admin: 07/24/19 20:48 Dose: 10 mg Documented by: Morphine Sulfate () 2 - 4 mg IV Q2H PRN PRN PRN Reason: Pain Score 6-10/10 Last Admin: 07/24/19 14:12 Dose: 2 mg Documented by: Morphine Sulfate () 2 - 4 mg IV Q2H PRN PRN PRN Reason: Pain Score 6-10/10 Last Admin: 07/24/19 16:30 Dose: 4 mg Documented by: Ondansetron HCl (Zofran) 4 mg IV Q8H PRN PRN PRN Reason: NAUSEA Last Admin: 07/24/19 14:12 Dose: 4 mg Documented by: Oxycodone HCl (Oxyir) 5 - 10 mg PO Q4H PRN PRN PRN Reason: Pain Score 4-10/10 Last Admin: 07/25/19 02:53 Dose: 10 mg Documented by: Promethazine HCl (Phenergan) 12.5 mg IM Q6H PRN PRN; Protocol PRN Reason: NAUSEA/VOMITING Senna/Docusate Sodium (Senokot-S, Jazzy-Colace) 2 tablet PO BID [place] Last Admin: 07/24/19 20:47 Dose: 2 tablet Documented by: Sodium Chloride () 10 - 40 ml IV UD PRN PRN Reason: SALINE FLUSH Last Admin: 07/24/19 22:37 Dose: 10 ml Documented by: Medical Necessity - Tobacco Use Smoking Status: Former smoker Tobacco Use: Non-smoker Assessment/Plan All Active Problems (Last Reviewed 07/03/19 @ 14:08 by Annia Chau) Chest heaviness (Acute) Dyspnea (Acute) Weakness (Acute) Near syncope (Acute) Encounter for screening for malignant neoplasm of lung (Acute) Hypokalemia (Resolved) Hypomagnesemia (Resolved) Nausea (Resolved) Preop cardiovascular exam (Resolved) Ventricular premature depolarization (Resolved) Pulmonary hypertension (Ruled-out) 1. POD #1, s/p left knee replacement, pain is controlled, further mgt per orthopedics 2. Hypertension, controlled, continue on Losartan 3. COPD, not in acute exacerbation, continue on Symbicort, albuterol prn, flonase 5. Anxiety/depression/PTSD/chronic pain syndrome, continue on Wellbutrin 6. DVT PPx- per orthopedics Inpatient E&M: 18765 Subs Hosp L2
[2019-07-25] MEDS: buPROPion (XL) 150 MG TABLET.XL PO (08:02)
[2019-07-25] MEDS: Senna/Docusate Sodium 1 Tablet 2 TABLET PO (08:02)
[2019-07-25] MEDS: Ensure Surgery 237 ML LIQUID PO ×2 (08:02→14:30)
[2019-07-25] MEDS: Losartan Potassium 25 MG Tablet PO (08:03)
[2019-07-25] MEDS: DULoxetine Hcl 30 MG Capsule PO (08:03)
[2019-07-25] MEDS: Famotidine 20 MG Tablet PO (08:03)
[2019-07-25 08:50] VITALS: BP 123/64; PULSE 79; RESP 16; TEMP 36.5; O2SAT 94
--- NOTE | 2019-07-25 09:27 | PN.ORTHO_ITS ---
Subjective: The patient was sitting in bedside chair upon examination. Patient denies any chest pain, shortness of breath, dizziness, lightheadedness, nausea or vomiting, or calf pain. Pain is controlled on medications. No adverse overnight events. Overall patient is doing well. There is concern with outpatient physical therapy as patient has spouse who is paralyzed and she will have difficult time getting to therapy. Patient also has previous history of rectal bleeding after hemorrhoidectomy. This occurred in 2017. Objective: Vital signs stable and afebrile. Patient is able to plantarflex and dorsiflex actively. Sensation is intact to light touch to saphenous, sural, superficial and deep peroneal, and tibial distribution. Dressing is clean dry and intact. Negative Homans bilaterally, negative signs and symptoms of DVT. - Physical Exam Vitals/I&O's: Vital Signs Temp Pulse Resp BP Pulse Ox 98.1 F 82 16 124/68 H 99 07/25/19 02:50 07/25/19 02:50 07/25/19 02:50 07/25/19 02:50 07/25/19 02:50 Oxygen Delivery Method Room Air Weight: 116.3 kg Body Mass Index (BMI) 37.8 Intake and Output for Last 24 Hours 07/23/19 07/24/19 07/25/19 23:59 23:59 23:59 Intake Total 2902.92 / 2902.92 Output Total 400 / 400 Balance 2902.92 / 2902.92 -400 / -400 General: Alert, Oriented x3, Cooperative, No apparent distress Laboratory Results 07/25/19 06:10: WBC 12.4 H, RBC 4.07 L, Hgb 12.7, Hct 38.8, MCV 95.3, MCH 31.2, MCHC 32.7, RDW Std Deviation 43.8, RDW Coeff of Kyle 12.7, Plt Count 298, MPV 9.6 07/25/19 06:10: Sodium 136, Potassium 4.0, Chloride 105, Carbon Dioxide 24.0, Anion Gap 7, BUN 13, Creatinine 0.94, Estim Creat Clear Calc 61.52, Est GFR (MDRD) Af Amer 77, Est GFR (MDRD) Non-Af 63, BUN/Creatinine Ratio 13.9, Glucose 139 H, Calcium 9.0 Current Medications Acetaminophen (Tylenol) 1,000 mg PO Q8 [facility] Last Admin: 07/25/19 05:23 Dose: 1,000 mg Documented by: Albuterol Sulfate (Ventolin Aerosols) 2.5 mg INHALATION Q4H PRN PRN Reason: shortness of breath or wheezin Albuterol Sulfate (Ventolin Aerosols) 2.5 mg INHALATION Q6HWA.RT [facility] Last Admin: 07/25/19 06:58 Dose: 2.5 mg Documented by: Aspirin (Aspirin, Baby) 81 mg PO BIDCM [facility] Last Admin: 07/25/19 08:12 Dose: Not Given Documented by: Atorvastatin Calcium (Lipitor) 20 mg PO QHS [facility] Last Admin: 07/24/19 20:47 Dose: 20 mg Documented by: Budesonide (Pulmicort Aerosol) 0.5 mg INHALATION Q12H.RT [facility] Last Admin: 07/25/19 06:58 Dose: 0.5 mg Documented by: Bupropion HCl (Wellbutrin Xl) 150 mg PO QAM [facility] Last Admin: 07/25/19 08:02 Dose: 150 mg Documented by: Duloxetine HCl (Cymbalta) 30 mg PO DAILY [facility] Last Admin: 07/25/19 08:03 Dose: 30 mg Documented by: Enteral Nutritional Formula (Ensure Surgery) 237 ml PO TIDCM [facility] Last Admin: 07/25/19 08:02 Dose: 237 ml Documented by: Famotidine (Pepcid) 20 mg PO DAILY [facility] Last Admin: 07/25/19 08:03 Dose: 20 mg Documented by: Fluticasone Propionate (Flonase Nasal [place]) 2 spray NASAL DAILY PRN PRN Reason: NASAL CONGESTION Sodium Chloride () 250 mls @ 15 mls/hr IV .[id number] PRN PRN Reason: Saline Flush Sodium Chloride () 250 mls @ 15 mls/hr IV .[id number] PRN PRN Reason: Additional IVPB Infusion Insulin Human Lispro (Humalog Kwikpen (Bkc)) 1 - 6 unit SC Q4H PRN PRN; Protocol PRN Reason: BG>/= 180, SEE PROTOCOL Losartan Potassium (Cozaar) 25 mg PO DAILY [facility] Last Admin: 07/25/19 08:03 Dose: 25 mg Documented by: Meclizine HCl (Antivert) 25 mg PO 4X/DAY PRN PRN PRN Reason: DIZZINESS Melatonin (Melatonin) 10 mg PO QHS [facility] Last Admin: 07/24/19 20:48 Dose: 10 mg Documented by: Morphine Sulfate () 2 - 4 mg IV Q2H PRN PRN PRN Reason: Pain Score 6-10/10 Last Admin: 07/24/19 14:12 Dose: 2 mg Documented by: Morphine Sulfate () 2 - 4 mg IV Q2H PRN PRN PRN Reason: Pain Score 6-10/10 Last Admin: 07/24/19 16:30 Dose: 4 mg Documented by: Ondansetron HCl (Zofran) 4 mg IV Q8H PRN PRN PRN Reason: NAUSEA Last Admin: 07/24/19 14:12 Dose: 4 mg Documented by: Oxycodone HCl (Oxyir) 5 - 10 mg PO Q4H PRN PRN PRN Reason: Pain Score 4-10/10 Last Admin: 07/25/19 08:01 Dose: 10 mg Documented by: Promethazine HCl (Phenergan) 12.5 mg IM Q6H PRN PRN; Protocol PRN Reason: NAUSEA/VOMITING Senna/Docusate Sodium (Senokot-S, Jazzy-Colace) 2 tablet PO BID [facility] Last Admin: 07/25/19 08:02 Dose: 2 tablet Documented by: Sodium Chloride () 10 - 40 ml IV UD PRN PRN Reason: SALINE FLUSH Last Admin: 07/24/19 22:37 Dose: 10 ml Documented by: Medical Necessity - Tobacco Use Smoking Status: Former smoker Tobacco Use: Non-smoker Assessment/Plan All Active Problems (Last Reviewed 07/03/19 @ 14:08 by Annia Chau) Chest heaviness (Acute) Dyspnea (Acute) Weakness (Acute) Near syncope (Acute) Encounter for screening for malignant neoplasm of lung (Acute) Hypokalemia (Resolved) Hypomagnesemia (Resolved) Nausea (Resolved) Preop cardiovascular exam (Resolved) Ventricular premature depolarization (Resolved) Pulmonary hypertension (Ruled-out) 1. S/P left total knee arthroplasty POD #1 2. Continue Pain Medications: Tylenol and oxycodone. Patient was placed on Cymbalta by Dr. Stanley Salmeron for 6 weeks postoperatively. 3. DVT Prophylaxis: Aspirin 81 mg twice daily with food. Continue with famotidine while on aspirin. Patient had history of rectal bleeding after a hemorrhoidectomy in 2017. This was discussed with Dr. Stanley Salmeron and the safest bet at this time will continue with the aspirin twice daily versus doing another anticoagulation medication. 4. PT/OT: Weightbearing as tolerated 5. H & H: 12.7/38.8, asymptomatic 6. Reactive leukocytosis: Currently 12.4, afebrile. Patient did receive Decadron intraoperatively 7. Continue postoperative medical management per medicine: Case was discussed with Dr. Diaz and she agrees to continue with the aspirin and famotidine postoperatively 8. Encouraged Incentive Spirometry 9. Disposition: Plan will be for discharge home today if patient's pain is well controlled and tolerates physical therapy. I do feel patient will benefit from home health care due to home situation with her spouse being paralyzed. She has a difficult time getting to a facility for physical therapy. Prescriptions will be E scribed to [facility]. Patient will follow-up per postop instructions. Case management will be involved with assisting on home health care. Patient's daughter was here from [place] and this was discussed in detail postoperative care. I have reviewed the [place] Automated Rx Reporting System (OARRS) report for this patient for refill pattern and other prescriber involvement as part of the appropriate surveillance for the provision of acute and chronic controlled medications. The report was requested and reviewed on the date of this entry and was considered in the prescribing process.
--- NOTE | 2019-07-25 09:50 | PCM.DC.TKR ---
Discharge Diet: No Restrictions Discharge Activity: May Not Drive May shower in (days): 1 - Dressing must be intact to the skin, turn dressing away from water Ice area for (Minutes): 20 - Every 1-2 hours while awake Weight Bearing Status: Weight bearing as tolerated Elevate: Operative Extremity Additional Activity Instructions:: Wear elastic stockings for 2 weeks after your surgery. Call your doctor if your incision/area has: Continuous Slow Oozing, Sudden Increased Bleeding, Increased Pain/ Swelling, Increased Redness, Foul Smelling Discharge Call your doctor if you observe: Fever of 101 or Higher, Coldness, Increased Pain, Numbness or Tingling, Change in Color, Calf discomfort, Uncontrolled pain Remove Dressing in (days):: 4 - Okay to remove dressing on July 29, 2019 Additional Instructions: DVT prophylaxis: Continue with the aspirin twice daily with food and continue to take the famotidine daily while on aspirin. Watch out for signs of GI bleed or rectal bleeding including dark stools or any blood in the stool. Contact orthopedics immediately if experiencing any of these. Cymbalta: Will take for 6 weeks postoperatively. After that will be managed by the primary care physician if still needed. Allergies/Adverse Reactions: Allergies dibucaine Allergy (Severe, Verified 07/24/19 05:51) Rash, itching Iodinated Contrast Media [Iodinated Contrast- Oral and IV Dye] Allergy (Severe, Verified 07/24/19 05:51) RAsh, Itching povidone-iodine [From Betadine] Allergy (Verified 07/24/19 05:51) Hives soap [From Betadine] Allergy (Verified 07/24/19 05:51) Hives wool Allergy (Verified 07/24/19 05:51) Rash do not use mattress pads NSAIDS (Non-Steroidal Anti-Inflamma Adverse Reaction (Severe, Verified 07/24/19 05:51) GI Bleeding adhesive tape Adverse Reaction (Intermediate, Verified 07/24/19 05:51) localized skin reaction acetaminophen [From Darvocet-N] Adverse Reaction (Verified 07/24/19 05:51) Vomiting codeine Adverse Reaction (Verified 07/24/19 05:51) Vomiting hydrocodone bitartrate [From Vicodin] Adverse Reaction (Verified 07/24/19 05:51) Vomiting morphine Adverse Reaction (Verified 07/24/19 05:51) Vomiting nickel Adverse Reaction (Verified 07/24/19 05:51) ears get rash with earrings propoxyphene napsylate [From Darvocet-N] Adverse Reaction (Verified 07/24/19 05:51) Vomiting chloraPrep Allergy (Uncoded 07/24/19 05:51) Hives Medications to take at Discharge budesonide-formoterol HFA 160 mcg-4.5 mcg/actuation aerosol inhaler 2 puff INHALATION BID 10/24/18 albuterol sulfate 90 mcg/actuation aerosol inhaler 1 puff INHALATION Q6H PRN #8.5 g 04/24/19 Melatonin 10 mg PO QHS 06/07/19 Meclizine HCl [Antivert] 25 mg PO 4X/DAY PRN PRN #30 tab 06/08/19 Fluticasone 0.05% [Flonase Nasal [place]] 2 spray NASAL DAILY PRN 07/08/19 Hydrocortisone 2.5% Crm [Hytone] 1 applic TOPICAL BID PRN PRN 07/08/19 L.acidoph,Paracasei, B.lactis [Probiotic] 1 ea PO DAILY 07/19/19 Triamcinolone 0.1% Cream [Kenalog] 1 applic TOPICAL BID 07/19/19 bupropion HCl 150 mg 24 hr tablet, extended release 150 mg PO QAM #90 tab 07/22/19 losartan 25 mg tablet 25 mg PO DAILY #90 tab 07/22/19 rosuvastatin 10 mg tablet 10 mg PO QHS #90 tab 07/22/19 Famotidine [Pepcid AC] 20 mg PO DAILY PRN 07/23/19 Acetaminophen [Tylenol] 1,000 mg PO Q8 #100 tab 07/25/19 Aspirin [Aspirin, Baby] 81 mg PO BIDCM #60 tab.chew 07/25/19 Duloxetine Hcl [Cymbalta] 30 mg PO DAILY #42 cap 07/25/19 Oxycodone [Oxyir] 5 - 10 mg PO Q4H PRN PRN 5 Days #60 tablet 07/25/19 Senna/Docusate Sodium [Senokot-S] 2 tab PO BID #10 tab 07/25/19 The following prescriptions were given: Aspirin [Aspirin, Baby] 81 mg PO BIDCM #60 tab.chew Transmission Status: Pending to [facility] Duloxetine Hcl [Cymbalta] 30 mg PO DAILY #42 cap Transmission Status: Pending to [facility] Oxycodone [Oxyir] 5 - 10 mg PO Q4H PRN PRN 5 Days #60 tablet PRN Reason: Pain Score 4-10/10 Transmission Status: Sent to [facility] Senna/Docusate Sodium [Senokot-S] 2 tab PO BID #10 tab Transmission Status: Pending to [facility] Acetaminophen [Tylenol] 1,000 mg PO Q8 #100 tab Transmission Status: Pending to [facility] Primary Care Physician: Jenifer Pool MD [Primary Care Provider] - Test Results: Test results from this visit will be discussed in further detail at your follow-up appointment, if applicable. Please Follow Up With: home health physical therapy Please Follow Up With: Jayesh Navarro PA-C When: 08/08/19 @ 3:15 pm
--- NOTE | 2019-07-25 11:30 | CASEMGMT ---
JHONY MARION Face to Face with patient for initial transition planning/care coordination assessment. JHONY MARION introduced self and role at [facility]. Patient sitting in chair, alert and oriented, daughter at bedside. Patient willing to participate in assessment and is able to answer all questions appropriately. Care providers, pharmacy, and demographics verified. Patient wishes to discharge home with [facility]. JHONY MARION provided list of [facility] agencies and patient and family would like [facility]. JHONY MARION sent referral to [facility] and they are able to accept. JHONY MARION also provided list of private duty aides. Patient states he has no further needs or concerns at this time. CM to follow for discharge planning needs that may arise. PCP: Corine Specialists: Colton, community ambassador; Daniel, pulmonology Preferred Pharmacy: [facility] retail Insurance: [facility], [employer] Prescription Benefit: yes Living Will/HPOA: yes, daughter Arleen Cavanaugh LNOK: , daughters Living Arrangements: Patient lives with , who she cares for, in condo with small step to enter the home. Transportation: family DME/HHC: Patient has BSC, cane, walker, cpap, nebulizer and cpap at home. Patient to go home with [facility]. Disposition Plan: Patient to discharge home with family support and follow-up plans in place. Radha RANDLE, RN, CM
--- NOTE | 2019-07-25 13:02 | CASEMGMT ---
Intro role of CM to patient and [employer] form explained re: Observation status for treatment of knee replacement. Explained hospitalization will be paid per insurance policy for Outpatient billing and condition will continue to be evaluated for Inpt necessity. Also let pt know that [facility] sends paper in the billing packet with their phone number if questions arise. Discussed Pharmacy section of [employer] form and self administered medication guideline. Pt verbalizes understanding and does not have further questions. Form signed and placed in chart, copy to pt. LISA BOOKER BSN CM
[2019-07-25] MEDS: Ondansetron 4 MG/2 ML Vial IV (14:27)
[2019-07-25] MEDS: 0.9% Saline Lock 10 ML Syringe IV (14:27)
[2019-07-25 14:30] VITALS: BP 147/67; PULSE 82; RESP 16; TEMP 36.6; O2SAT 96
--- NOTE | 2019-07-25 14:33 | CASEMGMT ---
JHOYN MARION updated that patient will need IV ATB at discharge. JHONY MARION in to discuss discharge planning and provided list of HHC and Infusion companies. Patient would like [facility] and [facility]. JHONY MARION called patient's pharmacy for prescription coverage Medicare part D BIN: [id number] ID: [id number] Group: [id number] JHONY MARION sent referrals to [facility] and [facility]. JHONY MARION will continue to follow this patient and plan for a safe discharge.
== END 2019-07-25 15:14 | disposition home health service (06) ==
LOC: MS3 07-25 00:41
PROVIDERS: Admitting Provider Specialist; Family Provider Internal Medicine; PCP Internal Medicine; Referring Provider Specialist; Visit Provider Internal Medicine
PROC: (CPT 27447; principal; 2019-07-24 06:45)
DX: M17.12 Unilateral primary osteoarthritis, left knee (principal); G47.33 Obstructive sleep apnea (adult) (pediatric); I10 Essential (primary) hypertension; M79.7 Fibromyalgia; E78.00 Pure hypercholesterolemia, unspecified; M06.9 Rheumatoid arthritis, unspecified; R73.03 Prediabetes; I48.0 Paroxysmal atrial fibrillation; I27.20 Pulmonary hypertension, unspecified; I44.7 Left bundle-branch block, unspecified; Z87.891 Personal history of nicotine dependence; Z79.899 Other long term (current) drug therapy; Z79.51 Long term (current) use of inhaled steroids; Z86.718 Personal history of other venous thrombosis and embolism; J44.9 Chronic obstructive pulmonary disease, unspecified; K21.9 Gastro-esophageal reflux disease without esophagitis; F41.9 Anxiety disorder, unspecified; F32.9 Major depressive disorder, single episode, unspecified; G89.29 Other chronic pain; F43.10 Post-traumatic stress disorder, unspecified
CPT/HCPCS: 01400; 27447; 64447; 36415; 73560; 80048; 82962; 85025; 85027; 87081; 94640; 96365; 96366; 96375; 96376; 97110; 97116; 97162; 97166; 97530; 97535; 99218; 99251; C1776; J7120; A4216; G0378; G0379; G0463; J2405

== ENCOUNTER 2019-07-31 16:16 | Emergency (ER) | payer MEDICARE, OTHER, SELFPAY ==
[2019-07-24 11:15] VITALS: BMI 37.8
[2019-07-31 16:17] VITALS: BP 147/79; PULSE 75; RESP 16; TEMP 36.6; O2SAT 100; BMI 37.2
== END 2019-07-31 18:31 | disposition left against medical advice (07) ==
LOC: ED 18:25
PROVIDERS: Emergency Provider Emergency Medicine; PCP Internal Medicine
DX: R69 Illness, unspecified (principal); Z53.21 Procedure and treatment not carried out due to patient leaving prior to being seen by health care provider

== ENCOUNTER → 2019-11-05 15:56 | Outpatient (CLI) | payer MEDICARE, OTHER, SELFPAY ==
[2019-11-05 10:59] VITALS: BMI 38.5
[2019-11-06 07:09] LABS: SARS-COV-2 TOTAL ABS Nonreactive (Nonreactive)
== END ==
PROVIDERS: PCP Internal Medicine; Referring Provider Internal Medicine Pulmonary Disease; Visit Provider Internal Medicine Pulmonary Disease
DX: J45.909 Unspecified asthma, uncomplicated (principal); R05 Cough
CPT/HCPCS: 86769; G2023

== ENCOUNTER → 2019-11-07 17:02 | Outpatient (CLI) | payer MEDICARE, OTHER, SELFPAY ==
[2019-11-05 10:59] VITALS: BMI 38.5
[2019-11-07 18:06] LABS: Absolute Lymphocyte Count 1.89 X10^3/uL (0.83-4.51); Absolute Neutrophil Count 2.9 X10^3/uL (2.0-7.7); Basophil# 0.06 X10^3/uL; Basophil% 1.1 % (0-1); Eosinophil# 0.28 X10^3/uL; Hematocrit 41.6 % (37-47); Hemoglobin 13.3 g/dL (12.0-15.0); Lymphocyte # 1.89 X10^3/ul (4.0); Lymphocyte % 33.8 % (19-41); Mean Corpuscular Hgb 30.2 pg (27.0-32.0); Mean Corpuscular Volume 94.3 fL (81-99); Mean Platelet Vol. 9.9 fl (6.2-12.0); Monocyte# 0.46 X10^3/uL; Monocyte% 8.2 % (0-10); NRBC Flagged by Analyzer 0 % (0-5); Neutrophil # 2.88 X10^3/uL (2.7-7.7); Neutrophil % 51.5 % (47-70); Platelet Count 311 K/mm3 (150-450); RBC Distribution Width CV 12.3 % (11.6-14.6); RBC Distribution Width SD 43.1 fl (35.1-43.9); Red Blood Count 4.41 M/mm3 (4.2-5.4); White Blood Count 5.6 K/mm3 (4.4-11.0)
[2019-11-07 18:14] LABS: Erythrocyte Sedimentation Rate 11 mm/hr (0-30)
[2019-11-07 18:16] LABS: CRP < 2.90 mg/L (0.0-3.0)
== END ==
PROVIDERS: PCP Internal Medicine; Referring Provider Physician Assistant Surgical; Visit Provider Physician Assistant Surgical
DX: Z96.652 Presence of left artificial knee joint (principal)
CPT/HCPCS: 36415; 85025; 85652; 86140

== ENCOUNTER → 2019-11-13 09:57 | Outpatient (CLI) | payer MEDICARE, OTHER, SELFPAY ==
[2019-11-05 10:59] VITALS: BMI 38.5
--- NOTE | 2019-11-13 09:59 | ECHOD_ITS ---
Reason For Study: SOB Procedure This was a 2D Doppler, Color Flow transthoracic echocardiogram. Exam performed in department. Left Ventricle Normal LV size. Left ventricular systolic function is lower limits of normal. Septal motion consistent with IVCD. The estimated ejection fraction is 53 %. Right Ventricle Normal RV size. Normal systolic function. Atria Normal left atrium. Normal right atrium. Mitral Valve Normal mitral valve. Tricuspid Valve Normal tricuspid valve. Mild (1+) tricuspid valve insufficiency. Pulmonary artery systolic pressure is 28 mmHg. Aortic Valve The aortic valve is not well visualized. Pulmonic Valve Normal pulmonic valve. Great Vessels Normal aortic root. The pulmonary artery is normal size. Inferior vena cava collapse with respiration. Pericardium/Pleural No pericardial effusion. MMode/2D Measurements & Calculations LVIDd: 4.6 cm IVSd: 1.1 cm Ao root diam: 3.4 cm LVIDs: 2.6 cm LVPWd: 1.1 cm RVDd: 3.6 cm FS: 42.6 % LAV(MOD-bp): 68.5 ml LVAd ap4: 31.2 cm2 SV(MOD-sp4): 54.8 ml LAV(MOD-bp) Indexed: 29.8 ml/m2 EDV(MOD-sp4): 92.4 ml LAV(MOD-sp2): 71.7 ml EDV(sp4-el): 93.8 ml LAV(MOD-sp4): 63.1 ml LVAs ap4: 17.8 cm2 ESV(MOD-sp4): 37.6 ml ESV(sp4-el): 36.5 ml EF(MOD-sp4): 59.3 % EF(sp4-el): 61.1 % SV(sp4-el): 57.3 ml LA A4 area: 20.4 cm2 LA dimension(2D): 2.9 cm RA A4 area: 14.6 cm2 Doppler Measurements & Calculations MV E max arnav: 62.7 cm/sec Lat Peak E' Arnav: 6.1 cm/sec Med Peak E' Arnav: 7.8 cm/sec MV A max arnav: 92.7 cm/sec E/E' lat: 10.3 E/E' med: 8.1 MV E/A: 0.68 Ao V2 max: 178.8 cm/sec LV V1 max: 134.0 cm/sec PA V2 max: 128.4 cm/sec Ao max P.8 mmHg LV V1 max P.2 mmHg TR max arnav: 239.0 cm/sec TR max P.9 mmHg Interpretation Summary Normal LV size. Left ventricular systolic function is lower limits of normal. Septal motion consistent with IVCD. The estimated ejection fraction is 53 %. Mild (1+) tricuspid valve insufficiency. Ordering Physician: Domenic Sosa/Alonzo Segura Referring Physician: Jenifer Pool Performed By: Magalys Cabrera RDCS
== END ==
PROVIDERS: PCP Internal Medicine; Referring Provider Nurse Practitioner Family; Visit Provider Nurse Practitioner Family
DX: I48.0 Paroxysmal atrial fibrillation (principal); Z98.890 Other specified postprocedural states; I44.7 Left bundle-branch block, unspecified; R06.00 Dyspnea, unspecified
CPT/HCPCS: 93306

== ENCOUNTER → 2020-02-26 | Outpatient (CLI) | payer MEDICARE, OTHER, SELFPAY ==
[2020-02-25 15:27] VITALS: BMI 38.9
[2020-02-26 18:45] LABS: ALB/GLOB Ratio 1.1 RATIO (0.9-2.4); AST(SGOT) 21 U/L (15-37); Alanine Aminotransfer ALT/SGPT 39 U/L (13-56); Albumin, Serum 3.9 g/dL (3.2-5.0); Alkaline Phosphatase 78 U/L (45-117); Anion Gap 8 (5-15); BUN 21 mg/dL (7-18); BUN/Creat Ratio 24.4 RATIO (10-20); Calcium,Total 9.1 mg/dL (8.5-10.1); Chloride 103 mmol/L (98-107); Creatinine, Serum 0.86 mg/dL (0.55-1.02); EST Glomerular Filtration Rate 70 mL/min (>60); Est Glom Filt Rate - Afr Amer 84 mL/min (>60); Globulin 3.5 g/dL (2.2-4.2); Glucose 91 mg/dL (74-106); Potassium 3.6 mmol/L (3.5-5.1); Protein, Total 7.4 g/dL (6.4-8.2); Sodium Level 139 mmol/L (136-145)
== END | disposition home or self-care (01) ==
LOC: MTLAB 16:52
PROVIDERS: PCP Internal Medicine; Referring Provider Internal Medicine; Visit Provider Internal Medicine
DX: I10 Essential (primary) hypertension (principal)
CPT/HCPCS: 36415; 80053

== ENCOUNTER 2020-03-13 10:00 | Outpatient (RCR) | payer MEDICARE, OTHER, SELFPAY ==
[2020-01-31 11:18] VITALS: BMI 38.4
[2020-02-25 15:27] VITALS: BMI 38.9
--- NOTE | 2020-02-27 11:14 | HP.PTEVAL_ITS ---
Patient's Visit Information JERMAINE YEE is a 69 year old F referred to Physical Therapy by Dr. Maycol Salmeron MD with a diagnosis of L TKA. Date of Evaluation: 02/27/20 Physical Therapist: Seun Gaffney, PT, ATC - Visit Plan Frequency: 2-3x /Week Duration: 4-6 Weeks Plan: L knee stretching and strengthening, balance and proprio, stair negotiation, DTR, nustep, and HEP - Subjective DOS: 07/24/19. Pt reports she had L TKA performed at that time. Pt reports this surgery went a lot better than her R TKA. Pt reports she is unable to take pain meds due to allergic reactions. Pt reports her greatest complaint now is that when she either has her L knee bent or straight for a prolonged period of time, when she attempts to move it again, it feels like something is ripping. Pt reports she wants to be able to squat again, and notes her balance is really of still at this time. Pt reports she still feels weak, and has difficulty with stair negotiation. Pt cont to have sleep difficulty secondary to pain. 0/10 pain at rest, 10/10 pain at worst - Pain L knee TKA Pain Intensity (Out of 10): 0 Pain Intensity Range: 10 - Objective Neuro: B LE sensation is WNL to light touch with exception to L L4-5 dermatone. B carmen reflex= 1/3. ROM: R knee 0-5-120; L knee 0-2-108. MMT: R knee 5/5 throughout. L knee flex= 3/5, ext= 4/5. Girth at joint line: R 48 cm, L 50 cm. Gait: Pt is able to ambulate greater than 1000' I without difficulty - Goals Goal 1:: Decrease L knee pain x 50% to aid with sleep Goal Time Frame: 4-6 Weeks Goal 2:: Increase L knee strength x 1 grade to aid with IADL's Goal Time Frame: 4-6 Weeks Goal 3:: I with HEP Goal Time Frame: 4-6 Weeks - Rehabilitation Potential Physical Therapy Diagnosis: L knee pain, weakness, and limited ROM secondary to L TKA Rehabilitation Potential: Good - Anticipated Interventions Patient/Client Instruction: Educate patient on: Condition, Plan of Care For the Purpose of:: To improve self management Therapeutic Exercise to Include: Strength training, Endurance training, Balance training, Flexibilty training, Active ROM, Dynamic Lumbar Stabilization For the Purpose of:: To decrease pain, To increase ROM, To improve muscle perfor esdras and motor function Cryotherapy (ice pack, ice massage): Yes For the Purpose of:: To decrease pain Thank you for the opportunity to evaluate your patient. For Medicare and Medicare HMO plans, please review the plan of care and approve it. It will need to be FAXED BACK to us at [phone] for Medicare purposes. For Medicare only, by signing this I certify the plan of care. Please let me know if there are questions or concerns regarding this plan of care. Physician Signature: Date:
--- NOTE | 2020-04-29 10:31 | HP.PT.NRP ---
JERMAINE YEE was seen in my office for initial evaluation on 02/27/20. The following Plan of Care was established for this patient: Initial Frequency: 2-3x /Week Initial Duration: 4-6 Weeks Patient/Client Instruction: Educate patient on: Condition, Plan of Care For the Purpose of:: To improve self management Therapeutic Exercise to Include: Strength training, Endurance training, Balance training, Flexibilty training, Active ROM, Dynamic Lumbar Stabilization For the Purpose of:: To decrease pain, To increase ROM, To improve muscle performance and motor function Cryotherapy (ice pack, ice massage): Yes For the Purpose of:: To decrease pain This patient was last seen in our office . Pertinent comments regarding their Physical therapy will appear below: Pt was treated for 5 PT visits for L TKA through the date of 03/13/20. Pt has not returned through todays date and is discontinued at this time. At this point I will be discontinuing this patient from physical therapy. I would be happy to see this patient again in the future if found appropriate by the physician. Thank you! Seun Gaffney, PT, ATC
== END 2020-03-13 19:00 | disposition home or self-care (01) ==
LOC: PT 10:00
PROVIDERS: PCP Internal Medicine; Referring Provider Specialist; Visit Provider Specialist
DX: M17.12 Unilateral primary osteoarthritis, left knee (principal); Z96.652 Presence of left artificial knee joint
CPT/HCPCS: 97110; 97161

== ENCOUNTER 2020-03-19 17:08 | Emergency (ER) | payer MEDICARE, OTHER, SELFPAY ==
[2020-02-25 15:27] VITALS: BMI 38.9
[2020-03-19 17:10] VITALS: BP 155/110; PULSE 84; RESP 18; TEMP 36.1; O2SAT 98; BMI 39.1
[2020-03-19 18:06] LABS: Bacteria 0 SEEN /hpf (None Seen); Mucous, Urine 0 SEEN /hpf (<or=2+)
[2020-03-19 18:08] LABS: Color, Urine Yellow (Yellow); Glucose, Dipstick Normal (Normal); Ketone-Dipstick Negative (Negative); Leukocyte Esterase-Dipstick 100 /ul (Negative); Nitrite-Dipstick Negative (Negative); Occult Blood-Urine 50 /ul (Negative); Protein-Dipstick Negative (Negative); Urine Bilirubin Dipstick Negative (Negative); Urine Clarity Sl. Cloudy (Clear); Urine Urobilinogen Normal (Normal)
[2020-03-19 18:23] LABS: Amorphous Sediment 1+ PHOS; Red Blood Cells-Urine 0-5 SEEN /hpf (0-5); Squamous Epithelial Cells - UA 0-5 SEEN /hpf (5-10); White Blood Cells 10-25 SEEN /hpf (0-5)
--- NOTE | 2020-03-19 18:47 | ED.DCSUM_ITS ---
History of Present Illness Chief Complaint: Complaint Informant: Patient Onset: Today Context: Gradual Onset Timing: Continuous Narrative: Patient is evaluated for 1 day of hematuria and dysuria. She states he is hav ing associated bladder spasms. Her symptoms been worsening throughout the day. She is has a remote history of UTIs. States she is generalized fatigue but denies any other associated symptoms such as fever, chills, nausea or vomiting. She states the spasms in her bladder also causing her to have some diarrhea. She has some associated suprapubic and back discomfort. Patient states that she has been having some worsening urinary incontinence especially when she stands up or sneezes for the past 9 months or so. She has not seen urology for this. She notes her urinary incontinence is much worse today with her associated symptoms. No other complaints at this time. Past Medical History - Allergies and Home Meds Allergies/Adverse Reactions: Allergies dibucaine Allergy (Severe, Verified 03/19/20 17:09) Rash, itching Iodinated Contrast Media [Iodinated Contrast- Oral and IV Dye] Allergy (Severe, Verified 03/19/20 17:09) RAsh, Itching povidone-iodine [From Betadine] Allergy (Verified 03/19/20 17:09) Hives soap [From Betadine] Allergy (Verified 03/19/20 17:09) Hives wool Allergy (Verified 03/19/20 17:09) Rash do not use mattress pads NSAIDS (Non-Steroidal Anti-Inflamma Adverse Reaction (Severe, Verified 03/19/20 17:09) GI Bleeding adhesive tape Adverse Reaction (Intermediate, Verified 03/19/20 17:09) localized skin reaction acetaminophen [From Darvocet-N] Adverse Reaction (Verified 03/19/20 17:09) Vomiting codeine Adverse Reaction (Verified 03/19/20 17:09) Vomiting hydrocodone bitartrate [From Vicodin] Adverse Reaction (Verified 03/19/20 17:09) Vomiting morphine Adverse Reaction (Verified 03/19/20 17:09) Vomiting nickel Adverse Reaction (Verified 03/19/20 17:09) ears get rash with earrings propoxyphene napsylate [From Darvocet-N] Adverse Reaction (Verified 03/19/20 17:09) Vomiting chloraPrep Allergy (Uncoded 03/19/20 17:09) Hives Primary Care Physician: Jenifer Pool MD [Primary Care Provider] - Debra Tijerina MD [STAFF PHYSICIAN] - Past Medical History: - - COPD, depression, hyperlipidemia, fibromyalgia, hype rtension, obstructive sleep apnea, type 2 diabetes mellitus Surgical History: noncontributory, hysterectomy, - Lives: With Family Smoking Status: Never smoker - Family History Maternal Family History: Family History (Last Reviewed 02/25/20 @ 15:26 by Luiza Islas) Father Atrial fibrillation Uncle Atrial fibrillation Grandmother Breast cancer Mother Breast cancer Family History: Reports: Cancer - alive age 83, ovarian and bladder Paternal Family History: Family History (Last Reviewed 02/25/20 @ 15:26 by Luiza Islas) Father Atrial fibrillation Uncle Atrial fibrillation Grandmother Breast cancer Mother Breast cancer Family History: Reports: Heart Disease - alive age 84 Offspring Family History: Family History (Last Reviewed 02/25/20 @ 15:26 by Luiza Islas) Father Atrial fibrillation Uncle Atrial fibrillation Grandmother Breast cancer Mother Breast cancer Family History: Reports: - - daughter with RA, 2 children and 5 grandchildren Review of Systems General: Denies: Chills, Fever, Sweats Eyes: Denies: Visual changes - bilaterally, Diplopia ENT: Denies: Rhinorrhea, Sore throat Cardiovascular: Denies: Chest pain, Palpitations Respiratory: Denies: Dyspnea, Cough, Dyspnea on exertion Gastrointestinal: Denies: Abdominal pain, Nausea, Vomiting, Diarrhea, Melena, Hematochezia Genitourinary: Reports: Dysuria, Hematuria, Frequency, - - Worsening urge incontinence Musculoskeletal: Reports: Back pain. Denies: Extremity Pain Skin: Denies: Rash, Wounds Neurological: Denies: Headache, Weakness, Numbness Physical Exam Vital Signs/Narrative: Vital Signs Temp Pulse Resp BP Pulse Ox 03/19/20 17:10 96.9 F L 84 18 155/110 H 98 Inital Vital Signs reviewed: Yes General: Well nourished, Well developed, No Acute Distress Head: Normocephalic, Atraumatic Eyes: Perrl, EOMI ENT: Moist mucous membranes, No rhinorrhea Neck: Supple, Nontender Cardiovascular: Regular rate, Regular rhythm, No murmurs Respiratory: No distress, CTA bilaterally, Chest nontender Abdomen: Soft, Nontender, Nondistended, Normal bowel sounds. Negative for: Guarding, Rebound tenderness Back: Nontender, Normal Inspection, - - Mild low back tenderness. Negative for: CVA tenderness, Spinal tenderness Extremities: Nontender, No edema Skin: Normal color, No rash Neurological: Alert, Oriented x3, Cranial nerves II-XII grossly intact, Normal Strength, Normal Sensation Psychological: Normal affect, Normal Mood Diagnostic/Tx/Re-eval Laboratory Data 03/19/20 17:50 Urine Color Yellow Urine Clarity Sl. Cloudy Urine pH 7.0 Ur Specific [place] 1.010 Urine Protein Negative Urine Glucose (UA) Normal Urine Ketones Negative Urine Occult Blood 50 H Urine Nitrite Negative Urine Bilirubin Negative Urine Urobilinogen Normal Ur Leukocyte Esterase 100 H Urine RBC 0-5 SEEN Urine WBC 10-25 SEEN Ur Squamous Epith Cells 0-5 SEEN Amorphous Sediment 1+ PHOS Urine Bacteria 0 SEEN Urine Mucus 0 SEEN - Medical Decision Making Patient evaluated for 1 day of dysuria, hematuria and worsening urinary incontinence. Patient notes that she has had what sounds like overflow incontinence for the past 6 to 7 months as well. She denies any systemic symptoms. Her vital signs are normal. She appears nontoxic in no acute distress. Urinalysis is consistent with UTI. Patient be started on Keflex and Pyridium and urine culture sent. I do not spelt pyelonephritis or more serious infection at this time. I do not think blood work is indicated. Patient will be referred to urology given her chronic incontinence issues. Is possible this could have contributed to her UTI as she does sit in depends a lot. Patient is counseled on signs and symptoms requiring return to the emergency room. Patient verbalizes agreement and understand this plan. Patient discharged home in stable and improved condition. ED Disposition - Plan for ED Patient: Disposition: Home or Assisted Living Diagnosis: UTI (urinary tract infection) Instructions: ED CYSTITIS Female Adult Prescriptions: Cephalexin [Keflex] 500 mg PO Q12 #14 cap Transmission Status: Received by [id number] Phenazopyridine HCl [Pyridium] 200 mg PO TID PRN PRN #6 tab PRN Reason: pain with urination Transmission Status: Received by [id number] Referrals: Jenifer Pool MD [Primary Care Provider] - Debra Tijerina MD [STAFF PHYSICIAN] -
[2020-03-19] MEDS: Cephalexin 250 MG Capsule 500 MG PO (19:20)
[2020-03-19] MEDS: Phenazopyridine 95 MG Tablet 190 MG PO (19:21)
== END 2020-03-19 19:23 | disposition home or self-care (01) ==
PROVIDERS: Emergency Provider Emergency Medicine; PCP Internal Medicine
DX: N39.0 Urinary tract infection, site not specified (principal); R31.9 Hematuria, unspecified; I10 Essential (primary) hypertension; J44.9 Chronic obstructive pulmonary disease, unspecified; E78.5 Hyperlipidemia, unspecified; M79.7 Fibromyalgia; F32.9 Major depressive disorder, single episode, unspecified; Z79.899 Other long term (current) drug therapy
CPT/HCPCS: 81001; 87086; 87088; 87186; 99281

== ENCOUNTER → 2020-04-21 14:35 | Outpatient (CLI) | payer MEDICARE, OTHER, SELFPAY ==
[2020-04-21 13:57] VITALS: BMI 39.3
--- NOTE | 2020-04-21 14:37 | CT_ITS ---
STUDY: LOW DOSE CT LUNG CANCER SCREENING REASON FOR EXAM: Female, 69 years old. Tobacco use, former smoker, 76 year pack history, smoked 1.5 packs/day x 30 years, COPD. RADIATION DOSAGE (If Supplied By Facility): CTDIvol = ( 4.02 ) mGy, DLP = ( 140.94 ) mGycm TECHNIQUE: No contrast was administered. Low dose technique was utilized (average mAS-38 and kVp 120). 1.25 mm axial source images with a slice interval of 1.25-mm were reconstructed in lung windows. 2.5 mm axial source images with a slice interval of 2.5-mm were reconstructed in lung windows. 5.0 mm axial source images with a slice interval of 5.0-mm were reconstructed in soft tissue windows. Nodule measured using lung windows on PACS and/or independent workstation with automated measurement of minimum and maximum diameter. Nodule measurement reported as average diameter rounded to the nearest whole number. Growth is defined as an increase ins size of greater than 1.5 mm. COMPARISON: Comparison is made with prior study dated 04/23/2019. NODULES: Stable 5.1 mm well-defined nodule in the medial aspect of the left upper lobe as seen on axial image #74. Emphysema: Mild degree of emphysematous changes. Stable mild scarring in the peripheral aspect of the right middle lobe as well as in the lower lobes. Stable lingular scarring. Endobronchial lesion: None Aorta: Atherosclerotic plaque formation. Coronary arteries: No coronary artery calcification is seen. Heart: Unremarkable Pulmonary artery: Unremarkable Mediastinal nodes: No significant adenopathy is present. Other chest and abdominal findings: CT/Low Dose CT Lung Screening IMPRESSION: Lung-RADS category 2 - Continue annual screening with LDCT in 12 months. IMPORTANT NOTES FOR USE: ACR Lung-RADS Version 1.0 Assessment Categories Release Date: September 16, 2013 Category: Coded 0-4 bases on nodule(s) with highest degree of suspicion. Negative screen is defined as categories 1 and 2; a positive screen is defined as categories 3 and 4. Category 3 and 4A nodules that are unchanged on interval CT should be coded as category 2, and individuals returned to screening in 12 months. Category 4X: Category 3 or 4 nodules with additional imaging findings that increase the suspicion of lung cancer, such as spiculation, GGN that doubles in size in 1 year, enlarged lymph notes, etc. Category Modifiers: S (significant finding unrelated to lung cancer) and C (prior history of treated lung cancer) may be added to the 0-4 Lung-RADS Electronically Signed: Kyrie Dumas, at 15:02 EST , Service support ,
== END ==
PROVIDERS: PCP Internal Medicine; Referring Provider Nurse Practitioner Family; Visit Provider Nurse Practitioner Family
DX: Z12.2 Encounter for screening for malignant neoplasm of respiratory organs (principal); Z87.891 Personal history of nicotine dependence
CPT/HCPCS: G0297

== ENCOUNTER → 2020-04-23 10:10 | Outpatient (CLI) | payer MEDICARE, OTHER, SELFPAY ==
[2020-04-21 13:57] VITALS: BMI 39.3
== END ==
PROVIDERS: PCP Internal Medicine; Referring Provider Internal Medicine; Visit Provider Internal Medicine
DX: R50.9 Fever, unspecified (principal)
CPT/HCPCS: 87635; C9803; U0003

== ENCOUNTER → 2020-05-21 13:48 | Outpatient (CLI) | payer MEDICARE, OTHER, SELFPAY ==
[2020-05-21 12:55] VITALS: BMI 39.7
[2020-05-21 15:37] LABS: T4 Free Direct 0.87 ng/dL (0.76-1.46); Thyroid Stim Hormone (TSH) 2.55 uIU/mL (0.358-3.74)
== END ==
PROVIDERS: PCP Internal Medicine; Referring Provider Internal Medicine; Visit Provider Internal Medicine
DX: Z13.29 Encounter for screening for other suspected endocrine disorder (principal); I48.0 Paroxysmal atrial fibrillation
CPT/HCPCS: 36415; 84439; 84443

== ENCOUNTER → 2020-07-17 11:59 | Outpatient (CLI) | payer MEDICARE, OTHER, SELFPAY ==
[2020-07-17 10:47] VITALS: BMI 38.9
[2020-07-17 13:02] LABS: BNP,B-Type NATRIURETIC PEPTIDE 10.3 pg/mL (0-100)
== END ==
PROVIDERS: PCP Internal Medicine; Referring Provider Nurse Practitioner Family; Visit Provider Nurse Practitioner Family
DX: R06.02 Shortness of breath (principal)
CPT/HCPCS: 36415; 83880

== ENCOUNTER → 2020-07-30 15:55 | Outpatient (CLI) | payer MEDICARE, OTHER, SELFPAY ==
[2020-07-30 13:06] VITALS: BMI 38.9
[2020-07-30 15:58] LABS: Bacteria 0 SEEN /hpf (None Seen); Red Blood Cells-Urine 0 SEEN /hpf (0-5); Squamous Epithelial Cells - UA 0 SEEN /hpf (5-10); White Blood Cells 0 SEEN /hpf (0-5)
[2020-07-30 16:50] LABS: Color, Urine Yellow (Yellow); Glucose, Dipstick Normal (Normal); Ketone-Dipstick 5 mg/dl (Negative); Leukocyte Esterase-Dipstick 25 /ul (Negative); Nitrite-Dipstick Negative (Negative); Occult Blood-Urine 10 /ul (Negative); Protein-Dipstick 15 mg/dl (Negative); Specific Gravity, Urine 1.015 (1.002-1.030); Urine Bilirubin Dipstick Negative (Negative); Urine Clarity Clear (Clear); Urine Urobilinogen Normal (Normal)
[2020-07-30 16:59] LABS: Mucous, Urine RARE /hpf (<or=2+)
== END ==
PROVIDERS: PCP Internal Medicine; Referring Provider Internal Medicine; Visit Provider Internal Medicine
DX: N39.0 Urinary tract infection, site not specified (principal)
CPT/HCPCS: 81001

== ENCOUNTER → 2020-08-04 10:01 | Outpatient (CLI) | payer MEDICARE, OTHER, SELFPAY ==
[2020-07-30 13:06] VITALS: BMI 38.9
--- NOTE | 2020-08-04 10:03 | BI_ITS ---
MAMMOGRAPHY - BILATERAL SCREENING REASON FOR EXAM: Female, 69 years old. Routine annual screening examination. PERTINENT HISTORY: Mother with breast cancer. Grandmother with breast cancer. Prior stereotactic biopsy. TECHNIQUE: Digital bilateral breast naveen (3D mammographic acquisition) in the CC and MLO projections. 2-D mediolateral oblique (MLO) and craniocaudad (CC) views of both breasts were obtained. CAD: Full Field Digital Mammography with Computer Added Detection was performed. COMPARISON: Comparison is made with prior study dated 05/20/2019 and 05/10/2018. FINDINGS: Breast Composition: There are scattered areas of fibroglandular density. There are no dominant masses or suspicious calcifications. A tissue clip marker is seen in the upper slightly medial deep portion of the left breast. No other significant abnormalities are identified. There has been no significant change since the prior study. BI/SCRN MAMM (CAD)W/NAVEEN BILAT IMPRESSION: Stable bilateral screening mammogram. Yearly follow-up mammogram recommended. (A) ASSESSMENT CATEGORY: BIRADS Category 2: Benign. A letter regarding these results will be sent to the patient by the facility within 30 days. Approximately 10% of breast cancers are not detected by mammography. A normal mammogram should not delay biopsy of a clinically suspicious abnormality. [id number] Electronically Signed: Kyrie Dumas MD at 12:49 EDT , Service support ,
== END ==
PROVIDERS: PCP Internal Medicine; Referring Provider Internal Medicine; Visit Provider Internal Medicine
DX: Z12.31 Encounter for screening mammogram for malignant neoplasm of breast (principal)
CPT/HCPCS: 77063; 77067

== ENCOUNTER → 2020-09-30 09:47 | Outpatient (CLI) | payer MEDICARE, OTHER, SELFPAY ==
[2020-07-30 13:06] VITALS: BMI 38.9
[2020-09-28 13:32] VITALS: BMI 38.9
--- NOTE | 2020-09-30 09:55 | PCM.CR.ITP ---
Diagnosis Nutrition - Initial Assessment Nutrition - 30-Day Assessment Nutrition - 60-Day Assessment Nutrition - 90-Day Assessment Nutrition - Final Assessment Medical - Initial Assessment Medical- 30-Day Assessment Medical- 60-Day Assessment Medical- 90-Day Assessment Medical - Final Assessment Psychosocial - Initial Assess Psychosocial - 30-Day Assess Psychosocial - 60-Day Assess Psychosocial - 90-Day Assess Psychosocial - Final Assessmen Nutrition Survey
--- NOTE | 2020-09-30 10:08 | PCM.PR.TP ---
General Information - General Information Admitting Diagnosis: COPD Gold Classification:: GOLD 2: Moderate - PFT FEV1:: 2.55 FVC:: 3.33 FEV1/FVC%:: 77 - Education/Goals Barriers to Learning: Vision Impairment Individual Counseling: Initial Assessment: Dyspnea control techniques at rest, activity, and ADLs, Panic & depression management, Home exercise plan & guidelines Patient Goals: Increase endurance/stamina: Initial Assessment, Return to recreation/hobby: Initial Assessment, Control panic/anxiety: Initial Assessment, Improve diet and nutrition: Initial Assessment, Symptom management: Initial Assessment, Improve weight: Initial Assessment Tobacco - Initial Assessment Tobacco - 30-Day Assessment Tobacco - 60-Day Assessment Tobacco - 90-Day Assessment Tobacco - Final Assessment Patient Health Questionnaire Initial Assessment 1. Little interest or pleasure in doing things: More than half the days 2. Feeling down, depressed, or hopeless: More than half the days 3. Trouble falling or staying asleep, or sleeping too much: More than half the days 4. Feeling tired or having little energy: Nearly every day 5. Poor appetite or overeating: Nearly every day 6. Feeling bad about yourself -- or that you are a failure or have let yourself or your family down: Nearly every day 7. Trouble concentrating on things, such as reading the newspaper or watching television: Nearly every day 8. Moving or speaking so slowly that other people could have noticed. Or the opposite - being so fidgety or restless that you have been moving around a lot more than usual: More than half the days 9. Thoughts that you would be better off , or of hurting yourself in some way: Several days How difficult have these problems made it for you to do your work, take care of things at home, or get along with other people?: Very difficult - Alot on my plate this year, speaks to a counselor on the phone to help deal with the multiple issues. Total Score: 21 COPD Knowledge Test Initial COPD is a lung disease that:: Makes it hard to breathe & gets worse over time In the [place] the term COPD describes 2 main lung conditions:: Emphysema & chronic bronchitis The most common lung irritant that causes COPD is:: Cigarette smoke Common signs and symptoms of COPD include:: An ongoing cough/cough that produces a large amount of mucus, & SOB If you have COPD, what steps can you take?: All of the above Swelling of the ankles is common in COPD:: True Fatigue [tiredness] is common in COPD:: True Wheezing is common in COPD:: True Crushing chest pain is common in COPD:: True Rapid weight loss is common in COPD:: False Breathlessness is a normal response to exercise: False Exercise should be avoided if it makes you short of breath: False All bronchodilators act within 10 minutes: True A spacer device increases the medication to the lungs: True Annual flu vaccine is recommended for pts w/lung disease: True COPD Knowledge Test Total Score:: 11 COPD Assessment Test [CAT] - Questions Never cough = 0, Cough all the time = 5: 1 No phlegm = 0, Chest full of phlegm = 5: 1 No chest tightness = 0, Chest very tight = 5: 4 No breathless w/exertion = 0, Very breathless w/exertion = 5: 5 No limitations w/activity = 0, Very limited w/activity = 5: 4 Confident leaving home = 0, Not at all confident = 5: 1 Sleep soundly = 0, Don't sleep soundly = 5: 3 Lots of energy = 0, No energy at all = 5: 4 Total CAT score:: 23 Self-Efficacy Initial Assessment We would like to know how confident you are in doing certain activities. Please select your confidence level for:: Select your confidence level for the following using the scale 1-10 where 1 is not at all confident and 10 is totally confident. Your score is the average of all 6 responses. Fatigue: How confident are you that you can keep the fatigue caused by your disease from interfering with the things you want to do? Select Number: 4 Physical Discomfort or Pain: How confident are you that you can keep the physical discomfort or pain of your disease from interfering with the things you want to do? Select Number: 4 Emotional Distress: How confident are you that you can keep the emotional distress caused by your disease from interfering with the things you want to do? Select Number: 3 Other Symptoms or Health Problems: How confident are you that you can keep other symptoms or health problems from interfering with the things you want to do? Select Number: 3 Different Tasks and Activities: How confident are you that you can do the different tasks and activities needed to manage your health condition so as to reduce your need to see a doctor? Select Number: 3 Medication: How confident are you that you can do things other than just taking medication to reduce how much your illness affects your everyday life? Select Number: 5 Total Score:: 3 Nutrition Survey - Nutrition Survey Initial Have you lost >10 lbs over the past 2 months without trying?: No Are you following a special diet at home for diabetes, low fat, or low salt?: No Are you interested in meeting with a dietitian for help understanding your diet?: Yes Do you eat less than 3 meals a day?: Yes Do you eat fatty meats (espinosa, sausage, ribs, etc), fried foods, desserts, large amounts of salad dressings, margarine, butter, or cheese most days?: Yes Do you have food allergies? [Enter types in comment field]: No Do you eat in restaurants more than 3 times a week?: Yes Do you season food with salt, seasoning salt, or garlic salt?: No Do you used canned, boxed, frozen meals, or soups, seasoning packets?: Yes - Referral to [facility]Ed[facility] Nutrition Therapy, Why Weight program and DSMNT & MNT. Total Score:: 5
--- NOTE | 2020-09-30 10:08 | PCM.PR.HP ---
History of Present Illness Arrival date:: 09/30/20 Arrival time:: 09:48 Date of Referral:: 09/25/20 Date of Evaluation: 09/30/20 Referring Physician: Dr. Jaimie Patel Primary Diagnosis: COPD GOLD II: Moderate History of Present Illness: 69 F who presents to CT today under the referral of her PCP Dr. Jaimie Patel. THe patient has doctored with Dr. Oliver Sanchez in the past, and is currently considering transferring her care to Dr. Sanchez of Dr. Antonio Gilbert in the [facility] Pulmonary Medicine practice for continuity of care. mMRC Breathless Scale: When is the patient short of breath? Y/N Grade: Description of Breathlessness: 0 I only get breathless with strenuous exercise. 1 I get short of breath when hurrying on level ground or walking up a slight hill. 2 On level ground, I walk slower than people of the same age because of breathless, or have to stop for breath when walking at my own pace. 3 I stop for breath after walking 100 yards or after a few minutes on level ground. 4 I am too breathless to leave the house or I am breathless when dressing. Respiratory Problems: Yes: Wheezing, Able to Speak in Full Sentences, Dizziness, Dyspnea with Activity - Secretions Normal Color:: soft clear to yellow if any Thick:: No Thin:: No Amount/Day:: minimal Cough:: No AM: No PM: No Night Time: No A.T.C.: No Hx of Sleep Apnea: Yes Do you snore loudly (louder than talking or can be heard through closed doors)?: Yes - home CPAP Do you often feel tired/ fatigued/ sleepy during daytime?: Yes - alot of the fatigue is related to stress dealing with husbands medical issues. Has anyone observed you stop breathing during sleep?: No History of Hypertension (for STOP score): Yes STOP Results: Positive Home Medications: Home Medications meclizine 25 mg PO 4X/DAY PRN PRN #30 tab 06/08/19 fluticasone propionate 2 spray NASAL DAILY PRN 07/08/19 L.acidoph, paracasei,B. lactis 1 ea PO DAILY 07/19/19 multivitamin 1 tab PO DAILY 09/13/19 montelukast 10 mg tablet 10 mg PO QHS #90 tab 09/16/19 Handicap Placard #1 ea 11/08/19 hydrocortisone 2.5 % topical cream 1 applic TOPICAL BID PRN PRN #453.6 g 02/25/20 calcium carb-Ca gluc 500 mg calcium-magnesium ox-Mg gluc 250 mg tablet tab PO 05/21/20 cholecalciferol (vitamin D3) 50 mcg (2,000 unit) capsule 50 mcg PO DAILY 05/21/20 coenzyme Q10 100 mg capsule 100 mg PO DAILY 05/21/20 vitamin B complex 1 tab PO DAILY 05/21/20 zinc 50 mg tablet 50 mg PO DAILY 05/21/20 albuterol sulfate 90 mcg/actuation aerosol inhaler 1 puff INHALATION Q6H PRN #8.5 g 06/26/20 rosuvastatin 10 mg tablet 10 mg PO QHS #90 tab 07/03/20 fluticasone 250 mcg-salmeterol 50 mcg/dose blistr powdr for inhalation 1 inh INHALATION BID 90 Days #60 ea 07/06/20 omeprazole 40 mg capsule,delayed release 40 mg PO DAILY PRN cap 07/17/20 potassium gluconate 595 mg (99 mg) tablet 595 mg PO DAILY 07/17/20 hydrochlorothiazide 25 mg tablet 25 mg PO DAILY #90 tab 08/04/20 metoprolol tartrate 25 mg tablet 12.5 mg PO .COMPLEX #90 tab 08/14/20 Allergies/Adverse Reactions: Allergies dibucaine Allergy (Severe, Verified 09/28/20 13:32) Rash, itching Iodinated Contrast Media [Iodinated Contrast- Oral and IV Dye] Allergy (Severe, Verified 09/28/20 13:32) RAsh, Itching povidone-iodine [From Betadine] Allergy (Verified 09/28/20 13:32) Hives soap [From Betadine] Allergy (Verified 09/28/20 13:32) Hives wool Allergy (Verified 09/28/20 13:32) Rash do not use mattress pads losartan Adverse Reaction (Severe, Verified 09/28/20 13:32) GI upset, insomnia, lightheaded, felt awful. NSAIDS (Non-Steroidal Anti-Inflamma Adverse Reaction (Severe, Verified 09/28/20 13:32) GI Bleeding adhesive tape Adverse Reaction (Intermediate, Verified 09/28/20 13:32) localized skin reaction acetaminophen [From Darvocet-N] Adverse Reaction (Verified 09/28/20 13:32) Vomiting codeine Adverse Reaction (Verified 09/28/20 13:32) Vomiting hydrocodone bitartrate [From Vicodin] Adverse Reaction (Verified 09/28/20 13:32) Vomiting morphine Adverse Reaction (Verified 09/28/20 13:32) Vomiting nickel Adverse Reaction (Verified 09/28/20 13:32) ears get rash with earrings propoxyphene napsylate [From Darvocet-N] Adverse Reaction (Verified 09/28/20 13:32) Vomiting chloraPrep Allergy (Uncoded 03/19/20 17:09) Hives Medical Utilization Do you use a peak flow meter at home?: No Do you use a spacer device with your inhalers?: No Number of hospital visits in the last year?: 3 - Knee surgery, reaction pain meds, Number of emergency room visits in the last year?: 1 - reaction to medications Do you see your physician on a regular schedule?: Yes How often?: 3 months and as needed. Advanced Directives - Advanced Directives Power of Independent Film Maker: Yes Living Will: Yes Advance Directives Information Provided: No Advance Directives on File: No DNR Order?:: No - MOLST See MOLST form: No Past Medical History - Covid-19 Screening Fever: No Unexplained muscle aches: No Current respiratory symptoms: No Upper respiratory infections symptoms: No Gastro-intestinal symptoms: No - Elc-Euhf-Obgclf symptoms: No Has tested positive for COVID-19 in last 30 days: No Had contact w/person w/symptoms or Covid-19 (+) last 14 days: No Has High Risk Exposures ID'd by Health dept/Inf Control team: No 65 years or older:: Yes Lives in Assisted Living facility:: No Has a chronic lung disease or moderate to severe asthma:: Yes Has a serious heart condition:: Yes Immunocompromised:: No Severely obese (Body Mass Index of 40 or higher):: Yes Diabetic:: Yes Has chronic kidney disease undergoing dialysis:: No Has liver disease:: No Medical History: Past Medical History (Last Updated 09/30/20 @ 10:39 by Jacek Moore, CALENDER LET OFF HELPER, MATERIAL DISPATCHER, BS) Asthma J45.909 COPD (chronic obstructive pulmonary disease) J44.9 Cough due to WILMER inhibitor R05, T46.4X5A Depression F32.9 Depression with anxiety F41.8 Dermatitis L30.9 Essential (primary) hypertension I10 Fibromyalgia M79.7 Hemorrhoids, thrombosed K64.5 Hyperlipidemia E78.5 Hypokalemia E87.6 Hypomagnesemia E83.42 LBBB (left bundle branch block) I44.7 LLQ abdominal mass R19.04 Near syncope R55 Obesity E66.9 Obstructive sleep apnea G47.33 Osteoarthritis M19.90 Palpitations R00.2 Paroxysmal atrial fibrillation I48.0 Pulmonary hypertension I27.20 Pulmonary nodule R91.1 Raynauds disease I73.00 Rectal bleeding K62.5 Shortness of breath R06.02 Type 2 diabetes mellitus E11.9 Umbilical hernia K42.9 Ventricular premature depolarization I49.3 Vertigo R42 Surgical History: Past Surgical History (Last Reviewed 09/28/20 @ 13:31 by Airam Yang) History of cervical spinal surgery Onset Date: 2016 Z98.890 History of hemorrhoidectomy Z98.890 History of knee replacement procedure of right knee Onset Date: 2014 Z96.651 History of left heart catheterization Onset Date: 10/01/16 Z98.890 History of loop recorder Onset Date: 06/14/19 Z98.890 Implanted 06/14/2019; History of right and left heart catheterization Onset Date: 10/19/16 Z98.890 History of torn meniscus of left knee Z87.828 02/28/18 History of total hysterectomy Z90.710 Family History: Family History (Last Reviewed 09/28/20 @ 13:31 by Airam Yang) Father Atrial fibrillation Uncle Atrial fibrillation Grandmother Breast cancer paternal and maternal side Mother Breast cancer BRCA negative per patient Social History - Smoking History Smoking Status: Former smoker Years Smokin Hx Smoking Cessation Date: 05/22/08 Hx Tobacco Use: No Hx Smoking Exposure: No - Alcohol Use Alcohol Usage: No - Substance Abuse Hx Substance Use: No - Occupation Occupation (List type of work in comments):: Retired - Hobbies, Recreation, Social Activities Hobbies: Other - crocheting, knitting, Bible Study Group, Lunch W/friend, [place], reading. Recreational Activities: I am able to engage in most, but not all activities - very determined normally, recently harder to stay focused and get easily frustrated. Functioning ADL/IADL - Current Ability Current Ability: Independent Self-Care (e.g.,grooming, dressing, & bathing), Independent Ambulation, Independent Transfer, Independent Household tasks (e.g., light meal prep, laundry, shopping) - Pt Functioning Prior to Problem Prior Functioning: Self-Care (e.g.,grooming, dressing, & bathing): Independent, Ambulation: Independent, Transfer: Independent, Household tasks (e.g., light meal prep, laundry, shopping): Independent Social Environment - Status Marital Status: - Current Living Arrangements Living Environment:: Alone - Children How many children do you have?: 2 - [place] and [place] Do any of your children live nearby?: No - Grandson may be moving to [facility] w/his family. - Safety Do you feel safe in your surroundings?: Yes - Assistance Do you need any assistance at home?: none Review of Systems Review of Systems: Right click = Denies (Slash). Left click = Reports (Arley) Respiratory: Reports: SOB upon Exertion, Wheezing, Appetite, Normal, Dizziness/Lightheadedness - related recently to vertigo, Fatigue, Sleep, Normal. Denies: Cough, SOB at Rest, Sputum production Is Patient Pain Free?: Yes Pain Location: none, lower extremity - occasional pain in both knees, each have been replaced. Pain Level: 2/10 Risk Factor Assessment - Chief Complaint Chief Complaint: COPD GOLD II: Moderate - Vital Signs Temperature: 97.4 F Pulse Rate: 84 Pulse Rhythm: Regular Respiratory Rate: 16 Pulse Ox: 97 Blood Pressure: 138/84 - Diabetes Diabetic History: Type II, Medication Dependent, Insulin Dependent Nutrition Referral for Diabetes: Yes - Obesity Height: 5 ft 9 in Weight:: 264 lb Weight in Pounds: 264.0 lbs Weight Source: Standing Scale Body Mass Index (BMI): 38.9 Nutritional Referral for Obesity: Yes - Physical Activity Physical Inactivity: Recreational activity - Risk Stratification Risk Guidelines: Lowest Risk: Risk Factor for Smoking, Risk Factor for Sedentary Lifestyle, Risk Factor for Depression, Moderate Risk: Risk Factor for Dyslipidemia, Risk Factor for Diabetes, Risk Factor for Hypertension, Highest Risk: Risk Factor for Obesity Motivation - Motivation to Participate On a scale of 1 to 10, how prepared are you to commit to attending program?: 9 What do you see as barriers to successfully being able to complete the program?: Myself and the depression of having things to deal with. What do you see as the benefits of succesfully completing the program? In other words, what do you hope to get out of participating in the program?: breathing better, being healthier, and getting back to normal. Are there issues you are dealing with that will interfere with completing the program?: Very high off the chart stress of dealing with husbands health issues. Do you have a spouse or signficant other, family or friends who will help support you to complete the program?: very little support. Diagnostic Data Review - Pulmonary Function Test FEV1:: 2.55 FVC:: 3.33 FEV1/FVC%:: 77 Gold Classification: GOLD class II(mod. COPD)with FEV1/FVC <70%, 50%</= FEV1< 50% predicted
[2020-09-30 10:49] VITALS: BP 138/84; PULSE 84; RESP 16; TEMP 36.3; O2SAT 97; BMI 38.9
== END ==
PROVIDERS: PCP Internal Medicine; Referring Provider Internal Medicine; Visit Provider Internal Medicine
DX: J44.9 Chronic obstructive pulmonary disease, unspecified (principal); I27.20 Pulmonary hypertension, unspecified; E11.9 Type 2 diabetes mellitus without complications; E78.5 Hyperlipidemia, unspecified; E66.9 Obesity, unspecified; I10 Essential (primary) hypertension

== ENCOUNTER → 2020-10-12 11:04 | Outpatient (CLI) | payer MEDICARE, OTHER, SELFPAY ==
[2020-10-12 10:02] VITALS: BMI 38.9
--- NOTE | 2020-10-12 11:25 | RAD_ITS ---
STUDY: X-RAY - LEFT FOOT CLINICAL: Female, 69 years old. Left foot and ankle pain TECHNIQUE: 3 view(s) of the foot. COMPARISON: None. FINDINGS: There is a plantar calcaneal spur. Normal visualized subtalar, talonavicular, calcaneocuboid, tarsal and tarsometatarsal articulations. Normal metatarsi. There is degenerative arthrosis of the metatarsophalangeal joint of the hallux . Normal tibial and fibular sesamoid bones. Normal interphalangeal joint of the great toe. Normal phalanges of the great toe. Normal second through fifth metatarsophalangeal joints. Normal interphalangeal joints and phalanges of the lesser toes. The soft tissue structures are unremarkable. RAD/Foot min 3 Views IMPRESSION: Degenerative changes of the first MTP joint. Calcaneal spur. Electronically Signed: Nile Lopez MD (Brooks) at 15:19 EDT , Service support ,
--- NOTE | 2020-10-12 11:25 | RAD_ITS ---
STUDY: X-RAY - LEFT ANKLE REASON FOR EXAM: Female, 69 years old. left foot and ankle pain TECHNIQUE: 3 view(s) of the ankle. COMPARISON: None. FINDINGS: Normal visualized distal tibia and fibula. Osseous densities well-corticated lateral to the talus/inferior fibula suggesting sequela of old injury. Normal tibiotalar articulation and ankle mortise. Moderate size calcaneal spur. The visualized subtalar, talonavicular, calcaneocuboid and tarsal articulations are normal. The soft tissue structures are unremarkable. RAD/Ankle min 3 Views IMPRESSION: Calcaneal spur. Old lateral ankle avulsion fragment. Electronically Signed: Nile Lopez MD (Brooks) at 15:20 EDT , Service support ,
[2020-10-12 12:46] LABS: Absolute Lymphocyte Count 1.86 X10^3/uL (0.83-4.51); Absolute Neutrophil Count 5.2 X10^3/uL (2.0-7.7); Basophil# 0.06 X10^3/uL; Basophil% 0.8 % (0-1); Eosinophil# 0.25 X10^3/uL; Eosinophils% 3.2 % (0-5); Hematocrit 42.7 % (37-47); Hemoglobin 13.8 g/dL (12.0-15.0); Lymphocyte # 1.86 X10^3/ul (0.83-4.51); Lymphocyte % 23.8 % (19-41); Mean Corp Hgb Conc 32.3 g/dL (32-36); Mean Corpuscular Hgb 29.9 pg (27.0-32.0); Mean Corpuscular Volume 92.4 fL (81-99); Mean Platelet Vol. 10.2 fl (6.2-12.0); Monocyte# 0.48 X10^3/uL; Monocyte% 6.1 % (0-10); NRBC Flagged by Analyzer 0 % (0-5); Neutrophil # 5.16 X10^3/uL (2.7-7.7); Neutrophil % 65.8 % (47-70); Platelet Count 330 K/mm3 (150-450); RBC Distribution Width CV 12.7 % (11.6-14.6); RBC Distribution Width SD 43.3 fl (35.1-43.9); Red Blood Count 4.62 M/mm3 (4.2-5.4); White Blood Count 7.8 K/mm3 (4.4-11.0)
[2020-10-12 13:21] LABS: Hemoglobin A1c 6.2 % (3.8-5.6)
[2020-10-12 14:18] LABS: AST(SGOT) 17 U/L (15-37); Alanine Aminotransfer ALT/SGPT 31 U/L (13-56); Albumin, Serum 3.8 g/dL (3.2-5.0); Alkaline Phosphatase 66 U/L (45-117); Anion Gap 5 (5-15); BUN 19 mg/dL (7-18); BUN/Creat Ratio 21.9 RATIO (10-20); Calcium,Total 9.7 mg/dL (8.5-10.1); Chloride 106 mmol/L (98-107); Cholesterol 120 mg/dL (200); Creatinine, Serum 0.87 mg/dL (0.55-1.02); EST Glomerular Filtration Rate 69 mL/min (>60); Est Glom Filt Rate - Afr Amer 84 mL/min (>60); Globulin 3.7 g/dL (2.2-4.2); Glucose 102 mg/dL (74-106); High Density Lipoprotein 45 mg/dL; Magnesium 2.1 mg/dL (1.6-2.6); Potassium 3.7 mmol/L (3.5-5.1); Protein, Total 7.5 g/dL (6.4-8.2); Sodium Level 139 mmol/L (136-145); T4 Free Direct 0.81 ng/dL (0.76-1.46); Thyroid Stim Hormone (TSH) 1.98 uIU/mL (0.358-3.74); Triglycerides 146 mg/dL; Very Low Density Lipoprotein 29 mg/dL (5-40)
[2020-10-13 10:10] LABS: Vitamin B12 898 pg/mL (211-911)
[2020-10-15 12:52] LABS: Vitamin D,25 Hydroxy 34.4 ng/mL
== END ==
PROVIDERS: PCP Internal Medicine; Referring Provider Physician Assistant; Visit Provider Physician Assistant
DX: M19.072 Primary osteoarthritis, left ankle and foot (principal); M77.32 Calcaneal spur, left foot; E11.9 Type 2 diabetes mellitus without complications; E78.5 Hyperlipidemia, unspecified; E55.9 Vitamin D deficiency, unspecified; F32.9 Major depressive disorder, single episode, unspecified; F41.9 Anxiety disorder, unspecified; J44.9 Chronic obstructive pulmonary disease, unspecified; I27.20 Pulmonary hypertension, unspecified; R29.898 Other symptoms and signs involving the musculoskeletal system
CPT/HCPCS: 36415; 73610; 73630; 80053; 80061; 82306; 82607; 83036; 83735; 84439; 84443; 85025; 97150; G0424

== ENCOUNTER 2020-10-14 11:00 | Outpatient (RCR) | payer MEDICARE, OTHER, SELFPAY ==
[2020-09-30 10:49] VITALS: BMI 38.9
[2020-10-12 10:02] VITALS: BMI 38.9
== END 2020-10-19 23:59 ==
LOC: DC 11:00
PROVIDERS: PCP Internal Medicine; Visit Provider Internal Medicine
DX: E11.9 Type 2 diabetes mellitus without complications (principal); E78.5 Hyperlipidemia, unspecified; I27.20 Pulmonary hypertension, unspecified; E66.9 Obesity, unspecified; J44.9 Chronic obstructive pulmonary disease, unspecified; I10 Essential (primary) hypertension
CPT/HCPCS: G0108

== ENCOUNTER 2020-10-16 09:15 | Outpatient (RCR) | payer MEDICARE, OTHER, SELFPAY ==
[2020-09-30 10:49] VITALS: BMI 38.9
== END 2020-10-19 23:59 ==
LOC: PR 09:15
PROVIDERS: PCP Internal Medicine; Referring Provider Internal Medicine; Visit Provider Internal Medicine
DX: J44.9 Chronic obstructive pulmonary disease, unspecified (principal); I27.20 Pulmonary hypertension, unspecified
CPT/HCPCS: 97150; G0424

== ENCOUNTER → 2020-10-30 14:46 | Outpatient (CLI) | payer MEDICARE, OTHER, SELFPAY ==
[2020-10-30 14:20] VITALS: BMI 38.9
[2020-10-30 14:49] LABS: Bacteria 0 SEEN /hpf (None Seen); Mucous, Urine 0 SEEN /hpf (<or=2+); Red Blood Cells-Urine 0 SEEN /hpf (0-5); White Blood Cells 0 SEEN /hpf (0-5)
[2020-10-30 16:34] LABS: Color, Urine Yellow (Yellow); Glucose, Dipstick Normal (Normal); Ketone-Dipstick Negative (Negative); Leukocyte Esterase-Dipstick Negative /ul (Negative); Nitrite-Dipstick Negative (Negative); Occult Blood-Urine Negative /ul (Negative); Protein-Dipstick Negative (Negative); Specific Gravity, Urine 1.015 (1.002-1.030); Urine Bilirubin Dipstick Negative (Negative); Urine Clarity Clear (Clear); Urine Urobilinogen Normal (Normal)
[2020-10-30 16:39] LABS: Squamous Epithelial Cells - UA 0-5 SEEN /hpf (5-10)
== END ==
PROVIDERS: PCP Internal Medicine; Referring Provider Physician Assistant; Visit Provider Physician Assistant
DX: N39.3 Stress incontinence (female) (male) (principal); R39.15 Urgency of urination
CPT/HCPCS: 81001; 87086; 87088

== ENCOUNTER 2020-11-04 09:15 | Outpatient (RCR) | payer MEDICARE, OTHER, SELFPAY ==
[2020-10-12 10:02] VITALS: BMI 38.9
--- NOTE | 2020-10-30 10:31 | PR.ITP_ITS ---
Exercise - 30-Day Assessment - Physician Prescribed Exercise Modalities: NuStep, SciFit Frequency (days/week): 3 Duration (Minutes):: 30-45 Intensity: 60-80% of age predicted maximum heart rate reserve Aerobic Exercise [30-60 min 3-7x/week]:: Progressing Target heart rate: 100-130 Elvira-13 - Home Exercise Home Exercise:: No Disease Management - 30-Day - Hypoxemia Reassessment: Demonstrates knowledge of O2 Rx with exercise - Medications Medication list reviewed:: Yes Taking medications 100% of the time:: Met Medication reassessment: Yes Pt demonstrates correct technique timing for MDI, Yes Pt demonstrates correct technique timing for DPI, Yes Pt demonstrates correct technique timing for NEB, Yes Pt demonstrates correct technique timing for spacer Psychosocial - 30-Day - Assessment Reassessment: Management of stress & depression, Practicing interventions, Demonstrate coping strategies, Geriatric depression screening, Self efficacy score Tobacco - Initial Assessment Tobacco - 30-Day Assessment - Stage of Change Stages of Change:: Action - Learning Barriers Learning Barriers: Participates in education - Family Support Do you have family support?: Yes - Tobacco Use Tobacco Use: Non-smoker - Intervention Smoking Cessation Referral:: No Individual Education/Counseling:: No Education Schedule Given:: Yes - Education Gave Education Materials For:: Pulmonary Disease, Risk Factors, Breathing Techniques, Medical Compliance, Pulmonary A&P, Exacerbation Signs & Symptoms, Stress & Relaxation Tobacco - 60-Day Assessment Tobacco - 90-Day Assessment Tobacco - Final Assessment Nutrition/Wt Mgmt - 30-Day - Weight Management Weight:: 263 lb 8 oz - Seeing Nutritional Services Weight Goals Progress:: Progressing Patient Health Questionnaire 30-Day Re-eval Assessment 1. Little interest or pleasure in doing things: More than half the days 2. Feeling down, depressed, or hopeless: More than half the days 3. Trouble falling or staying asleep, or sleeping too much: More than half the days 4. Feeling tired or having little energy: Nearly every day 5. Poor appetite or overeating: Nearly every day 6. Feeling bad about yourself -- or that you are a failure or have let yourself or your family down: Nearly every day 7. Trouble concentrating on things, such as reading the newspaper or watching television: Nearly every day 8. Moving or speaking so slowly that other people could have noticed. Or the opposite - being so fidgety or restless that you have been moving around a lot more than usual: More than half the days 9. Thoughts that you would be better off , or of hurting yourself in some way: Several days How difficult have these problems made it for you to do your work, take care of things at home, or get along with other people?: Very difficult - Patient could benefit from professional Behavioral Counseling to help her cope with recent medical issues for her and her spouse. 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 Total Score: 21 Self-Efficacy 30-Day Re-eval Assessment We would like to know how confident you are in doing certain activities. Please select your confidence level for:: Select your confidence level for the following using the scale 1-10 where 1 is not at all confident and 10 is totally confident. Your score is the average of all 6 responses. Fatigue: How confident are you that you can keep the fatigue caused by your disease from interfering with the things you want to do? Select Number: 4 Physical Discomfort or Pain: How confident are you that you can keep the physical discomfort or pain of your disease from interfering with the things you want to do? Select Number: 5 Emotional Distress: How confident are you that you can keep the emotional distress caused by your disease from interfering with the things you want to do? Select Number: 4 Other Symptoms or Health Problems: How confident are you that you can keep other symptoms or health problems from interfering with the things you want to do? Select Number: 4 Different Tasks and Activities: How confident are you that you can do the different tasks and activities needed to manage your health condition so as to reduce your need to see a doctor? Select Number: 5 Medication: How confident are you that you can do things other than just taking medication to reduce how much your illness affects your everyday life? Select Number: 5 Total Score:: 4 Nutrition Survey
--- NOTE | 2020-11-02 09:39 | EKG12_ITS ---
Test Reason : CARDIAC REHAB REF Blood Pressure : / mmHG Vent. Rate : 083 BPM Atrial Rate : 083 BPM P-R Int : 200 ms QRS Dur : 150 ms QT Int : 416 ms P-R-T Axes : 055 -32 104 degrees QTc Int : 488 ms Normal sinus rhythm Left axis deviation Left bundle branch block Abnormal ECG Confirmed by CLIFF AIKEN, GILBERT ([id number]), offline editor DORIAN POLO ([id number]) on 11/03/2020 9:04:30 AM Referred By: Jaimie Patel Confirmed By:GILBERT CORONADO MD
== END 2020-11-18 23:59 ==
LOC: PR 09:15
PROVIDERS: PCP Internal Medicine; Referring Provider Internal Medicine; Visit Provider Internal Medicine
DX: J44.9 Chronic obstructive pulmonary disease, unspecified (principal); I27.20 Pulmonary hypertension, unspecified
CPT/HCPCS: 93005; 97150; G0424

== ENCOUNTER 2020-11-18 12:59 | Outpatient (RCR) | payer MEDICARE, OTHER, SELFPAY ==
[2020-10-12 10:02] VITALS: BMI 38.9
[2020-11-04 14:09] VITALS: BMI 38.9
== END 2020-11-18 23:59 ==
LOC: DC 12:59
PROVIDERS: PCP Internal Medicine; Visit Provider Internal Medicine
DX: E11.9 Type 2 diabetes mellitus without complications (principal); E78.5 Hyperlipidemia, unspecified; I27.20 Pulmonary hypertension, unspecified; J44.9 Chronic obstructive pulmonary disease, unspecified; I10 Essential (primary) hypertension
CPT/HCPCS: G0108

== ENCOUNTER → 2020-12-01 13:41 | Outpatient (CLI) | payer MEDICARE, OTHER, SELFPAY ==
[2020-11-18 14:05] VITALS: BMI 38.5
--- NOTE | 2020-12-01 13:44 | CT_ITS ---
STUDY: CT CHEST WITHOUT CONTRAST REASON FOR EXAM: Female, 70 years old. CHEST PAIN. Cardiac over read examination. RADIATION DOSAGE (If Supplied By Facility): CTDIvol = ( 16.20 ) mGy, DLP = ( 927.17 ) mGycm TECHNIQUE: Transaxial imaging was performed without the administration of intravenous contrast material. Individualized dose optimization techniques were used for this CT. COMPARISON: Comparison is made with prior study 04/21/2020. FINDINGS: Mild degree of increased markings in the posterior medial segments of the lower suggestive of mild scarring. Stable 5 mm noncalcified nodule in the medial aspect of the left upper lobe as seen on axial image #3. There is no demonstrated pleural abnormality. There are minimal calcifications of the coronary arteries. There are multiple small lymph nodes within the mediastinum, which are normal in size and morphology most compatible with reactive lymph hyperplasia. Normal hilar regions. Normal unenhanced pulmonary arteries. There is atherosclerotic calcification of the aortic arch. Normal osseous structures. Small hiatal hernia. There is a 3.9 cm x 3 cm cyst in the upper lateral aspect of the right kidney. I suspect a 1.1 cm cyst in the anterior aspect of the right lobe of the liver. This also evidence of a 1 cm cyst in the posterior aspect of the dome of the right lobe of the liver. CT/Limited Chest CT w/CCTA IMPRESSION: Findings suggest mild scarring at the lung bases. Stable 5 mm noncalcified nodule in the medial left upper lobe. Electronically Signed: Kyrie Dumas MD at 9:17 EDT , Service support ,
[2020-12-01 13:59] VITALS: BP 181/94; PULSE 85; RESP 20; O2SAT 97; BMI 38.4
--- NOTE | 2020-12-01 14:12 | NURSING ---
PT TOOK PREMEDS DIRECTED FOR CONTRAST ALLERGY.
[2020-12-01 14:17] VITALS: BP 181/94; PULSE 81
[2020-12-01] MEDS: Metoprolol Tartrate 5 MG/5 ML Vial IV ×2 (14:17→14:28)
[2020-12-01 14:28] VITALS: BP 176/86; PULSE 75
[2020-12-01 14:31] LABS: CREATININE FINGERSTICK 1.2 mg/dL (0.55-1.02)
[2020-12-01 14:34] VITALS: BP 176/86; PULSE 67
[2020-12-01] MEDS: Nitroglycerin SL (ED/IMG/CATH) 0.4 MG TABLET SL (14:34)
--- NOTE | 2020-12-01 18:44 | CCTA_ITS ---
Calcium Scoring Date of Study:: 12/01/20 Coronary Calcium Scoring: High-resolution Computed Tomographic imaging of the chest was performed on 12/01/2020 with particular attention paid to the coronary arteries. Images from the examination were analyzed for the presence and extent of coronary artery calcification , using coronary calcium quantification software. The patient tolerated the procedure well and there were no complications. The results of the coronary calcification analysis are provided below. Findings Coronary Artery Left Main (LM): 0 Left Anterior Descending (LAD): 0.77 Left Circumflex (LCX): 0 Right Coronary Artery (RCA): 0 Total Agatston Score: 0.77 Percentile Ranking: According to prepublished reference tables less than 25% of patients of the same gender/similar age had the same or lower scores Calcium Scoring Interpretation: 0 No identifiable atherosclerotic plaque. Very low cardiovascular disease risk. <5% chance of presence coronary artery disease A Negative Examination 1-10 Minimal Plaque burden. Significant coronary artery disease very unlikely. 11-100 Mild plaque burden. Likely mild or minimal coronary atherosclerosis. 101-400 Moderate plaque burden Moderate non-obstructive coronary artery disease highly likely. Over 400 Extensive plaque burden. High likelihood of at least one significant coronary stenosis (>50% diameter) Calcium Score: 1 -10 Significant coronary artery disease very unlikely Conclusion: Continue cardiovascular risk factor evaluation care as deemed appro priate
--- NOTE | 2020-12-02 12:46 | CCTA.WCONT ---
CCTA w/Cont Coronary Arteries Date of Study:: 12/01/20 Chest pain Consent:: After informed consent was obtained The patient underwent coronary calcium scoring per usual protocol. The patient was then administered 100 cc of intravenous iodinated contrast material. Gated EKG monitoring was performed for evaluation of cardiac anatomy. 0.625 mm slices were obtained and reconstructed per protocol. LEFT MAIN CORONARY ARTERY: Normal [] LEFT ANTERIOR DESCENDING CORONARY ARTERY: No significant obstructive stenosis noted minimal calcification present. [] LEFT CIRCUMFLEX CORONARY ARTERY: Dominant vessel normal [] RIGHT CORONARY ARTERY: Nondominant vessel with no significant stenosis [] [] [] CORONARY CALCIUM SCORE:1 [] Conclusion: Coronary CTA demonstrating no significant obstructive coronary artery disease noted.
== END ==
PROVIDERS: PCP Internal Medicine; Referring Provider Internal Medicine Cardiovascular Disease; Visit Provider Internal Medicine Cardiovascular Disease
DX: R07.9 Chest pain, unspecified (principal)
CPT/HCPCS: 75571; 75574; 76380; Q9967; A4216

== ENCOUNTER → 2020-12-03 09:45 | Outpatient (CLI) | payer MEDICARE, OTHER, SELFPAY ==
[2020-11-04 14:09] VITALS: BMI 38.9
[2020-12-01 13:59] VITALS: BMI 38.4
--- NOTE | 2020-12-03 09:58 | BD_ITS ---
STUDY: DUAL ENERGY X-RAY ABSORPTIOMETRY / DXA REASON FOR EXAM: Female, 70 years old. Screening. Patient is postmenopausal. Loss of height. TECHNIQUE: Bone Mineral Density (BMD) measurements of lumbar spine and bilateral hips were obtained. COMPARISON: Comparison is made with prior study dated 12/29/2016. FINDINGS: Lumbar Spine (L1-L4): g/cm2 (1.165) / T-score (1.1) / Z-score (3.0) Findings are suggestive of normal bone density with a low fracture risk. Left Femur Total: g/cm2 (1.017) / T-score (0.6) / Z-score (2.0) Left Femoral Neck: g/cm2 (0.962) / T-score (1.0) / Z-score (2.7) Right Femur Total: g/cm2 (1.060) / T-score (1.0) / Z-score (2.4) Right Femoral Neck: g/cm2 (1.006) / T-score (1.4) / Z-score (3.1) The T-Scores on the most recent prior examination were: Lumbar Spine (L1-L4): There has been worsening of bone density since the previous examination. Left Femur Total: which represents a worsening of 8%. Right Femur Total: which represents a worsening of 3.4%. BD/Dexa Bone Density Study IMPRESSION: The patient is considered normal as outlined below according to World Be Organization (WHO) criteria with a low fracture risk. There has been worsening of bone density since the previous examination. Reference Information: The T-score is the number of standard deviations above or below the standard which is normal for young adults at their peak bone mineral density. The World Health Organization (WHO) interprets the T-scores as follows: Above -1 Normal bone density Between -1 and -2.5 Osteopenia Equal to / or below -2.5 Osteoporosis As a practical clinical guideline, osteopenia may be graded as follows: Mild -1 through -1.5 Moderate -1.6 through -2.0 Severe -2.1 through -2.4 The Z-score is the number of standard deviations above or below age-matched controls. A Z-score of less than -1.5 would be considered abnormal. References: 1. NIH Osteoporosis and Related Bone Diseases www osteo.org 2. International Society for Clinical Densitometry www iscd.org 3. National Osteoporosis Foundation www nof.org Electronically Signed: Kyrie Dumas MD at 10:40 EDT , Service support ,
== END ==
PROVIDERS: PCP Internal Medicine; Referring Provider Nurse Practitioner Family; Visit Provider Nurse Practitioner Family
DX: Z13.820 Encounter for screening for osteoporosis (principal); Z78.0 Asymptomatic menopausal state
CPT/HCPCS: 77080

== ENCOUNTER 2020-12-17 15:02 | Outpatient (RCR) | payer MEDICARE, OTHER, SELFPAY ==
[2020-11-18 14:05] VITALS: BMI 38.5
[2020-12-01 13:59] VITALS: BMI 38.4
== END 2020-12-19 23:59 ==
LOC: DC 15:02
PROVIDERS: PCP Internal Medicine; Visit Provider Internal Medicine
DX: E11.9 Type 2 diabetes mellitus without complications (principal); E78.5 Hyperlipidemia, unspecified; I27.20 Pulmonary hypertension, unspecified; I10 Essential (primary) hypertension; J44.9 Chronic obstructive pulmonary disease, unspecified; E66.9 Obesity, unspecified
CPT/HCPCS: 97802

== ENCOUNTER 2020-12-18 09:15 | Outpatient (RCR) | payer MEDICARE, OTHER, SELFPAY ==
[2020-11-18 14:05] VITALS: BMI 38.5
--- NOTE | 2020-11-30 07:32 | PR.ITP_ITS ---
Exercise - 60-Day Assessment - Physician Prescribed Exercise Modalities: Treadmill, NuStep, SciFit Frequency (days/week): 3 Duration (Minutes):: 30-45 Intensity: 60-80% of age predicted maximum heart rate reserve Aerobic Exercise [30-60 min 3-7x/week]:: Progressing Target heart rate: 100-130 Elvira-15 - Home Exercise Home Exercise:: No Disease Management - 60-Day - Hypoxemia Reassessment: Demonstrates knowledge of O2 Rx with exercise - Medications Medication list reviewed:: Yes Taking medications 100% of the time:: Met Medication reassessment: Yes Pt demonstrates correct technique timing for MDI, Yes Pt demonstrates correct technique timing for DPI, Yes Pt demonstrates correct technique timing for NEB, Yes Pt demonstrates correct technique timing for spacer - Bronchial Hygiene Bronchial Hygiene Plan: Yes Pt demonstrates correctly for effective cough, Yes Pt demo correct for device, Yes Pt demo correct for improved hydration, Yes Pt demo correct for hand hygiene, Yes Pt demo correct for verbalize when to call MD Psychosocial - 60-Day - Assessment Depression reassess: Management of stress: Progressing, Management of depression: Progressing, Practicing interventions: Progressing Tobacco - Initial Assessment Tobacco - 30-Day Assessment Tobacco - 60-Day Assessment - Stage of Change Stages of Change:: Action - Learning Barriers Learning Barriers: Participates in education - Family Support Do you have family support?: Yes - Tobacco Use Tobacco Use: Non-smoker Do you use smokeless tobacco?: No - Intervention Smoking Cessation Referral:: No Individual Education/Counseling:: No Education Schedule Given:: Yes - Education Gave Education Materials For:: Pulmonary Disease, Risk Factors, Breathing Techniques, Medical Compliance, Pulmonary A&P, Exacerbation Signs & Symptoms, Stress & Relaxation Tobacco - 90-Day Assessment Tobacco - Final Assessment Nutrition/Wt Mgmt - 60-Day - Weight Management Weight Assessment:: Wt loss 1-2 lbs per week Weight:: 267 lb - BMI 38.9 Weight Goals Progress:: Progressing Patient Health Questionnaire 60-Day Re-eval Assessment 1. Little interest or pleasure in doing things: More than half the days 2. Feeling down, depressed, or hopeless: More than half the days 3. Trouble falling or staying asleep, or sleeping too much: More than half the days 4. Feeling tired or having little energy: Nearly every day 5. Poor appetite or overeating: Nearly every day 6. Feeling bad about yourself -- or that you are a failure or have let yourself or your family down: Nearly every day 7. Trouble concentrating on things, such as reading the newspaper or watching television: Nearly every day 8. Moving or speaking so slowly that other people could have noticed. Or the opposite - being so fidgety or restless that you have been moving around a lot more than usual: More than half the days 9. Thoughts that you would be better off , or of hurting yourself in some way: Several days How difficult have these problems made it for you to do your work, take care of things at home, or get along with other people?: Very difficult Total Score: 21 Self-Efficacy 60-Day Re-eval Assessment We would like to know how confident you are in doing certain activities. Please select your confidence level for:: Select your confidence level for the following using the scale 1-10 where 1 is not at all confident and 10 is totally confident. Your score is the average of all 6 responses. Fatigue: How confident are you that you can keep the fatigue caused by your disease from interfering with the things you want to do? Select Number: 5 Physical Discomfort or Pain: How confident are you that you can keep the physical discomfort or pain of your disease from interfering with the things you want to do? Select Number: 6 Emotional Distress: How confident are you that you can keep the emotional d istress caused by your disease from interfering with the things you want to do? Select Number: 5 Other Symptoms or Health Problems: How confident are you that you can keep other symptoms or health problems from interfering with the things you want to do? Select Number: 5 Different Tasks and Activities: How confident are you that you can do the different tasks and activities needed to manage your health condition so as to reduce your need to see a doctor? Select Number: 6 Medication: How confident are you that you can do things other than just taking medication to reduce how much your illness affects your everyday life? Select Number: 6 Total Score:: 5 Nutrition Survey
== END 2020-12-19 23:59 ==
LOC: PR 09:15
PROVIDERS: PCP Internal Medicine; Referring Provider Internal Medicine; Visit Provider Internal Medicine
DX: J44.9 Chronic obstructive pulmonary disease, unspecified (principal); I27.20 Pulmonary hypertension, unspecified; E11.9 Type 2 diabetes mellitus without complications; E78.5 Hyperlipidemia, unspecified; I10 Essential (primary) hypertension; E66.9 Obesity, unspecified
CPT/HCPCS: 97150; 97802; G0424

== ENCOUNTER 2021-01-18 09:30 | Outpatient (RCR) | payer MEDICARE, OTHER, SELFPAY ==
[2020-12-01 13:59] VITALS: BMI 38.4
--- NOTE | 2020-12-30 08:55 | PCM.PR.TP ---
General Information - General Information Gold Classification:: GOLD 2: Moderate Exercise - 90-Day Assessment - Physician Prescribed Exercise Modalities: Treadmill, NuStep, SciFit Frequency (days/week): 3 Duration (minutes): 30-45 Aerobic Exercise [30-60 min 3-7x/week]:: Progressing Target heart rate: 60-80% age predicted Elvira-13 - Home Exercise Home Exercise?: No Disease Management - 90-Day - Hypoxemia Reassessment: Demonstrates knowledge of O2 Rx with exercise - Medications Medication list reviewed:: Yes Taking medications 100% of the time:: Met Medication reassessment: Yes Pt demonstrates correct technique timing for MDI, Yes Pt demonstrates correct technique timing for DPI, Yes Pt demonstrates correct technique timing for NEB, Yes Pt demonstrates correct technique timing for spacer Psychosocial - 90-Day - Assessment Depression reassess: Management of stress: Met, Management of depression: Met, Practicing interventions: Met Tobacco - Initial Assessment Tobacco - 30-Day Assessment Tobacco - 60-Day Assessment Tobacco - 90-Day Assessment - Education Gave Education Materials For:: Tobacco Triggers, Pulmonary Disease, Risk Factors, Breathing Techniques, Medical Compliance, Pulmonary A&P, Exacerbation Signs & Symptoms, Stress & Relaxation Tobacco - Final Assessment Nutrition/Wt Mgmt - 90-Day - Weight Management Weight:: 118.841 kg Weight Goals Progress:: Progressing - seeing nutritional services Patient Health Questionnaire 90-Day Re-eval Assessment 1. Little interest or pleasure in doing things: More than half the days 2. Feeling down, depressed, or hopeless: More than half the days 3. Trouble falling or staying asleep, or sleeping too much: More than half the days 4. Feeling tired or having little energy: Nearly every day 5. Poor appetite or overeating: Nearly every day 6. Feeling bad about yourself -- or that you are a failure or have let yourself or your family down: Nearly every day 7. Trouble concentrating on things, such as reading the newspaper or watching television: Nearly every day 8. Moving or speaking so slowly that other people could have noticed. Or the opposite - being so fidgety or restless that you have been moving around a lot more than usual: Several days 9. Thoughts that you would be better off , or of hurting yourself in some way: Several days How difficult have these problems made it for you to do your work, take care of things at home, or get along with other people?: Very difficult Total Score: 20 Self-Efficacy 90-Day Re-eval Assessment We would like to know how confident you are in doing certain activities. Please select your confidence level for:: Select your confidence level for the following using the scale 1-10 where 1 is not at all confident and 10 is totally confident. Your score is the average of all 6 responses. Fatigue: How confident are you that you can keep the fatigue caused by your disease from interfering with the things you want to do? Physical Discomfort or Pain: How confident are you that you can keep the physical discomfort or pain of your disease from interfering with the things you want to do? Select Number: 6 Emotional Distress: How confident are you that you can keep the emotional distress caused by your disease from interfering with the things you want to do? Select Number: 5 Other Symptoms or Health Problems: How confident are you that you can keep other symptoms or health problems from interfering with the things you want to do? Select Number: 5 Different Tasks and Activities: How confident are you that you can do the different tasks and activities needed to manage your health condition so as to reduce your need to see a doctor? Select Number: 6 Medication: How confident are you that you can do things other than just taking medication to reduce how much your illness affects your everyday life? Select Number: 6 Nutrition Survey
== END 2021-01-19 23:59 ==
LOC: PR 09:30
PROVIDERS: PCP Internal Medicine; Referring Provider Internal Medicine; Visit Provider Internal Medicine
DX: J44.9 Chronic obstructive pulmonary disease, unspecified (principal); I27.20 Pulmonary hypertension, unspecified
CPT/HCPCS: 97150; G0424

== ENCOUNTER 2021-01-29 09:30 | Outpatient (RCR) | payer MEDICARE, OTHER, SELFPAY ==
[2021-01-20 00:34] VITALS: BMI 38.4
== END 2021-02-18 23:59 ==
LOC: PR 09:30
PROVIDERS: PCP Internal Medicine; Referring Provider Internal Medicine; Visit Provider Internal Medicine
DX: J44.9 Chronic obstructive pulmonary disease, unspecified (principal); I27.20 Pulmonary hypertension, unspecified
CPT/HCPCS: 97150; G0424

== ENCOUNTER 2021-02-08 14:37 | Outpatient (CLI) | payer MEDICARE, OTHER, SELFPAY ==
[2021-02-08 14:45] VITALS: BP 142/76; PULSE 74; RESP 18; TEMP 36.8; O2SAT 97; BMI 40.7
[2021-02-08] MEDS: 0.9% Saline Lock 10 ML Syringe IV (15:03)
[2021-02-08 15:35] VITALS: BP 120/66; PULSE 65; RESP 16; TEMP 36.9; O2SAT 98
[2021-02-08 16:43] VITALS: BP 133/75; PULSE 67; RESP 16; TEMP 36.8; O2SAT 98
== END 2021-02-08 16:45 | disposition home or self-care (01) ==
LOC: MS2OUT 14:37 → MS2 14:38
PROVIDERS: PCP Internal Medicine; Referring Provider Nurse Practitioner Adult Health; Visit Provider Nurse Practitioner Adult Health
DX: U07.1 COVID-19 (principal)
CPT/HCPCS: J7050; M0243; A4216; Q0244

== ENCOUNTER → 2021-02-16 | Outpatient (CLI) | payer MEDICARE, OTHER, SELFPAY ==
[2021-02-16 13:11] LABS: Bacteria 0 SEEN /hpf (None Seen); Mucous, Urine 0 SEEN /hpf (<or=2+); Squamous Epithelial Cells - UA 0 SEEN /hpf (5-10)
[2021-02-16 15:36] LABS: Color, Urine Yellow (Yellow); Glucose, Dipstick Normal (Normal); Ketone-Dipstick Negative (Negative); Leukocyte Esterase-Dipstick 500 /ul (Negative); Nitrite-Dipstick Negative (Negative); Occult Blood-Urine 250 /ul (Negative); Protein-Dipstick 30 mg/dl (Negative); Specific Gravity, Urine 1.015 (1.002-1.030); Urine Bilirubin Dipstick Negative (Negative); Urine Clarity Sl. Cloudy (Clear); Urine Urobilinogen Normal (Normal)
[2021-02-16 15:45] LABS: Red Blood Cells-Urine 10-25 SEEN /hpf (0-5); White Blood Cells 10-25 SEEN /hpf (0-5)
== END | disposition home or self-care (01) ==
LOC: LABSPEC 13:10
PROVIDERS: PCP Internal Medicine; Referring Provider Nurse Practitioner Family; Visit Provider Nurse Practitioner Family
DX: R30.0 Dysuria (principal)
CPT/HCPCS: 81001; 87086; 87088

== ENCOUNTER → 2021-03-01 12:16 | Outpatient (CLI) | payer MEDICARE, OTHER, SELFPAY ==
[2021-03-01 12:18] LABS: Bacteria 0 SEEN /hpf (None Seen); Mucous, Urine 0 SEEN /hpf (<or=2+); Red Blood Cells-Urine 0 SEEN /hpf (0-5)
[2021-03-01 14:40] LABS: Color, Urine Yellow (Yellow); Glucose, Dipstick Normal (Normal); Ketone-Dipstick Negative (Negative); Leukocyte Esterase-Dipstick 25 /ul (Negative); Nitrite-Dipstick Negative (Negative); Occult Blood-Urine Negative /ul (Negative); Protein-Dipstick Negative (Negative); Specific Gravity, Urine 1.015 (1.002-1.030); Urine Bilirubin Dipstick Negative (Negative); Urine Clarity Clear (Clear); Urine Urobilinogen Normal (Normal)
[2021-03-01 14:45] LABS: Squamous Epithelial Cells - UA 0-5 SEEN /hpf (5-10); White Blood Cells 0-5 SEEN /hpf (0-5)
[2021-03-01 14:47] LABS: ALB/GLOB Ratio 0.9 RATIO (0.9-2.4); AST(SGOT) 26 U/L (15-37); Alanine Aminotransfer ALT/SGPT 55 U/L (13-56); Albumin, Serum 3.5 g/dL (3.2-5.0); Alkaline Phosphatase 64 U/L (45-117); Anion Gap 7 (5-15); BUN 17 mg/dL (7-18); BUN/Creat Ratio 20.7 RATIO (10-20); Calcium,Total 9.7 mg/dL (8.5-10.1); Chloride 106 mmol/L (98-107); Creatinine, Serum 0.82 mg/dL (0.55-1.02); EST Glomerular Filtration Rate 74 mL/min (>60); Est Glom Filt Rate - Afr Amer 89 mL/min (>60); Globulin 4.1 g/dL (2.2-4.2); Glucose 102 mg/dL (74-106); Potassium 3.7 mmol/L (3.5-5.1); Protein, Total 7.6 g/dL (6.4-8.2); Sodium Level 139 mmol/L (136-145)
[2021-03-01 14:56] LABS: Microalbumin,Random Urine 6.1 mg/L (NO RANGE EST.); Microalbumin:Creatinine Ratio 6.8 mg/g CRE (<30 mg/g CRE)
== END ==
PROVIDERS: PCP Internal Medicine; Visit Provider Nurse Practitioner Family
DX: E11.9 Type 2 diabetes mellitus without complications (principal); N39.3 Stress incontinence (female) (male); R30.0 Dysuria
CPT/HCPCS: 36415; 80053; 81001; 82043; 82570; 87086; 87088

== ENCOUNTER 2021-03-22 15:37 | Outpatient (RCR) | payer MEDICARE, OTHER, SELFPAY ==
[2020-12-01 13:59] VITALS: BMI 38.4
== END 2021-03-22 23:59 | disposition home or self-care (01) ==
LOC: DC 15:37
PROVIDERS: PCP Internal Medicine; Visit Provider Internal Medicine
DX: E11.9 Type 2 diabetes mellitus without complications (principal); E78.5 Hyperlipidemia, unspecified; I27.20 Pulmonary hypertension, unspecified; E66.9 Obesity, unspecified; J44.9 Chronic obstructive pulmonary disease, unspecified; I10 Essential (primary) hypertension
CPT/HCPCS: 97803

== ENCOUNTER 2021-04-01 15:30 | Outpatient (RCR) | payer MEDICARE, OTHER, SELFPAY ==
--- NOTE | 2021-03-23 10:40 | HP.PTEVAL_ITS ---
Patient's Visit Information JERMAINE YEE is a 70 year old F referred to Physical Therapy by JOCY Du with a diagnosis of vertigo. Date of Evaluation: 03/23/21 Physical Therapist: Aristeo Quinonez, LUCIAT, OCS, CSCS - Visit Plan Frequency: 1-2x /Week Duration: 4-6 Weeks Plan: 1-2x/week for 2-4 weeks for. positional treatemnts in vestibular treatments. - Subjective Dizzy intermittently. has been on and off for about a year. Lying in bed(it is slightly elevated) especially turning to R she swirls for a little bit. 5 minutes. Bending over can cause it. Feels less steady walking. Turning to R while walking has been a problem with swirling. Was adjusted by Massiel 6 months ago and it helped completely. Sleeping is interrupted as she has a hard time gettting comfortable on R side. Activites at home are interrupted in tthat she cannot bend over safely or steadily. Basic ADLs: Takes care of and I with self care. Steps are OK. Hobbies are taking care of . Has not felt good in a year or more, not sure what started this. No falls. - Objective Walks in and out of PT I and safe, good balance. trasnfers I and steps with one rail I. cervical AROm rotation to 55 B and 25 ext. UE AROM WFL. - L hallpike bradly. + r Hallpike bradly for up torsional delayed onset 10 sec nystagmus. Treated with R Gal and then negative HD test. - Balance/Special Test Scores Functional Gait Assessment Score: 27 % Disability: 10.0000 Dizziness Score: 50 - Goals Goal 1:: Abolish dizzyness 100% Goal Time Frame: 2-4 Weeks Goal 2:: Roll and sleep on R side without symptoms. Goal Time Frame: 2-4 Weeks Goal 3:: Balance 28+/30 on FGA Goal Time Frame: 2-4 Weeks Goal 4:: <20 DHI Goal Time Frame: 2-4 Weeks - Rehabilitation Potential Physical Therapy Diagnosis: BPPV with positional changes Rehabilitation Potential: Good - Anticipated Interventions Patient/Client Instruction: Educate patient on: Condition, Plan of Care For the Purpose of:: To increase tolerance to activity/condition/position Comment: positional treatments. For the Purpose of:: To increase tolerance to activity/condition/position Thank you for the opportunity to evaluate your patient. For Medicare and Medicare HMO plans, please review the plan of care and approve it. It will need to be FAXED BACK to us at [phone] for Medicare purposes. For Medicare only, by signing this I certify the plan of care. Please let me know if there are questions or concerns regarding this plan of care. Physician Signature: Date:
--- NOTE | 2021-06-04 08:37 | HP.PT.NRP ---
JERMAINE YEE was seen in my office for initial evaluation on 03/23/21. The following Plan of Care was established for this patient: Initial Frequency: 1-2x /Week Initial Duration: 4-6 Weeks Patient/Client Instruction: Educate patient on: Condition, Plan of Care For the Purpose of:: To increase tolerance to activity/condition/position For the Purpose of:: To increase tolerance to activity/condition/position This patient was last seen in our office 04/01/21. Pertinent comments regarding their Physical therapy will appear below: Pt seen two visits plan of care and cancelled the last visit without rescheduling. at this point, it has been over two months and I will disocntinue due to nonattendance. At this point I will be discontinuing this patient from physical therapy. I would be happy to see this patient again in the future if found appropriate by the physician. Thank you! Aristeo Quinonez, DPT, OCS, CSCS Balance/Gait/Functional tests - Balance/Special Test Scores Functional Gait Assessment Score: 27 % Disability: 10.0000 Dizziness Score: 50
== END 2021-04-01 19:00 | disposition home or self-care (01) ==
LOC: PT 15:30
PROVIDERS: PCP Internal Medicine; Referring Provider Nurse Practitioner Family; Visit Provider Nurse Practitioner Family
DX: R42 Dizziness and giddiness (principal)
CPT/HCPCS: 97161; 97530

== ENCOUNTER → 2021-05-20 | Outpatient (CLI) | payer MEDICARE, OTHER, SELFPAY | END | disposition home or self-care (01) | LOC: LABSPEC 12:40 | PROVIDERS: PCP Internal Medicine; Visit Provider Physician Assistant Medical | DX: Z11.52 Encounter for screening for COVID-19 (principal) | CPT/HCPCS: 87635; U0003; U0005 ==

== ENCOUNTER 2021-06-21 13:55 | Outpatient (CLI) | payer MEDICARE, OTHER, SELFPAY ==
[2021-06-21 15:25] LABS: Absolute Lymphocyte Count 2.17 X10^3/uL (0.83-4.51); Absolute Neutrophil Count 4.5 X10^3/uL (2.0-7.7); Basophil# 0.06 X10^3/uL; Basophil% 0.8 % (0-1); Eosinophil# 0.18 X10^3/uL; Eosinophils% 2.4 % (0-5); Hematocrit 43.1 % (37-47); Hemoglobin 14.1 g/dL (12.0-15.0); Lymphocyte # 2.17 X10^3/ul (0.83-4.51); Lymphocyte % 29.1 % (19-41); Mean Corp Hgb Conc 32.7 g/dL (32-36); Mean Corpuscular Hgb 30.2 pg (27.0-32.0); Mean Corpuscular Volume 92.3 fL (81-99); Mean Platelet Vol. 10.4 fl (6.2-12.0); Monocyte# 0.54 X10^3/uL; Monocyte% 7.2 % (0-10); NRBC Flagged by Analyzer 0 % (0-5); Neutrophil # 4.48 X10^3/uL (2.7-7.7); Neutrophil % 60.2 % (47-70); Platelet Count 320 K/mm3 (150-450); RBC Distribution Width CV 12.8 % (11.6-14.6); RBC Distribution Width SD 42.9 fl (35.1-43.9); Red Blood Count 4.67 M/mm3 (4.2-5.4); White Blood Count 7.5 K/mm3 (4.4-11.0)
[2021-06-21 15:43] LABS: Anion Gap 8 (5-15); BUN 19 mg/dL (7-18); BUN/Creat Ratio 24.2 RATIO (10-20); Calcium,Total 9.7 mg/dL (8.5-10.1); Chloride 106 mmol/L (98-107); Creatinine, Serum 0.78 mg/dL (0.55-1.02); EST Glomerular Filtration Rate 77 mL/min (>60); Est Glom Filt Rate - Afr Amer 94 mL/min (>60); Glucose 125 mg/dL (74-106); Potassium 3.3 mmol/L (3.5-5.1); Sodium Level 139 mmol/L (136-145)
[2021-06-21 16:00] LABS: Vitamin B12 1049 pg/mL (211-911); Vitamin D,25 Hydroxy 42.4 ng/mL
== END 2021-06-21 23:59 | disposition short-term general hospital (02) ==
LOC: LAB.FUTURE 13:56 → BIMLAB 06-22 11:47
PROVIDERS: PCP Internal Medicine; Referring Provider Internal Medicine; Visit Provider Internal Medicine
DX: I10 Essential (primary) hypertension (principal); E55.9 Vitamin D deficiency, unspecified; F41.9 Anxiety disorder, unspecified; F32.9 Major depressive disorder, single episode, unspecified
CPT/HCPCS: 36415; 80048; 82306; 82607; 85025

== ENCOUNTER 2021-07-06 12:18 | Outpatient (CLI) | payer MEDICARE, OTHER, SELFPAY ==
--- NOTE | 2021-07-06 12:23 | CT_ITS ---
STUDY: LOW DOSE CT LUNG CANCER SCREENING REASON FOR EXAM: Female, 70 years old. Lung cancer screening -- 30 pk yr hx; former smoker; asymptomatic RADIATION DOSAGE (If Supplied By Facility): CTDIvol = ( 3.18 ) mGy, DLP = ( 123.52 ) mGycm TECHNIQUE: No contrast was administered. Low dose technique was utilized (average mAS-38 and kVp 120). 1.25 mm axial source images with a slice interval of 1.25-mm were reconstructed in lung windows. 2.5 mm axial source images with a slice interval of 2.5-mm were reconstructed in lung windows. 5.0 mm axial source images with a slice interval of 5.0-mm were reconstructed in soft tissue windows. Nodule measured using lung windows on PACS and/or independent workstation with automated measurement of minimum and maximum diameter. Nodule measurement reported as average diameter rounded to the nearest whole number. Growth is defined as an increase ins size of greater than 1.5 mm. COMPARISON: Comparison is made with prior study dated 12/01/2020. NODULES: Stable 4.2 mm well-defined nodule in the anterior medial aspect of the left upper lobe as seen on axial image #84. Emphysema: Mild degree of emphysematous changes. Stable mild scarring in the posterior medial segments of both lower lobes slightly more prominent on the right side. Endobronchial lesion: None Aorta: Atherosclerotic plaque formation of the aortic arch. Coronary arteries: No coronary artery calcification is seen. Heart: Unremarkable Pulmonary artery: Unremarkable Mediastinal nodes: Unremarkable Other chest and abdominal findings: CT/Low Dose CT Lung Screening IMPRESSION: Lung-RADS category 2 - Continue annual screening with LDCT in 12 months. IMPORTANT NOTES FOR USE: ACR Lung-RADS Version 1.1 Assessment Categories Release Date: 2018 Category: Coded 0-4 bases on nodule(s) with highest degree of suspicion. Negative screen is defined as categories 1 and 2; a positive screen is defined as categories 3 and 4. Category 3 and 4A nodules that are unchanged on interval CT should be coded as category 2, and individuals returned to screening in 12 months. Category 4X: Category 3 or 4 nodules with additional imaging findings that increase the suspicion of lung cancer, such as spiculation, GGN that doubles in size in 1 year, enlarged lymph notes, etc. Category Modifiers: S (significant finding unrelated to lung cancer) Electronically Signed: Kyrie Dumas MD at 12:52 EST ,
== END 2021-07-06 23:59 | disposition home or self-care (01) ==
LOC: CT 12:20
PROVIDERS: PCP Internal Medicine; Referring Provider Nurse Practitioner Family; Visit Provider Nurse Practitioner Family
DX: Z12.2 Encounter for screening for malignant neoplasm of respiratory organs (principal); Z87.891 Personal history of nicotine dependence
CPT/HCPCS: 71271

== ENCOUNTER 2021-08-05 09:02 | Outpatient (CLI) | payer MEDICARE, OTHER, SELFPAY ==
--- NOTE | 2021-08-05 09:03 | BI_ITS ---
MAMMOGRAPHY - BILATERAL SCREENING 3-D TOMOSYNTHESIS REASON FOR EXAM: Female, 70 years old. Breast Cancer Screening PERTINENT HISTORY: No significant family history. TECHNIQUE: 2-D mammograms and 3-D Tomosynthesis of the breast (s) were performed. CAD was performed. COMPARISON: 08/04/2020 FINDINGS: The breast composition is heterogeneously dense that can obscure small breast masses. Scattered benign calcifications are seen. No dense spiculated masses or suspicious microcalcifications are identified. No architectural distortion is identified. There is no skin thickening or retraction. There has been no significant change since the prior study. BI/SCRN MAMM (CAD)W/NAVEEN BILAT IMPRESSION: No mammographic signs of malignancy. Routine yearly mammograms recommended. ASSESSMENT CATEGORY: BIRADS Category 1: Negative. A letter regarding these results will be sent to the patient by the facility within 30 days. FOLLOW UP RECOMMENDATION: Yearly follow up mammogram recommended. (A) Approximately 10% of breast cancers are not detected by mammography. A normal mammogram should not delay biopsy of a clinically suspicious abnormality. Electronically Signed: Ar Prather MD at 10:03 EDT ,
== END 2021-08-05 23:59 | disposition home or self-care (01) ==
LOC: OPBI 09:02
PROVIDERS: PCP Internal Medicine; Visit Provider Internal Medicine
DX: Z12.31 Encounter for screening mammogram for malignant neoplasm of breast (principal)
CPT/HCPCS: 77063; 77067

== ENCOUNTER 2021-08-25 12:00 | Outpatient (RCR) | payer MEDICARE, OTHER, SELFPAY ==
--- NOTE | 2021-07-14 15:36 | HP.PTEVAL_ITS ---
Patient's Visit Information JERMAINE YEE is a 70 year old F referred to Physical Therapy by Dr. Martin Padilla DO with a diagnosis of R hip pain. Date of Evaluation: 07/14/21 Physical Therapist: Seun Gaffney, PT, ATC - Visit Plan Frequency: 2-3x /Week Duration: 4 Weeks Plan: R LE stretching and strengthening, balqnce and proprio, core strengthening, nustep, and HEP - Subjective Pt reports R hip for approximately 1 1/2 years. Pt reports the pain is intermittent, and occurs when she rotates on her R LE. Pt reports she has the most pain on the anterior and lateral aspect of her R hip. Pt reports she has stumbled many times as a result of this, but has never fallen in the past. Pt reports she is here today to make sure she remains mobile and doesn't end up disabled. Pt reports No tingling or numbness in LE's at this time, but notes she has had toe numbness since having COVID this past year. Pt reports prolonged ambulation , bending forward to pick something up, and ex's all tend to increase her pain. Pt reports her goal is to get relief of R hip pain in order to be able to help take care of her . - Pain R hip pain Pain Intensity (Out of 10): 0 Pain Intensity Range: 10 - Objective Neuro: B LE sensation is WNL to light touch. B patellar reflex= 1/3. Palpation: Pt is very sore along the hip flexor muscle group as well as along the greater trochanter region. No obvious deformity at this time. ROM: B LE's are WFL. MMT: R hip flex, IR,ER = 4-/5 and are painful. All other motions are grossly 4+/5 throughout - Balance/Special Test Scores Lower Extremity Functional Score: 41 - Goals Goal 1:: Decrease R hip pain x 50% to aid with IADL's Goal Time Frame: 4-6 Weeks Goal 2:: Increase R hip flexibility x 1 grade to aid with decreasing R hip pain Goal Time Frame: 4-6 Weeks Goal 3:: Increase R hip strength x 1 grade to aid with IADL's Goal Time Frame: 4-6 Weeks Goal 4:: I with HEP Goal Time Frame: 4-6 Weeks - Rehabilitation Potential Physical Therapy Diagnosis: Pt has R hip pain, weakness, and difficulty with forward bending activity secondary to R hip tendonopathy Rehabilitation Potential: Good - Anticipated Interventions Patient/Client Instruction: Educate patient on: Condition, Plan of Care For the Purpose of:: To improve self management Therapeutic Exercise to Include: Strength training, Endurance training, Flexibilty training, Dynamic Lumbar Stabilization For the Purpose of:: To decrease pain, To increase ROM, To improve muscle performance and motor function Cryotherapy (ice pack, ice massage): Yes For the Purpose of:: To decrease pain Thank you for the opportunity to evaluate your patient. For Medicare and Medicare HMO plans, please review the plan of care and approve it. It will need to be FAXED BACK to us at [phone] for Medicare purposes. For Medicare only, by signing this I certify the plan of care. Please let me know if there are questions or concerns regarding this plan of care. Physician Signature: Date:
--- NOTE | 2021-08-25 12:33 | HP.PTREVAL ---
Dr. Martin Padilla, DO, It has been my pleasure to treat JERMAINE YEE over the last 9 visits for R hip pain. Please see the progress note below for an update on the physical therapy plan of care! Subjective: I am sore all over Objective/Function: R hip pain now 5/10, but the catching is much less now. R hip flexibility is WFL now. R hip strength is 5/5 with exception to hip flexion 4/5. Pt is I with HEP Plan Plan: Recheck in one month Balance/Gait/Functional tests - Balance/Special Test Scores Lower Extremity Functional Score: 30 Goals Goal 1:: Decrease R hip pain x 50% to aid with IADL's Goal Time Frame: 4-6 Weeks Goal Progress: Progressing Goal 2:: Increase R hip flexibility x 1 grade to aid with decreasing R hip pain Goal Time Frame: 4-6 Weeks Goal Progress: Goal Met Goal 3:: Increase R hip strength x 1 grade to aid with IADL's Goal Time Frame: 4-6 Weeks Goal Progress: Goal Met Goal 4:: I with HEP Goal Time Frame: 4-6 Weeks Goal Progress: Goal Met Anticipated Interventions Patient/Client Instruction: Educate patient on: Condition, Plan of Care For the Purpose of:: To improve self management Therapeutic Exercise to Include: Strength training, Endurance training, Flexibilty training, Dynamic Lumbar Stabilization For the Purpose of:: To decrease pain, To increase ROM, To improve muscle performance and motor function Cryotherapy (ice pack, ice massage): Yes For the Purpose of:: To decrease pain Please do not hesitate to contact me at [phone] by phone or if you have questions or concerns regarding this new plan of care! Sincerely, Seun Gaffney, PT, ATC
--- NOTE | 2021-11-04 15:41 | HP.PT.NRP ---
JERMAINE YEE was seen in my office for initial evaluation on 07/14/21. The following Plan of Care was established for this patient: Initial Frequency: 2-3x /Week Initial Duration: 4 Weeks Patient/Client Instruction: Educate patient on: Condition, Plan of Care For the Purpose of:: To improve self management Therapeutic Exercise to Include: Strength training, Endurance training, Flexibilty training, Dynamic Lumbar Stabilization For the Purpose of:: To decrease pain, To increase ROM, To improve muscle performance and motor function Cryotherapy (ice pack, ice massage): Yes For the Purpose of:: To decrease pain This patient was last seen in our office . Pertinent comments regarding their Physical therapy will appear below: Pt was treated for 9 PT visits for R hip pain through the date of 08/25/21. Pt has not returned through todays date and is discontinued at this time At this point I will be discontinuing this patient from physical therapy. I would be happy to see this patient again in the future if found appropriate by the physician. Thank you! Seun Gaffney, PT, ATC Balance/Gait/Functional tests - Balance/Special Test Scores Lower Extremity Functional Score: 30
== END 2021-08-25 19:00 | disposition home or self-care (01) ==
LOC: PT 12:00
PROVIDERS: PCP Internal Medicine; Referring Provider Orthopaedic Surgery; Visit Provider Orthopaedic Surgery
DX: M25.551 Pain in right hip (principal)
CPT/HCPCS: 97110; 97161; 97164

== ENCOUNTER → 2021-10-15 | Outpatient (CLI) | payer MEDICARE, OTHER, SELFPAY ==
[2021-10-15 12:36] LABS: Anion Gap 6 (5-15); BUN 14 mg/dL (7-18); BUN/Creat Ratio 15.6 RATIO (10-20); Calcium,Total 9.6 mg/dL (8.5-10.1); Chloride 106 mmol/L (98-107); Cholesterol 124 mg/dL (200); EST Glomerular Filtration Rate 66 mL/min (>60); Est Glom Filt Rate - Afr Amer 80 mL/min (>60); Glucose 122 mg/dL (74-106); High Density Lipoprotein 43 mg/dL; Potassium 3.6 mmol/L (3.5-5.1); Sodium Level 139 mmol/L (136-145); Triglycerides 143 mg/dL; Very Low Density Lipoprotein 29 mg/dL (5-40)
== END | disposition home or self-care (01) ==
LOC: EPLAB 08:40
PROVIDERS: PCP Internal Medicine; Referring Provider Internal Medicine; Visit Provider Internal Medicine
DX: I10 Essential (primary) hypertension (principal); E78.5 Hyperlipidemia, unspecified
CPT/HCPCS: 36415; 80048; 80061